=== PATIENT | female | born 1960 | race Caucasian/White ===

== ENCOUNTER 2022-10-24 14:35 | Outpatient (OUT) | payer MEDICARE, SELFPAY ==
--- NOTE | 2022-10-24 16:23 | MISC_ITS ---
PROCEDURE DATE: ??10/24/2022 PROCEDURE:? Trigger point injection right gluteus medius muscle. PREOPERATIVE DIAGNOSIS:? Pain secondary to myofascial spasm, right gluteus medius muscle. POSTOPERATIVE DIAGNOSIS:? Pain secondary to myofascial spasm, right gluteus medius muscle. SOLUTION USED FOR INJECTION:? 2 mL of 2% lidocaine, 2 mL of 0.25% Marcaine, 10 mg of Kenalog, total of 5 mL and 2 mL used for the injection. IMMEDIATE COMPLICATIONS:? None. PROCEDURE:? After informed consent was obtained from the patient, placed in the prone position.? Skin overlying the area was prepped with alcohol.? A 25 gauge 1 ? inch needle was inserted into the substance of the right gluteus medius, approximately 6 cm from midline.? After encountering a positive twitch response, subsequently 2 mL of solution was injection, after test injection.? No indication of intravascular or intraneural needle tip placement or injection.? Patient reports reduction of pain symptoms post procedurally. BAYRON
== END 2022-10-24 14:36 ==
PROVIDERS: PCP Nurse Practitioner Family; Visit Provider Anesthesiology Pain Medicine
DX: M62.838 Other muscle spasm (principal)
CPT/HCPCS: 20552

== ENCOUNTER 2023-02-20 14:37 | Outpatient (OUT) | payer MEDICARE, SELFPAY ==
--- NOTE | 2023-02-20 | CONS_ITS ---
PROCEDURE DATE: ??02/20/2023 PROCEDURE:? Right gluteus medius trigger point injection performed in the office on an outpatient basis. PREOPERATIVE DIAGNOSIS:? Pain secondary to right L5 radiculopathy complicated by myofascial spasm, right gluteus medius muscle. POSTOPERATIVE DIAGNOSIS:? Pain secondary to right L5 radiculopathy complicated by myofascial spasm, right gluteus medius muscle. IMMEDIATE COMPLICATIONS:? None SOLUTION USED FOR INJECTION:? 2 mL of 2% lidocaine, 2 mL of 0.25% Marcaine and 10 mg of Kenalog, total of 5 mL, and 2 mL used for the injection at the site. PROCEDURE:? After informed consent was obtained from the patient, placed in the prone position.? Skin overlying the area was prepped with alcohol.? A 25 gauge, 1 ?? needle inserted into the right gluteus medius muscle.? After encountering < >, there was a positive twitch response, at which point we injected 2 mL of solution.? No indication of intravascular or intraneural needle tip placement or injection.? Patient reports almost 100% reduction in her pain symptoms post procedurally. BAYRON
--- NOTE | 2023-02-20 | CONS_ITS ---
CONSULTATION DATE: ??02/20/2023 TO:? Dr. Rice HISTORY:? Patient presented to the office complaining of 3-710 pain in her right lower back, right buttock area, right lower extremity.? She reports the pain as being sharp in character, with a deep aching component, increased with activities such as standing, walking and performing transitioning maneuvers.? She feels most comfortable in the semi-recumbent position.? Denies any change in bowel and bladder habits or new sensorimotor changes in the lower extremities. EXAM:? Her examination is notable for patient having hypoesthesia along the right L5 dermatome, 3/5 strength of the right extensor hallucis muscle.? Straight leg raise is positive on the right side at 90 degrees with a depressed right Achilles reflex.? She has no clinical signs consistent with myelopathy on today?s visit.? She has severe myofascial spasm of the right gluteus medius muscle. IMPRESSION:? Our impression is patient with chronic pain secondary to right L5 radiculopathy with weakness.? She has undergone physical therapy in the past which, despite this, she had progressive pain and numbness of her right lower extremity.? RECOMMENDATIONS:? I have recommended that she undergo a lumbosacral MRI without contrast.? I have increased the Baclofen 10 mg pills, one pill t.i.d. as tolerated, and to proceed with a trigger point injection of the right gluteus medius muscle on today?s visit.? We have gone over the details of the procedure, as well as discussion of side effects and medication using increasing dose of baclofen.? All her questions were answered.? She agrees to proceed with the outlined plan. Also, of note is that status post her right gluteus medius trigger point injection, she reports having at least an 80% reduction in her pain symptoms.? As part of providing excellent, safe, comprehensive care, the following was completed at our patient's visit: 1. A medication reconciliation and review to ensure accurate knowledge of current/active medications, including asking our patients to inform us about any [id number] medications or herbal remedies/nutritional supplements/alternative remedies. 2. A review to specifically ensure our patients have had annual screening for: elevated body mass index (BMI, see intake chart for exact total), tobacco use, screening for depression, and screening for unhealthy alcohol use.? When screening is concerning, patients are provided with education and the specific recommendation to discuss the concerning health issue and treatment options with their primary care provider. BAYRON
== END 2023-02-20 14:38 | disposition home or self-care (01) ==
PROVIDERS: PCP Family Medicine; Visit Provider Nurse Practitioner
DX: M54.16 Radiculopathy, lumbar region (principal); M62.838 Other muscle spasm; G89.29 Other chronic pain; R53.1 Weakness
CPT/HCPCS: 20552

== ENCOUNTER 2023-02-27 10:46 | Outpatient (RCR) | payer MEDICARE, SELFPAY | END 2023-03-17 15:59 | disposition home or self-care (01) | LOC: PT 10:46 | PROVIDERS: PCP Family Medicine; Visit Provider Anesthesiology Pain Medicine | DX: M54.16 Radiculopathy, lumbar region (principal) | CPT/HCPCS: 97035; 97110; 97140; 97163; G0283 ==

== ENCOUNTER 2023-04-26 12:28 | Outpatient (OUT) | payer MEDICARE, SELFPAY ==
--- NOTE | 2023-04-26 | MR_ITS ---
[address] [address] Patient Name: MARY ESTRADA MRN: [id number] date: 1960 Sex: F Assigned Patient Location: MRI Current Patient Location: MRI Accession/Order Number: [id number] Exam Date: 04/26/2023 12:45 Report Date: 04/26/2023 14:04 At the request of: TATE HAMMER Procedure: MR lumbar spine wo con EXAM: MRI of the lumbar spine without IV gadolinium contrast. REASON FOR EXAM: lumbar neuritis, chronic lumbar pain COMPARISON: CT scan dated 03/23/2021 FINDINGS: No lumbar spine fractures, acute malalignment or acute abnormal marrow signal. No spinal canal mass, hematoma or fluid collection. No substantial posterior disc protrusions. Mild L5-S1 disc space narrowing. No spinal canal stenoses. Mild right L5-S1 neural foraminal stenosis. No other substantial neural foraminal stenoses. Mild right hydroureteronephrosis. Left kidney is not visualized. Partially visualized very large hepatic cyst measuring up to at least 14 cm. Remainder unremarkable. MR/MR lumbar spine wo con IMPRESSION: 1. No acute lumbar spine abnormalities. 2. No moderate or high-grade spinal canal or neural foraminal stenoses. 3. Mild right hydroureteronephrosis. 4. Very large hepatic cyst is partially visualized and measures up to at least 14 cm where visible. Electronically authenticated by: JOSE ALBERTO IVEY Date: 04/26/2023 14:04
== END 2023-04-26 12:29 | disposition home or self-care (01) ==
LOC: MRI 12:28
PROVIDERS: PCP Family Medicine; Visit Provider Anesthesiology Pain Medicine
DX: M54.16 Radiculopathy, lumbar region (principal)
CPT/HCPCS: 72148

== ENCOUNTER 2025-03-31 18:13 | Emergency (ER) | payer MEDICARE, SELFPAY ==
--- OUTSIDE RECORDS SUMMARY | 2018-08-05 06:37 | XMS_ITS | Continuity of Care Document ---
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 [address], [place], [id number], [place]. tel:[phone] Family History Family Member Type Diagnosis Age At Onset No Information Payers Payer name Insurance type Covered constitution party ID Authoriza tion(s) No Information Social History Type Description Quantity Date Captured Comments Sex Female Smoking Status No Information Sexual Orientation Don't Know Gender Identity Female Chief Complaint And Reason For Visit No Information Reason For Referral Reason For Referral No Information History Of Present Illness Encounter Date Complaint History Of Prese nt Illness No Information Functional Status Date Functional Assessmen t No Information Instructions Date Instruction Additional Infor mation No Information Assessments Type Assessment Date No Information Patient Care Teams Name Effective Dates (start - stop) Status Members No Information
[2025-03-31] VITALS (42 sets, daily range): BP systolic 111–166; BP diastolic 63–100; PULSE 65–121; TEMP 36.6; O2SAT 88–97; BMI 30.3
--- NOTE | 2025-03-31 18:29 | CT_ITS ---
The [address] [address] Patient Name: MARY ESTRADA MRN: [id number] date: 1960 Sex: F Assigned Patient Location: ER Current Patient Location: ED.MAIN Accession/Order Number: [id number] Exam Date: 03/31/2025 19:15 Report Date: 03/31/2025 19:52 At the request of: TINY HOUSER DO Procedure: CT abdomen pelvis wo con CT ABDOMEN AND PELVIS WITHOUT INTRAVENOUS CONTRAST: CLINICAL HISTORY: vomiting, generalized abdominal pain, h/o SBO COMPARISON: 03/23/2021 TECHNIQUE: Spiral images were obtained through the abdomen and pelvis without intravenous contrast. This CT exam was performed using one or more following dose reduction techniques: Automated exposure control, adjustment of the mA and/or kV according to patient size, or use of iterative reconstruction technique. FINDINGS: Lung Bases: [No focal opacity] Organs:Right hepatic cyst. Fatty liver.[Cholecystectomy. Spleen, adrenals, kidneys pancreas unchanged. Right kidney pelvis and ureteral thickening noted likely chronic finding. GI: Dilated fluid-filled loops of bowel with congested mesentery suggestive of small bowel obstruction. Transition point is not identified. Distal colonic diverticulosis noted.[ Pelvis:[Bladder unremarkable. Uterus grossly unremarkable.] Peritoneum/Retroperitoneum:Mild to moderate plaque involving the nonaneurysmal aorta. No free air or fluid.[ Abd wall/Bones:Degenerative changes. No suspicious osseous lesion.[ CT/CT abdomen pelvis wo con IMPRESSION: Dilated fluid-filled loops of small bowel suggestive of small bowel obstruction. Transition point not identified. Urothelial thickening right renal pelvis and ureter noted similar prior examination. This could be infectious inflammatory or related to chronic scarring. Impression dictated by: Peter Harris M.D. 03/31/2025 7:52 PM Dictation Location: [place] [address] Electronically authenticated by: [id number] Y Date: 03/31/2025 19:52
--- NOTE | 2025-03-31 18:29 | ECG_ITS ---
The 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 Measurements Intervals [place] Rate: 109 P: 20 TN: 130 QRS: 36 QRSD: 78 T: 200 QT: 308 QTc: 372 Interpretive Statements 1120 Sinus tachycardia 4564 Twave abnormality, possible lateral ischemia 4664 Twave abnormality, possible inferior ischemia 9150 abnormal ECG Compared to ECG 07/18/2020 19:32:24 Possible ischemia now present Sinus rhythm no longer present Electronically Signed On 03-31-2025 19:37:40 EST by MARTITA ROSS M.D.
--- NOTE | 2025-03-31 18:34 | ED.GENADUL1 ---
HPI HPI - General Adult General Chief complaint: Abdominal Pain Stated complaint: VOMITING FOR 3 DAYS/ READY TO PASS OUT Time Seen by Provider: 03/31/25 18:20 Source: patient Mode of arrival: walk-in Limitations: no limitations History of Present Illness HPI narrative: Patient is a 64-year-old female presenting to the emergency department for evaluation of vomiting. Patient states that over the last 3 days she has been having persistent vomiting and generalized abdominal pain. She cannot hold down any foods or liquids. She cannot take her medications because she has been vomiting so much. She states her last bowel movement was 3 days ago. She has not having any bowel movements today or passing any gas. She states she has a history of bowel obstruction 8 years ago. She also states she has 1 kidney, left with a history of CKD. She also has history of Parkinson disease and diabetes. She denies any chest pain or shortness of breath. Related Data Home Medications ?Medication ?Instructions ?Recorded ?Confirmed atorvastatin 40 mg tablet 40 mg PO DAILY 02/21/23 02/21/23 baclofen 10 mg tablet 10 mg PO TID 02/21/23 02/21/23 gabapentin 100 mg capsule 100 mg PO BID 02/21/23 02/21/23 lisinopril 20 mg tablet 25 mg PO DAILY 02/21/23 02/21/23 metformin 1,000 mg tablet 1,000 mg PO BID 02/21/23 02/21/23 ondansetron 4 mg disintegrating 4 mg PO Q6H 02/21/23 02/21/23 tablet prazosin 2 mg capsule 2 mg PO QPM 02/21/23 02/21/23 ropinirole 0.5 mg tablet 0.75 mg PO DAILY 02/21/23 02/21/23 Allergies Allergy/AdvReac Type Severity Reaction Status Date / Time Penicillins Allergy Unknown Verified 02/21/23 07:56 Opioid HPI Opioid Management Most Recent Opioid Data: Last Pain Scale 8 Today, 18:36 Last MAR Pain Assessment Today, 18:36 Review of Systems ROS Status of ROS 10 or more systems reviewed and unremarkable except as noted in history and below PFSH PFSH Social History Little interest or pleasure in doing things: not at all Feeling down, depressed, or hopeless: not at all Exam Narrative Exam Narrative: CONSTITUTIONAL: Patient appears in acute distress, nauseous and holding an emesis basin, answering questions and follow commands appropriately SKIN: Was warm and mildly diaphoretic. EYES: No scleral icterus. EARS, NOSE, THROAT: Dry mucous membranes. RESPIRATORY: Clear to auscultation bilaterally, no wheezes, crackles, or stridor, no use of accessory muscles CARDIOVASCULAR: Tachycardic rate and regular rhythm. There is no S3, S4, murmur, rub. GASTROINTESTINAL: Abdomen is generally tender to palpation throughout. She is distended. No rebound tenderness or guarding. MUSCULOSKELETAL: No peripheral edema. Pill-rolling tremor. NEUROLOGIC: Patient is awake and alert. Facies were symmetrical. Constitutional Vital Signs, click to edit/add: Last Vital Signs Temp 97.8 F 03/31/25 18:17 Pulse 121 H 03/31/25 18:17 Resp 18 03/31/25 18:17 BP 160/100 H 03/31/25 18:17 Pulse Ox 88 L 03/31/25 18:50 O2 Del Method Room Air 03/31/25 18:50 O2 Flow Rate 2 03/31/25 18:50 Course Vital Signs Vital signs: Vital Signs Temperature 97.8 F 03/31/25 18:17 Pulse Rate 121 H 03/31/25 18:17 Respiratory Rate 18 03/31/25 18:17 Blood Pressure 160/100 H 03/31/25 18:17 Pulse Oximetry 94 L 03/31/25 18:17 Oxygen Delivery Method Room Air 03/31/25 18:17 Temperature 97.8 F 03/31/25 18:17 Pulse Rate 121 H 03/31/25 18:17 Respiratory Rate 18 03/31/25 18:17 Blood Pressure 160/100 H 03/31/25 18:17 Pulse Oximetry 88 L 03/31/25 18:50 Oxygen Delivery Method Room Air 03/31/25 18:50 Oxygen Delivery Flow Rate 2 03/31/25 18:50 Medical Decision Making MDM Narrative Medical decision making narrative: Patient is a 64-year-old female presenting to the emergency department with 3-day history of vomiting and generalized abdominal pain. Her vital signs on arrival were significant for hypertension and tachycardia, otherwise within normal limits. She is afebrile and hemodynamically stable. Differential diagnose includes SBO, diverticulitis, perforated viscus, ACS, appendicitis, or other acute intra-abdominal pathologies. IV was established and laboratory studies were obtained. CT abdomen/pelvis with IV contrast was ordered. She was given 1 L bolus normal saline, IV Zofran, and IV Dilaudid for symptomatic treatment. 12 Lead EKG: Sinus tachycardia at a rate of 109. Normal axis. No ST segment elevations. There are T wave inversions and ST segment depressions throughout the inferiolateral leads QRS, AR, and QTc interval within normal limits. No prior EKG for comparison. Final impression: Sinus tachycardia with ST segment depressions, concerning for ischemia. No evidence of STEMI. Patient will be signed out to Dr. Corley pending laboratory studies and CT abdomen/pelvis. FINAL IMPRESSION: #Acute abdominal pain, rule out small bowel obstruction DISPOSITION: Signed out to oncoming ED physician CONDITION: Fair Lab Data Labs: Lab Results 03/31/25 Range/Units 18:25 WBC 11.7 H (4.0-11.0) 10^3/uL RBC 5.18 (4.20-5.40) 10^6/uL Hgb 15.9 (12.0-16.0) g/dL Hct 48.2 H (36.0-48.0) % MCV 93.1 (81.0-99.0) fL MCH 30.7 (26.7-34.0) pg MCHC 33.0 (29.9-35.2) g/dL RDW 14.1 (11.0-15.0) % Plt Count 375 (150-450) 10^3/uL MPV 10.3 (9.5-13.5) fL Neut % (Auto) 62.0 (43.0-75.0) % Lymph % (Auto) 27.9 (20.5-60.0) % Todd % (Auto) 9.1 (1.7-12.0) % Eos % (Auto) 0.4 L (0.9-7.0) % Baso % (Auto) 0.3 (0.2-2.0) % Neut # (Auto) 7.3 H (1.4-6.5) 10^3/uL Lymph # (Auto) 3.3 (1.2-3.8) 10^3/uL Todd # (Auto) 1.1 H (0.3-0.8) 10^3/uL Eos # (Auto) 0.1 (0.0-0.7) 10^3/uL Baso # (Auto) 0.0 (0.0-0.1) 10^3/uL Abs Immat Gran (auto) 0.03 (0.00-0.03) 10^3/uL Imm/Tot Granulo (auto) 0.3 (0.0-0.5) % Sodium 140 (136-145) mmol/L Potassium 4.3 (3.5-5.1) mmol/L Chloride 98 (98-107) mmol/L Carbon Dioxide 25.0 (21.0-32.0) mmol/L Anion Gap 21.3 BUN 26.0 H (7.0-18.0) mg/dL Creatinine 1.64 H (0.55-1.02) mg/dL Est GFR ( Amer) 38 L (>=60 mL/min/1.73m^2) Est GFR (Non-Af Amer) 32 L (>=60 mL/min/1.73m^2) BUN/Creatinine Ratio 15.9 Glucose 221 H (74-106) mg/dL Calcium 10.4 H (8.5-10.1) mg/dL Total Bilirubin 0.7 (0.2-1.0) mg/dL AST 24 (15-37) U/L ALT 17 (14-59) U/L Alkaline Phosphatase 71 (46-116) U/L Troponin I High Sens 6.6 (4.0-51.3) pg/mL Total Protein 9.2 H (6.4-8.2) g/dL Albumin 4.2 (3.4-5.0) g/dL Globulin 5.0 g/dL Albumin/Globulin Ratio 0.8 Discharge Plan Discharge Patient Disposition: Still a Patient
[2025-03-31 18:36] LABS: Hematocrit 48.2 % (36.0-48.0); Hemoglobin 15.9 g/dL (12.0-16.0); Immature Granulocytes Abs Auto 0.03 10^3/uL (0.00-0.03); Immature Granulocytes Pct Auto 0.3 % (0.0-0.5); Lymphocytes Absolute Auto 3.3 10^3/uL (1.2-3.8); Mean Corpuscular HGB Conc 33.0 g/dL (29.9-35.2); Mean Corpuscular Hemoglobin 30.7 pg (26.7-34.0); Mean Corpuscular Volume 93.1 fL (81.0-99.0); Platelet Count 375 10^3/uL (150-450); Red Blood Count 5.18 10^6/uL (4.20-5.40); White Blood Count 11.7 10^3/uL (4.0-11.0)
[2025-03-31] MEDS: HYDROMORPHONE HCL 1 MG/ML CARTRIDGE IV ×2 (18:36→23:55)
[2025-03-31] MEDS: 0.9 % SODIUM CHLORIDE 1,000 ML 1000 ML IV (18:36)
[2025-03-31 18:51] LABS: Alanine Aminotransferase 17 U/L (14-59); Albumin Globulin Ratio 0.8; Albumin Level 4.2 g/dL (3.4-5.0); Alkaline Phosphatase 71 U/L (46-116); Anion Gap 21.3; Aspartate Amino Transferase 24 U/L (15-37); Blood Urea Nitrogen 26.0 mg/dL (7.0-18.0); Calcium 10.4 mg/dL (8.5-10.1); Carbon Dioxide 25.0 mmol/L (21.0-32.0); Chloride 98 mmol/L (98-107); Estimated GFR (African America 38 (>=60 mL/min/1.73m^2); Estimated GFR (Non-African Ame 32 (>=60 mL/min/1.73m^2); Globulin 5.0 g/dL; Glucose 221 mg/dL (74-106); Potassium 4.3 mmol/L (3.5-5.1); Sodium 140 mmol/L (136-145); Total Protein 9.2 g/dL (6.4-8.2)
--- OUTSIDE RECORDS SUMMARY | 2025-03-31 19:32 | XMS_ITS | CCD ---
Author Organization [facility] Care Team Providers Care Development Writer Name Role Phone PERALTA ., DR JANEY Tolliver Admitting Unavailable PERALTA ., DR JANEY Tolliver Attending Unavailable [facility] Primary [facility] Unavailable BERMUDEZ .INEZ Consulting Unavailable PERALTA ., DR JANEY Tolliver Admitting Unavailable PERALTA ., DR JANEY Tolliver Attending Unavailable [facility]available PERALTA ., DR JANEY Tolliver Consulting Unavailable HOLA ROBLES Consulting Unavailable LAKSHMIPATHY ., NARENDJOELLE Consulting Wilda vailable PERALTA ., DR JANEY Tolliver Admitting Unavailable PERALTA ., DR JANEY Tolliver Attending Unavailable LAKSHMIPATHY ., NARENDJOELLE Consulting Wilda vailable [facility] Primary Care Unavailable HALKER .MAY Consulting Unavailable NICHOLAS, LIZZIE Admitting Unavailable NICHOLAS, LIZZIE Attending Unavailable NICHOLAS, LIZZIE Primary Care Unavailable NICHOLAS, LIZZIE Admitting Unavailable NICHOLAS, LIZZIE Attending Unavailable NICHOLAS, [facility] Primary Care Unavailable LIZZIE PETERSON Consulting Unavailable NICHOLAS, LIZZIE Primary Care Unavailable PAY ., DR MATUTE Admitting Unavailable PAY ., DR MATUTE Attending Unavailable SARAH, DR SHELLEY Sr Consulting Unavailable PAY ., DR MATUTE Consulting Unavailable OSBALDOCHNY .JAIME Consulting Unavailabl e PERALTA ., DR JANEY Tolliver Admitting Unavailable PERALTA ., DR JANEY Tolliver Attending Unavailable BERMUDEZ .INEZ Consulting Unavailable [facility] Primary Care Unavailable [facility] Care Unavailable PERALTA ., DR JANEY Tolliver Consulting Unavailable LAKSHMIPATHY ., NARENDJANETATH Admitting Wilda vailable LAKSHMIPATHY ., NARDARIUSATH Attending Wilda vailable [facility] Consulting Unavailable LAKSHMIPATHY ., NARENDRANATH Consulting Wilda vailable MANDONA, PADMA Consulting Unavailable Sanchez Rice Primary Care Physician [phone] MD Sanchez Rice Referring Unavailable MD Sanchez Rice Attending Unavailable MD Sanchez Rice Admitting Unavailable MD Sanchez Rice Attending Unavailable MD Sanchez Rice Attending Unavailable MD Sanchez Rice Attending Unavailable MD Sanchez Rice Attending Unavailable MD Sanchez Rice Attending Unavailable MD Sanchez Rice Attending Unavailable MD Sanchez Rice Attending Unavailable MD Sanchez Rice Attending Unavailable MD Sanchez Rice Attending Unavailable MD Sanchez Rice Attending Unavailable MD Sanchez Rice Admitting Unavailable MD Sanchez Rice Attending Unavailable MD Sanchez Rice Admitting Unavailable MD Sanchez Rice Attending Unavailable MD Sanchez Rice Attending Unavailable REGULO ROSA Attending Unavailable REGULO ROSA Attending Unavailable NORA SOLOMON Attending Unavailable Sanchez Rice MD Primary Care Provider Sanchez Rice MD Primary Care Provider Abram, STORE PRODUCT DEMONSTRATOR Julianna L Attending Unavailable Abram, STORE PRODUCT DEMONSTRATOR Julianna L Admitting Unavailable Abram, STORE PRODUCT DEMONSTRATOR Julianna L Attending Unavailable Abram, STORE PRODUCT DEMONSTRATOR Julianna L Attending Unavailable Sanchez Rice Attending Unavailable Abram, Julianna L Attending Unavailable Abram, Julianna L Admitting Unavailable Allergies Allergy ClassificationReported Allergen(s)Allergy TypeDate of OnsetReaction(s) Facility (2 sources)PenicillinsDrug allergy (disorder)44-46-8763[facility] (8 sources)Penicillin; Translations: [penicillin]Drug AllergyAnaphylaxis (disorder), Urticaria (disorder)[facility] ([facility] sources)PenicillinsDrug Xxkqcyhytqe04-92-4876JinakLCUI [facility] Medications Current Medications MedicationDrug Class(es)DatesSig (Normalized)Sig (Original)0.25 MG, 0.5 MG Dose 3 ML semaglutide 0.68 MG/ML Pen Injector [Ozempic] (1 source)Start: 21-98-1819jtruwr 0.5 mg by subcutaneous injection every week Ozempic 2 mg/3 mL (0.25 mg or 0.5 mg dose) subcutaneous solution 0.5 mg, SubCutaneous, qWeek, # 3 EA, Refills(s) 1, Pharmacy: [id number], 164, cm, 10/04/22 16:25:00 EDT, Height/Length Dosing, 99.8, kg, 10/04/22 16:25:00 EDT, Weight Dosing Start Date: 10/24/22 Status: Orderedcarbidopa 25 mg / levodopa 100 mg oral tablet (8 sources)Aromatic Amino Acid Decarboxylation Inhibitor, Aromatic Amino Acid Start: 28-67-4895selahwjgx-levodopa (Sinemet) 25-100 MG tablet Indications: Parkinson's disease without dyskinesia or fluctuating manifestations (CMS/HCC) TAKE 1 AND 1/2 TABLETS BY MOUTH FOUR TIMES A DAY (8AM, NOON, 4PM, 8PM) 540 tablet 1 12/31/2023 ActiveStart: 24-94-6206lsidvlcij-levodopa 25 mg-100 mg Tab See Instructions, 1.5 tabs every 4 hours Start Date: 10/02/23 Status: Ordered Start: 91-40-5654tcal 1 tablet by mouth four times dailycarbidopa-levodopa 25 mg-100 mg ER Tab 1 tab(s), Oral, QID, Refill(s) 0, 8am, noon and 4pm, 8pm Start Date: 02/28/23 Status: Ordered0.5 ml dulaglutide 1.5 mg/ml auto-injector (7 sources)GLP-1 Receptor AgonistStart: 05-31-2023 End: 30-90-3710caenta 0.75 mg by subcutaneous injection every weekTrulicity Pen 0.75 mg/0.5 mL subcutaneous solution 0.75 mg, SubCutaneous, qWeek, # 12 EA, Refills(s) 1, Pharmacy: [facility]/pharmacy #[id number], 161.2, cm, 05/31/23 13:03:00 EST, Height/Length Dosing, 91.7, kg,05/31/23 13:03:00 EST, Weight Dosing Start Date: 05/31/23 Status: Orderedgabapentin 300 mg oral capsule (11 sources)Anti-epileptic AgentStart: 79-38-2492lbql 1 capsule by mouth twice dailygabapentin 300 mg Cap 300 mg = 1 cap(s), Oral, BID, # 60 cap(s), Refills(s) 2, Pharmacy: [facility]/pharmacy #[id number], 161, cm, 10/02/23 13:48:00 EDT, Height/Length Dosing, 92.9, kg, 10/02/23 13:48:00 EDT, Weight Dosing Start Date: 10/02/23 Status: OrderedStart: 72-50-1159bvwk 1 capsule by mouth twice dailygabapentin 100 mg Cap See Instructions, TAKE 1 CAPSULE BY MOUTH TWICE A DAY, # 60 cap(s), Refills(s) 1, Pharmacy: [id number], 161.2, cm, 02/28/23 13:02:00 EDT, Height/Length Dosing, 94.7, kg, 02/28/23 13:02:00 EDT, Weight Dosing Start Date: 05/22/23 Status: OrderedStart: 53-83-2167zcju 1 capsule by mouth twice daily gabapentin 100 mg Cap 100 mg = 1 cap(s), BID, TAKE 1 CAPSULE BY MOUTH TWICE A DAY, # 180 cap(s) Start Date: 10/04/22 Status: Orderedketoconazole 20 mg/ml topical cream (3 sources)Azole AntifungalStart: 81-24-1386hrkjs 60 g topically twice daily ketoconazole Top 2% Crm See Instructions, 60 gm, Refill(s) 0, APPLY TO AFFECTED AREA TWICE A DAY, [id number], 161.2, cm, 05/31/23 13:03:00 EST, Height/Length Dosing, 91.7, kg, 05/31/23 13:03:00 EST, Weight Dosing Start Date: 09/11/23 Status: OrderedStart: 31-83-8923umntt 60 g topically twice daily ketoconazole Top 2% Crm See Instructions, 60 gm, Refill(s) 0, APPLY TO AFFECTED AREA TWICE A DAY, [id number], 161.2, cm, 02/28/23 13:02:00 EDT, Height/Length Dosing, 94.7, kg, 02/28/23 13:02:00 EDT, Weight Dosing Start Date: 05/22/23 Status: OrderedStart: 37-08-8803kgwzcpldydru Top 2% Crm See Instructions, Refill(s) 0, apply to affected area twice a day Start Date: 01/04/23 Status: Orderedlisinopril 2.5 mg oral tablet (10 sources)Angiotensin Converting Enzyme InhibitorStart: 82-09-0178beha 1 tablet by mouth once dailylisinopril 2.5 mg Tab 2.5 mg = 1 tab(s), Oral, Daily, # 90 tab(s), Refills(s) 0 Start Date: 10/04/22Status: OrderedmetFORMIN hydrochloride 1000 mg oral tablet (11 sources)BiguanideStart: 49-32-3445cmqv 1 tablet by mouth twice daily metformin 1000 mg Tab 1,000 mg = 1 tab(s), Oral, BID, # 180 tab(s), Refills(s) 0 Start Date: 10/04/22 Status: OrderedmetFORMIN (Glucophage) 1000 MG tablet every 12 (twelve) hours Snurtr84 hr nicotine 0.583 mg/hr transdermal system (1 source)Cholinergic Nicotinic AgonistStart: 48-57-7158gipbtlpx 14 mg/24 hr Transderm ER Film 1 patch(es), Topical, Daily, 30 EA, Refill(s) 0, apply to ski n. No smoking while on the patch., [facility]/pharmacy #[id number], 161, cm, 10/02/23 13:48:00 EDT, Height/Length Dosing, 92.9, kg, 10/02/23 13:48:00 EDT, Weight Dosing Start Date: 10/02/23 Status: OrderedOzempic 2 mg/3 mL (0.25 mg or 0.5 mg dose) subcutaneous solution (1 source)Start: 58-12-9688dhpena 0.5 mg by subcutaneous injection every week Ozempic 2 mg/3 mL (0.25 mg or 0.5 mg dose) subcutaneous solution 0.5 mg, SubCutaneous, qWeek, # 3 EA, Refills(s) 1, Pharmacy: [id number], 164, cm, 10/04/22 16:25:00 EDT, Height/Length Dosing, 99.8, kg, 10/04/22 16:25:00 EDT, Weight Dosing Start Date: 10/24/22 Status: Orderedprazosin 2 mg oral capsule (11 sources)alpha-Adrenergic BlockerStart: 51-57-5995orhe 1 capsule by mouth once daily at bedtimeprazosin 2 mg oral capsule See Instructions, TAKE 1 CAPSULE BY MOUTH EVERYDAY AT BEDTIME, # 90 cap(s), Refills(s) 1, Pharmacy: [id number], 161.2, cm, 05/31/23 13:03:00 EST, Height/Length Dosing,91.7, kg, 05/31/23 13:03:00 EST, Weight Dosing Start Date: 09/11/23 Status: OrderedrOPINIRole 1 mg oral tablet (19 sources)Nonergot Dopamine AgonistStart: 32-75-3434gJMYGVBtcm (Requip) 1 MG tablet Indications: RLS (restless legs syndrome) Take 1 1/2 -2 one to three hours before bedtime 60 tablet 5 02/20/2024 ActiveStart: 31-31-1053nJCULPXpik (Requip) 1 MG tablet Indications: RLS (restless legs syndrome) Take 1 1/2 -2 one to three hours before bedtime 60 tablet 5 02/20/2024 ActiveStart: 10-04-2022 End: 91-35-2449meoe 1 tablet by mouth at bedtimeropinirole 1 mg Tab 1 mg = 1 tab(s), Bedtime, TAKE 1 TABLET BY MOUTH AT BEDTIME Start Date: 10/04/22Status: OrderedStart: 34-38-1613gsnk 3 tablets by mouth at bedtimeropinirole 0.25 mg Tab 0.75 mg = 3 tab(s), Oral, Bedtime, Refills(s) 0 Start Date: 09/14/20 Status: O rdered End: 89-73-1931semr 1 tablet by mouth at bedtimerOPINIRole (Requip) 0.25 MG tablet Take 0.25 mg by mouth at bedtime 02/20/2024 Discontinued Completed/Discontinued Medications MedicationDrug Class(es)DatesSig (Normalized)Sig (Original)atorvastatin 40 mg oral tablet (11 sources)HMG-CoA Reductase InhibitorStart: 15-67-0857dtmg 1 tablet by mouth once dailyatorvastatin 40 mg Tab 40 mg = 1 tab(s), Daily, TAKE 1 TABLET BY MOUTH EVERY DAY, # 90 tab(s) StartDate: 10/04/22 Status: Orderedbaclofen 10 mg oral tablet (3 sources)gamma-Aminobutyric Acid-ergic AgonistStart: 58-34-7684xtla 1 tablet by mouth three times daily at bedtimebaclofen 10 mg Tab 10 mg = 1 tab(s), TID, TAKE 1 TABLET BY MOUTH AT BEDTIME Start Date: 10/04/22 Status: OrderedStart: 59-31-1730cuxk 1 tablet by mouth once daily at bedtimebaclofen 10 mg Tab 10 mg = 1 tab(s), Daily, TAKE 1 TABLET BY MOUTH AT BEDTIME Start Date: 10/04/22 Status: Orderedmirtazapine 30 mg oral tablet (11 sources)Start: 22-82-2057bpwg 1 tablet by mouth once daily at bedtime mirtazapine 30 mg Tab 30 mg = 1 tab(s), Oral, Bedtime, TAKE 1 TABLET BY MOUTH EVERY DAY AT BEDTIME,# 30 tab(s), Refills(s) 1, Pharmacy: [facility]/pharmacy #[id number], 161.2, cm, 02/28/23 13:02:00 EDT, Height/Length Dosing, 94.7, kg, 02/28/23 13:02:00 EDT, Weight Dosing Start Date: 03/15/23 Status: OrderedStart: 00-51-7961orvr 1 tablet by mouth once daily at bedtimemirtazapine 30 mg Tab 30 mg = 1 tab(s), Bedtime, TAKE 1 TABLET BY MOUTH EVERY DAY AT BEDTIME, # 90 tab(s) Start Date: 10/04/22 Status: OrderedStart: 85-40-8013fkhb 1 tablet by mouth once dailymirtazapine 7.5 mg oral tablet 7.5 mg = 1 tab(s), Oral, Daily, Refills(s) 0 Start Date: 09/14/20 Status: Ordered Problems Active Problems Problem ClassificationProblemDateDocumented DateEpisodic/ChronicAnal and rectal conditions (3 sources)Perirectal -34-9003XdgtgngrJvvkupv disorders (10 sources)Generalized anxiety disorder; Translations: [Anxiety]Onset: 358219-31-1912XngpkmpBcfptwk kidney disease (4 sources)Chronic kidney disease, unspecified; Translations: [Chronic kidney disease]Onset: 917323-90-8104DgkovmoIqhyclz on above:Noted in 10/05/2022 [facility] page 7 and 10/04/2022 office note, added per outpatient CDI policy.Deficiency and other anemia (1 source)Anemia, unspecified; Translations: [ANEMIA UNSPECIFIED]Onset: 23-42-5256WgvzwavyZemdlpea mellitus with complications (5 sources)Type 2 diabetes mellitus with hyperglycemia; Translations: [Type 2 diabetes mellitus with diabetic chronic kidney disease]Onset: 01-73-0134Hhoxtpa Diabetes mellitus without complication (10 sources)Type 2 diabetes mellitus without complications; Translations: [Type 2 diabetes mellitus]Onset: 817097-64-2749FtrsnvwLumzzga on above:linked per outpatient CDI policy.Disorders of lipid metabolism (8 sources)Hyperlipidemia, unspecified; Translations: [Hyperlipidemia]Onset: 108484-00-8891TxqlwrqFfsdjasuk hypertension (4 sources)Essential -98-2162XclwwvaIdsjpjh and fatigue (6 sources)Fatigue; Translations: [Chronic fatigue, unspecified]Onset: 832400-28-5939UfkglcpEsflclm and fatigue (4 sources)Other fatigue; Translations: [OTHER FATIGUE]Onset: 36-22-0715Servqism Mood disorders (9 sources)Chronic depression; Translations: [Depressive disorder]Onset: 966297-70-2599YerauzvZbpz disorders (1 source)Mood disorders; Translations: [DEPRESSION UNSPECIFIED]Onset: 44-02-4963Evstb aftercare (1 source)Other residential (current) drug therapy; Translations: [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]Onset: 93-93-2672RigndupmYyahd connective tissue disease (3 sources)Muscle mpgifwnh69-34-1970HfgzqwsxSjeus hereditary and degenerative nervous system conditions (1 source)Restless legs syndrome; Translations: [RESTLESS LEGS SYNDROME]Onset: 49-14-4147RcoqyynEmjbw hereditary and degenerative nervous system conditions (11 sources)Restless legs; Translations: [Restless legs syndrome]Onset: 032443-32-4967YycghufJqvdi liver diseases (4 sources)Liver cyst; Translations: [Other specified diseases of liver] 96-87-4362OsqxjrvQblet lower respiratory disease (2 sources)Misja95-40-2937BozzwlkeEnzxh nervous system disorders (1 source)Zxktafirwg26-83-1855RayzyetNdtek nervous system disorders (6 sources)Chronic pain; Translations: [Other chronic pain]Onset: 11-02-2023 93-68-8843SpzijhuGpslw nervous system disorders (4 sources)Vbnnwy75-03-5160LetfitcwHlccr nutritional; endocrine; and metabolic disorders (1 source)Obesity, unspecified; Translations: [OBESITY UNSPECIFIED]Onset: 61-52-5625ZojxsnzXxctv nutritional; endocrine; and metabolic disorders (1 source)Morbid (severe) obesity due to excess calories; Translations: [MORBID SEVERE OBES D/T EXCESS RISA]Onset: 17-91-1200RcajjqqVnata nutritional; endocrine; and metabolic disorders (1 source)Body mass index (BMI) 35.0-35.9, adult; Translations: [BODY MASS INDEX BMI 35.0-35.9 ADULT]Onset: 44-53-2128GimzqxtGnsjm nutritional; endocrine; and metabolic disorders (6 sources)Body mass index 30+ - obesity; Translations: [Obesity, unspecified] 87-36-7210KhewhiyLjfyv nutritional; endocrine; and metabolic disorders (3 sources)Morbid lgigdcd58-74-1541TqrzwehNpmmz nutritional; endocrine; and metabolic disorders (6 sources)Obesity; Translations: [Obesity, unspecified]Onset: 11-02-2023 35-30-1062MmbfslnBqetn screening for suspected conditions (not mental disorders or infectious disease) (1 source)Encounter for screening for malignant neoplasm of rectum; Translations: [ENC SCREEN MALIG NEOPLASM RECTUM]Onset: 61-58-1240FuoqszoiAzjls skin disorders (3 sources)Lircpyat65-91-1316JemfiwyjElwfwmoj codes; unclassified (1 source)Sleep apnea, unspecified; Translations: [SLEEP APNEA UNSPECIFIED] Onset: 21-34-0675ThtvrbzTwfcbhzr codes; unclassified (11 sources)Obstructive sleep apnea syndrome; Translations: [Obstructive sleep apnea (adult) (pediatric)]Onset: 221412-01-6307PosogeaIlpmfrns codes; unclassified (6 sources)Daytime somnolence; Translations: [Other hypersomnia]Onset: 30-82-619395566010-70-9567CjpscdjVgkxggiv codes; unclassified (4 sources)Xckammpp34-30-3108JhyegwviZpxmlftcy and history of mental health and substance abuse codes (3 sources)Tobacco use and exposure - bjtnkuz54-96-6014DfgxpniHrjbwxboucq; intervertebral disc disorders; other back problems (14 sources)Spondylosis without myelopathy or radiculopathy, lumbar region; Translations: [Other intervertebraldisc degeneration, lumbar region]Onset: 61-24-3073IiywdxfYkkfsblcr-related disorders (4 sources)Nicotine dependence, cigarettes, uncomplicated; Translations: [Smoker]Onset: 499273-54-6138GxefamvFnuqnpc on above:Added secondary to documentation in Social History.Unclassified (8 sources)Parkinson's disease; Translations: [Parkinson's disease without dyskinesia or fluctuating manifestations]Onset: hronic Unclassified (1 source)LOW BACK PAIN, UNSPECIFIED; Translations: [LOW BACK PAIN, UNSPECIFIED] Onset: 08-18-2022 Past or Other Problems Problem ClassificationProblemDateDocumented DateEpisodic/ChronicFluid and electrolyte disorders (1 source)Dehydration; Translations: [DEHYDRATION]Onset: 54-63-7740Asuyamls Genitourinary symptoms and ill-defined conditions (1 source)Personal history of urinary (tract) infections; Translations: [PERS HX URINARY TRACT INFECTIONS]Onset: 31-29-4993QraqxnzbQblmjehgkajpt and screening for infectious disease (3 sources)Infectious disease carrierOnset: 252846-39-1113DxawxlwvAayzfhc on above:ESBL E coli in urine 12/31, 01/03/19Other aftercare (1 source)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; Translations: [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 GO ROUND OPERATOR USE ORAL HYPOGLYCEMIC DX]Onset: 76-32-9674YzyctnvgGadsi connective tissue disease (4 sources)Other muscle spasm; Translations: [OTHER MUSCLE SPASM]Onset: 67-66-3973YmuhjhxbGahma connective tissue disease (8 sources)Other symptoms and signs involving the musculoskeletal system; Translations: [Other musculoskeletalsymptoms referable to limbs]Onset: 859787-11-4876NqrvtlucTweai nervous system disorders (6 sources)Paresthesia; Translations: [Paresthesia of skin]Onset: 11-02-2023 56-26-5785PrnrgdgcGpnjtbl tract infections (1 source)Urinary tract infection, site not specified; Translations: [UTI SITE NOT SPECIFIED]Onset: 80-16-3047Neyjeiqn Results Test NameValueInterpretationReference RangeFacilityReminderson 01-27-2025 RemindersReminders From: Julianna Morrissey To: [facility] - Clinical; Sent: 01/26/2025 08:15:51 EDT Show up: 01/26/2025 08:15:00 EDT Subject: Ambulatory Reminder Due Date/Time: 01/27/2025 08:14:00 EDT HGBA1C is 8.1. I am going to send in another diabetes medication she will need to start taking. shewill need to schedule a follow up in 3 months for a repeat HGAB1C to make sure it is coming down with the new med Results: Date Result Name Ind Value Ref Range 01/23/2025 10:29 WBC 10.6 E9/L (4.0 - 11.0) 01/23/2025 10:29 RBC 4.6 E12/L (4.3 - 5.9) 01/23/2025 10:29 HGB 13.9 gm/dL (12.0 - 16.0) 01/23/2025 10:29 Hct 41.9 % (34.0 - 46.0) 01/23/2025 10:29 MCV 90.7 fL (80.0 - 100.0) 01/23/2025 10:29 MCH 30.0 pg (27.0 - 34.0) 01/23/2025 10:29 MCHC 33.0 gm/dL (31.4 - 36.0) 01/23/2025 10:29 RDW (H) 15.8 % (10.9 - 14.2) 01/23/2025 10:29 Platelet 284.0 E9/L (150.0 - 500.0) 01/23/2025 10:29 MPV 8.6 fL (6.4 - 10.8) 01/23/2025 10:29 Neutro Auto 62.7 % (36.0 - 75.0) 01/23/2025 10:29 Lymph Auto 30.6 % (14.0 - 50.0) 01/23/2025 10:29 Carter Auto 5.0 % (4.0 - 14.0) 01/23/2025 10:29 Eos Auto 1.5 % (0.0 - 8.0) 01/23/2025 10:29 Basophil Auto 0.2 % (0.0 - 2.0) 01/23/2025 10:29 Neutro Absolute 6.6 E9/L (2.0 - 7.5) 01/23/2025 10:29 Lymph Absolute 3.2 E9/L (1.0 - 4.0) 01/23/2025 10:29 Carter Absolute 0.5 E9/L (0.2 - 1.0) 01/23/2025 10:29 Eos Absolute 0.2 E9/L (0.0 - 0.5) 01/23/2025 10:29 Basophil Absolute 0.0 E9/L (0.0 - 0.2) 01/23/2025 10:29 Glucose Lvl 191 mg/dL (55 - 199) 01/23/2025 10:29 BUN 10 mg/dL (5 - 21) 01/23/2025 10:29 Creatinine 1.0 mg/dL (0.5 - 1.3) 01/23/2025 10:29 eGFR 63 mL/min/1.73 m2 (>=59 - ) 01/23/2025 10:29 BUN/Creat Ratio 10 (10 - 20) 01/23/2025 10:29 Sodium Lvl 136 mmol/L (135 - 145) 01/23/2025 10:29 Potassium Lvl 4.3 mmol/L (3.5 - 5.3) 01/23/2025 10:29 Chloride 103 mmol/L (101 - 111) 01/23/2025 10:29 CO2 21 mmol/L (21 - 31) 01/23/2025 10:29 AGAP 16 mEq/L (6 - 16) 01/23/2025 10:29 Calcium Lvl 9.9 mg/dL (8.9 - 11.1) 01/23/2025 10:29 Alk Phos 73 Int._Unit/L (21 - 98) 01/23/2025 10:29 ALT 8 Int._Unit/L (6 - 46) 01/23/2025 10:29 AST 26 Int._Unit/L (5 - 43) 01/23/2025 10:29 Total Protein (H) 7.9 gm/dL (6.0 - 7.8) 01/23/2025 10:29 Albumin Lvl 4.3 gm/dL (3.3 - 5.0) 01/23/2025 10:29 Globulin 3.6 gm/dL (1.4 - 4.0) 01/23/2025 10:29 A/G Ratio 1.2 (1.1 - 2.2) 01/23/2025 10:29 Bili Total 0.4 mg/dL (0.0 - 1.1) 01/23/2025 10:29 Hgb A1C % (H) 8.1 % ( - <=5.9) 01/23/2025 10:29 Chol 134 mg/dL (120 - 200) 01/23/2025 10:29 Trig (H) 222 mg/dL ( - <=149) 01/23/2025 10:29 HDL 34 mg/dL 01/23/2025 10:29 LDL Direct 73 mg/dL ( - <=129) 01/23/2025 10:29 VLDL (H) 44 mg/dL (7 - 40) 01/23/2025 10:29 TSH 2.79 mcIU/mL (0.34 - 5.60) left message to return our call, please relay below message Patient return call and information given and verbally understood.NormalNationwide [facility] w/ Auto Diffon 86-13-7154Ihefagyh Absolute0.0 E9/LNormal 0.0-0.2[facility] HospitalComment on above:Performed By: #### [id number] #### [facility] [address] [place] [place], [place] [address]Jcpjxgclc/100 WBC (Bld)0.2 %Normal0.0-2.0[facility] HospitalComment on above:Performed By: #### [id number] #### [facility] [address] [place] [place], [place] [address]Dsw Absolute0.2 E9/LNormal0.0-0.5[facility] Comment on above:Performed By: #### [id number] #### [facility] [address] [place] [place], [place] [address]Foxpzbyynkc/100 WBC (Bld)1.5 %Normal0.0-8.0[facility] HospitalComment on above:Performed By: #### [id number] #### [facility] [address] [place] [place], [place] [address]Jpkwyahtkns distribution width (RBC) [Ratio]15.8 %High10.9-14.2 [facility] HospitalComment on above:Performed By: #### [id number] #### [facility] [address] [place] [address]Vfgaxemait (Bld) [Volume fraction]41.9 %Edvctv89.0-46.0[facility] HospitalComment on above:Performed By: #### [id number] #### [facility] [address] [place] [address]Bjzwhveimj (Bld) [Mass/Vol]13.9 g/cEPcaddy28.0-16.0[facility] HospitalComment on above:Performed By: #### [id number] #### [facility] [address] [place] [address]Vmuuq Absolute3.2 E9/LNormal1.0-4.0[facility] Comment on above:Performed By: #### [id number] #### [facility] [address] [place] [place], [place] [address]Ovnnabiursx/100 WBC (Bld)30.6 %Ddjwkj86.0-50.0[facility] HospitalComment on above:Performed By: #### [id number] #### [facility] [address] [place] [place], [place] [address]FPT (RBC) [Entitic mass]30.0 dvHxvjtv49.0-34.0[facility] HospitalComment on above:Performed By: #### [id number] #### [facility] [address] [place] [address]TCTR (RBC) [Mass/Vol]33.0 g/uMBfywxl59.4-36.0[facility] HospitalComment on above:Performed By: #### [id number] #### [facility] [address] [place] [address]COP (RBC) [Entitic vol]90.7 pXOtlova31.0-100.0[facility] HospitalComment on above:Performed By: #### [id number] #### [facility] [address] [place] [address]Qbbu Absolute0.5 E9/LNormal0.2-1.0[facility] Comment on above:Performed By: #### [id number] #### [facility] [address] [place] [address]Norogpmid/100 WBC (Bld)5.0 %Normal4.0-14.0[facility] HospitalComment on above:Performed By: #### [id number] #### [facility] [address] [place] [address]Zrhvya Absolute6.6 E9/LNormal2.0-7.5[facility] Comment on above:Performed By: #### [id number] #### [facility] [address] [place] [address]Bhpqlh Auto62.7 %Eltwnx68.0-75.0[facility] Comment on above:Performed By: #### [id number] #### [facility] [address] [place] [address]Jywnxdos551.0 E9/ZYcgwin470.0-500.0[facility] Comment on above:Performed By: #### [id number] #### [facility] [address] [place] [address] 28011Btoifugr mean volume (Bld) [Entitic vol]8.6 fLNormal6.4-10.8 [facility] HospitalComment on above:Performed By: #### [id number] #### [facility] [address] [place] [place], [place] [address]DJM9.6 E12/LNormal4.3-5.9[facility] HospitalComment on above:Performed By: #### [id number] #### [facility] [address] [place] [address] 19831HAA05.6 E9/LNormal4.0-11.0[facility] HospitalComment on above:Performed By: #### [id number] #### [facility] [address] [place] [address] 44551PSRtf 78-19-5689Ruanhtp [Mass/Vol]4.3 g/dLNormal3.3-5.0[facility] HospitalComment on above:Performed By: #### [id number] #### [facility] [address] [place] [address] 800[address]Etpcfrk/Globulin [Mass ratio]1.2 {ratio}Normal1.1-2.2FUC HealthComment on above:Performed By: #### [id number] #### [facility] [address] [place] [address] 37190Byi Phos73 Int._Unit/DWekzdr52-30MkgfftMercer County Community Hospital Comment on above:Performed By: #### [id number] #### [facility] [address] [place] [place], [place] [address]MXE7 Int._Unit/LNormal6-46[facility] HospitalComment on above:Performed By: #### [id number] #### [facility] [address] [place] [address] 55836Xziwh gap [Moles/Vol]16 mmol/LNormal6-16[facility] HospitalComment on above:Performed By: #### [id number] #### [facility] [address] [place] [address] 97944RBQ05 Int._Unit/LNormal5-43[facility] HospitalComment on above:Performed By: #### [id number] #### [facility] [address] [place] [place], [place] [address]Uawm Total0.4 mg/dLNormal0.0-1.1[facility] Comment on above:Performed By: #### [id number] #### [facility] [address] [place] [place], [place] [address]ONV/Creat Ratio10 No TdsukJlhzwc08-95EgmamnMercer County Community HospitalComment on above:Performed By: #### [id number] #### [facility] [address] [place], [place] [address]Kkwogba [Mass/Vol]9.9 mg/dLNormal8.9-11.1FUC HealthComment on above:Performed By: #### [id number] #### [facility] [address] [place] [place], [place] [address]Tcuotiqk [Moles/Vol]103 mmol/GDcnnqk709-916GugqmwMercer County Community HospitalComment on above:Performed By: #### [id number] #### [facility] [address] [place], [place] [address]GI2 [Moles/Vol]21 mmol/ORvrwki12-60BppxbfMercer County Community Hospital Comment on above:Performed By: #### [id number] #### [facility] [address] [place] [place], [place] [address]Upbrvuoqvc [Mass/Vol]1.0 mg/dLNormal0.5-1.3FUC HealthComment on above:Performed By: #### [id number] #### [facility] [address] [place] [place], [place] [address]Eclrijqg (S) [Mass/Vol]3.6 g/dLNormal1.4-4.0[facility] HospitalComment on above:Performed By: #### [id number] #### [facility] [address] [place] [place], [place] [address]Pjtjetm [Mass/Vol]191 mg/nXNmaugk56-632KykcjrMercer County Community HospitalComment on above:Performed By: #### [id number] #### [facility] [address] [place], [place] [address]Vduzjvmdv [Moles/Vol]4.3 mmol/LNormal3.5-5.3FUC HealthComment on above:Performed By: #### [id number] #### [facility] [address] [place] [place], [place] [address]Qocikcg [Mass/Vol]7.9 g/dLHigh6.0-7.8[facility] HospitalComment on above:Performed By: #### [id number] #### [facility] [address] [place] [place], [place] [address]Sbtfgo [Moles/Vol]136 mmol/DNrnnqv715-016KvkezdMercer County Community HospitalComment on above:Performed By: #### [id number] #### [facility] [address] [place], [place] [address]Twpj nitrogen [Mass/Vol]10 mg/dLNormal5-21[facility] HospitalComment on above:Performed By: #### [id number] #### [facility] [address] [place] [place], [place] [address]Rygnhc Medicine Office/Clinic Noteon [id number] Medicine Office/Clinic NoteFawilliams hospital Medicine Office/Clinic Note HPI Staff Edie is a 64 year old female presenting with *Former [facility] patient* Do you have any of the following symptoms? Foot Exam: due Eye Exam: due Hgb A1C %: 6.8 % High (10/04/23 13:28:00) Hgb A1c POC: 7.4 % (04/10/24 10:37:00) Patient is here for follow up on hypertension. How often are you checking your blood pressure? she just got a machine, she doesn't know how to work this yet What are your average readings? _ Yearly BMP: _ requesting refill on everything History of Present Illness pt presents today for diabetes follow up Review of Systems PHQ Score Initial Depression Screen Score: 0 SCORE Physical Exam Vitals & Measurements T: 36.4 ???C(Temporal Artery) HR: 108(Peripheral) RR: 18 BP: 142/90 SpO2: 98% HT: 63 in HT: 161.0 cm WT: 93.7 kg WT: 206.573 lb BMI: 36.15 General: alert, no acute distress ENMT: oral mucosa moist, no pharyngeal erythema or exudate Cardiovascular: regular rate and rhythm, normal peripheral perfusion Respiratory: Lungs CTA, respirations non labored Extremities: no deformity, no trauma Neurological: oriented x 4, LOC appropriate for age, CN II-XII intact, motor strength equal & normal bilaterally, speech normal Assessment/Plan 1. Type 2 diabetes mellitus with stage 3 chronic kidney disease (E11.22: Type 2 diabetes mellitus with diabetic chronic kidney disease) last HGBA1C was 6.8. pt is doing well. needs refills. will check labs today. pt needs all meds refilled. all questions answered. RTC 6 months Ordered: CBC w/ Auto Diff Comprehensive Metabolic Panel HgbA1c Lab Specimen Collect 44279 Lipid Panel Thyroid Stimulating Hormone 2. Hyperlipemia (E78.5: Hyperlipidemia, unspecified) will check lipids today Ordered: CBC w/ Auto Diff Comprehensive Metabolic Panel HgbA1c Lab Specimen Collect 18751 Lipid Panel Thyroid Stimulating Hormone 3. BMI 36.0-36.9,adult (Z68.36: Body mass index [BMI] 36.0-36.9, adult) BMI education Chronic kidney disease, stage 3 unspecified (N18.30: Chronic kidney disease, stage 3 unspecified) will check kidney function today. Orders: atorvastatin, 40 mg = 1 tab(s), Oral, Daily, TAKE 1 TABLET BY MOUTH EVERY DAY, # 90 tab(s), Refills(s) 4, Pharmacy: [facility]/pharmacy #[id number], 161, cm, 04/10/24 10:05:00 EST, Height/Length Dosing, 94.1, kg,04/10/24 10:05:00 EST, Weight Dosing atorvastatin, 40 mg = 1 tab(s), Oral, Daily, TAKE 1 TABLET BY MOUTH EVERY DAY, # 90 tab(s), Refills(s) 4, Pharmacy: [facility]/pharmacy #[id number], 161, cm, 01/23/25 10:05:00 EDT, Height/Length Dosing, 93.7, kg,01/23/25 10:05:00 EDT, Weight Dosing gabapentin, See Instructions, TAKE 1 CAPSULE BY MOUTH TWICE A DAY, # 60 cap(s), Refills(s) 0, Pharmacy: [facility] [id number], 161, cm, 01/23/25 10:05:00 EDT, Height/Length Dosing, 93.7, kg, 01/23/25 10:05:00 EDT, Weight Dosing lisinopril, 2.5 mg = 1 tab(s), Oral, Daily, # 90 tab(s), Refills(s) 4, Pharmacy: [facility] #[id number], 161, cm, 01/23/25 10:05:00 EDT, Height/Length Dosing, 93.7, kg, 01/23/25 10:05:00 EDT, Weight Dosing lisinopril, 2.5 mg = 1 tab(s), Oral, Daily, # 90 tab(s), Refills(s) 4, Pharmacy: [facility] #[id number], 161, cm, 01/10/24 10:57:00 EDT, Height/Length Dosing, 94.6, kg, 01/10/24 10:57:00 EDT, Weight Dosing metformin, See Instructions, TAKE 1 TABLET BY MOUTH TWICE A DAY, # 180 tab(s), Refills(s) 4, Pharmacy: [facility] #[id number], 161, cm, 01/23/25 10:05:00 EDT, Height/Length Dosing, 93.7, kg, 01/23/25 10:05:00 EDT, Weight Dosing metformin, See Instructions, TAKE 1 TABLET BY MOUTH TWICE A DAY, # 180 tab(s), Refills(s) 4, Pharmacy: [facility] #[id number], 161, cm, 01/10/24 10:57:00 EDT, Height/Length Dosing, 94.6, kg, 01/10/24 10:57:00 EDT, Weight Dosing mirtazapine, See Instructions, TAKE 1 TABLET BY MOUTH EVERYDAY AT BEDTIME, # 90 tab(s), Refills(s) 3, Pharmacy: [facility] #[id number], 161, cm, 01/23/25 10:05:00 EDT, Height/Length Dosing, 93.7, kg, 01/23/25 10:05:00 EDT, Weight Dosing mirtazapine, See Instructions, TAKE 1 TABLET BY MOUTH EVERYDAY AT BEDTIME, # 90 tab(s), Refills(s) 3, Pharmacy: [id number], 161, cm, 04/10/24 10:05:00 EST, Height/Length Dosing, 94.1, kg, 04/10/24 10:05:00 EST, Weight Dosing prazosin, See Instructions, TAKE 1 CAPSULE BY MOUTH EVERYDAY AT BEDTIME, # 90 cap(s), Refills(s) 3,Pharmacy: [facility]/pharmacy #[id number], 161, cm, 01/23/25 10:05:00 EDT, Height/Length Dosing, 93.7, kg, 01/23/25 10:05:00 EDT, Weight Dosing Follow-up No qualifying data available Problem List/Past Medical History Ongoing Anxiety Arthritis of spine BMI 36.0-36.9,adult Chronic kidney disease, stage 3 unspecified Cigarette smoker Degenerative disc disease, cervical Dyslipidemia ESBL 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 Essential hypertension Hyperlipemia Insomnia Liver cyst Major depression in full remission Morbid obesity Muscle weakness Neuropathy MANDO (obstructive sleep apnea) Parkinson's disease without dyskinesia or fluctuating manifestations PTSD (post-traumatic stress disorder) R (more content not included)...NormalMercer County Community HospitalComment on above:Result Comment: Electronically Signed By: Julianna Morrissey\.br\Date and Time Signed: 01/23/25 11:24 DAVLkzV5qeb 80-30-2648BjE0r (Bld) [Mass fraction]8.1 %High<=5.9[facility] HospitalComment on above:Performed By: #### [id number] #### [facility] [address] [place], [place] [address]Lcmbv Panelon 26-99-1858Yaomzqpsetb [Mass/Vol]134 mg/dLNormal 120-200[facility] HospitalComment on above:Performed By: #### [id number] #### [facility] [address] [place], [place] [address]Xcbpxojwxql in HDL [Mass/Vol]34 mg/dLInvalid Interpretation CodeMercer County Community HospitalComment on above:Result Comment: '>= 60 LOW RISK' '<= 40 HIGH RISK'Performed By: #### [id number] #### [facility] [address] [place], [place] [address]Qbzzlvpodrj in LDL [Mass/Vol]73 mg/dLNormal<=129[facility] HospitalComment on above:Performed By: #### [id number] #### [facility] [address] [place], [place] [address]Bantqffszaj in VLDL [Mass/Vol]44 mg/dLHigh7-40[facility] HospitalComment on above:Performed By: #### [id number] #### [facility] [address] [place], [place] [address]Vrsgesvmayju [Mass/Vol]222 mg/dLHigh<=149[facility] HospitalComment on above:Performed By: #### [id number] #### [facility] [address] [place], [place] [address]SXRpc 45-77-7950KOG Qn2.79 m[IU]/LNormal0.34-5.60[facility] HospitalComment on above:Performed By: #### [id number] #### [facility] [address] [place], [place] [address]nUPCgo 15-49-7217kYQV74 mL/min/1.73 p7Qqzlyf>=59[facility] HospitalComment on above:Performed By: #### [id number] #### [facility] [address] [place], [place] [address]Bmrdjc Medicine Office/Clinic Noteon [id number] Medicine Office/Clinic NoteJosiah B. [facility] Medicine Office/Clinic Note HPI Staff Edie is a 63 year old female presenting for 3 month follow up DM, CKD, HTN Do you have any of the following symptoms? Foot Exam: none Eye Exam: due Last A1C: Hgb A1C %: 6.8 % High (10/04/23 13:28:00) Statin: atorvastatin 40mg Patient is here for follow up on hypertension. How often are you checking your blood pressure? Doesnt check BP at home What are your average readings? N/A, Not checking at home Yearly BMP: 10/04/23 questions/concerns: none History of Present Illness Pt here for follow up. No issues at this time. Tremors are worse today, but otherwise under control. Review of Systems PHQ Score Initial Depression Screen Score: 0 SCORE Physical Exam Vitals & Measurements T: 36.8 ???C(Temporal Artery) HR: 100(Peripheral) RR: 16 BP: 152/86 SpO2: 96% HT: 63 in HT: 161 cm WT: 94.1 kg WT: 207.455 lb BMI: 36.3 General: alert, no acute distress ENMT: oral mucosa moist, Cardiovascular: normal peripheral perfusion Respiratory: respirations non labored Extremities: no deformity, no trauma Neurological: oriented x 4, LOC appropriate for age, CN II-XII intact, motor strength equal & normal bilaterally, speech normal, Tremors noted. Assessment/Plan 1. Chronic kidney disease, stage 3 unspecified (N18.30: Chronic kidney disease, stage 3 unspecified) Resolved Ordered: Body Mass Index (BMI) documented 3008F CT Chest, Low Dose Screening Current tobacco smoker 1034F Depression Screening Negative 3352F Most recent diastolic blood pressure 80-89 mm Hg 3079F Most recent systolic blood pressure >= 140 mm Hg 3077F 2. Type 2 diabetes mellitus with stage 3 chronic kidney disease (E11.22: Type 2 diabetes mellitus with diabetic chronic kidney disease) Will check A1c today. Follow up in 6 months Ordered: Body Mass Index (BMI) documented 3008F CT Chest, Low Dose Screening Current tobacco smoker 1034F Depression Screening Negative 3352F Most recent diastolic blood pressure 80-89 mm Hg 3079F Most recent systolic blood pressure >= 140 mm Hg 3077F 3. Essential hypertension (I10: Essential (primary) hypertension) Elevated today Will recheck before she leaves today Ordered: Body Mass Index (BMI) documented 3008F CT Chest, Low Dose Screening Current tobacco smoker 1034F Depression Screening Negative 3352F Most recent diastolic blood pressure 80-89 mm Hg 3079F Most recent systolic blood pressure >= 140 mm Hg 3077F 4. Parkinson's disease without dyskinesia or fluctuating manifestations (G20.A1: Parkinson's disease without dyskinesia, without mention of fluctuations) Bad day with tremor. Otherwise, she is doing well. Neurology seeing her in May. Ordered: Body Mass Index (BMI) documented 3008F CT Chest, Low Dose Screening Current tobacco smoker 1034F Depression Screening Negative 3352F Most recent diastolic blood pressure 80-89 mm Hg 3079F Most recent systolic blood pressure >= 140 mm Hg 3077F 5. BMI 36.0-36.9,adult (Z68.36: Body mass index [BMI] 36.0-36.9, adult) BMI education added Ordered: Body Mass Index (BMI) documented 3008F CT Chest, Low Dose Screening Current tobacco smoker 1034F Depression Screening Negative 3352F Most recent diastolic blood pressure 80-89 mm Hg 3079F Most recent systolic blood pressure >= 140 mm Hg 3077F 6. Exogenous obesity (E66.09: Other obesity due to excess calories) Diet and exercise advised Ordered: Body Mass Index (BMI) documented 3008F CT Chest, Low Dose Screening Current tobacco smoker 1034F Depression Screening Negative 3352F Most recent diastolic blood pressure 80-89 mm Hg 3079F Most recent systolic blood pressure >= 140 mm Hg 3077F 7. Smoker (F17.200: Nicotine dependence, unspecified, uncomplicated) Please stop smoking. Ordered: Body Mass Index (BMI) documented 3008F Current tobacco smoker 1034F Depression Screening Negative 3352F Most recent diastolic blood pressure 80-89 mm Hg 3079F Most recent systolic blood pressure >= 140 mm Hg 3077F 8. Cigarette smoker (F17.210: Nicotine dependence, cigarettes, uncomplicated) LDCT scan ordered 9. Major depression in full remission (F32.5: Major depressive disorder, single episode, in full remission) Doing well on meds. 10. MANDO (obstructive sleep apnea) (G47.33: Obstructive sleep apnea (adult) (pediatric)) Compliant Follow-up No qualifying data available Problem List/Past Medical History Ongoing Anxiety Arthritis of spine BMI 35.0-35.9,adult Chronic kidney disease, stage 3 unspecified Cigarette smoker Degenerative disc disease, cervical Dyslipidemia ESBL 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 Essential hypertension Insomnia Liver cyst Major depression in full remission Morbid obesity Muscle weakness Neuropathy MANDO (obstructive sleep apnea) Parkinson's disease without dyskinesia or fluctuating manifestations PTSD (post-traumatic stress disorder) Restless leg syndrome, familial Smoker (more content not included)...[facility] DaytonComment on above: Result Comment: Electronically Signed By: Adriana CALDERON, Sanchez Urrutiabr\Date and Time Signed: 04/10/24 10:24 ESTPre-Visit Planningon [id number]-Visit PlanningPre- Visit Planning From: Mago Bautista To: Sanchez Rice MD; Sent: 04/09/2024 11:27:22 EST Subject: Pre-Visit Planning Due Date/Time: 04/09/2024 11:27:00 EST Caller Name: EDIE KIM; Caller Number: Taty , Mariam Ut Dr. Rice. During a pre-visit planning chart review, I noted the following documentation in the medical record: Current Problem List: Chronic depression (Depression, unspecified). Current Medication List: mirtazapine. PHQ-9 Score: =1 on 01/10/2024. Based on your medical judgment, can you please clarify which, if any, of the following conditions are present? I can update the Chronic Problem List with your response if you would like. Major Depressive Disorder, Single Episode ??? Major depressive disorder, single episode, mild ??? Major depressive disorder, single episode, moderate ??? Major depressive disorder, single episode, severe without mention of psychotic behavior ??? Major depressive disorder, single episode, in partial remission ??? Major depressive disorder, single episode in full remission Major Depressive Disorder, Recurrent ??? Major depressive disorder, recurrent, mild ??? Major depressive disorder, recurrent, moderate ??? Major depressive disorder, recurrent, severe without mention of psychotic behavior ??? Major depressive disorder, recurrent, in partial remission ??? Major depressive disorder, recurrent, in full remission -Other (Please Specify): In responding to this request, please exercise your independent professional judgement. The fact that a question is asked does not imply that any particular answer is desired or expected. If you have any questions, please feel free to contact me at extension [phone]. Thank you! Mago Bautista LPN Clinical Academic Affairs Assistant [place] [address] Extension: [phone] [email or web address] From: Sanchez Rice MD To: Evelyn Bautistaissa Mariam; Sent: 04/10/2024 10:01:25 EST Subject: RE: Pre-Visit Planning Caller Name: EDIE KIM; Caller Number: Taty , Mariam Major depressive disorder, single episode in full remissionAccess Hospital DaytonProvider Letteron [phone] LetterProvider Letter January 14, [address] [place] [address] : 1960 Dear Edie We have been trying to reach you with no success. It is important that you return our call regarding your ordered test upon receiving this letter. Also, at the time of your call, please provide us with your current information. Thank you for your prompt attention to this matter. Sincerely, [address] [address] MrpqfrNpsytmAccess Hospital DaytonAmbulatory Visit Summaryon [phone] Visit SummaryAmbulatory Visit Summary EDIE KIM :1960 Visit Date:01/10/2024 Ambulatory Visit Instructions Your Diagnosis Chronic kidney disease, stage 3 unspecified DM (diabetes mellitus), type 2 Type 2 diabetes mellitus with stage 3 chronic kidney disease BMI 36.0-36.9,adult Class 1 obesity due to excess calories in adult Smoker Your Care Team Attending Physician - Sanchez Rice MD Primary Care Physician - Sanchez Rice MD This Is Your Medications List Contact prescribing physician if questions or concerns atorvastatin (atorvastatin 40 mg Tab) carbidopa-levodopa (carbidopa-levodopa 25 mg-100 mg Tab) gabapentin (gabapentin 300 mg Cap) ketoconazole topical (ketoconazole Top 2% Crm) lisinopril (lisinopril 2.5 mg Tab) metformin (metformin 1000 mg Tab) mirtazapine (mirtazapine 15 mg Tab) prazosin (prazosin 2 mg oral capsule) ropinirole (ropinirole 1 mg Tab) [Image Removed: STOP]Stop taking these medications nicotine (nicotine 14 mg/24 hr Transderm ER Film) Procedures Performed Incision and drainage of perianal abscess (07/18/2020), Bowel (05/02/2020), Antegrade insertion of ureteric stent (11/20/2017), Cholecystectomy, Cholecystectomy, Hemorrhoidectomy, Ileostomy, Kidney excision, Tonsillectomy. Discharge Vitals Temperature (Temporal Artery) 37.1 ?C Heart Rate (Peripheral) 90 Respiratory Rate 18 Blood Pressure 120/68 Height 161 cm Height 63 in Weight 94.6 kg Weight 208.12 lb BMI 36.5 What to do next Scheduled Follow-Up Appointments 2023 10:00 AM EST With: Adriana CALDERON, Sanchez Hagen Where: [address] [address]- Sunday 1:00 PM EDT With: Where: [address] [address]- Medications What How Much When Instructions Unchanged atorvastatin (atorvastatin 40 mg Tab) 1 Tablets Every day TAKE 1 TABLET BY MOUTH EVERY DAY Contact prescribing physician if questions or concerns Unchanged carbidopa-levodopa (carbidopa-levodopa 25 mg-100 mg Tab) See instructions 1.5 tabs every 4 hours Contact prescribing physician if questions or concerns Unchanged gabapentin (gabapentin 300 mg Cap) 1 Capsules By Mouth 2 times a day Contact prescribing physician if questions or concerns Unchanged ketoconazole topical (ketoconazole Top 2% Crm) See instructions APPLY TO AFFECTED AREA TWICE A DAY Contact prescribing physician if questions or concerns Unchanged lisinopril (lisinopril 2.5 mg Tab) 1 Tablets By Mouth Every day Contact prescribing physician if questions or concerns Unchanged metformin (metformin 1000 mg Tab) See instructions TAKE 1 TABLET BY MOUTH TWICE A DAY Contact prescribing physician if questions or concerns Unchanged mirtazapine (mirtazapine 15 mg Tab) See instructions TAKE 2 TABLET BY MOUTH EVERYDAY AT BEDTIME Contact prescribing physician if questions or concerns Unchanged prazosin (prazosin 2 mg oral capsule) See instructions TAKE 1 CAPSULE BY MOUTH EVERYDAY AT BEDTIME Contact prescribing physician if questions or concerns Unchanged ropinirole (ropinirole 1 mg Tab) 1 Tablets At bedtime TAKE 1 TABLET BY MOUTH AT BEDTIME Contact prescribing physician if questions or concerns What How Much When Why Comments Stop Taking nicotine (nicotine 14 mg/ 24 hr Transderm ER Film) 1 Patches Topical Every day DM (diabetes mellitus), type 2 Chronic kidney disease, stage 3 unspecified Essential hypertension Tobacco use Chronic depression Neuropathy apply to skin. No smoking while on the patch. Allergies penicillin (Anaphylactic reaction, Hives) Problems Ongoing - Any problem that you are currently receiving treatment for. Anxiety Arthritis of spine BMI 35.0-35.9,adult Chronic depression Chronic kidney disease, stage 3 unspecified Cough Degenerative disc disease, cervical DM (diabetes mellitus), type 2 Dyslipidemia ESBL 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 Essential hypertension Hyperlipidemia Insomnia Liver cyst Morbid obesity Muscle weakness Neuropathy MANDO (obstructive sleep apnea) Perirectal abscess PTSD (post-traumatic stress disorder) Restless leg syndrome, familial Smoker Tobacco use Tremor Type 2 diabetes mellitus with hyperlipidemia Type 2 diabetes mellitus with stage 3 chronic kidney disease Historical - Any problem that you are no longer receiving treatment for. BMI 32.0-32.9,adult Rash Patient Survey You may receive a survey via text or e-mail asking about your office visit. Please share your experience with us by completing your survey. We appreciate your feedback and thank you for choosing us for your care. [facility] Medicine Office/Clinic Noteon [phone] Medicine Office/Clinic NoteJosiah B. [facility] Medicine Office/Clinic Note HPI Staff Edie is a 63 year old female presenting for 3 month follow up DM, CKD, HTN Do you have any of the following symptoms? Foot Exam: none Eye Exam: none Last A1C: Hgb A1C %: 6.8 % High (10/04/23 13:28:00) Statin: atorvastatin 40mg Patient is here for follow up on hypertension. How often are you checking your blood pressure? Doesnt check BP at home What are your average readings? N/A, Not checking at home Yearly BMP: 10/04/23 AYESHA: 1 PHQ9: 1 questions/cocerns: needs quinten gabapentin refilled, med consent needs done History of Present Illness - See staff HPI. Review of Systems PHQ Score Initial Depression Screen Score: 0 SCORE Physical Exam Vitals & Measurements T: 37.1 ?C(Temporal Artery) HR: 90(Peripheral) RR: 18 BP: 120/68 SpO2: 97% HT: 63 in HT: 161 cm WT: 94.6 kg WT: 208.12 lb BMI: 36.5 General: alert, no acute distress ENMT: oral mucosa moist, Cardiovascular: regular rate and rhythm, normal peripheral perfusion Respiratory: Lungs CTA, respirations non labored Extremities: no deformity, no trauma Neurological: oriented x 4, LOC appropriate for age, CN II-XII intact, motor strength equal & normal bilaterally, speech normal Abdomen: Soft, Nontender, Non-distended, + BS Assessment/Plan 1. Chronic kidney disease, stage 3 unspecified (N18.30: Chronic kidney disease, stage 3 unspecified) Stable. - Will do labs in 3 months Ordered: Body Mass Index (BMI) documented 3008F Current tobacco smoker 1034F Depression Screening Negative 3352F Influenza immunization administered or previously received 4274F Most recent diastolic blood pressure <80 mm Hg 3078F Systolic BP <130 mm Hg (Most Recent) 3074F 2. DM (diabetes mellitus), type 2 (E11.9: Type 2 diabetes mellitus without complications) - At goal at last visit. - Recheck labs in 3 months. - NO other issues. Ordered: Body Mass Index (BMI) documented 3008F Current tobacco smoker 1034F Depression Screening Negative 3352F Influenza immunization administered or previously received 4274F Most recent diastolic blood pressure <80 mm Hg 3078F Systolic BP <130 mm Hg (Most Recent) 3074F 3. Type 2 diabetes mellitus with stage 3 chronic kidney disease (E11.22: Type 2 diabetes mellitus with diabetic chronic kidney disease) - Diet and exercise advised - Continue to monitor renal function Ordered: Body Mass Index (BMI) documented 3008F Current tobacco smoker 1034F Depression Screening Negative 3352F Influenza immunization administered or previously received 4274F Most recent diastolic blood pressure <80 mm Hg 3078F Systolic BP <130 mm Hg (Most Recent) 3074F 4. Neuropathy (G62.9: Polyneuropathy, unspecified) - Will refill gabapentin 5. Kidney abscess (N15.1: Renal and perinephric abscess) - Monitor renal function 6. BMI 36.0-36.9,adult (Z68.36: Body mass index [BMI] 36.0-36.9, adult) - BMI education added Ordered: Body Mass Index (BMI) documented 3008F Current tobacco smoker 1034F Depression Screening Negative 3352F Influenza immunization administered or previously received 4274F Most recent diastolic blood pressure <80 mm Hg 3078F Systolic BP <130 mm Hg (Most Recent) 3074F 7. Class 1 obesity due to excess calories in adult (E66.09: Other obesity due to excess calories) - Diet and exercise advised Ordered: Body Mass Index (BMI) documented 3008F Current tobacco smoker 1034F Depression Screening Negative 3352F Influenza immunization administered or previously received 4274F Most recent diastolic blood pressure <80 mm Hg 3078F Systolic BP <130 mm Hg (Most Recent) 3074F 8. Smoker (F17.200: Nicotine dependence, unspecified, uncomplicated) - Please stop smoking. Ordered: Body Mass Index (BMI) documented 3008F Current tobacco smoker 1034F Depression Screening Negative 3352F Influenza immunization administered or previously received 4274F Most recent diastolic blood pressure <80 mm Hg 3078F Systolic BP <130 mm Hg (Most Recent) 3074F Orders: gabapentin, 300 mg = 1 cap(s), Oral, BID, # 60 cap(s), Refills(s) 2, Pharmacy: [facility]/pharmacy #[id number], 161, cm, 01/10/24 10:57:00 EDT, Height/Length Dosing, 94.6, kg, 01/10/24 10:57:00 EDT, Weight Dosing mirtazapine, See Instructions, TAKE 2 TABLET BY MOUTH EVERYDAY AT BEDTIME, # 90 tab(s), Refills(s) 3, Pharmacy: [facility] STORE [id number], 161, cm, 10/02/23 13:48:00 EDT, Height/Length Dosing, 92.9, kg, 10/02/23 13:48:00 EDT, Weight Dosing Follow-up No qualifying data available Patient Education BMI for Adults Problem List/Past Medical History Ongoing Anxiety Arthritis of spine BMI 35.0-35.9,adult Chronic depression Chronic kidney disease, stage 3 unspecified Cough Degenerative disc disease, cervical DM (diabetes mellitus), type 2 Dyslipidemia ESBL 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 Essential hypertension Hyperlipidemia Insomnia Kidney abscess Liver cyst Morbid obesity Muscle weakness Neuropathy (more content not included)...[facility] DaytonComment on above: Result Comment: Electronically Signed By: Adriana CALDERON, Sanchez Urrutiabr\Date and Time Signed: 01/10/24 11:25 EDTCBC w/ Auto Diffon [id number]/100 WBC (Bld) 0.3 %Normal0.0-2.0[facility] HospitalComment on above:Performed By: #### [id number] #### [facility] [address] [place] [address] 84162Mwdrkvoxb/Leukocytes Auto (Bld) [Pure # fraction]0.0 E9/LNormal 0.0-0.2FUC HealthComment on above:Performed By: #### [id number] #### [facility] [address] [place] [address] 99629Orknaysrcpz (Bld) [#/Vol]0.2 E9/LNormal0.0-0.5FUC HealthComment on above:Performed By: #### [id number] #### [facility] [address] [place] [address] 44675Venwvokxcaa/100 WBC (Bld)2.0 %Normal0.0-8.0[facility] HospitalComment on above:Performed By: #### [id number] #### [facility] [address] [place] [address] 26935Ibzubdlsdfh distribution width (RBC) [Ratio]15.2 %High10.9-14.2 [facility] HospitalComment on above:Performed By: #### [id number] #### [facility] [address] [place] [address] 40539Utpoxlcxch (Bld) [Volume fraction]41.4 %Qvqdab59.0-46.0[facility] HospitalComment on above:Performed By: #### [id number] #### [facility] [address] [place] [address] 45252Mkeivitkep (Bld) [Mass/Vol]13.7 g/jFKngivc11.0-16.0[facility] HospitalComment on above:Performed By: #### [id number] #### [facility] [address] [place] [address] 45377Gykdpulvycs (Bld) [#/Vol]3.0 E9/LNormal1.0-4.0[facility] HospitalComment on above:Performed By: #### [id number] #### [facility] [address] [place] [address] 26940Jufcwucwabe/100 WBC (Bld)33.3 %Dmocgd21.0-50.0[facility] HospitalComment on above:Performed By: #### [id number] #### [facility] [address] [place] [address] 13741ARX (RBC) [Entitic mass]31.6 zrNzqucj18.0-34.0[facility] HospitalComment on above:Performed By: #### [id number] #### [facility] [address] [place] [address] 13558XIRZ (RBC) [Mass/Vol]33.1 g/nBQixhhb31.4-36.0[facility] HospitalComment on above:Performed By: #### [id number] #### [facility] [address] [place] [address] 40093CLW (RBC) [Entitic vol]95.3 zKOsjiik14.0-100.0[facility] HospitalComment on above:Performed By: #### [id number] #### [facility] [address] [place] [address] 85258Nrqdzbdvv (Bld) [#/Vol]0.5 E9/LNormal0.2-1.0[facility] HospitalComment on above:Performed By: #### [id number] #### [facility] [address] [place] [address] 71707Yrvokkhgass (Bld) [#/Vol]5.2 E9/LNormal2.0-7.5FUC HealthComment on above:Performed By: #### [id number] #### [facility] [address] [place] [address] 63358Tygzmyjxqap/100 WBC (Bld)58.4 %Nxctaj25.0-75.0[facility] HospitalComment on above:Performed By: #### [id number] #### [facility] [address] [place], [place] [address]Berarams354.0 E9/FLkzync634.0-500.0[facility] Comment on above:Performed By: #### [id number] #### [facility] [address] [place], [place] [address]Llryotbf mean volume (Bld) [Entitic vol]8.6 fLNormal6.4-10.8 [facility] HospitalComment on above:Performed By: #### [id number] #### [facility] [address] [place] [address] 53158ZUI (Bld) [#/Vol]4.3 E12/LNormal4.3-5.9[facility] HospitalComment on above:Performed By: #### [id number] #### [facility] [address] [place] [address] 70660SVC corrected for nucl RBC Auto (Bld) [#/Vol]8.9 E9/LNormal 4.0-11.0[facility] HospitalComment on above:Performed By: #### [id number] #### [facility] [address] [place] [address] 02566ERNSSQFLIZukjkxu By: SYSTEM SYSTEM on [id number] [Mass/Vol]4.0 g/dLNormal3.3 - 5.0 gm/dLRemisol ChemAlbumin DL <= 20 mg/L (U) [Mass/Vol]11.7 mg/dLHigh0.0 - 1.9 mg/dLRemisol ChemAlbumin/Globulin [Mass ratio] 1.2 {ratio}Normal1.1 - 2.2Remisol ChemALP [Catalytic activity/Vol]60 [iU]/d Bmbtnq99 - 98 Int._Unit/LRemisol ChemALT No additional P-5'-P [Catalytic activity/Vol]6 [iU]/dNormal6 - 46 Int._Unit/LRemisol ChemAnion gap [Moles/Vol]16 mmol/LNormal6 - 16 mEq/LRemisol ChemAST [Catalytic activity/Vol]18 [iU]/dNormal 5 - 43 Int._Unit/LRemisol ChemBilirubin [Mass/Vol]0.4 mg/dLNormal0.0 - 1.1 mg/dL Remisol ChemCalcium [Mass/Vol]9.4 mg/dLNormal8.9 - 11.1 mg/dLRemisol Chem Chloride [Moles/Vol]107 mmol/HHenvco904 - 111 mmol/LRemisol ChemCholesterol [Mass/Vol]138 mg/eBJxgxhl918 - 200 mg/dLRemisol ChemCholesterol in HDL [Mass/Vol]32 mg/dLInvalid Interpretation CodeRemisol ChemComment on above:Result Comment: '>= 60 LOW RISK' '<= 40 HIGH RISK'Cholesterol in LDL [Mass/Vol]78 mg/dLNormal<=129mg/dLRemisol ChemCholesterol in VLDL [Mass/Vol]57 mg/dLHigh7 - 40 mg/dLRemisol ChemCO2 [Moles/Vol]21 mmol/JCphhtf73 - 31 mmol/LRemisol ChemCreatinine [Mass/Vol]1.0 mg/dLNormal0.5 - 1.3 mg/dLRemisol QeygbWCQ40 mL/min/1.73 h4Xhxuui>=59mL/min/1.73 m0Qskobvc ChemGlobulin (S) [Mass/Vol]3.3 g/dLNormal1.4 - 4.0 gm/dLRemisol Chem Glucose [Mass/Vol]223 mg/hIHauf87 - 199 mg/dLRemisol ChemPotassium [Moles/Vol] 4.7 mmol/LNormal3.5 - 5.3 mmol/LRemisol ChemProtein [Mass/Vol]7.3 g/dLNormal6.0 - 7.8 gm/dLRemisol ChemProtein/Creatinine (U) [Ratio]42.50 mg/gm CrNormal0.00 - 200.00 mg/gm CrRemisol ChemSodium [Moles/Vol]139 mmol/GYqbnch300 - 145 mmol/L Remisol ChemTriglyceride [Mass/Vol]284 mg/dLHigh<=149mg/dLRemisol ChemU Acwntnngfa48.8 mg/dLInvalid Interpretation CodeRemisol ChemUr Total Vhblwmr27.0 mg/dLInvalid Interpretation CodeRemisol ChemUrea nitrogen [Mass/Vol]17 mg/dL Normal5 - 21 mg/dLRemisol ChemUrea nitrogen/Creatinine [Mass ratio]17 mg/mg Gmhoii24 - 20Remisol ChemCHEMISTRYOrdered By: Lily Rivera on 83-01-9716QcX0l (Bld) [Mass fraction]6.8 %High<=5.9%[facility] [place] [facility] ChemAutoSSCMPon [id number] [Mass/Vol]4.0 g/dLNormal3.3-5.0[facility] HospitalComment on above: Performed By: #### [id number] #### [facility] [address] [place] [place], [place] [address]Xazaidx/Globulin (S) [Mass conc ratio]1.7Ptntkp9.1-2.2FUC HealthComment on above:Performed By: #### [id number] #### [facility] [address] [place] [place], [place] [address]GRU [Catalytic activity/Vol]60 Int._Unit/XZylpak69-02PbnvpzMercer County Community HospitalComment on above:Performed By: #### [id number] #### [facility] [address] [place] [place], [place] [address]NMF No additional P-5'-P [Catalytic activity/Vol]6 Int._Unit/L Normal6-46[facility] HospitalComment on above:Performed By: #### [id number] #### [facility] [address] [place] [place], [place] [address]Iqbeh gap [Moles/Vol]16 mmol/LNormal6-16[facility] HospitalComment on above:Performed By: #### [id number] #### [facility] [address] [place] [place], [place] [address]SIO [Catalytic activity/Vol]18 Int._Unit/LNormal5-43[facility] HospitalComment on above:Performed By: #### [id number] #### [facility] [address] [place] [place], [place] [address]Vlyqwfteb [Mass/Vol]0.4 mg/dLNormal0.0-1.1FUC HealthComment on above:Performed By: #### [id number] #### [facility] [address] [place] [place], [place] [address]Ikdpnav [Mass/Vol]9.4 mg/dLNormal8.9-11.1FUC HealthComment on above:Performed By: #### [id number] #### [facility] [address] [place] [place], [place] [address]Amabgvkl [Moles/Vol]107 mmol/GYfxxhi230-946TgyosxMercer County Community HospitalComment on above:Performed By: #### [id number] #### [facility] [address] [place] [place], [place] [address]BG7 [Moles/Vol]21 mmol/WUjwrcp27-92JtyuiuMercer County Community Hospital Comment on above:Performed By: #### [id number] #### [facility] [address] [place] [place], [place] [address]Fvleoirrom [Mass/Vol]1.0 mg/dLNormal0.5-1.3FUC HealthComment on above:Performed By: #### [id number] #### [facility] [address] [place] [place], [place] [address]Cqjfkvpe (S) [Mass/Vol]3.3 g/dLNormal1.4-4.0[facility] HospitalComment on above:Performed By: #### [id number] #### [facility] [address] [place] [place], [place] [address]Cnsqqvy [Mass/Vol]223 mg/bWTbhp11-969KcgrtcMercer County Community HospitalComment on above:Performed By: #### [id number] #### [facility] [address] [place] [place], [place] [address]Yczjbxsuv [Moles/Vol]4.7 mmol/LNormal3.5-5.3FUC HealthComment on above:Performed By: #### [id number] #### [facility] [address] [place] [place], [place] [address]Zynkrue [Mass/Vol]7.3 g/dLNormal6.0-7.8[facility] HospitalComment on above:Performed By: #### [id number] #### [facility] [address] [place] [place], [place] [address]Wjtxwy [Moles/Vol]139 mmol/BJcpbns066-477LzyktxMercer County Community HospitalComment on above:Performed By: #### [id number] #### [facility] [address] [place] [place], [place] [address]Czwb nitrogen [Mass/Vol]17 mg/dLNormal5-21[facility] HospitalComment on above:Performed By: #### [id number] #### [facility] [address] [place] [place], [place] [address]Ernn nitrogen/Creatinine [Mass ratio]17 No ZgofzQyntio06-08 [facility] HospitalComment on above:Performed By: #### [id number] #### [facility] [address] [place] [place], [place] [address]Jkprbe Medicine Office/Clinic Noteon [id number] Medicine Office/Clinic NoteChief Complaint Medicare Wellness Visit History of Present Illness Covid-19, MERS, Ebola Screen *Contact With Person With Highly Contagious Disease Like Ebola/MERS/COVID-19 AND Have One or More of the Symptoms Below : No *Travel to a Country With Wide-Spread Ebola/MERS/COVID-19 in the Past 21 Days AND Have One or More of the Symptoms Below : No Patient Reported Covid-19 Testing : No *Verify Droplet, Contact Precautions for Ebola (Reference for CDC) : N/A *Verify Airborne, Droplet Precautions for MERS/COVID-19 : N/A Sara Chilel LPN - 10/02/2023 12:45 EDT Medicare/Medicaid Summary Systolic Blood Pressure : 148 mmHg (HI) Diastolic Blood Pressure : 88 mmHg Peripheral Pulse Rate : 88 bpm Respiratory Rate : 16 br/min SpO2 : 97 % Numeric Rating Pain Scale : 5 = Moderate pain Primary Pain Location : Back Sara Chilel LPN 10/02/2023 13:20 EDT Chief Complaint : Medicare Wellness Visit Patient Counseled : Nutrition, Physical activity, Elevated BMI Height/Length Measured : 161 cm(Converted to: 5 ft 3 in, 63.39 in) Weight Measured : 92.9 kg(Converted to: 204 lb 13 Ounces, 204.809 lb) Body Mass Index Measured : 35.84 kg/m2 Height in Inches : 63 in Weight in Pounds : 204.38 lb Blood Pressure Location : Right arm Blood Pressure Position : Sitting O2 Sat Resting/Exertion Alpha : Resting Sara Chilel LPN 10/02/2023 12:45 EDT Pain Present : Yes actual or suspected pain Sara Chilel LPN 10/02/2023 13:20 EDT Hearing and Vision Screening FT FT Whisper Test Comments : No deficits noted. Vision Screen Comments : Wears corrective lenses, gets eye exams through [facility] Dr. whitney. States she does not get yearly DM eye exams, encouraged to. Sara Chilel LPN 10/02/2023 12:45 EDT Advance Directive FT Advance Directive : No Patient Wishes to Receive Further Information on Advance Directives : Yes Organ Donation Consent : Yes Sara Chilel LPN 10/02/2023 12:45 EDT Procedures / Surgeries FT - Procedure History (As Of: 10/02/2023 13:48:07 EDT) Procedure Dt/Tm: 07/18/2020 ; Provider: Jd RUSSELL MD; Anesthesia Minutes: 0 ; Procedure Name: Incision and drainage of perianal abscess ; Procedure Minutes: 0 ; Comments: 09/14/2020 11:48 EDT - Dimitri Mcelroy MA [facility] ; Last Reviewed Dt/Tm: 10/02/2023 12:47:45 EDT Anesthesia Minutes: 0 ; Procedure Name: Ileostomy ; Procedure Minutes: 0 ; Comments: 09/14/2020 13:23 EDT - Dimitri Mcelroy MA [facility] ; Last Reviewed Dt/Tm: 10/02/2023 12:47:45 EDT Procedure Dt/Tm: 11/20/2017 ; Anesthesia Minutes: 0 ; Procedure Name: Antegrade insertion of uretericstent ; Procedure Minutes: 0 ; Last Reviewed Dt/Tm: 10/02/2023 12:47:45 EDT Procedure Dt/Tm: 05/02/2020 ; Anesthesia Minutes: 0 ; Procedure Name: Bowel ; Procedure Minutes: 0 ; Comments: 09/14/2020 13:19 EDT - Navi TEIXEIRA Dimitri L Bowel Obstruction ; Last Reviewed Dt/Tm: 10/02/2023 12:47:45 EDT Anesthesia Minutes: 0 ; Procedure Name: Cholecystectomy ; Procedure Minutes: 0 ; Last Reviewed Dt/Tm: 10/02/2023 12:47:45 EDT Anesthesia Minutes: 0 ; Procedure Name: Cholecystectomy ; Procedure Minutes: 0 ; Comments: 10/04/2022 16:40 Julee Garcia ; Last Reviewed Dt/Tm: 10/02/2023 12:47:45 EDT Anesthesia Minutes: 0 ; Procedure Name: Tonsillectomy ; Procedure Minutes: 0 ; Comments: 10/04/2022 16:40 Julee Garcia ; Last Reviewed Dt/Tm: 10/02/2023 12:47:45 EDT Anesthesia Minutes: 0 ; Procedure Name: Kidney excision ; Procedure Minutes: 0 ; Comments: 10/04/2022 16:[address] [facility] ; Last Reviewed Dt/Tm: 10/02/2023 12:47:45EDT Anesthesia Minutes: 0 ; Procedure Name: Hemorrhoidectomy ; Procedure Minutes: 0 ; Comments: 10/04/2022 16:39 DEST Julee Whittington [facility] ; Last Reviewed Dt/Tm: 10/02/2023 12:47:45 EDT Family History Family History (As Of: 10/02/2023 13:48:07 EDT) Mother: Relation: Mother ; Gender: Female ; Nomenclature: Hypothyroidism ; Value: Positive Nomenclature: Drug addiction ; Value: Positive Nomenclature: Vitamin B deficiency ; Value: Positive Aunt: Relation: Aunt ; Nomenclature: Diabetes mellitus type 2 ; Value: Positive Grandparent: Osei Lozoya Full Name: Osei Lozoya ; Relation: Grandparent ; Nomenclature: Diabetes mellitus type 2 ; Value: Positive Father: Relation: Father ; Gender: Male ; Nomenclature: Aneurysm ; Value: Positive Mother: Relation: Mother ; Gender: Female ; Nomenclature: Respiratory failure ; Value: Positive Medicare/Medicaid Social History FT Social History (As Of: 10/02/2023 13:48:07 EDT) Alcohol: Denies Alcohol Use (Last Updated: 10/04/2022 16:22:34 EDT by Julee Singh ) Tobacco: High Risk 10 or more cigarettes (1/2 pack or more)/day in last 30 days Tobacco Use:. Cigarettes, 1 per day. 42 year(s). Total pack years: 42. Started age 20.0 Years. Previous treatment: None. Ready to change: Yes. Household toba (more content not included)...[facility] DaytonComment on above:Result Comment: Electronically Signed By: Sanchez Rice MD\.br\Date and Time Signed: 10/04/23 14:12 EDT\.br\Electronically Co-Signed By: Sara Chilel LPN\.br\Date and Time Co-Signed: 10/02/23 14:35 EDTHEMATOLOGYOrdered By: SYSTEM SYSTEM on 59-89-9884Qhuykkadf/100 WBC (Bld)0.3 %Normal0.0 - 2.0 %Remisol Heme Basophils/Leukocytes Auto (Bld) [Pure # fraction]0.0 E9/LNormal0.0 - 0.2 E9/L Remisol HemeEosinophils (Bld) [#/Vol]0.2 E9/LNormal0.0 - 0.5 E9/LRemisol Heme Eosinophils/100 WBC (Bld)2.0 %Normal0.0 - 8.0 %Remisol HemeErythrocyte distribution width (RBC) [Ratio]15.2 %High10.9 - 14.2 %Remisol HemeHematocrit (Bld) [Volume fraction]41.4 %Wvjkkf68.0 - 46.0 %Remisol HemeHemoglobin (Bld) [Mass/Vol]13.7 g/nAFjtiaw22.0 - 16.0 gm/dLRemisol HemeLymphocytes (Bld) [#/Vol] 3.0 E9/LNormal1.0 - 4.0 E9/LRemisol HemeLymphocytes/100 WBC (Bld)33.3 %Normal 14.0 - 50.0 %Remisol HemeMCH (RBC) [Entitic mass]31.6 xbIivvsl19.0 - 34.0 pg Remisol HemeMCHC (RBC) [Mass/Vol]33.1 g/dNUpwvlx14.4 - 36.0 gm/dLRemisol HemeMCV (RBC) [Entitic vol]95.3 rCNdxgeu30.0 - 100.0 fLRemisol HemeMonocytes (Bld) [#/Vol]0.5 E9/LNormal0.2 - 1.0 E9/LRemisol HemeMonocytes/100 WBC (Bld)6.0 % Normal4.0 - 14.0 %Remisol HemeNeutrophils (Bld) [#/Vol]5.2 E9/LNormal2.0 - 7.5 E9/LRemisol HemeNeutrophils/100 WBC (Bld)58.4 %Srhlvs67.0 - 75.0 %Remisol Heme Njjakyks350.0 E9/YTjijtq393.0 - 500.0 E9/LRemisol HemePlatelet mean volume (Bld) [Entitic vol]8.6 fLNormal6.4 - 10.8 fLRemisol HemeRBC (Bld) [#/Vol]4.3 E12/L Normal4.3 - 5.9 E12/LRemisol HemeWBC corrected for nucl RBC Auto (Bld) [#/Vol] 8.9 E9/LNormal4.0 - 11.0 E9/LRemisol HemeLipid Panelon 06-40-4861Ugtadcplhyu [Mass/Vol]138 mg/bZRptqlx630-387DdzqikMercer County Community HospitalComment on above: Performed By: #### [id number] #### [facility] [address] [place] [place], [place] [address]Mxfqbthmeyv in HDL [Mass/Vol]32 mg/dLInvalid Interpretation CodeMercer County Community HospitalComment on above:Result Comment: '>= 60 LOW RISK' '<= 40 HIGH RISK'Performed By: #### [id number] #### [facility] [address] [place], [place] [address]Tprhcwdgcpt in LDL [Mass/Vol]78 mg/dLNormal<=129[facility] HospitalComment on above:Performed By: #### [id number] #### [facility] [address] [place], [place] [address]Ectglgseqwb in VLDL [Mass/Vol]57 mg/dLHigh7-40[facility] HospitalComment on above:Performed By: #### [id number] #### [facility] [address] [place], [place] [address]Yabqvokyicsp [Mass/Vol]284 mg/dLHigh<=149[facility] HospitalComment on above:Performed By: #### [id number] #### [facility] [address] [place], [place] [address]Cbpmr Consultation Noteon [id number] Consultation Note Reason for Visit lab work Assessment/Plan Patient presents for lab work and urine collection. 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) Essential hypertension (I10: Essential (primary) hypertension) Morbid obesity (E66.01: Morbid (severe) obesity due to excess calories) Smoker (F17.200: Nicotine dependence, unspecified, uncomplicated) Medications atorvastatin 40 mg Tab, 40 mg= 1 tab(s), Daily carbidopa-levodopa 25 mg-100 mg Tab, See Instructions gabapentin 300 mg Cap, 300 mg= 1 cap(s), Oral, BID, 2 refills ketoconazole Top 2% Crm, See Instructions lisinopril 2.5 mg Tab, 2.5 mg= 1 tab(s), Oral, Daily metformin 1000 mg Tab, 1000 mg= 1 tab(s), Oral, BID mirtazapine 30 mg Tab, 30 mg= 1 tab(s), Oral, Bedtime, 1 refills nicotine 14 mg/24 hr Transderm ER Film, 1 patch(es), Topical, Daily prazosin 2 mg oral capsule, See Instructions ropinirole 1 mg Tab, 1 mg= 1 tab(s), Bedtime Allergies penicillin (Anaphylactic reaction, Hives) Immunizations Vaccine Date Status Comments influenza virus vaccine, inactivated 02/28/2023 Given influenza virus vaccine, inactivated - Not Given Patient Refuses SARS-CoV-2 (COVID-19) mRNA BNT-162b2 vax 10/26/2020 Recorded SARS-CoV-2 (COVID-19) mRNA BNT-162b2 vax 10/26/2020 Recorded SARS-CoV-2 (COVID-19) mRNA BNT-162b2 vax 10/05/2020 Recorded SARS-CoV-2 (COVID-19) mRNA BNT-162b2 vax 10/05/2020 Recorded pneumococcal 23-valent vaccine 04/30/2020 Recorded influenza virus vaccine, inactivated 04/30/2020 Recorded pneumococcal 23-valent vaccine 04/30/2020 Recorded influenza virus vaccine, inactivated 04/30/2020 Recorded influenza virus vaccine, inactivated 03/08/2018 Recorded influenza virus vaccine, inactivated 03/08/2018 RecordedNormalMercer County Community HospitalU Microalbon 40-24-9723Mmevlyz DL <= 20 mg/L (U) [Mass/Vol]11.7 mg/dLHigh0.0-1.9 [facility] HospitalComment on above:Performed By: #### [id number] #### [facility] [address] [place], [place] [address]S Protein/Creat Ratioon 08-78-8502Uzizsrt/Creatinine (U) [Ratio]42.50 mg/gm CrNormal.00-200.00[facility] HospitalComment on above:Performed By: #### [id number] #### [facility] [facility] [address], [place] [address]J Kjfmqyrsyn72.8 mg/dLInvalid Interpretation The Christ HospitalComment on above:Performed By: #### [id number] #### [facility] [address] [place], [place] [address]Lp Total Vixrrib71.0 mg/dLInvalid Interpretation [facility] HospitalComment on above:Performed By: #### [id number] #### [facility] [address] [place], [place] [address]xFAWsx [id number] mL/min/1.73 y7Lwqlve>=59Mer[facility] Community HospitalComment on above:Order Comment: Order added by Discern Expert. Performed By: #### [id number] #### [facility] [address] [place] [address]Iadolvt [id number] [id number]#1.00TIFThe Jewish Hospitalcreenson 31-98-1741Lzirshe [id number]#1.00[facility] HospitalAmbulatory Visit Summaryon [id number] Visit Summary EDIE KIM :1960 Visit Date:10/02/2023 Ambulatory Visit Instructions Your Diagnosis Annual visit for general adult medical examination with abnormal findings Chronic kidney disease, stage 3 unspecified DM (diabetes mellitus), type 2 Type 2 diabetes mellitus with hyperlipidemia Type 2 diabetes mellitus with stage 3 chronic kidney disease Morbid obesity Anxiety Chronic depression Essential hypertension Smoker Screening for lung cancer Breast cancer screening by mammogram Colon cancer screening Screening declined by patient Your Care Team Attending Physician - Sanchez Rice MD Primary Care Physician - Sanchez Rice MD This Is Your Medications List atorvastatin (atorvastatin 40 mg Tab) carbidopa-levodopa (carbidopa-levodopa 25 mg-100 mg Tab) gabapentin (gabapentin 300 mg Cap) ketoconazole topical (ketoconazole Top 2% Crm) lisinopril (lisinopril 2.5 mg Tab) metformin (metformin 1000 mg Tab) mirtazapine (mirtazapine 30 mg Tab) nicotine (nicotine 14 mg/24 hr Transderm ER Film) prazosin (prazosin 2 mg oral capsule) ropinirole (ropinirole 1 mg Tab) Procedures Performed Incision and drainage of perianal abscess (07/18/2020), Bowel (05/02/2020), Antegrade insertion of ureteric stent (11/20/2017), Cholecystectomy, Cholecystectomy, Hemorrhoidectomy, Ileostomy, Kidney excision, Tonsillectomy. Discharge Vitals Heart Rate (Peripheral) 88 Respiratory Rate 16 Blood Pressure 148/88 Height 161 cm Height 63 in Weight 92.9 kg Weight 204.38 lb BMI 35.84 What to do next Scheduled Follow-Up Appointments 2023 1:00 PM EDT With: Adriana CALDERON, Sanchez Hagen [facility] Interpretation [address] [place] [address]- \.br\ You Need to Complete the Following\.br\ CBC w/ Auto Diff, Blood, Routine collect, 10/02/23, Order for future visit, Lab Collect, DM (diabetes mellitus), type 2[facility] Office/Clinic Noteon 10-02-2023 [facility] Office/Clinic NoteHPI Staff Edie is a 62 year old female presenting for follow up from AMW exam AYESHA: 6 PHQ9: 2 needs her metformin, gabapentin and prazosin refilled History of Present Illness - Pt here for follow up. - BS have been doing well. - Cannot afford the trulicity. - Gabapentin is no longer helping with the neuropathy. - Needs an A1c today. Physical Exam General: alert, no acute distress ENMT: oral mucosa moist, Cardiovascular: regular rate and rhythm, normal peripheral perfusion Respiratory: Lungs CTA, respirations non labored Extremities: no deformity, no trauma Neurological: oriented x 4, LOC appropriate for age, CN II-XII intact, motor strength equal & normal bilaterally, speech normal Abdomen: Soft, Nontender, Non-distended, + BS Assessment/Plan 1. DM (diabetes mellitus), type 2 (E11.9: Type 2 diabetes mellitus without complications) - Labs ordered - Last A1c was WNL - BS this morning was 120. - OK to stay off Trulicity Ordered: CBC w/ Auto Diff Comprehensive Metabolic Panel HgbA1c Lipid Panel Microalbumin Level Urine U Protein/Creat Ratio 2. Chronic kidney disease, stage 3 unspecified (N18.30: Chronic kidney disease, stage 3 unspecified) - Will recheck labs today. Ordered: CBC w/ Auto Diff Comprehensive Metabolic Panel HgbA1c Lipid Panel Microalbumin Level Urine U Protein/Creat Ratio 3. Essential hypertension (I10: Essential (primary) hypertension) - BPS are WNL Ordered: CBC w/ Auto Diff Comprehensive Metabolic Panel HgbA1c Lipid Panel Microalbumin Level Urine U Protein/Creat Ratio 4. Tobacco use (Z72.0: Tobacco use) - Will try nicotine patches. Ordered: CBC w/ Auto Diff Comprehensive Metabolic Panel HgbA1c Lipid Panel Microalbumin Level Urine U Protein/Creat Ratio 5. Chronic depression (F32.A: Depression, unspecified) - Pt denies at this time. - Does not want to change meds at this time. - Will monitor Ordered: CBC w/ Auto Diff Comprehensive Metabolic Panel HgbA1c Lipid Panel Microalbumin Level Urine U Protein/Creat Ratio 6. Neuropathy (G62.9: Polyneuropathy, unspecified) - Will increase gabapentin Orders: dulaglutide, 0.75 mg, SubCutaneous, qWeek, # 12 EA, Refills(s) 1, [id number] 161.2, cm, 05/31/23 13:03:00 EST, Height/Length Dosing, 91.7, kg, 05/31/23 13:03:00 EST, Weight Dosing gabapentin, 300 mg = 1 cap(s), Oral, BID, # 60 cap(s), Refills(s) 2, Pharmacy: [facility]/pharm[facility] #[id number], 161, cm, 10/02/23 13:48:00 EDT, Height/Length Dosing, 92.9, kg, 10/02/23 13:48:00 EDT, Weight Dosing Cologuard Screening Test CT Chest, Low Dose Screening MA Mamm Screen w/CAD if perf and 3D Alejandro Total time spent preparing for the encounter, evaluating and assessing the patient, documenting thevisit, and ordering appropriate follow-up work was 40 minutes. Follow-up No qualifying data available Problem List/Past Medical History Ongoing Anxiety Arthritis of spine BMI 35.0-35.9,adult Chronic depression Chronic kidney disease, stage 3 unspecified Cough Degenerative disc disease, cervical DM (diabetes mellitus), type 2 Dyslipidemia ESBL 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 Essential hypertension Hyperlipidemia Insomnia Liver cyst Morbid obesity Muscle weakness Neuropathy MANDO (obstructive sleep apnea) Perirectal abscess PTSD (post-traumatic stress disorder) Restless leg syndrome, familial Smoker Tobacco use Tremor Type 2 diabetes mellitus with hyperlipidemia Type 2 diabetes mellitus with stage 3 chronic kidney disease Historical BMI 32.0-32.9,adult Rash Procedure/Surgical History Incision and drainage of perianal abscess (07/18/2020), Bowel (05/02/2020), Antegrade insertion of ureteric stent (11/20/2017), Cholecystectomy, Cholecystectomy, Hemorrhoidectomy, Ileostomy, Kidney excision, Tonsillectomy. Medications atorvastatin 40 mg Tab, 40 mg= 1 tab(s), Daily carbidopa-levodopa 25 mg-100 mg Tab, See Instructions gabapentin 300 mg Cap, 300 mg= 1 cap(s), Oral, BID, 2 refills ketoconazole Top 2% Crm, See Instructions lisinopril 2.5 mg Tab, 2.5 mg= 1 tab(s), Oral, Daily metformin 1000 mg Tab, 1000 mg= 1 tab(s), Oral, BID mirtazapine 30 mg Tab, 30 mg= 1 tab(s), Oral, Bedtime, 1 refills prazosin 2 mg oral capsule, See Instructions ropinirole 1 mg Tab, 1 mg= 1 tab(s), Bedtime Allergies penicillin (Anaphylactic reaction, Hives) Social History Alcohol - Denies Alcohol Use, 10/04/2022 Home/Environment Lives with Alone, ., 10/04/2022 Substance Abuse - Denies Substance Abuse, 10/04/2022 Current, 01/03/2019 Tobacco - High Risk, 10/04/2022 10 or more cigarettes (1/2 pack or more)/day in last 30 days Tobacco Use:. Cigarettes, 1 per day. 42 year(s). Total pack years: 42. Started age 20.0 Years. Previous treatment: None. Ready to change: Yes. Household tobacco concerns: No. Yes, 10/02/2023 Family History Aneurysm: Father. Diabetes mellitus type 2: Aunt and Grandparent. Mark (more content not included)...[facility] DaytonComment on above:Result Comment: Electronically Signed By: Adriana CALDERON, Sanchez Drew.br\Date and Time Signed: 10/02/23 14:24 EDTPatient Educationon [id number] Education Endocrinology Diabetes Mellitus and Foot Care Foot care is an important part of your health, especially when you have diabetes. Diabetes may cause you to have problems because of poor blood flow (circulation) to your feet and legs, which can cause your skin to: ? Become thinner and core drier. ? Break more easily. ? Heal more slowly. ? Peel and crack. You may also have nerve damage (neuropathy) in your legs and feet, causing decreased feeling in them. This means that you may not notice minor injuries to your feet that could lead to more serious problems. Noticing and addressing any potential problems early is the best way to prevent future foot problems. How to care for your feet Foot hygiene ? Wash your feet daily with warm water and mild soap. Do not use hot water. Then, pat your feet andthe areas between your toes until they are completely dry. Do not soak your feet as this can dry your skin. ? Trim your toenails straight across. Do not dig under them or around the cuticle. File the edges of your nails with an emery board or nail file. ? Apply a moisturizing lotion or petroleum jelly to the skin on your feet and to dry, brittle toenails. Use lotion that does not contain alcohol and is unscented. Do not apply lotion between your toes. Shoes and socks ? Wear clean socks or stockings every day. Make sure they are not too tight. Do not wear knee-high stockings since they may decrease blood flow to your legs. ? Wear shoes that fit properly and have enough cushioning. Always look in your shoes before you putthem on to be sure there are no objects inside. ? To break in new shoes, wear them for just a few hours a day. This prevents injuries on your feet. Wounds, scrapes, corns, and calluses ? Check your feet daily for blisters, cuts, bruises, sores, and redness. If you cannot see the bottom of your feet, use a mirror or ask someone for help. ? Do not cut corns or calluses or try to remove them with medicine. ? If you find a minor scrape, cut, or break in the skin on your feet, keep it and the skin around it clean and dry. You may clean these areas with mild soap and water. Do not clean the area with peroxide, alcohol, or iodine. ? If you have a wound, scrape, corn, or callus on your foot, look at it several times a day to makesure it is healing and not infected. Check for: ? Redness, swelling, or pain. ? Fluid or blood. ? Warmth. ? Pus or a bad smell. General tips ? Do not cross your legs. This may decrease blood flow to your feet. ? Do not use heating pads or hot water bottles on your feet. They may burn your skin. If you have lost feeling in your feet or legs, you may not know this is happening until it is too late. ? Protect your feet from hot and cold by wearing shoes, such as at the beach or on hot pavement. ? Schedule a complete foot exam at least once a year (annually) or more often if you have foot problems. Report any cuts, sores, or bruises to your health care provider immediately. Where to find more information ? [place] [employer]: www.diabetes.org ? Association of Diabetes Care & Education Specialists: www.diabeteseducator.org Contact a health care provider if: ? You have a medical condition that increases your risk of infection and you have any cuts, sores, or bruises on your feet. ? You have an injury that is not healing. ? You have redness on your legs or feet. ? You feel burning or tingling in your legs or feet. ? You have pain or cramps in your legs and feet. ? Your legs or feet are numb. ? Your feet always feel cold. ? You have pain around any toenails. Get help right away if: ? You have a wound, scrape, corn, or callus on your foot and: ? You have pain, swelling, or redness that gets worse. ? You have fluid or blood coming from the wound, scrape, corn, or callus. ? Your wound, scrape, corn, or callus feels warm to the touch. ? You have pus or a bad smell coming from the wound, scrape, corn, or callus. ? You have a fever. ? You have a red line going up your leg. Summary ? Check your feet every day for blisters, cuts, bruises, sores, and redness. ? Apply a moisturizing lotion or petroleum jelly to the skin on your feet and to dry, brittle toenails. ? Wear shoes that fit properly and have enough cushioning. ? If you have foot problems, report any cuts, sores, or bruises to your health care provider immediately. ? Schedule a complete foot exam at least once a year (annually) or more often if you have foot problems. This information is not intended to replace advice given to you by your health care provider. Make sure you discuss any questions you have with your health care provider. Document Revised: 11/25/2020 Document Reviewed: 11/25/2020 [employer] Patient Education ? 2022 [employer]. Mental and Behavioral Health Managing Anxiety, Adult After being diagnosed with anxiety, you may be relieve (more content not included)...NormalMercer County Community HospitalConsultation Noteon 08-24-2023 Consultation [id number]#1.00TIFFNormalMercer County Community HospitalU Microalbon [id number] DL <= 20 mg/L (U) [Mass/Vol] 45.3 mg/dLHigh0.0-1.9Mer[facility] Community HospitalComment on above:Result Comment: This result was corrected due to a unit change error. Please see richar for further explanation.Performed By: #### [id number], [id number] ####[facility] [address] [place], [place] [address]Kyuyzsyhze Visit Summaryon [id number] Visit Summary EDIE KIM :1960 Visit Date:05/31/2023 Ambulatory Visit Instructions Your Diagnosis Chronic kidney disease, stage 3 unspecified DM (diabetes mellitus), type 2 Essential hypertension Type 2 diabetes mellitus with hyperlipidemia Type 2 diabetes mellitus with stage 3 chronic kidney disease Morbid obesity BMI 35.0-35.9,adult Smoker Hyperlipidemia, unspecified Your Care Team Attending Physician - Sanchez Rice MD. Primary Care Physician - Sanchez Rice MD This Is Your Medications List dulaglutide (Trulicity Pen 0.75 mg/0.5 mL subcutaneous solution) Contact prescribing physician if questions or concerns atorvastatin (atorvastatin 40 mg Tab) baclofen (baclofen 10 mg Tab) carbidopa-levodopa (carbidopa-levodopa 25 mg-100 mg ER Tab) gabapentin (gabapentin 100 mg Cap) ketoconazole topical (ketoconazole Top 2% Crm) lisinopril (lisinopril 2.5 mg Tab) metformin (metformin 1000 mg Tab) mirtazapine (mirtazapine 30 mg Tab) prazosin (prazosin 2 mg oral capsule) ropinirole (ropinirole 1 mg Tab) [Image Removed: STOP]Stop taking these medications semaglutide (Ozempic 2 mg/3 mL (0.25 mg or 0.5 mg dose) subcutaneous solution) Procedures Performed Incision and drainage of perianal abscess (07/18/2020), Bowel (05/02/2020), Antegrade insertion of ureteric stent (11/20/2017), Cholecystectomy, Cholecystectomy, Hemorrhoidectomy, Ileostomy, Kidney excision, Tonsillectomy. Discharge Vitals Heart Rate (Peripheral) 70 Respiratory Rate 18 Blood Pressure 118/82 Height 161.2 cm Height 63 in Weight 91.7 kg Weight 201.74 lb BMI 35.29 What to do next Scheduled Follow-Up Appointments Sunday 2:00 PM EDT With: Adriana CALDERON, Sanchez Hagen Where: [facility] [address] [address]- \.br\ Medications\.br\ What How Much When Instructions\.br\ New dulaglutide (Trulicity Pen 0.75 mg/ 0.5 mL subcutaneous solution) 0.75 Milligram Subcutaneous Every week Refills: 1 Pickup at [facility]/pharm[facility] #[id number]\.br\ Unchanged atorvastatin (atorvastatin 40 mg Tab) 1 Tablets Every day TAKE 1 TABLET BY MOUTH EVERY DAY Contact prescribing physician if questions or concerns \.br\ Unchanged baclofen (baclofen 10 mg Tab) 1 Tablets 3 times a day TAKE 1 TABLET BY MOUTH AT BEDTIME Contact prescribing physician if questions or concerns \.br\ Unchanged carbidopa-levodopa (carbidopa-levodopa 25 mg-100 mg ER Tab) 1 Tablets By Mouth 4 times a day 8am, noon and 4pm, 8pm Contact prescribing physician if questions or concerns \.br\ Unchanged gabapentin (gabapentin 100 mg Cap) See instructions TAKE 1 CAPSULE BY MOUTH TWICE A DAY Contact prescribing physician if questions or concerns \.br\ Unchanged ketoconazole topical (ketoconazole Top 2% Crm) See instructions APPLY TO AFFECTED AREA TWICE A DAY Contact prescribing physician if questions or concerns \.br\ Unchanged lisinopril (lisinopril 2.5 mg Tab) 1 Tablets By Mouth Every day Contact prescribing physician if questions or concerns \.br\ Unchanged metformin (metformin 1000 mg Tab) 1 Tablets By Mouth 2 times a day Contact prescribing physician if questions or concerns \.br\ Unchanged mirtazapine (mirtazapine 30 mg Tab) 1 Tablets By Mouth At bedtime TAKE 1 TABLET BY MOUTH EVERY DAY AT BEDTIMEContact prescribing physician if questions or concerns \.br\ Unchanged prazosin (prazosin 2 mg oralcapsule) 1 Capsules By Mouth At bedtime Contact prescribing physician if questions or concerns \.br\ Unchanged ropinirole (ropinirole 1 mg Tab) 1 Tablets At bedtime TAKE 1 TABLET BY MOUTH AT BEDTIME Contact prescribing physician if questions or concerns \.br\ Pharmacy Information\.br\ [id number]: [address], [place] [id number] [phone]\.br\ \.br\ What How Much When Comments\.br\ Stop Taking semaglutide (Ozempic 2 mg/ 3 mL (0.25 mg or 0.5 mg dose) subcutaneous solution) See instructions INJECT 0.5 MG SUBCUTANEOUSLY ONE TIME PER WEEK \.br\ Allergies\.br\ penicillin (Anaphylactic reaction, Hives)\.br\ Problems\.br\ Ongoing - Any problem that you are currently receiving treatment for.\.br\ Anxiety\.br\ Arthritis of spine\.br\ BMI 32.0-32.9,adult\.br\ Chronic depression\.br\ Chronic kidney disease, stage 3 unspecified\.br\ Cough\.br\ Degenerative disc disease, cervical\.br\ DM (diabetes mellitus), type 2\.br\ Dyslipidemia\.br\ ESBL 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\.br\ Essential hypertension\.br\ Hyperlipidemia\.br\ Insomnia\.br\ Liver cyst\.br\ Morbid obesity\.br\ Muscle weakness\.br\ MANDO (obstructive sleep apnea)\.br\ Perirectal abscess\.br\ PTSD (post-traumatic stress disorder)\.br\ Restless leg syndrome, familial\.br\ Smoker\.br\ Tobacco use\.br\ Tremor\.br\ Type 2 diabetes mellitus with hyperlipidemia\.br\ Type 2 diabetes mellitus with stage 3 chronic kidney disease\.br\ Historical - Any problem that you are no longer receiving treatment for.\.br\ Rash\.br\ Patient Survey\.br\ You may receive a survey via text or e-mail asking about your office visit. Please share your experience with us by completing your survey. We appreciate your feedback and thank you for choosing us for your care.\.br\ Education Materials\.br\ BMI for Adults\.br\ What is BMI?\.br\ Body mass index (BMI) is a number that is calculated from a person's weight and height. BMI can help estimate how much of a person's weight is composed of fat. BMI does not measure body fat directly. Rather, it is an alternative to procedures that directly measure body fat, which can be difficult and expensive.\.br\ BMI can help identify people who may be at higher risk for certain medical problems.\.br\ What are BMI measurements used for?\.br\ BMI is used as a screening tool to identify possible weight problems. It helps determine whether a person is obese, overweight, a healthy weight, or underweight.\.br\ BMI is useful for:\.br\ ? \.br\ Identifying a weight problem that may be related to a medical condition or may increase the risk for medical problems.\.br\ ? \.br\ Promoting changes, such as changes in diet and exercise, to help reach a healthy weight. BMI screening can be repeated to see if these changes are working.\.br\ How is BMI calculated?\.br\ BMI involves measuring your weight in relation to your height. Both height and weight are measured, and the BMI is calculated from those numbers. This can be done either in [place] or metric measurements. Note that charts and online BMI calculators are available to help you find your BMI quickly and easily without having to do these calculations yourself.\.br\ To calculate your BMI in [place] measurements:\.br\ \.br\ 1. \.br\ Measure your weight in pounds (lb).\.br\ 2. \.br\ Multiply the number of pounds by 703.\.br\ ? \.br\ For example, for a person who weighs 180 lb, multiply that number by 703, which equ als 126,540.\.br\ 3. \.br\ Measure your height in inches. Then multiply that number by itself to get a measurement called inches squared. \.br\ ? \.br\ For example, for a person who is 70 inches tall, the inches squared measurement is 70 inches x 70 inches, which equals 4,900 inches squared.\.br\ 4. \.br\ Divide the total from step 2 (number of lb x 703) by the total from step 3 (inches squared): 126,540 ? 4,900 = 25.8. This is your BMI.\.br\ To calculate your BMI in metric measurements:\.br\ 1. \.br\ Measure your weight in kilograms (kg).\.br\ 2. \.br\ Measure your height in meters (m). Then multiply that number by itself to get a measurement called meters squared. \.br\ ? \.br\ For sachina deoe, for a person who is 1.75 m tall, the meters squared measurement is 1.75 m x 1.75 m, which is equal to 3.1 meters squared.\.br\ 3. \.br\ Divide the number of kilograms (your weight) by the meters squared number. In this example: 70 ? 3.1 = 22.6. This is your BMI.\.br\ What do the results mean?\.br\ BMI charts are used to identify whether you are underweight, normal weight, overweight, or obese. The following guidelines will be used:\.br\ ? \.br\ Underweight: BMI less than 18.5.\.br\ ? \.br\ Normal weight: BMI between 18.5 and 24.9.\.br\ ? \.br\ Overweight: BMI between 25 and 29.9.\.br\? \.br\ Obese: BMI of 30 or above.\.br\ Keep these notes in mind:\.br\ ? \.br\ Weight includes bothfat and muscle, so someone with a muscular build, such as an athlete, may have a BMI that is higherthan 24.9. In cases like these, BMI is not an accurate measure of body fat.\.br\ ? \.br\ To determine if excess body fat is the cause of a BMI of 25 or higher, further assessments may need to be doneby a health care provider.\.br\ ? \.br\ BMI is usually interpreted in the same way for men and women.\.br\ Where to find more information\.br\ For more information about BMI, including tools to quickly calculate your BMI, go to these websites:\.br\ ? \.br\ Centers for Disease Control and Prevention: www.cdc.gov\.br\ ? \.br\ [place] [employer]: www.heart.org\.br\ ? \.br\ National Heart, Lung, and Blood [place]: www.nhlbi.nih.gov\.br\ Summary\.br\ ? \.br\ Body mass index (BMI) is a number that is calculated from a person's weight and height.\.br\ ? \.br\ BMI may help estimate how muchof a person's weight is composed of fat. BMI can help identify those who may be at higher risk for cerFisher Medstar Harbor HospitalCHEMISTRYOrdered By: Lily Rivera on [id number] (Bld) [Mass fraction]5.7 %Normal<=5.9%[facility] [place] ChemAutoSSCHEMISTRYOrdered By: SYSTEM SYSTEM on 05-31-2023U Ivpqlcaffw212.9 mg/dLInvalid Interpretation CodeRemisol ChemU Lvxoqkux44.3 microgram/mLHigh0.0 - 19.0 mcg/mLRemisol ChemU Prot/Creat Ratio 67.30 mg/gm CrNormal0.00 - 200.00 mg/gm CrRemisol ChemUr Total Ojxvqte85.1 mg/dL Invalid Interpretation CodeRemisol ChemFamily Medicine Office/Clinic Noteon [id number] Medicine Office/Clinic NoteHPI Staff Edie is a 62 year old female presenting for 3 month follow up Do you have any of the following symptoms? Foot Exam: Eye Exam: Last A1C: Hgb A1C %: 6.1 % High (01/04/23 15:35:00) Statin: atorvastatin 40mg Patient is here for follow up on hypertension. How often are you checking your blood pressure? no What are your average readings? _ Yearly BMP: _ flu: UTD Checking blood sugars once daily until machine broke a week ago needs new one sent in. Daily blood sugars 110-130 History of Present Illness The patient presents for evaluation of multiple medical concerns. Her shaking is doing a lot better. She broke her meter and could not get the Ozempic because it is too expensive. Review of Systems PHQ Score Initial Depression Screen Score: 0 SCORE Physical Exam Vitals & Measurements HR: 70(Peripheral) RR: 18 BP: 118/82 SpO2: 96% HT: 63 in HT: 161.2 cm WT: 91.7 kg WT: 201.74 lb BMI: 35.29 General: alert, no acute distress ENMT: oral mucosa moist, Cardiovascular: regular rate and rhythm, normal peripheral perfusion Respiratory: Lungs CTA, respirations non labored Extremities: no deformity, no trauma Neurological: oriented x 4, LOC appropriate for age, CN II-XII intact, motor strength equal & normal bilaterally, speech normal, No tremors noted today Abdomen: Soft, Nontender, Non-distended, + BS Assessment/Plan 1. Chronic kidney disease, stage 3 unspecified (N18.30: Chronic kidney disease, stage 3 unspecified) - Will check in 6 months. - Urine today Ordered: HgbA1c Microalbumin Level Urine U Protein/Creat Ratio 2. DM (diabetes mellitus), type 2 (E11.9: Type 2 diabetes mellitus without complications) - Will try trulicity - Will send in new meter Ordered: HgbA1c Microalbumin Level Urine U Protein/Creat Ratio 3. Essential hypertension (I10: Essential (primary) hypertension) - At goal - Continue as before Ordered: HgbA1c Microalbumin Level Urine U Protein/Creat Ratio 4. Type 2 diabetes mellitus with hyperlipidemia (E11.69: Type 2 diabetes mellitus with other specified complication) - As per number 2. Ordered: HgbA1c Microalbumin Level Urine U Protein/Creat Ratio 5. Type 2 diabetes mellitus with stage 3 chronic kidney disease (E11.22: Type 2 diabetes mellitus with diabetic chronic kidney disease) - As per number 2 Ordered: HgbA1c Microalbumin Level Urine U Protein/Creat Ratio 6. Morbid obesity (E66.01: Morbid (severe) obesity due to excess calories) - Diet and exercise advised Ordered: HgbA1c Microalbumin Level Urine U Protein/Creat Ratio 7. BMI 35.0-35.9,adult (Z68.35: Body mass index [BMI] 35.0-35.9, adult) - BMI education given Ordered: HgbA1c Microalbumin Level Urine U Protein/Creat Ratio 8. Smoker (F17.200: Nicotine dependence, unspecified, uncomplicated) - Please stop smoking. Ordered: HgbA1c Microalbumin Level Urine U Protein/Creat Ratio Hyperlipidemia, unspecified (E78.5: Hyperlipidemia, unspecified) Orders: dulaglutide, 0.75 mg, SubCutaneous, qWeek, # 12 EA, Refills(s) 1, Pharmacy: [facility]/pharmacy #[id number], 161.2, cm, 05/31/23 13:03:00 EST, Height/Length Dosing, 91.7, kg, 05/31/23 13:03:00 EST, Weight Dosing Follow-up No qualifying data available Patient Education BMI for Adults Problem List/Past Medical History Ongoing Anxiety Arthritis of spine BMI 32.0-32.9,adult Chronic depression Chronic kidney disease, stage 3 unspecified Cough Degenerative disc disease, cervical DM (diabetes mellitus), type 2 Dyslipidemia ESBL 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 Essential hypertension Hyperlipidemia Insomnia Liver cyst Morbid obesity Muscle weakness MANDO (obstructive sleep apnea) Perirectal abscess PTSD (post-traumatic stress disorder) Restless leg syndrome, familial Smoker Tobacco use Tremor Type 2 diabetes mellitus with hyperlipidemia Type 2 diabetes mellitus with stage 3 chronic kidney disease Historical Rash Procedure/Surgical History Incision and drainage of perianal abscess (07/18/2020), Bowel (05/02/2020), Antegrade insertion of ureteric stent (11/20/2017), Cholecystectomy, Cholecystectomy, Hemorrhoidectomy, Ileostomy, Kidney excision, Tonsillectomy. Medications atorvastatin 40 mg Tab, 40 mg= 1 tab(s), Daily baclofen 10 mg Tab, 10 mg= 1 tab(s), TID carbidopa-levodopa 25 mg-100 mg ER Tab, 1 tab(s), Oral, QID gabapentin 100 mg Cap, See Instructions ketoconazole Top 2% Crm, See Instructions lisinopril 2.5 mg Tab, 2.5 mg= 1 tab(s), Oral, Daily metformin 1000 mg Tab, 1000 mg= 1 tab(s), Oral, BID mirtazapine 30 mg Tab, 30 mg= 1 tab(s), Oral, Bedtime, 1 refills prazosin 2 mg oral capsule, 2 mg= 1 cap(s), Oral, Bedtime, 1 refills ropinirole 1 mg Tab, 1 mg= 1 tab(s), Bedtime Trulicity Pen 0.75 mg/0.5 mL subcutaneous solution, 0.75 mg, SubCutaneous, qWeek, 1 refills Allergies penicillin (Anaphylactic reaction, Hives) Social History Alcohol - Denies Alcohol (more content not included)...NormalMercer County Community HospitalComment on above:Result Comment: Electronically Signed By: Adriana CALDERON, Sanchez Drew.br\Date and Time Signed: 05/31/23 13:17 [id number] 05-31-2023 HbA1c (Bld) [Mass fraction]5.7 %Normal<=5.9Mer[facility] County Community HospitalComment on above:Performed By: #### [id number] ####[facility] [address] [place], [place] [address]Mtupztu Educationon [phone] Education Nutrition BMI for Adults What is BMI? Body mass index (BMI) is a number that is calculated from a person's weight and height. BMI can help estimate how much of a person's weight is composed of fat. BMI does not measure body fat directly.Rather, it is an alternative to procedures that directly measure body fat, which can be difficult and expensive. BMI can help identify people who may be at higher risk for certain medical problems. What are BMI measurements used for? BMI is used as a screening tool to identify possible weight problems. It helps determine whether a person is obese, overweight, a healthy weight, or underweight. BMI is useful for: ? Identifying a weight problem that may be related to a medical condition or may increase the risk for medical problems. ? Promoting changes, such as changes in diet and exercise, to help reach a healthy weight. BMI screening can be repeated to see if these changes are working. How is BMI calculated? BMI involves measuring your weight in relation to your height. Both height and weight are measured,and the BMI is calculated from those numbers. This can be done either in [place] or metric measurements. Note that charts and online BMI calculators are available to help you find your BMI quickly and easily without having to do these calculations yourself. To calculate your BMI in [place] measurements: 1. Measure your weight in pounds (lb). 2. Multiply the number of pounds by 703. ? For example, for a person who weighs 180 lb, multiply that number by 703, which equals 126,540. 3. Measure your height in inches. Then multiply that number by itself to get a measurement called inches squared. ? For example, for a person who is 70 inches tall, the inches squared measurement is 70 inches x 70 inches, which equals 4,900 inches squared. 4. Divide the total from step 2 (number of lb x 703) by the total from step 3 (inches squared): 126,540 ? 4,900 = 25.8. This is your BMI. To calculate your BMI in metric measurements: 1. Measure your weight in kilograms (kg). 2. Measure your height in meters (m). Then multiply that number by itself to get a measurement called meters squared. ? For example, for a person who is 1.75 m tall, the meters squared measurement is 1.75 m x 1.75 m, which is equal to 3.1 meters squared. 3. Divide the number of kilograms (your weight) by the meters squared number. In this example: 70 ?3.1 = 22.6. This is your BMI. What do the results mean? BMI charts are used to identify whether you are underweight, normal weight, overweight, or obese. The following guidelines will be used: ? Underweight: BMI less than 18.5. ? Normal weight: BMI between 18.5 and 24.9. ? Overweight: BMI between 25 and 29.9. ? Obese: BMI of 30 or above. Keep these notes in mind: ? Weight includes both fat and muscle, so someone with a muscular build, such as an athlete, may have a BMI that is higher than 24.9. In cases like these, BMI is not an accurate measure of body fat. ? To determine if excess body fat is the cause of a BMI of 25 or higher, further assessments may need to be done by a health care provider. ? BMI is usually interpreted in the same way for men and women. Where to find more information For more information about BMI, including tools to quickly calculate your BMI, go to these websites: ? Centers for Disease Control and Prevention: www.cdc.gov ? [place] [employer]: www.heart.org ? National Heart, Lung, and Blood [place]: www.nhlbi.nih.gov Summary ? Body mass index (BMI) is a number that is calculated from a person's weight and height. ? BMI may help estimate how much of a person's weight is composed of fat. BMI can help identify those who may be at higher risk for certain medical problems. ? BMI can be measured using [place] measurements or metric measurements. ? BMI charts are used to identify whether you are underweight, normal weight, overweight, or obese. This information is not intended to replace advice given to you by your health care provider. Make sure you discuss any questions you have with your health care provider. Document Revised: 01/28/2020 Document Reviewed: 12/05/2019 [employer] Patient Education ? 2022 [employer].[facility] U Protein/Creat Ratioon 05-31-2023U Lllbdhzuju765.9 mg/dLInvalid Interpretation [facility] HospitalComment on above:Performed By: #### [id number], [id number] ####[facility] [address] [place], [place] [address]C Prot/Creat Ratio67.30 mg/gm CrNormal.00-200.00[facility] Comment on above:Performed By: #### [id number], [id number] ####[facility] [address] [place], [place] [address]Sa Total Csrdwhb88.1 mg/dLInvalid Interpretation [facility] HospitalComment on above: Performed By: #### [id number], [id number] ####[facility] [address] [place], [place] [address]Bzxmnydxqqkb Noteon 05-28-2023 Consultation [id number]#1.00TIFKettering Health Greene MemorialRAD - MRI Reporton [id number] - MRI Report [id number]#1.00TIFKettering Health Greene MemorialRAD - MRI Reporton [id number] - MRI Report [id number]#1.00[facility] HospitalRAD - MRI Reporton [id number] - MRI Report [id number]#1.00[facility]'s HospitalAmbulatory Visit Summaryon [id number] Visit Summary EDIE KIM :1960 Visit Date:03/14/2023 Ambulatory Visit Instructions Your Care Team Attending Physician - Sanchez Rice MD Primary Care Physician - Sanchez Rice MD This Is Your Medications List atorvastatin (atorvastatin 40 mg Tab) baclofen (baclofen 10 mg Tab) carbidopa-levodopa (carbidopa-levodopa 25 mg-100 mg ER Tab) ketoconazole topical (ketoconazole Top 2% Crm) lisinopril (lisinopril 2.5 mg Tab) metformin (metformin 1000 mg Tab) mirtazapine (mirtazapine 7.5 mg oral tablet) prazosin (prazosin 2 mg oral capsule) ropinirole (ropinirole 1 mg Tab) semaglutide (Ozempic 2 mg/3 mL (0.25 mg or 0.5 mg dose) subcutaneous solution) [Image Removed: STOP]Stop taking these medications gabapentin (gabapentin 100 mg Cap) Procedures Performed Incision and drainage of perianal abscess (07/18/2020), Bowel (05/02/2020), Antegrade insertion of ureteric stent (11/20/2017), Cholecystectomy, Cholecystectomy, Hemorrhoidectomy, Ileostomy, Kidney excision, Tonsillectomy. Discharge Vitals Blood Pressure 132/86 What to do next Scheduled Follow-Up Appointments 2023 1:00 PM EST With: Sanchez Rice MD Where: [facility] Ambulatory Visit Summary EDIE KIM Andrei :1960 Visit Date:03/14/2023 Ambulatory Visit Instructions Your Care Team Attending Physician - Sanchez Rice MD Primary Care Physician - Sanchez Rice MD This Is Your Medications List atorvastatin (atorvastatin 40 mg Tab) baclofen (baclofen 10 mg Tab) carbidopa-levodopa (carbidopa-levodopa 25 mg-100 mg ER Tab) gabapentin (gabapentin 100 mg Cap) ketoconazole topical (ketoconazole Top 2% Crm) lisinopril (lisinopril 2.5 mg Tab) metformin (metformin 1000 mg Tab) mirtazapine (mirtazapine 30 mg Tab) mirtazapine (mirtazapine 7.5 mg oral tablet) prazosin (prazosin 2 mg oral capsule) ropinirole (ropinirole 1 mg Tab) semaglutide (Ozempic 2 mg/3 mL (0.25 mg or 0.5 mg dose) subcutaneous solution) Procedures Performed Incision and drainage of perianal abscess (07/18/2020), Bowel (05/02/2020), Antegrade insertion of ureteric stent (11/20/2017), Cholecystectomy, Cholecystectomy, Hemorrhoidectomy, Ileostomy, Kidney excision, Tonsillectomy. What to do next Scheduled Follow-Up Appointments 2023 1:00 PM EST With: Adriana CALDERON, Sanchez Hagen Where: [facility] Nurse Consultation Noteon [id number] Consultation NoteReason for Visit Here for BP check no issues or symptoms BP today 132/86 Medications atorvastatin 40 mg Tab, 40 mg= 1 tab(s), Daily baclofen 10 mg Tab, 10 mg= 1 tab(s), TID carbidopa-levodopa 25 mg-100 mg ER Tab, 1 tab(s), Oral, TID gabapentin 100 mg Cap, 100 mg= 1 cap(s), BID ketoconazole Top 2% Crm, See Instructions lisinopril 2.5 mg Tab, 2.5 mg= 1 tab(s), Oral, Daily metformin 1000 mg Tab, 1000 mg= 1 tab(s), Oral, BID mirtazapine 30 mg Tab, 30 mg= 1 tab(s), Bedtime mirtazapine 7.5 mg oral tablet, 7.5 mg= 1 tab(s), Oral, Daily Ozempic 2 mg/3 mL (0.25 mg or 0.5 mg dose) subcutaneous solution, See Instructions prazosin 2 mg oral capsule, 2 mg= 1 cap(s), Bedtime ropinirole 1 mg Tab, 1 mg= 1 tab(s), Bedtime Allergies penicillin (Anaphylactic reaction, Hives) Immunizations Vaccine Date Status Comments influenza virus vaccine, inactivated 02/28/2023 Given influenza virus vaccine, inactivated - Not Given Patient Refuses SARS-CoV-2 (COVID-19) mRNA BNT-162b2 vax 10/26/2020 Recorded SARS-CoV-2 (COVID-19) mRNA BNT-162b2 vax 10/26/2020 Recorded SARS-CoV-2 (COVID-19) mRNA BNT-162b2 vax 10/05/2020 Recorded SARS-CoV-2 (COVID-19) mRNA BNT-162b2 vax 10/05/2020 Recorded pneumococcal 23-valent vaccine 04/30/2020 Recorded influenza virus vaccine, inactivated 04/30/2020 Recorded pneumococcal 23-valent vaccine 04/30/2020 Recorded influenza virus vaccine, inactivated 04/30/2020 Recorded influenza virus vaccine, inactivated 03/08/2018 Recorded influenza virus vaccine, inactivated 03/08/2018 [facility]ed[facility] Consultation Noteon [id number] Note [id number]#1.00TIFKettering Health Greene MemorialEMG Electromyographyon [id number] Electromyography [id number]#1.00TIFKettering Health Greene MemorialConsultation Noteon [id number] Note [id number]#1.00TIFKettering Health Greene MemorialConsent for Flu Vaccineon [id number] for Flu Vaccine [id number]#1.00TIFKettering Health Greene MemorialFawilliams hospital Medicine Office/Clinic Noteon [id number] Medicine Office/Clinic NoteHPI Staff Edie is a 62 year old female presenting for 2 month follow up DM Do you have any of the following symptoms? Foot Exam: has had needles stuck in to be sure she feels them Eye Exam: due will do soon Last A1C: Hgb A1C %: 6.1 % High (01/04/23 15:35:00) Statin: atorvastatin 40mg flu: given today New med carbidopa-levidopa added by Dr Palmer History of Present Illness Here for follow up. Pt was recently diagnosed with Parkinson's. Pt started on meds. Still has not seen much change. Pt is feeling well and happy she knows what is going on. DM is well controlled. Review of Systems PHQ Score Initial Depression Screen Score: 0 Physical Exam Vitals & Measurements T: 36.8 ?C(Oral) HR: 100(Peripheral) RR: 16 BP: 142/84 SpO2: 97% HT: 63 in HT: 161.2 cm WT: 94.7 kg WT: 208.34 lb BMI: 36.44 General: alert, no acute distress ENMT: oral mucosa moist, Cardiovascular: regular rate and rhythm, normal peripheral perfusion Respiratory: Lungs CTA, respirations non labored Extremities: no deformity, no trauma, Resting Tremor noted on the L hand Neurological: oriented x 4, LOC appropriate for age, CN II-XII intact, motor strength equal & normal bilaterally, speech normal Abdomen: Soft, Nontender, Non-distended, + BS Assessment/Plan 1. Parkinson's disease with dyskinesia and fluctuating manifestations (G20.B2: Parkinson's disease with dyskinesia, with fluctuations) - Seeing JAVAN - Started on new meds - Will monitor 2. DM (diabetes mellitus), type 2 (E11.9: Type 2 diabetes mellitus without complications) - At goal. - No issues Ordered: influenza virus vaccine, inactivated, 0.5 mL, Injection, IntraMuscular, Once, Stop date 02/28/23 14:00:00 EDT, Routine, Start date 02/28/23 14:00:00 EDT Body Mass Index (BMI) documented 3008F Current tobacco smoker 1034F Depression Screening Negative 3352F Influenza immunization administered or previously received 4274F Most recent diastolic blood pressure 80-89 mm Hg 3079F Most recent systolic blood pressure >= 140 mm Hg 3077F 3. Type 2 diabetes mellitus with hyperlipidemia (E11.69: Type 2 diabetes mellitus with other specified complication) - Continue on meds as before Ordered: influenza virus vaccine, inactivated, 0.5 mL, Injection, IntraMuscular, Once, Stop date 02/28/23 14:00:00 EDT, Routine, Start date 02/28/23 14:00:00 EDT Body Mass Index (BMI) documented 3008F Current tobacco smoker 1034F Depression Screening Negative 3352F Influenza immunization administered or previously received 4274F Most recent diastolic blood pressure 80-89 mm Hg 3079F Most recent systolic blood pressure >= 140 mm Hg 3077F 4. Type 2 diabetes mellitus with stage 3 chronic kidney disease (E11.22: Type 2 diabetes mellitus with diabetic chronic kidney disease) - Stable. Ordered: influenza virus vaccine, inactivated, 0.5 mL, Injection, IntraMuscular, Once, Stop date 02/28/23 14:00:00 EDT, Routine, Start date 02/28/23 14:00:00 EDT Body Mass Index (BMI) documented 3008F Current tobacco smoker 1034F Depression Screening Negative 3352F Influenza immunization administered or previously received 4274F Most recent diastolic blood pressure 80-89 mm Hg 3079F Most recent systolic blood pressure >= 140 mm Hg 3077F 5. BMI 36.0-36.9,adult (Z68.36: Body mass index [BMI] 36.0-36.9, adult) - BMI education given Ordered: influenza virus vaccine, inactivated, 0.5 mL, Injection, IntraMuscular, Once, Stop date 02/28/23 14:00:00 EDT, Routine, Start date 02/28/23 14:00:00 EDT Body Mass Index (BMI) documented 3008F Current tobacco smoker 1034F Depression Screening Negative 3352F Influenza immunization administered or previously received 4274F Most recent diastolic blood pressure 80-89 mm Hg 3079F Most recent systolic blood pressure >= 140 mm Hg 3077F 6. Class 1 obesity due to excess calories in adult (E66.09: Other obesity due to excess calories) - Diet and exercise advised Ordered: influenza virus vaccine, inactivated, 0.5 mL, Injection, IntraMuscular, Once, Stop date 02/28/23 14:00:00 EDT, Routine, Start date 02/28/23 14:00:00 EDT Body Mass Index (BMI) documented 3008F Current tobacco smoker 1034F Depression Screening Negative 3352F Influenza immunization administered or previously received 4274F Most recent diastolic blood pressure 80-89 mm Hg 3079F Most recent systolic blood pressure >= 140 mm Hg 3077F 7. Smoker (F17.200: Nicotine dependence, unspecified, uncomplicated) - Please stop smoking Ordered: Body Mass Index (BMI) documented 3008F Current tobacco smoker 1034F Depression Screening Negative 3352F Influenza immunization administered or previously received 4274F Most recent diastolic blood pressure 80-89 mm Hg 3079F Most recent systolic blood pressure >= 140 mm Hg 3077F 8. Chronic kidney disease, stage 3 unspecified (N18.30: Chronic kidney disease, stage 3 unspecified) - Stable 9. Encounter for immunization (Z23: Encounter for immuniza (more content not included)...[facility]Comment on above:Result Comment: Electronically Signed By: Adriana CALDERON, Sanchez Hagen\.br\Date and Time Signed: 02/28/23 13:39 EDTPre-Visit Planningon [id number]-Visit Planning From: Augustine AGUILAR, Krystin To: Sanchez Rice MD; Sent: 02/27/2023 12:31:51 EDT Subject: Pre-Visit Planning Due Date/Time: 02/27/2023 12:31:00 EDT Caller Name: EDIE KIM; Caller Number: H , Hi Dr. Rice, *Based on your response below, can you please update the chronic problem list and address during this visit if appropriate?* During a pre-visit planning chart review, I noted the following documentation in the medical record: Current medications: Mirtazapine Problem list: Chronic depresssion 10/05/2022 [facility] page 7 depression and CKD3 Based on your medical judgment, can you please further specify the depression listed on the problemlist? ? Major Depressive Disorder, Recurrent ? Major depressive disorder, recurrent, mild ? Major depressive disorder, recurrent, moderate ? Major depressive disorder, recurrent, in partial remission ? Major depressive disorder, recurrent, in full remission ? Other (Please Specify): I can update the problem list with your specified response if you would like. In responding to this request, please exercise your independent professional judgement. The fact that a question is asked does not imply that any particular answer is desired or expected. If you have any questions, please feel free to contact me at extension [phone]. Thank you! rKystin Bradshaw, GUEVARAN, RN, CCM, CCDS, CCDS-OInvalid Interpretation [id number] [facility] Medicine Office/Clinic Noteon [id number] Medicine Office/Clinic NoteHPI Staff Patient presents for 2 weeks follow up diabetes Do you have any of the following symptoms? Foot Exam: none Eye Exam: none Last A1C: Hgb A1C %: 6.1 % High (01/04/23 15:35:00) Statin: atorvastatin 40mg questions/concerns: none History of Present Illness - Here for follow up - Doing better. - Never saw Neurology. - BS are controlled. Review of Systems PHQ Score Initial Depression Screen Score: 0 Physical Exam Vitals & Measurements T: 37.3 ?C(Oral) HR: 100(Peripheral) RR: 24 BP: 124/82 SpO2: 99% HT: 63 in HT: 161.2 cm WT: 95.5 kg WT: 210.1 lb BMI: 36.75 General: alert, no acute distress ENMT: oral mucosa moist, Cardiovascular: regular rate and rhythm, normal peripheral perfusion Respiratory: Lungs CTA, respirations non labored, Very diminished Extremities: no deformity, no trauma Neurological: oriented x 4, LOC appropriate for age, CN II-XII intact, motor strength equal & normal bilaterally, speech normal Abdomen: Soft, Nontender, Non-distended, + BS Assessment/Plan 1. DM (diabetes mellitus), type 2 (E11.9: Type 2 diabetes mellitus without complications) At goal today. - Will continue as before Ordered: Body Mass Index (BMI) documented 3008F Current tobacco smoker 1034F Depression Screening Negative 3352F [facility] [place] [facility] External Ambulatory Referral Most recent diastolic blood pressure 80-89 mm Hg 3079F Systolic BP <130 mm Hg (Most Recent) 3074F 2. Tremor (R25.1: Tremor, unspecified) - Pt states she has not been called by Neuro - Tremors are barely noticeable today. - Will refer again Ordered: [facility] [place] External Ambulatory Referral 3. Smoker (F17.200: Nicotine dependence, unspecified, uncomplicated) - Please stop smoking Ordered: Body Mass Index (BMI) documented 3008F Current tobacco smoker 1034F Depression Screening Negative 3352F [facility] [place] External Ambulatory Referral Most recent diastolic blood pressure 80-89 mm Hg 3079F Systolic BP <130 mm Hg (Most Recent) 3074F 4. Class 1 obesity due to excess calories in adult (E66.09: Other obesity due to excess calories) - BMI education give Ordered: Body Mass Index (BMI) documented 3008F Current tobacco smoker 1034F Depression Screening Negative 3352F [facility] [place] External Ambulatory Referral Most recent diastolic blood pressure 80-89 mm Hg 3079F Systolic BP <130 mm Hg (Most Recent) 3074F 5. BMI 34.0-34.9,adult (Z68.34: Body mass index [BMI] 34.0-34.9, adult) - As above. Ordered: Body Mass Index (BMI) documented 3008F Current tobacco smoker 1034F Depression Screening Negative 3352F [facility] [place] External Ambulatory Referral Most recent diastolic blood pressure 80-89 mm Hg 3079F Systolic BP <130 mm Hg (Most Recent) 3074F 6. Cough (R05.9: Cough, unspecified) - Will do a Zpack Orders: semaglutide, 0.5 mg, SubCutaneous, qWeek, # 3 EA, Refills(s) 1, Pharmacy: [id number], 164, cm,10/04/22 16:25:00 EDT, Height/Length Dosing, 99.8, kg, 10/04/22 16:25:00 EDT, Weight Dosing Follow-up No qualifying data available Problem List/Past Medical History Ongoing Anxiety Arthritis of spine BMI 32.0-32.9,adult Chronic depression Chronic kidney disease (CKD) Cough Degenerative disc disease, cervical DM (diabetes mellitus), type 2 Dyslipidemia ESBL 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 Essential hypertension AYESHA (generalized anxiety disorder) Hyperlipidemia Insomnia Morbid obesity Muscle weakness Non-insulin dependent type 2 diabetes mellitus MANDO (obstructive sleep apnea) Perirectal abscess PTSD (post-traumatic stress disorder) Restless leg syndrome, familial Smoker Tobacco use Tremor Historical Rash Procedure/Surgical History Incision and drainage of perianal abscess (07/18/2020), Bowel (05/02/2020), Antegrade insertion of ureteric stent (11/20/2017), Cholecystectomy, Cholecystectomy, Hemorrhoidectomy, Ileostomy, Kidney excision, Tonsillectomy. Medications atorvastatin 40 mg Tab, 40 mg= 1 tab(s), Oral, Daily atorvastatin 40 mg Tab, 40 mg= 1 tab(s), Daily baclofen 10 mg Tab, 10 mg= 1 tab(s), Daily gabapentin 100 mg Cap, 100 mg= 1 cap(s), Oral, BID gabapentin 100 mg Cap, 100 mg= 1 cap(s), BID ketoconazole Top 2% Crm, See Instructions lisinopril 2.5 mg Tab, 2.5 mg= 1 tab(s), Oral, Daily metformin 1000 mg Tab, 1000 mg= 1 tab(s), Oral, BID mirtazapine 30 mg Tab, 30 mg= 1 tab(s), Bedtime mirtazapine 7.5 mg oral tablet, 7.5 mg= 1 tab(s), Oral, Daily prazosin 2 mg oral capsule, 2 mg= 1 cap(s), Oral, Bedtime prazosin 2 mg oral capsule, 2 mg= 1 cap(s), Bedtime ropinirole 0.25 mg Tab, 0.75 mg= 3 tab(s), Oral, Bedtime ropinirole 1 mg Tab, 1 mg= 1 tab(s), Bedtime Allergies penicillin (Anaphylactic reaction, Hives) Social History Alcohol - Denies Alcohol Use, 10/04/2022 Current, 01/03/2019 Home/Environment Lives with Alone, ., 10/04/2022 Substance Abuse - Denies Substance Abuse, 10/04/2022 Current, 01/03/2019 Tobacco - High Risk, 10/04/2022 10 or more cigarettes (1/2 (more content not included)...[facility] DaytonComment on above:Result Comment: Electronically Signed By: Adriana CALDERON, Sanchez Drew.br\Date and Time Signed: 01/18/23 15:51 EDTPhysician Referralon 82-37-9531Hkmbiuhwk [id number]#1.00CD:127 [facility] DaytonCHEMISTRYOrdered By: SYSTEM SYSTEM on 68-85-9777Kwvtwgu [Mass/Vol]4.1 g/dLNormal3.3 - 5.0 gm/dLFTMC Remisol Albumin/Globulin [Mass ratio]1.0 {ratio}Low1.1 - 2.2[facility] RemisolALP [Catalytic activity/Vol]46 [iU]/hDhxczm91 - 98 Int._Unit/LFTMC RemisolALT No additional P-5'-P [Catalytic activity/Vol]8 [iU]/dNormal6 - 46 Int._Unit/LFTMC RemisolAnion gap [Moles/Vol]15 mmol/LNormal6 - 16 mEq/LFTMC RemisolAST [Catalytic activity/Vol]24 [iU]/dNormal5 - 43 Int._Unit/LFTMC RemisolBilirubin [Mass/Vol] 0.5 mg/dLNormal0.0 - 1.1 mg/dLFT RemisolCalcium [Mass/Vol]9.8 mg/dLNormal8.9 - 11.1 mg/dLFT RemisolChloride [Moles/Vol]108 mmol/UIztvmq068 - 111 mmol/LFTMC RemisolCholesterol [Mass/Vol]133 mg/dMRlppsv107 - 200 mg/dLFT Remisol Cholesterol in HDL [Mass/Vol]33 mg/dLInvalid Interpretation CodeFT Remisol Cholesterol in LDL [Mass/Vol]70 mg/dLNormal<=129mg/dLFT RemisolCholesterol in VLDL [Mass/Vol]40 mg/dLNormal7 - 40 mg/dLFT RemisolCO2 [Moles/Vol]21 mmol/L Tzsgpd86 - 31 mmol/LFTMC RemisolCreatinine [Mass/Vol]1.2 mg/dLNormal0.5 - 1.3 mg/dLFTMC RemisolGFR/1.73 sq M.predicted among non-blacks MDRD (S/P/Bld) [Vol rate/Area]51 mL/min/1.73 m2Low>=59mL/min/1.73 m2FT Chem SGlobulin (S) [Mass/Vol]3.9 g/dLNormal1.4 - 4.0 gm/dLFT RemisolGlucose [Mass/Vol]143 mg/dL Uhsuib16 - 199 mg/dLFT RemisolPotassium [Moles/Vol]4.2 mmol/LNormal3.5 - 5.3 mmol/LFTMC RemisolProtein [Mass/Vol]8.0 g/dLHigh6.0 - 7.8 gm/dLFTMC Remisol Sodium [Moles/Vol]140 mmol/ZXtwexm944 - 145 mmol/LFTMC RemisolTriglyceride [Mass/Vol]202 mg/dLHigh<=149mg/dLFTMC RemisolTSH Qn2.54 m[IU]/LNormal0.34 - 5.60 mcIU/mLFTMC RemisolUrea nitrogen [Mass/Vol]19 mg/dLNormal5 - 21 mg/dLFTMC RemisolUrea nitrogen/Creatinine [Mass ratio]16 mg/mbQkppfr80 - 20[facility] Remisol HEMATOLOGYOrdered By: SYSTEM SYSTEM on 74-48-7755Jqldkbgno/100 WBC (Bld)0.4 % Normal0.0 - 2.0 %[facility] HemeAutoSSBasophils/Leukocytes Auto (Bld) [Pure # fraction]0.0 E9/LNormal0.0 - 0.2 E9/LFTMC HemeAutoSSEosinophils/100 WBC (Bld)2.4 %Normal0.0 - 8.0 %[facility] HemeAutoSSEosinophils/Leukocytes Auto (Bld) [Pure # fraction]0.2 E9/LNormal0.0 - 0.5 E9/LFTMC HemeAutoSSLymphocytes/100 WBC (Bld) 33.3 %Dwzqyr88.0 - 50.0 %[facility] HemeAutoSSLymphocytes/Leukocytes Auto (Bld) [Pure # fraction]3.3 E9/LNormal1.0 - 4.0 E9/LFTMC HemeAutoSSMonocytes/100 WBC (Bld)5.9 %Normal4.0 - 14.0 %[facility] HemeAutoSSMonocytes/Leukocytes Auto (Bld) [Pure # fraction]0.6 E9/LNormal0.2 - 1.0 E9/LFTMC HemeAutoSSNeutrophils/100 WBC (Bld) 58.0 %Ibezvb37.0 - 75.0 %[facility] HemeAutoSSNeutrophils/Leukocytes Auto (Bld) [Pure # fraction]5.7 E9/LNormal2.0 - 7.5 E9/LFTMC HemeAutoSSHEMATOLOGYOrdered By: Deana Hedrick on 34-84-6725Kghtwjgsetm distribution width (RBC) [Ratio]15.5 % High10.9 - 14.2 %[facility] HemeAutoSSHematocrit (Bld) [Volume fraction]43.5 %Normal 34.0 - 46.0 %[facility] HemeAutoSSHemoglobin (Bld) [Mass/Vol]14.4 g/rEYrjknz46.0 - 16.0 gm/dLFT HemeAutoSSMCH (RBC) [Entitic mass]30.9 vcJpkxyd06.0 - 34.0 pgFTMC HemeAutoSSMCHC (RBC) [Mass/Vol]33.0 g/vPIoabew80.4 - 36.0 gm/dLFT HemeAutoSS MCV (RBC) [Entitic vol]93.6 nIYqnqry73.0 - 100.0 fLFT HemeAutoSSPlatelet mean volume (Bld) [Entitic vol]8.4 fLNormal6.4 - 10.8 fLLAKESIDE [facility] [place] HemeAutoSSPlatelets (Bld) [#/Vol]322.0 E9/PCslfcf424.0 - 500.0 E9/[facility] HemeAutoSSRBC (Bld) [#/Vol] 4.6 E12/LNormal4.3 - 5.9 E12/[facility] HemeAutoSSWBC corrected for nucl RBC Auto (Bld) [#/Vol]9.8 E9/LNormal4.0 - 11.0 E9/[facility] HemeAutoSSEMG Electromyographyon 50-34-4760FTT [id number]#1.00CD:127 [facility] DaytonConsent for Treatmenton 51-07-8063Tubjifl for [id number]#1.00CD:127[facility] Hospital DaytonEMG Electromyographyon 67-43-7771MAR ElectromyographyEMG of MOON completed and report is in the chart. [id number]#1.00CD:127[facility] Office/Clinic Noteon 20-64-9796Ehrxgr Medicine Office/Clinic NoteHPI Staff Edie is a 61 year old female who presents to establish care. Establish Care: History: DM2, renal disease, insomnia, anxiety, arthritis of t-spine and LS, PTSD Last provider: Dr Rice at [place] Any recent labs: last month at [facility] Health Maintenance UTD: Colonoscopy: never Mammogram: 6 years ago Pelvic/Pap: N/A, pt went through menopause covid: UTD Acute: Current issues/complaints: She has c/o of shaking in her upper body. Pt has severe arthritis in her back and see's the Pain Clinic at [facility] as well as the Sleep Clinic for sleep apnea. She tests her glucose levels daily. AYESHA 7 score - 15 History of Present Illness Edie Kim is a 61-year-old female who presents today for a follow-up evaluation of diabetes. She is experiencing tremors in her bilateral arms that is gradually worsening. She does not experience this tremor at rest. She reports that her diabetes is doing well. She recently restarted Ozempic 0.25 mg 2 weeks ago. She states that she can not afford the Ozempic due to the cost. She reports that her UTIs have been bad and she has not been informing anyone when she has them. She states that she has been dealing with them herself. She does not follow-up with a urologist anymore. Review of Systems PHQ Score Initial Depression Screen Score: 0 Physical Exam Vitals & Measurements HR: 92(Peripheral) BP: 128/86 SpO2: 94% HT: 65 in HT: 164 cm WT: 99.8 kg WT: 219.56 lb BMI: 37.11 General: alert, no acute distress Cardiovascular: regular rate and rhythm, normal peripheral perfusion Respiratory: Lungs CTA, respirations non labored Extremities: no deformity, no trauma Neurological: oriented x 4, LOC appropriate for age, CN II-XII intact, motor strength equal & normal bilaterally, speech normal. Tremor noted with any active movement of bilateral arms. Assessment/Plan 1. Insomnia (G47.00: Insomnia, unspecified) Patient is doing well. Patient is taking prazosin and mirtazapine to help with this. No other issues. 2. Anxiety (F41.9: Anxiety disorder, unspecified) Patient's AYESHA is elevated at this time. There is a concern that this is not well controlled. We will recheck the patient in 3 months to make sure the patient has improvement moving forward. 3. 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 We will request labs that were recently done last month and we will review them. We will increase the patient's Ozempic to 0.5 mg as she has recently restarted on this because of cost. 4. PTSD (post-traumatic stress disorder) (F43.10: Post-traumatic stress disorder, unspecified) Patient is on prazosin to help with this. Patient is doing well at this time. 5. Tremor (R25.1: Tremor, unspecified) We will do EMG and then we will treat as needed. 6. Arthritis of spine (M47.819: Spondylosis without myelopathy or radiculopathy, site unspecified) Patient sees pain management. 7. BMI 37.0-37.9, adult (Z68.37: Body mass index [BMI] 37.0-37.9, adult) BMI education given. Chronic kidney disease, stage 3 unspecified (N18.30: Chronic kidney disease, stage 3 unspecified) ATTESTATION: Documentation services were performed after patient or guardian consented to allow Randall Beckett Mandie to record this visit. COLLIN business specialist and provider reviewed before signing. COLLIN: Phuc Holland Follow-up No qualifying data available Problem List/Past Medical History Ongoing Anxiety Arthritis of spine DM (diabetes mellitus), type 2 Essential hypertension Hyperlipidemia Insomnia PTSD (post-traumatic stress disorder) Tremor Historical No qualifying data Procedure/Surgical History Cholecystectomy, Hemorrhoidectomy, Kidney excision, Tonsillectomy. Medications atorvastatin 40 mg Tab, 40 mg= 1 tab(s), Daily baclofen 10 mg Tab, 10 mg= 1 tab(s), Daily gabapentin 100 mg Cap, 100 mg= 1 cap(s), BID lisinopril 2.5 mg Tab, 2.5 mg= 1 tab(s), Oral, Daily metformin 1000 mg Tab, 1000 mg= 1 tab(s), Oral, BID mirtazapine 30 mg Tab, 30 mg= 1 tab(s), Bedtime Ozempic 2 mg/3 mL (0.25 mg or 0.5 mg dose) subcutaneous solution, 0.5 mg, SubCutaneous, qWeek prazosin 2 mg oral capsule, 2 mg= 1 cap(s), Bedtime ropinirole 1 mg Tab, 1 mg= 1 tab(s), Bedtime Allergies penicillin (Anaphylactic reaction) Social History Alcohol - Denies Alcohol Use, 10/04/2022 Home/Environment Lives with Alone, ., 10/04/2022 Substance Abuse - Denies Substance Abuse, 10/04/2022 Tobacco - High Risk, 10/04/2022 10 or more cigarettes (1/2 pack or more)/day in last 30 days Tobacco Use:. Never Smokeless Tobacco Use:. Cigarettes, Started age 20.0 Years. Yes, 10/04/2022 Family History Diabetes mellitus type 2: Aunt and Grandparent. Drug addiction: Mother. Hypothyroidism: Mother. Vitamin B deficiency: Mother. Immunizations Vaccine Date Status Comments influenza virus vaccine, in (more content not included)...[facility] DaytonComment on above:Result Comment: Electronically Signed By: Sanchez Rice MD\.br\Date and Time Signed: 10/05/22 12:48 EDT\.br\Electronically Co-Signed By: Phuc Holland\.br\Date and Time Co-Signed: 10/04/22 18:07 EDT Formson [id number]#1.00CD:127NoSt[facility] HospitalLab Reportson 36-11-1340Ryz Reports [id number]#1.00CD:[address] [place], [place] [address]Transfer Inon 57-74-2108Hywpvzkp In [id number]#1.00CD:[address] [place], [place] [address]Ambulatory Visit Summaryon 40-72-6182Ibycteztrr Visit Summary EDIE KIM :1960 Visit Date:10/04/2022 Ambulatory Visit Instructions Your Diagnosis Insomnia Anxiety DM type 2 causing CKD stage 3 PTSD (post-traumatic stress disorder) Tremor Arthritis of spine BMI 37.0-37.9, adult Chronic kidney disease, stage 3 unspecified Your Care Team Attending Physician - Sanchez Rice MD Primary Care Physician - Sanchez Rice MD This Is Your Medications List semaglutide (Ozempic 2 mg/3 mL (0.25 mg or 0.5 mg dose) subcutaneous solution) Contact prescribing physician if questions or concerns atorvastatin (atorvastatin 40 mg Tab) baclofen (baclofen 10 mg Tab) gabapentin (gabapentin 100 mg Cap) lisinopril (lisinopril 2.5 mg Tab) metformin (metformin 1000 mg Tab) mirtazapine (mirtazapine 30 mg Tab) prazosin (prazosin 2 mg oral capsule) ropinirole (ropinirole 1 mg Tab) Procedures Performed Cholecystectomy, Hemorrhoidectomy, Kidney excision, Tonsillectomy. Discharge Vitals Heart Rate (Peripheral) 92 Blood Pressure 128/86 Height 164 cm Height 65 in Weight 99.8 kg Weight 219.56 lb BMI 37.11 Medications What How Much When Instructions Changed semaglutide (Ozempic 2 mg/ 3 mL (0.25 mg or 0.5 mg dose) subcutaneous solution) 0.5 Milligram Subcutaneous Every week Pickup at [facility]/pharmacy #[id number] Unchanged atorvastatin (atorvastatin 40 mg Tab) 1 Tablets Every day TAKE 1 TABLET BY MOUTH EVERY DAY Contact prescribing physician if questions or concerns Unchanged baclofen (baclofen 10 mg Tab) 1 Tablets Every day TAKE 1 TABLET BY MOUTH AT BEDTIME Contact prescribing physician if questions or concerns Unchanged gabapentin (gabapentin 100 mg Cap) 1 Capsules 2 times a day TAKE 1 CAPSULE BY MOUTH TWICEA DAY Contact prescribing physician if questions or concerns Unchanged lisinopril (lisinopril 2.5 mg Tab) 1 Tablets By Mouth Every day Contact prescribing physician if questions or concerns Unchanged metformin (metformin 1000 mg Tab) 1 Tablets By Mouth 2 times a day Contact prescribing physician if questions or concerns Unchanged mirtazapine (mirtazapine 30 mg Tab) 1 Tablets At bedtime TAKE 1 TABLET BY MOUTH EVERY DAYAT BEDTIME Contact prescribing physician if questions or concerns Unchanged prazosin (prazosin 2 mg oral capsule) 1 Capsules At bedtime Contact prescribing physicianif questions or concerns Unchanged ropinirole (ropinirole 1 mg Tab) 1 Tablets At bedtime TAKE 1 TABLET BY MOUTH AT BEDTIME Contact prescribing physician if questions or concerns Pharmacy Information [facility]/pharmacy #[id number]: [address], [place] [phone] Medications and Immunizations Administered Not Given influenza virus vaccine, inactivated, Patient Refuses Allergies penicillin (Anaphylactic reaction) Problems Ongoing - Any problem that you are currently receiving treatment for. Anxiety Arthritis of spine DM (diabetes mellitus), type 2 Essential hypertension Hyperlipidemia Insomnia PTSD (post-traumatic stress disorder) Tremor [facility] DaytonAmbulatory Visit Summary EDIE KIM :1960 Visit Date:10/04/2022 Ambulatory Visit Instructions Your Diagnosis Insomnia Anxiety DM type 2 causing CKD stage 3 PTSD (post-traumatic stress disorder) Tremor Arthritis of spine BMI 37.0-37.9, adult Chronic kidney disease, stage 3 unspecified Your Care Team Attending Physician - Sanchez Rice MD Primary Care Physician - Sanchez Rice MD This Is Your Medications List semaglutide (Ozempic 2 mg/3 mL (0.25 mg or 0.5 mg dose) subcutaneous solution) Contact prescribing physician if questions or concerns atorvastatin (atorvastatin 40 mg Tab) baclofen (baclofen 10 mg Tab) gabapentin (gabapentin 100 mg Cap) lisinopril (lisinopril 2.5 mg Tab) metformin (metformin 1000 mg Tab) mirtazapine (mirtazapine 30 mg Tab) prazosin (prazosin 2 mg oral capsule) ropinirole (ropinirole 1 mg Tab) Procedures Performed Cholecystectomy, Hemorrhoidectomy, Kidney excision, Tonsillectomy. Discharge Vitals Heart Rate (Peripheral) 92 Blood Pressure 128/86 Height 164 cm Height 65 in Weight 99.8 kg Weight 219.56 lb BMI 37.11 Medications What How Much When Instructions Changed semaglutide (Ozempic 2 mg/ 3 mL (0.25 mg or 0.5 mg dose) subcutaneous solution) 0.5 Milligram Subcutaneous Every week Pickup at [facility]/pharmacy #[id number] Unchanged atorvastatin (atorvastatin 40 mg Tab) 1 Tablets Every day TAKE 1 TABLET BY MOUTH EVERY DAY Contact prescribing physician if questions or concerns Unchanged baclofen (baclofen 10 mg Tab) 1 Tablets Every day TAKE 1 TABLET BY MOUTH AT BEDTIME Contact prescribing physician if questions or concerns Unchanged gabapentin (gabapentin 100 mg Cap) 1 Capsules 2 times a day TAKE 1 CAPSULE BY MOUTH TWICEA DAY Contact prescribing physician if questions or concerns Unchanged lisinopril (lisinopril 2.5 mg Tab) 1 Tablets By Mouth Every day Contact prescribing physician if questions or concerns Unchanged metformin (metformin 1000 mg Tab) 1 Tablets By Mouth 2 times a day Contact prescribing physician if questions or concerns Unchanged mirtazapine (mirtazapine 30 mg Tab) 1 Tablets At bedtime TAKE 1 TABLET BY MOUTH EVERY DAYAT BEDTIME Contact prescribing physician if questions or concerns Unchanged prazosin (prazosin 2 mg oral capsule) 1 Capsules At bedtime Contact prescribing physicianif questions or concerns Unchanged ropinirole (ropinirole 1 mg Tab) 1 Tablets At bedtime TAKE 1 TABLET BY MOUTH AT BEDTIME Contact prescribing physician if questions or concerns Pharmacy Information [facility]/pharmacy #[id number]: [address], [place] [phone] Medications and Immunizations Administered Not Given influenza virus vaccine, inactivated, Patient Refuses Allergies penicillin (Anaphylactic reaction) Problems Ongoing - Any problem that you are currently receiving treatment for. Anxiety Arthritis of spine DM (diabetes mellitus), type 2 Essential hypertension Hyperlipidemia Insomnia PTSD (post-traumatic stress disorder) Tremor [facility] DaytonINSULINon 99-20-6850Obkxuue88.5 uIU/mLNormal2.6-24.9The [facility] HospitalComment on above:Performed By: #### INSULIN #### [facility] [address] [address] [address] Aram Anderson AUTO DIFFon 76-38-0456ECTL #0.1 103/ulNormal0.0-0.1The [facility]rick HospitalComment on above:Performed By: #### CBC #### [facility] [address] [address] [address] Aram Bowlesphils/100 WBC (Bld)0.6 %Normal0.2-2.0[facility] Comment on above:Performed By: #### CBC #### [facility] [address] [address] [address] Aram Hinton #0.2 103/ulNormal0.0-0.7The [facility]rick HospitalComment on above: Performed By: #### CBC #### [facility] [address] [place] [address] Dr. Aram Garciaosinophils/100 WBC (Bld)2.5 %Normal0.9-7.0[facility] Comment on above:Performed By: #### CBC #### [facility] [address] [place] [address] Dr. Aram Garciarythrocyte distribution width (RBC) [Ratio]13.8 %Enqhiz24.0-15.0 The [facility]itrick HospitalComment on above:Performed By: #### CBC #### [facility] [address] [place] [address] Dr. Aram LaraHematocrit (Bld) [Volume fraction]43.2 %Vjqcdt21.0-48.0The [facility] HospitalComment on above:Performed By: #### CBC #### [facility] [address] [place] [address] Dr. Aram LaraHemoglobin (Bld) [Mass/Vol]13.6 g/dCWprtfh94.0-16.0The [facility] HospitalComment on above:Performed By: #### CBC #### [facility] [address] [place] [address] Dr. Aram Medina #0.04 10e3/ulCritically high0.00-0.03[facility] Comment on above:Performed By: #### CBC #### [facility] [address] [place] [address] Dr. Aram Medina %0.5 %Normal0.0-0.5The [facility]it[facility] HospitalComment on above: Performed By: #### CBC #### [facility] [address] [place] [address] Dr. Aram Matos #3.3 103/ulNormal1.2-3.8The [facility] HospitalComment on above:Performed By: #### CBC #### [facility] [address] [place] [address] Dr. Yilan ChangLymphocytes/100 WBC (Bld)38.2 %Udbvpc38.5-60.0The [facility]rick HospitalComment on above:Performed By: #### CBC #### [facility] [address] [place] [address] Dr. Aram Chirinos DIFF REQNONormalThe Mckitrick HospitalComment on above: Performed By: #### CBC #### [facility] [address] [place] [address] Dr. Aram Yepez (RBC) [Entitic mass]31.1 rdKaqsgp21.7-34.0The [facility] HospitalComment on above:Performed By: #### CBC #### [facility] [address] [place] [address] Dr. Aram Yepez (RBC) [Mass/Vol]31.5 g/jYHtclqo08.9-35.2The [facility] HospitalComment on above:Performed By: #### CBC #### [facility] [address] [place] [address] Dr. Aram Yepez (RBC) [Entitic vol]98.9 jQApqflg22.0-99.0The [facility] HospitalComment on above:Performed By: #### CBC #### [facility] [address] [place] [address] Dr. Aram Harris #0.5 103/ulNormal0.3-0.8The [facility] HospitalComment on above:Performed By: #### CBC #### [facility] [address] [place] [address] Dr. Aram Albertsocytes/100 WBC (Bld)5.5 %Normal1.7-12.0[facility] Comment on above:Performed By: #### CBC #### [facility] [address] [place] [address] Dr. Aram Huertas #4.5 103/ulNormal1.4-6.5The [facility] HospitalComment on above:Performed By: #### CBC #### [facility] [address] [place] [address] Dr. Yilan ChangNeutrophils/100 WBC (Bld)52.7 %Dgeaby83.0-75.0The [facility]it[facility] HospitalComment on above:Performed By: #### CBC #### [facility] [address] [place] [address] Dr. Aram Pantojalet mean volume (Bld) [Entitic vol]9.5 fLNormal9.5-13.5The [facility]itrick HospitalComment on above:Performed By: #### CBC #### [facility] [address] [place] [address] Dr. Aram DaileyT271 103/rcHsptcm800-647Ltl [facility] HospitalComment on above: Performed By: #### CBC #### [facility] [address] [place] [address] Dr. Aram LaraRBC4.37 106/ulNormal4.20-5.40The [facility]itrick HospitalComment on above:Performed By: #### CBC #### [facility] [address] [place] [address] Dr. Aram LaraWBC8.5 103/ulNormal4.0-11.0The [facility]it[facility] HospitalComment on above: Performed By: #### CBC #### [facility] [address] [place] [address] Dr. Aram Acevedo THYROXINE INDEX T7on 96-12-5200VBM2.40Wlofzx3.30-4.50The [facility]rick HospitalComment on above:Performed By: #### LACT #### [facility] [address] [place] [address] Dr. Aram LaraT3U33.0 %Lpgflh00.0-39.0The [facility] HospitalComment on above: Performed By: #### LACT #### [facility] [address] [place] [address] Dr. Aarm LaraT4 [Mass/Vol]7.90 ug/dLNormal4.80-13.90[facility] Comment on above:Performed By: #### LACT #### [facility] [address] [place] [address] Dr. Aram HitchcockCOHEMOGLOBIN A1Con 43-46-0942TTL RECOMMENDATIONSEE BELOWNoonslow memorial hospital The Mckitrick HospitalComment on above:Result Comment: ADA RECOMMENDED LIMIT 4.0 - 6.0 ADA THERAPEUTIC TARGET < 7.0 ACTION SUGGESTED > 7.0Performed By: #### LACT #### [facility] [address] [address] [address] Aram LaraGlucose [Mass/Vol]143 mg/dLNoMorrow County HospitalComment on above:Performed By: #### LACT #### [facility] [address] [place] [address] Dr. Aram LaraHbA1c (Bld) [Mass fraction]6.6 %Critically high4.5-6.2The [facility]it[facility] HospitalComment on above:Performed By: #### LACT #### [facility] [address] [place] [address] Dr. Aram Dueñas 75-38-6416Tdpd [Mass/Vol]67.0 ug/cESylmaw08.0-170.0[facility], BeachwoodComment on above:Performed By: #### LACT #### [facility] [address] [place] [address] Dr. Aram LaraLIPID PROFILEon 01-07-6606ILYP-HDL RATIO NORMSEE [facility] OhioComment on above:Result Comment: 3.3 - 4.4 LOW RISK 4.4 - 7.1 AVERAGE RISK 7.1 - 11.0 MODERATE RISK >11.0 HIGH RISKPerformed By: #### PHVEN #### [facility] [address] [place] [address] Dr. Aram LaraCholesterol [Mass/Vol]129 mg/dLNormal<=200[facility] Comment on above:Performed By: #### PHVEN #### [facility] [address] [place] [address] Dr. Aram LaraCholesterol in HDL [Mass/Vol]48 mg/pTBceclu84-34Hhf [facility] HospitalComment on above:Performed By: #### PHVEN #### [facility] [address] [address] [address] Aram Villarrealesterol in LDL [Mass/Vol]57.0 mg/dLNoMorrow County HospitalComment on above:Performed By: #### PHVEN #### [facility] [address] [place] [address] Dr. Aram Belle.total/Cholesterol in HDL [Mass ratio]2.7 {ratio} NormalThe Mckitrick HospitalComment on above:Performed By: #### PHVEN #### [facility] [address] [place] [address] Dr. Aram Harvey NORMAL> or = 60 mg/dl - LOW CARDIOVASCULAR RISK <40 mg/dl - HIGH CARDIOVASCULAR RISKKettering Health HamiltonComment on above:Performed By: #### PHVEN #### [facility] [address] [place] [address] Dr. Aram Galindo CALC NORMALSEE BELOWKettering Health HamiltonComment on above:Result Comment: <100 mg/dl OPTIMAL 100 - 129 mg/dl NEAR OR ABOVE OPTIMAL 130 - 159 mg/dl BORDERLINE HIGH 160 - 189 mg/dl HIGH >190 mg/dl VERY HIGH Performed By: #### PHVEN #### [facility] [address] [place] [address] Dr. Aram LaraTriglyceride [Mass/Vol]120 mg/dLNormal<=150The [facility] Comment on above:Performed By: #### PHVEN #### [facility] [address] [place] [address] Dr. Aram CanasLDL CALC24.0 mg/dLNoMorrow County HospitalComment on above: Performed By: #### PHVEN #### [facility] [address] [place] [address] Dr. Aram Riley 14(COMP METB)on 17-89-5496Gwqhqou [Mass/Vol]3.4 g/dLNormal 3.4-5.0The [facility]rick HospitalComment on above:Performed By: #### PHVEN #### [facility] [address] [place] [address] Dr. Aram LaraAlbumin/Globulin [Mass ratio]0.8 {ratio}NormalSelect Medical [facility] Clinic Rehabilitation Hospital, BeachwoodComment on above:Performed By: #### PHVEN #### [facility] [address] [place] [address] Dr. Aram WalkerP [Catalytic activity/Vol]60 U/QUndwzs86-794Efr [facility] HospitalComment on above:Performed By: #### PHVEN #### [facility] [address] [place] [address] Dr. Aram WalkerT [Catalytic activity/Vol]16 U/ECocqbi61-63Ogo [facility] HospitalComment on above:Performed By: #### PHVEN #### [facility] [address] [place] [address] Dr. Aram Hernandezon gap [Moles/Vol]15.9 mmol/LNormalThe [facility] Comment on above:Performed By: #### PHVEN #### [facility] [address] [place] [address] Dr. Aram LaraAST [Catalytic activity/Vol]10 U/LCritically mxq08-57Xzs [facility] HospitalComment on above:Performed By: #### PHVEN #### [facility] [address] [place] [address] Dr. Aram LaraBilirubin [Mass/Vol]0.3 mg/dLNormal0.2-1.0The [facility] Comment on above:Performed By: #### PHVEN #### [facility] [address] [place] [address] Dr. Aram LaraCalcium [Mass/Vol]9.3 mg/dLNormal8.5-10.1The [facility] Comment on above:Performed By: #### PHVEN #### [facility] [address] [place] [address] Dr. Aram LaraChloride [Moles/Vol]104 mmol/CXnmwqm97-912Spj [facility] Comment on above:Performed By: #### PHVEN #### [facility] [address] [place] [address] Dr. Aram LaraCO2 [Moles/Vol]26.3 mmol/ULejrgr78.0-32.0The [facility] Comment on above:Performed By: #### PHVEN #### [facility] [address] [place] [address] Dr. Aram LaraCreatinine [Mass/Vol]1.04 mg/dLCritically high0.55-1.02[facility], BeachwoodComment on above:Performed By: #### PHVEN #### [facility] [address] [place] [address] Dr. Aram GarciaGFR-AF SWEDISH>60Normal>=60The [facility] HospitalComment on above:Performed By: #### PHVEN #### [facility] [address] [place] [address] Dr. Aram GarciaGFR-NON AF HGZFGIRR29 mL/min/1.94t6Itgokixkqd low>=60The [facility] HospitalComment on above:Performed By: #### PHVEN #### [facility] [address] [place] [address] Dr. Aram LaraGlobulin (S) [Mass/Vol]4.5 g/dLNormalThe [facility] HospitalComment on above:Performed By: #### PHVEN #### [facility] [address] [place] [address] Dr. Aram LaraGlucose [Mass/Vol]125 mg/dLCritically bkys14-933Dtd [facility] HospitalComment on above:Performed By: #### PHVEN #### [facility] [address] [place] [address] Dr. Aram LaraPotassium [Moles/Vol]4.2 mmol/LNormal3.5-5.1The [facility] Comment on above:Performed By: #### PHVEN #### [facility] [address] [place] [address] Dr. Aram LaraProtein [Mass/Vol]7.9 g/dLNormal6.4-8.2The [facility] Comment on above:Performed By: #### PHVEN #### [facility] [address] [place] [address] Dr. Aram Woodum [Moles/Vol]142 mmol/GRtmoen012-152Iyp [facility] Comment on above:Performed By: #### PHVEN #### [facility] [address] [place] [address] Dr. Aram Jacobsen nitrogen [Mass/Vol]12.0 mg/dLNormal7.0-18.0[facility], BeachwoodComment on above:Performed By: #### PHVEN #### [facility] [address] [place] [address] Dr. Aram Jacobsen nitrogen/Creatinine [Mass ratio]11.5 mg/mgNormalThe [facility] HospitalComment on above:Performed By: #### PHVEN #### [facility] [address] [place] [address] Dr. Aram Quinteros 48-25-6874ISU9.866 uIU/mLNormal0.358-3.740The [facility] HospitalComment on above:Performed By: #### PHVEN #### [facility] [address] [place] [address] Dr. Aram Mcguire OF CARE GLUCOSEon 37-77-7824Mfererv [Mass/Vol]149 mg/dL Critically zblk20-487DzzSelect Medical [facility] Clinic Rehabilitation Hospital, BeachwoodComment on above:Performed By: #### POCGLUC #### [facility] [address] [place] [address] Dr. Aram LaraCARY OF CARE GLUCOSEon 59-01-8513Ehznnka [Mass/Vol]161 mg/dL Critically fmwe70-788XaqSelect Medical [facility] Clinic Rehabilitation Hospital, BeachwoodComment on above:Performed By: #### POCGLUC #### [facility] [address] [place] [address] Dr. Aram Correa URINEon 51-97-4548QTOILHZ URINEIsolate 1 Klebsiella pneumoniae >100,000 cfu/mL of ORGANISM 1 Klebsiella pneumoniae ANTIBIOTIC M.I.C RX STATUS Ampicillin 16 R F Ampicillin/Sulbactam 4 S F Piperacillin/Tazobactam <=4 S F Cefazolin <=4 S F Ceftazidime <=1 S F Ceftriaxone <=1 S F Ertapenem <=0.5 S F Imipenem <=0.25 S F Amikacin <=2 S F Gentamicin <=1 S F Tobramycin <=1 S F Ciprofloxacin <=0.25 S F Levofloxacin 0.25 S F Nitrofurantoin 64 I F Trimethoprim/Sulfamethoxazole <=20 S FNormalThe [facility]rick HospitalComment on above:Performed By: #### PHVEN #### [facility] [address] [place] [address] Dr. Aram LaraACETONE SERUMon 06-41-6396UISSXKAVcrokwhbEckzdvHASEEROLHay [facility] HospitalComment on above:Performed By: #### ACETON #### [facility] [address] [place] [address] Dr. Aram Anderson AUTO DIFFon 50-85-0454LXWM #0.1 103/ulNormal0.0-0.1The [facility] HospitalComment on above:Performed By: #### LACT #### [facility] [address] [place] [address] Dr. Aram LaraBasophils/100 WBC (Bld)0.6 %Normal0.2-2.0[facility] [place] Comment on above:Performed By: #### LACT #### [facility] [address] [place] [address] Dr. Aram Hinton #0.1 103/ulNormal0.0-0.7The [facility] HospitalComment on above: Performed By: #### LACT #### [facility] [address] [place] [address] Dr. Aram Garciaosinophils/100 WBC (Bld)0.7 %Critically low0.9-7.0The [facility] HospitalComment on above:Performed By: #### LACT #### [facility] [address] [place] [address] Dr. Aram Garciarythrocyte distribution width (RBC) [Ratio]13.8 %Jjjuxa31.0-15.0 The [facility] HospitalComment on above:Performed By: #### LACT #### [facility] [address] [place] [address] Dr. Aram LaraHematocrit (Bld) [Volume fraction]43.7 %Mivbun41.0-48.0The [facility] HospitalComment on above:Performed By: #### LACT #### [facility] [address] [place] [address] Dr. Aram LaraHemoglobin (Bld) [Mass/Vol]14.4 g/tJMidnxf83.0-16.0The [facility] HospitalComment on above:Performed By: #### LACT #### [facility] [address] [place] [address] Dr. Aram Medina #0.07 10e3/ulCritically high0.00-0.03The [facility] Comment on above:Performed By: #### LACT #### [facility] [address] [place] [address] Dr. Aram Medina %0.5 %Normal0.0-0.5The [facility] HospitalComment on above: Performed By: #### LACT #### [facility] [address] [place] [address] Dr. Aram Matos #4.9 103/ulCritically high1.2-3.8The [facility] Comment on above:Performed By: #### LACT #### [facility] [address] [place] [address] Dr. Aram Keysmphocytes/100 WBC (Bld)32.1 %Mtnnxw38.5-60.0The [facility] HospitalComment on above:Performed By: #### LACT #### [facility] [address] [place] [address] Dr. Aram RodriguezUAL DIFF REQNONormalThe [facility] HospitalComment on above: Performed By: #### LACT #### [facility] [address] [place] [address] Dr. Aram Hernandez (RBC) [Entitic mass]29.7 qjEtubzj45.7-34.0The [facility] HospitalComment on above:Performed By: #### LACT #### [facility] [address] [place] [address] Dr. Aram Yepez (RBC) [Mass/Vol]33.0 g/mUPycuxa08.9-35.2The [facility] HospitalComment on above:Performed By: #### LACT #### [facility] [address] [place] [address] Dr. Aram YepezV (RBC) [Entitic vol]90.1 vDCzmntz64.0-99.0The [facility] HospitalComment on above:Performed By: #### LACT #### [facility] [address] [place] [address] Dr. Aram Harris #1.1 103/ulCritically high0.3-0.8The [facility] Comment on above:Performed By: #### LACT #### [facility] [address] [place] [address] Dr. Aram Albertsocytes/100 WBC (Bld)7.0 %Normal1.7-12.0[facility] [place] Comment on above:Performed By: #### LACT #### [facility] [address] [place] [address] Dr. Aram Huertas #9.0 103/ulCritically high1.4-6.5The [facility] Comment on above:Performed By: #### LACT #### [facility] [address] [place] [address] Dr. Aram Lundbergutrophils/100 WBC (Bld)59.1 %Dtuixj09.0-75.0The [facility] HospitalComment on above:Performed By: #### LACT #### [facility] [address] [place] [address] Dr. Aram Pantojalet mean volume (Bld) [Entitic vol]10.1 fLNormal9.5-13.5The [facility] HospitalComment on above:Performed By: #### LACT #### [facility] [address] [place] [address] Dr. Aram DaileyT360 103/zyHzdelf911-230Fdg [facility] HospitalComment on above: Performed By: #### LACT #### [facility] [address] [place], [place] [address] Dr. Aram LaraRBC4.85 106/ulNormal4.20-5.40[facility], BeachwoodComment on above:Performed By: #### LACT #### [facility] [address] [place] [address] Dr. Aram LaraWBC15.2 103/ulCritically high4.0-11.0[facility], BeachwoodComment on above:Performed By: #### LACT #### [facility] [address] [place] [address] Dr. Aram Osman URINE PROFILEon 75-96-5811Galicvygj Ql (U)NegativeNormal NEGATIVESelect Medical [facility] Hospital, BeachwoodComment on above:Performed By: #### LACT #### [facility] [address] [place] [address] Dr. Aram LaraClarity (U)CLEARNormalCLEARSelect Medical [facility] Hospital, BeachwoodComment on above: Performed By: #### LACT #### [facility] [address] [place] [address] Dr. Aram Sharpelor (U)LT. YELLOWNormalYELLOWSelect Medical [facility] Hospital, BeachwoodComment on above:Performed By: #### LACT #### [facility] [address] [place] [address] Dr. Aram Valadez micrscopic examination will be performed if indicated. NormalThe [facility] HospitalComchelsea hospital on above:Performed By: #### LACT #### [facility] [address] [place] [address] Dr. Aram LaraGlucose Ql (U)>1000AbnormalNEGATIVESelect Medical [facility], BeachwoodComment on above:Performed By: #### LACT #### [facility] [address] [place] [address] Dr. Aram LaraHemoglobin Ql (U)TRACE-INTACTAbnormalNEGATIVESelect Medical [facility], BeachwoodComchelsea hospital on above:Performed By: #### LACT #### [facility] [address] [place] [address] Dr. Aram LaraKetones Ql (U)NegativeNormalNEGATIVESelect Medical [facility], BeachwoodComment on above:Performed By: #### LACT #### [facility] [address] [place] [address] Dr. Aram ThomasOCYTESSMALLAbnormalNEGATIVEThe [facility] HospitalComment on above:Performed By: #### LACT #### [facility] [address] [place] [address] Dr. Aram Zendejastrite Ql (U)NegativeNormalNEGATIVEThe [facility] HospitalComment on above:Performed By: #### LACT #### [facility] [address] [place] [address] Dr. Aram LarapH (U)5.5 [pH]Normal5-9The [facility] HospitalComment on above: Performed By: #### LACT #### [facility] [address] [place] [address] Dr. Aram LaraSPEC GRAVITY1.521Mrutcy3.005-<=1.025The [facility] HospitalComment on above:Performed By: #### LACT #### [facility] [address] [place] [address] Dr. Aram Harvey PROTEINTRACENormalNEGATIVE/ TRACEThe [facility] HospitalComment on above:Performed By: #### LACT #### [facility] [address] [place] [address] Dr. Aram Moralez MICRO INDINDICATEDNormalThe [facility]rick HospitalComment on above: Performed By: #### LACT #### [facility] [address] [place] [address] Dr. Aram LaraUrobilinogen Qn (U)0.2 {Adrian'U}/dLNormal0.2 - 1.0The [facility] HospitalComment on above:Performed By: #### LACT #### [facility] [address] [place] [address] Dr. Aram LaraLACTATE/LACTIC ACIDon 60-37-5211Blfksaf [Moles/Vol]4.5 mmol/L Critically high0.4-1.9The [facility] HospitalComment on above:Performed By: #### LACT #### [facility] [address] [place] [address] Dr. Aram LaraLIPASEon 87-99-8826Zdahfw [Catalytic activity/Vol]132.0 U/LNormal 73.0-393.0[facility] on above:Performed By: #### LIPA #### [facility] [address] [place] [address] Dr. Aram An VENOUS BLOODon 46-25-7956LIX7 LVQAXP04.1 mmHgCritically low 40.0-52.0The [facility] HospitalComchelsea hospital on above:Performed By: #### PHVEN #### [facility] [address] [place] [address] Dr. Aram An VENOUS7.108Ihqsiw6.330-7.430The [facility] HospitalComchelsea hospital on above:Performed By: #### PHVEN #### [facility] [address] [place] [address] Dr. Aram LaraPOINT OF CARE GLUCOSEon 06-73-1283Uxzwuky [Mass/Vol]490 mg/dL Critically canp35-559FqoSelect Medical [facility] Clinic Rehabilitation Hospital, BeachwoodComchelsea hospital on above:Performed By: #### PHVEN #### [facility] [address] [place] [address] Dr. Aram LaraGlucose [Mass/Vol]545 mg/dLCritically teyg29-761PfkOhio State Harding Hospital on above:Result Comment: Lab Draw OrderedPerformed By: #### POCGLUC #### [facility] [address] [place] [address] Dr. Aram LaraGlucose [Mass/Vol]551 mg/dLCritically hwza39-117BtfOhio State Harding Hospital on above:Result Comment: Result Not ConfirmedPerformed By: #### POCGLUC #### [facility] [address] [place] [address] Dr. Aram LaraPROF 14(COMP METB)on 51-19-7625Txvxpyb [Mass/Vol]3.8 g/dLNormal 3.4-5.0The [facility] HospitalComchelsea hospital on above:Performed By: #### PHVEN #### [facility] [address] [place] [address] Dr. Aram LaraAlbumin/Globulin [Mass ratio]0.8 {ratio}NormalSelect Medical [facility] Clinic Rehabilitation Hospital, BeachwoodComment on above:Performed By: #### PHVEN #### [facility] [address] [address] [address] Aram WalkerP [Catalytic activity/Vol]81 U/HOozfeb74-759Pnu [facility] HospitalComment on above:Performed By: #### PHVEN #### [facility] [address] [address] [address] Aram WalkerT [Catalytic activity/Vol]9 U/LCritically boh00-06Wvt [facility] HospitalComment on above:Performed By: #### PHVEN #### [facility] [address] [place] [address] Dr. Aram Hernandezon gap [Moles/Vol]17.0 mmol/LNormalThe [facility] Comment on above:Performed By: #### PHVEN #### [facility] [address] [place] [address] Dr. Aram LaraAST [Catalytic activity/Vol]6 U/LCritically htt40-93Uuq [facility] on above:Performed By: #### PHVEN #### [facility] [address] [place] [address] Dr. Aram LaraBilirubin [Mass/Vol]0.4 mg/dLNormal0.2-1.0[facility] [place] Comment on above:Performed By: #### PHVEN #### [facility] [address] [place] [address] Dr. Aram LaraCalcium [Mass/Vol]9.8 mg/dLNormal8.5-10.1[facility] [place] Comment on above:Performed By: #### PHVEN #### [facility] [address] [place] [address] Dr. Aram LaraChloride [Moles/Vol]93 mmol/LCritically zqa31-171Zll [facility] HospitalComment on above:Performed By: #### PHVEN #### [facility] [address] [place] [address] Dr. Yilan ChangCO2 [Moles/Vol]22.1 mmol/EZaeuxc61.0-32.0[facility] Comment on above:Performed By: #### PHVEN #### [facility] [address] [address] [address] Aram LaraCreatinine [Mass/Vol]1.64 mg/dLCritically high0.55-1.02The [facility] HospitalComment on above:Performed By: #### PHVEN #### [facility] [address] [place] [address] Dr. Chiu ChangEGFR-AF JCDIJHCA96 mL/min/1.85f0Pquivddgpo low>=60The [facility] HospitalComment on above:Performed By: #### PHVEN #### [facility] [address] [place] [address] Dr. Chiu ChangEGFR-NON AF UDSOQCFB52 mL/min/1.30b6Tazhxzkulx low>=60The [facility] HospitalComment on above:Performed By: #### PHVEN #### [facility] [address] [place] [address] Dr. Aram LaraGlobulin (S) [Mass/Vol]4.7 g/dLNormalThe [facility] HospitalComment on above:Performed By: #### PHVEN #### [facility] [address] [place] [address] Dr. Aram LaraGlucose [Mass/Vol]545 mg/dLCritically dnve95-516Ofx [facility] HospitalComment on above:Performed By: #### PHVEN #### [facility] [address] [place] [address] Dr. Aram LaraPotassium [Moles/Vol]4.1 mmol/LNormal3.5-5.1The [facility] Comment on above:Performed By: #### PHVEN #### [facility] [address] [place] [address] Dr. Aram LaraProtein [Mass/Vol]8.5 g/dLCritically high6.4-8.2The [facility] HospitalComment on above:Performed By: #### PHVEN #### [facility] [address] [address] [address] Aram Woodum [Moles/Vol]128 mmol/LCritically wxg187-475Knt [facility] HospitalComment on above:Performed By: #### PHVEN #### [facility] [address] [address] [address] Aram Jacobsen nitrogen [Mass/Vol]28.0 mg/dLCritically high7.0-18.0The [facility] HospitalComment on above:Performed By: #### PHVEN #### [facility] [address] [address] [address] Aram Jacobsen nitrogen/Creatinine [Mass ratio]17.1 mg/mgNoMorrow County HospitalComment on above:Performed By: #### PHVEN #### [facility] [address] [place] [address] Dr. Arma Abad MICROSCOPIC ONLYon 10-76-7476BUPYVXUIXWPYVNVFLndriqakIUYU SEENThe [facility] HospitalComment on above:Performed By: #### LACT #### [facility] [address] [place] [address] Dr. Aram Lee identified Cx Nom (U)INDICATEDNoMorrow County HospitalComment on above:Performed By: #### LACT #### [facility] [address] [place] [address] Dr. Aram Owen SEENNormalNONE SEENSelect Medical [facility], BeachwoodComchelsea hospital on above:Performed By: #### LACT #### [facility] [address] [place] [address] Dr. Aram Etienne LM Nom (Urine sed)NONE SEENNormalNONE SEENSelect Medical [facility], BeachwoodComchelsea hospital on above:Performed By: #### LACT #### [facility] [address] [place] [address] Dr. Chiu ChangEpithelial cells LM Ql (Urine sed)FEWAbnormalNONE SEEN /RAREThe [facility] HospitalComment on above:Performed By: #### LACT #### [facility] [address] [place] [address] Dr. Aram LaraMUCOUSTRACEAbnormalNONE SEENSelect Medical [facility], BeachwoodComment on above:Performed By: #### LACT #### [facility] [address] [address] [address] Aram LaraXgityDKM6-1Ujxvzhld4-1Jgu [facility] HospitalComment on above:Performed By: #### LACT #### [facility] [address] [address] [address] Aram LaraMomnuELT38-70YftxrccgPAWM SEENThe [facility] HospitalComment on above: Performed By: #### LACT #### [facility] [address] [address] [address] Aram LaraXR CHEST 1 Von 37-75-9633RY CHEST 1 VEXAMINATION: XR CHEST 1 V HISTORY: COUGH COMPARISON: XR chest 07/10/2020, 07/15/2016 FINDINGS: LUNGS: No acute infiltrates. Chronic granuloma projecting over left lung base. VASCULATURE: No increased pulmonary vasculature. PLEURA: No pneumothorax, effusion, or pleural thickening. CARDIAC: No cardiomegaly or cardiac silhouette abnormality. MEDIASTINUM: No visible mass or adenopathy. BONES: No fracture or visible bone lesion. OTHER: Negative. IMPRESSION: 1. No acute cardiopulmonary process. Electronically authenticated by: SHELLEY SMITH Date: 2022-04-24 12:55[facility] Vital Signs Date TimeVital SignValuePerforming MfoiriudlGbjjgtwr18-48-2178 10:57-0400Body xudvaf307 cmAngmichael Solomon [employer] Work Phone: [facility] HospitalKhumykqtrm35-37-0197 10:57-0400Body mass index (BMI) [Ratio]36.49 kg/x9GvyvfjNora Solomon [employer]ER Work Phone: [facility] HospitalRlhmuwiwgo65-15-3311 10:57-0400Body qkamnc03.44 kgNora Solomon [employer] HULLER Work Phone: noRanken [facility] Specialty HospitalHupqmogbej03-89-8720 10:57-0400Diastolic blood fmpyiikc68 mm[Hg]Nora Solomon [employer] Work Phone: [facility] HospitalLffgqnentv56-20-1125 10:57-0400Heart rate94 /min Nora Quinterosil [employer] Work Phone: [facility] HospitalUfgakhfhad76-10-6123 10:57-5619IbN8% (BldA) [Mass fraction]96 %Nora Solomon [employer] Work Phone: [facility] HospitalVltngvipvx67-05-0995 10:57-0400Systolic blood yklsgqai695 mm[Hg]Nora Quinterosil [employer]ER Work Phone: [facility] HospitalHrhsrnqttr39-11-8584 10:45-0400Body mass index (BMI) [Ratio]36.31 kg/d8EifqucRegulo Rosa [employer] Work Phone: [facility] HospitalQpvsgtlauj31-09-4676 10:45-0400Body nrgzfe20.99 kgRegulo Rosa [employer]ULLER Work Phone: [facility] HospitalYnvzizishi02-03-8291 10:45-0400Diastolic blood objvyupj69 mm[Hg]Regulo Rosa [employer] Work Phone: [facility] HospitalYfnyfotelp58-44-1469 10:45-0400Heart rate76 /min Regulo Rosa [employer] Work Phone: [facility] HospitalXvsbluqavp25-23-7781 10:45-0400Systolic blood orxvkmhr067 mm[Hg]Regulo Rosa [employer] Work Phone: [facility] Encounters Encounter DateEncounter TypeCare ProviderFacilityStart: 91-54-1521dgwvpbrfixBEV Jodi L SchwabFacility:[facility] [place]vueStart: 01-23-2025 End: 62-92-5006gvlfpvvytsFBF Jodi L SchwabFacility:[facility] [place]vueStart: 12-99-1978wpcewcswprLV Samuel E. RossFacility:[facility] [place]vueStart: 04-10-2024 End: 39-68-7854roauepujrlBgcnvf E. RossFacility:FT [place]vueStart: 02-20-2024 End: 80-02-5367Deinfe flowsheetNora Solomon [employer] HULLER Work Phone: [facility]TEStart: 02-20-2024 End: 91-56-2436Ktymjw flowsErinn Quinterosil P[employer] HULLER Work Phone: noMS [facility]TEStart: 02-20-2024 End: 28-92-0555Cgedhg outpatient visit 25 minutesNora Solomon PECAN HULLER Work Phone: noms [place] STATE ROUTEComment on above:RLS (restless legs syndrome) (Primary Dx); MANDO (obstructive sleep apnea); Obesity (BMI 30-39.9)Start: 02-20-2024 End: 32-75-6893jrddlpaxzeDUITCF GILLGUSTABONot AvailableStart: 02-06-2024 End: 13-16-5460Mwinxt Michael Rosa PECAN HULLER Work Phone: NOMS [place] [facility] R[address]TEStart: 02-06-2024 End: 21-12-8417Qxmetv cheriMasharashawn Rosa PECAN HULLER Work Phone: noMS [place] R[address]TEStart: 02-06-2024 End: 71-67-2294Qrebsv outpatient visit 15 minutesRegulo Rosa PECAN HULLER Work Phone: noMS [place] ROUTEComment on above:Parkinson's disease without dyskinesia or fluctuating manifestations (CMS/HCC) (Primary Dx); Right leg weakness; Hepatic cystStart: 02-06-2024 End: 00-96-8651vaqshbdennTPFKJJ MORRISNot AvailableStart: 01-10-2024 End: 91-72-2727wkzabntaojIN Samuel E. RossFacility:FT FM BellevueStart: 11-05-2023 End: 33-34-2036mgilkacpenLPSISY MORRISNot AvailableStart: 10-04-2023 End: 14-47-3339Psb Drop Audra Rice [facility] Start: 10-04-2023 End: 15-32-4970rfkiubsrkvIT Samuel E. RossFacility:[facility] BellevueStart: 10-02-2023 End: 88-55-1308kppmxkeuikUG Sanchez E. RossFacility:FT FM BellevueStart: 43-37-3333pstaiyymfpBY Sanchezjessie iRceFacility:FT FM BellevueStart: 05-31-2023 End: 15-88-0922Aeq Drop offSshyam Rice [facility] Start: 05-31-2023 End: 98-46-7172rlmongswuiQR Sanchezjessie RiceFacility:FTMCStart: 03-14-2023 End: 81-02-2667ypdlgueazvFG Sanchezjessie RiceFacility:FT FM BellevueStart: 02-28-2023 End: 40-38-0430ycjiaxgyvxXI Sanchezjessie RiceFacility:FT FM BellevueStart: 01-18-2023 End: 17-50-5032jnxdzpbpfiLF Sanchezjessie RiceFacility:FT FM BellevueStart: 01-04-2023 End: 03-40-5235Tzm Drop offStiffaniejessie Rice [facility] Start: 11-09-2022 End: 15-07-7466ollzhzolgyQC Sanchez Xiao RiceFacility:FTMCStart: 11-09-2022 End: 47-74-4230Tgucfgq encounter procedureSshyam Rice [facility] Start: 10-04-2022 End: 30-17-5338kmuhkitzpcCW Sanchezjessie RiceFacility:FT FM BellevueStart: 09-29-2022 End: 78-92-1886klrgkecmbdUZ JANEY S PERALTA .Facility:J7Qqynd: 09-08-2022 ambulatory Sanchezjessie RiceFacility:FT FM BellevueStart: 09-06-2022 End: 17-92-4029zlbzjkscplHLSGZH HEATHERMERFacility:Q0Zqdow: 08-29-2022 End: 08-57-7206kffpfjxdrfYB JANEY S PERALTA .Facility:I5Bkkoo: 08-15-2022 End: 84-54-8139pulwhppokuBBYKOG ELI ROSSFacility:J1Youuo: 07-20-2022 End: 66-00-4721ffmxypufgpCU JANEY PERALTA .Facility:U9Ugjpv: 05-31-2022 ambulatoryPAMELA CRAMERFacility:U0Wjzmt: 04-24-2022 End: 74-43-8452wlgbrsfsflWRGMOZ CRAMERFacility:I0Rtaoo: 04-19-2022 End: 79-96-1648ewacnxgljhUE JANEY PERALTA .Facility: Procedures DateProcedureProcedure DetailPerforming ClinicianStart: 46-50-4763Ohimrqzj and drainage of perianal abscessSaabielel Adriana Comment on above:[facility]Start[facility] 05-[facility]-2020 Intestinal structure (body structure)Sanchezjessie Rice Comment on above:Bowel ObstructionStart: 11-20-2017 Percutaneous insertion of ureteric stentStiffaniejessie Rice Cholecystectomygerard Rice Comment on above:[place]oledoCholecystectomygerard Rice Hemorrhoidectomygerard Rice Comment on above:[facility] HospitalIleostomy operation Sanchez Adriana Comment on above:1970sKidney excisiongerard Rice Comment on above:Dr. Haq [facility] TonsillectomySagerard Rice Comment on above:[place] Plan of Treatment DateCare ActivityDetailAuthorStart: 06-02-2024 End: 54-35-3856Xjyizxu encounter glnsasisc64/13/2025 11:20 AM EST Office Visit [facility] [address] [place] [phone] Regulo Rosa, SHINE [address] [place] [address] NOMSharee NE NEUROStart: 02-20-2024 End: 23-51-0441Iobwibp encounter rflugdrhj03/02/2024 11:00 AM EDT Office Visit N[facility] [address] [place] [address] Nora Solomon NP [address] [place], [place] [facility] ROUTEComment on above: ArrivedStart: 02-06-2024 End: 86-00-0525Alfapit encounter uakosecwx13/18/2024 10:40 AM EDT Office Visit [facility] [place] [address] [place] [address] Regulo Rosa NP [address] [place] [address] [facility] ROUTEComment on above:ArrivedStart: 00-87-2149Liycgxulo vaccinationInfluenza Vaccine (#1)[facility] HealthcareStart: 03-57-8784Sztzxacrl for malignant neoplasm of breastMammogram [facility] HealthcareStart: 45-50-9039Dxvcnfzxj for malignant neoplasm of cervixNOMS HealthcareStart: 18-17-6221Ewmdhmxul for malignant neoplasm of cervixPap Smear [facility] HealthcareStart: 24-06-1136Wohawiqbu for malignant neoplasm of colonNOMS Healthcare Immunizations Immunization DateImmunizationNotesCare FawleaexWasvyahr44-15-0327riasrnqsz, injectable, quadrivalent, preservative freeSanchez Rice [phone]-WetbcAshtabula County Medical Center 15-93-4165nrvmnufxr virus vaccine, unspecified formulationRegulo Rosa NP Work Phone: [facility] JosephRacdjcovrg33-82-1880YNJG-QpV-3 (COVID-19) mRNA BNT-162b2 Arnel Rice [phone]-XjdxfSelect [facility], Inc05-18-2021 SARS-CoV-2 (COVID-19) mRNA BNT-162b2 vaxSshyam Rice [phone]-RvkhrSelect Medical [facility], Inc12-11-2020 influenza virus vaccine, unspecified formulationSshyam Rice [phone]-RuysiSelect [facility], Inc12-11-2020 pneumococcal polysaccharide vaccine, 23 valentSshyam Rice [phone]-FifioAccess Hospital Daytonue10-19-2018 influenza virus vaccine, unspecified formulationSshyam Rice [phone]-IdmgjSelect [facility], IncNEGATED: Highlighted row has not occurred!34-56-9836tqnbqrabm virus vaccine, unspecified formulationSshyam Rice [phone]-FnyvoSelect Medical Specialty [facility], [facility] Payers DatePayer CategoryPayerPolicy [id number] MEDICARE ADVANTAGE HUMANA MEDICARE [id number] 2023-Present [address] [address] [place] [address] [id number] 2..1.790769.3.57[id number] 2.0.1.049001.3.57[id number] 2.0.1.967475.3.57[id number] 2.0.1.969337.3.57[id number] 2.0.1.749824.3.57[id number] 2.840.1.018614.3.57[id number] 2.840.1.753148.3.57[id number] 2.16.840.1.111386.3.57[id number] 2.16.840.1.992377.3.57[id number] 2.16840.1.048533.3.57[id number] 2.16840.1.901550.3.57[id number] 2.16840.1.766278.3.57[id number] 2.840.1.141167.3.57[id number] 2.16840.1.924412.3.57[id number] 2.16840.1.543116.3.57[id number] 2.840.1.989505.3.57[id number] 2.16840.1.345136.3.57[id number] 2.16840.1.463923.3.57[id number] 2.16840.1.744089.3.57[id number] 2.16.840.1.578756.3.57[id number] 2.16840.1.443207.3.57[id number] 2.16.840.1.861796.3.57[id number] 2.16.840.1.124975.3.57[id number] 2.16.840.1.935210.3.57[id number] 2.16.840.1.770576.3.57[id number] 2.16.840.1.299453.3.57[id number] 2.16.840.1.739072.3.57[id number] 2.16.840.1.487185.3.57[id number] 2.16.840.1.462883.3.57[id number] 2.16.840.1.672326.3.579.2.727 [id number] 1960Self-pay [id number] Social History DateTypeDetailFacilityStart: 10-04-2022 End: 10-09-9469Bohrkqm smoking statusHeavy tobacco smoker (finding)[facility] DaytonueTobacco smoking statusNeverAshtabula [facility] BellevueStart: 11-05-2023 End: 11-49-4233Erz Assigned At BirthFemalKettering Health CenterStart: 28-69-0878Eufneay smoking status NHISOccasional tobacco smokerNOMS Healthcare History of tobacco useCigarette SmokerNOGA HealthcareStart: 11-02-2023 End: 05-41-8040Zrllaka use and exposureUser of smokeless tobaccoMosaic Life Care at St. Joseph Start: 11-05-2023 End: 61-85-1308Kjdfome of Social functionMOUNTAINSTAR HEALTH[facility]ARE HealthcareStart: 07-64-8973Her assigned at birthNot on fileMOUNTAINSTAR HEALTHCARE HealthcareStart: 31-69-8313Ajmjzjd smoking status NHISSmokes tobacco dailyMosaic Life Care at St. JosephStart: 65-63-8375Yishavurk beverage intakeLifetime non-drinker (finding)[facility] Clinical Notes 04-19-2022 to 01-10-2024 Note Date & SfkzIvbvMzmqsush86-26-2834 NotePatient Education Nutrition BMI for Adults What is BMI? Body mass index (BMI) is a number that is calculated from a person's weight and height. BMI can help estimate how much of a person's weight is composed of fat. BMI does not measure body fat directly.Rather, it is an alternative to procedures that directly measure body fat, which can be difficult and expensive. BMI can help identify people who may be at higher risk for certain medical problems. What are BMI measurements used for? BMI is used as a screening tool to identify possible weight problems. It helps determine whether a person is obese, overweight, a healthy weight, or underweight. BMI is useful for: ? Identifying a weight problem that may be related to a medical condition or may increase the risk for medical problems. ? Promoting changes, such as changes in diet and exercise, to help reach a healthy weight. BMI screening can be repeated to see if these changes are working. How is BMI calculated? BMI involves measuring your weight in relation to your height. Both height and weight are measured,and the BMI is calculated from those numbers. This can be done either in [place] ([place] or metric measurements. Note that charts and online BMI calculators are available to help you find your BMI quickly and easily without having to do these calculations yourself. To calculate your BMI in [place] measurements: 1. Measure your weight in pounds (lb). 2. Multiply the number of pounds by 703. ? For example, for a person who weighs 180 lb, multiply that number by 703, which equals 126,540. 3. Measure your height in inches. Then multiply that number by itself to get a measurement called inches squared. ? For example, for a person who is 70 inches tall, the inches squared measurement is 70 inches x 70 inches, which equals 4,900 inches squared. 4. Divide the total from step 2 (number of lb x 703) by the total from step 3 (inches squared): 126,540 ? 4,900 = 25.8. This is your BMI. To calculate your BMI in metric measurements: 1. Measure your weight in kilograms (kg). 2. Measure your height in meters (m). Then multiply that number by itself to get a measurement called meters squared. ? For example, for a person who is 1.75 m tall, the meters squared measurement is 1.75 m x 1.75 m, which is equal to 3.1 meters squared. 3. Divide the number of kilograms (your weight) by the meters squared number. In this example: 70 ?3.1 = 22.6. This is your BMI. What do the results mean? BMI charts are used to identify whether you are underweight, normal weight, overweight, or obese. The following guidelines will be used: ? Underweight: BMI less than 18.5. ? Normal weight: BMI between 18.5 and 24.9. ? Overweight: BMI between 25 and 29.9. ? Obese: BMI of 30 or above. Keep these notes in mind: ? Weight includes both fat and muscle, so someone with a muscular build, such as an athlete, may have a BMI that is higher than 24.9. In cases like these, BMI is not an accurate measure of body fat. ? To determine if excess body fat is the cause of a BMI of 25 or higher, further assessments may need to be done by a health care provider. ? BMI is usually interpreted in the same way for men and women. Where to find more information For more information about BMI, including tools to quickly calculate your BMI, go to these websites: ? Centers for Disease Control and Prevention: www.cdc.gov ? [place] Heart Association: www.heart.org ? National Heart, Lung, and Blood [place]: www.nhlbi.nih.gov Summary ? Body mass index (BMI) is a number that is calculated from a person's weight and height. ? BMI may help estimate how much of a person's weight is composed of fat. BMI can help identify those who may be at higher risk for certain medical problems. ? BMI can be measured using Kos[place] measurements or metric measurements. ? BMI charts are used to identify whether you are underweight, normal weight, overweight, or obese. This information is not intended to replace advice given to you by your health care provider. Make sure you discuss any questions you have with your health care provider. Document Revised: 01/28/2020 Document Reviewed: 12/05/2019 [employer] Patient Education ? 2022 [employer].[facility] 07-20-2022 NoteCONSULTATION CONSULTATION DATE: 07/20/2022 HISTORY: This is a 61-year-old female who returns to the clinic for a three month follow up for chronic lower back pain. She was last seen on 04/19/2022 and, at that time, she received a right gluteal trigger point injection that afforded her 70% relief for two months. The patient is a diabetic and, unfortunately, five days after the trigger point injection, she was seen in the emergency department and was found to have her blood sugars over 600. She stayed in the hospital for a short time. Today, at rest, her pain is 2/10, but with increased activity it is 6/10. Pain is diffusely across her lower back and into her right butt cheek. Pain is non-radicular. It is aggravated by standing, walking, lifting and changes in the weather. Current medications include baclofen 10 mg q.h.s., gabapentin 100 mg t.i.d. and ropinirole q.h.s. Patient's REVIEW OF SYSTEMS / PAST MEDICAL HISTORY / ALLERGIES and IMAGES have been reviewed and noted on the chart. PHYSICAL EXAM: VITAL SIGNS: Blood pressure is 121/83. Heart rate is 87. Temperature is 97.5. She is 5'5 and weighs 96 kg. GENERAL IMPRESSION: Pleasant, appropriate, in no acute distress. FOCUSED EXAM - BACK: Range of motion is guarded in lateral rotation and flexion/extension. Reproduction of spinal axial pain upon deep compression along the lower lumbar facets of L2, L3 and L4, L5. Fullness is palpated along the facets, indicative of facet arthropathy, lumbar spondylosis. Dyllan's point is non-tender bilaterally, with negative FABERs and compression test. MUSCULOSKELETAL: Motor is 5/5 bilaterally. No muscle weakness noted. Patient walks unassisted with a stable gait. NEUROLOGICAL: Radicular sensory is intact. Negative polyneuropathy. Intact patellar and Achilles reflexes. DIAGNOSIS: Lumbar spondylosis, spinal axial lower back pain and lumbar degenerative disc disease. PLAN: Patient had radiofrequency ablation in July of 2021; therefore, we will repeat at the one year emilia radiofrequency ablation, right side, subsequently move to the left of L2, L3 and L4, L5. Patient will receive Harrison 5/325 to be taken b.i.d. for three days post RFA. Patient agrees with this plan and will be followed up in the clinic thereafter.[facility] [id number] Note CONSULTATION PROCEDURE DATE: 04/19/2022 PREOPERATIVE DIAGNOSIS: Right gluteal spasm. POSTOPERATIVE DIAGNOSIS: Right gluteal spasm. PROCEDURE: Right gluteal trigger point injection. Subsequent to obtaining informed consent, the patient was placed in the upright standing forward flexion position. A 25 gauge needle with 0.125% Marcaine and 40 mg of Kenalog was placed to rest inside the trigger zone. Negative heme. Medication was injected in a slow fan-like pattern, and patient tolerated procedure well. She will be followed up in the clinic in three months.[facility] [id number] NoteCONSULTATION CONSULTATION DATE: 04/19/2022 HISTORY OF PRESENT ILLNESS: This is a pleasant, 61-year-old female returning to the clinic for a six month follow up for right buttock and thigh pain. The patient did have rhizotomy series to her lower lumbar area in August of 2021. She is still getting significant relief from that. She describes her pain as being a 2/10 and achy at rest, and will increase to 7/10 as the day goes on. She does use topical heat cream to her right buttock, which gives her a little bit of relief. Activities such as prolonged standing, walking, housework and bending aggravate the pain. Current medications include baclofen 10 mg q.h.s., gabapentin 100 mg t.i.d. and Requip 0.75 at bedtime. Patient's REVIEW OF SYSTEMS / PAST MEDICAL HISTORY / ALLERGIES and IMAGES have been reviewed and they are noted on the chart. PHYSICAL EXAM: VITAL SIGNS: Blood pressure 127/75, heart rate is 99. She is 5'5, weighs 76 kg. GENERAL IMPRESSION: Pleasant, appropriate, no acute distress. FOCUSED EXAM - BACK: Range of motion is functional in lateral rotation and flexion/extension. Paravertebral muscles are non-spasmodic. Right gluteal muscle with a very obvious muscle spasm and trigger point identified, just lateral to her sacrum. Compression of this produces a jump response and reproduces the patient's pain symptomatology. Dyllan's point is non-tender. Negative FABERs and compression tests. MUSCULOSKELETAL: Motor is intact, 5/5 bilaterally. Patient walks with a stable gait. Does not use an assistive device. Muscle tone is good. NEUROLOGICAL: Patient is cognitively intact. Negative polyneuropathy bilateral lower extremities. Reflexes are +1 bilaterally. DIAGNOSIS: Right gluteal spasm, lumbar spondylosis, lumbar degenerative disc disease. PLAN: The patient will receive right gluteal trigger point injection in the office, which she does agree to today. She is to continue with her stretches and heat as discussed. There will be no changes in her medications today. Patient will be followed up in the clinic in three months' time unless otherwise indicated.[facility] HospitalEvaluation + Plan note No data available for this section [facility] + Plan note Future Appointments Appointment Date:01/18/2023 03:20:00 PM Scheduled Provider:Sanchez Rice MD [facility] Future Appointments Appointment Date:10/01/2023 01:00:00 PM Scheduled Provider: Location:[facility] Appointment Type:FM Medicare Wellness Subsequent Appointment Date:10/01/2023 02:00:00 PM Scheduled Provider:Sanchez Rice MD Location:[facility] Plan note Future Appointments Appointment Date:01/03/2024 01:00:00 PM Scheduled Provider:Sanchez Rice MD Location:[facility] Appointment Type: Open Appointment Date:09/30/2024 01:00:00 PM Scheduled Provider: Location:[facility] Appointment Type:FM Medicare Wellness Subsequent Future Scheduled Tests Radiology* CT Chest, Low Dose Screening 10/02/23 * MA Mamm Screen w/CAD if perf and 3D Alejandro 10/02/23 [facility] note* Diagnosis RLS (restless legs syndrome)- Primary Restless legs syndrome (RLS) MANDO (obstructive sleep apnea) Obstructive sleep apnea (adult) (pediatric) Obesity (BMI 30-39.9) documented in this encounter [facility] HealthcareEvaluation note* Diagnosis Parkinson's disease without dyskinesia or fluctuating manifestations (CMS/HCC)- Primary Right leg weakness Muscle weakness (generalized) Hepatic cyst Other specified disorders of liver documented in this encounter [facility] Discharge instructions No data available for this section [facility] No data available for this section [facility] Summary Purpose Family History No Family History Records FoundNo Family History Records Found No data available for this section No data available for this section No Family History Records FoundNo Family History Records FoundNo Family History Records FoundNo Family History Records FoundNo Family History Records FoundNo Family History Records FoundNo Family History Records FoundNo Family History Records FoundNo Family History Records FoundNo Family History Records FoundNo Family History Records FoundNo Family History Records FoundNo Family History Records FoundNo Family History Records FoundNo Family History Records Found Advance Directives No Advanced Directives Records FoundNo Advanced Directives Records FoundNo Advanced Directives Records FoundNo Advanced Directives Records FoundNo Advanced Directives Records FoundNo Advanced Directives Records FoundNo Advanced Directives Records FoundNo Advanced Directives Records FoundNo Advanced Directives Records FoundNo Advanced Directives Records FoundNo Advanced Directives Records FoundNo Advanced Directives Records FoundNo Advanced Directives Records FoundNo Advanced Directives Records FoundNo Advanced Directives Records FoundNo Advanced Directives Records FoundNo Advanced Directives Records Found Additional Source Comments INFORMATION SOURCE (unrecogn ized section and content) DATE CREATED AUTHOR 09/30/2022 [facility] DATE CREATED AUTHOR AUTHOR'S ORGANIZ ATION 11/11/2022 [facility] DATE CREATED AUTHOR AUTHOR'S ORGANIZ ATION 10/07/2023 [facility] DATE CREATED AUTHOR AUTHOR'S ORGANIZ ATION 01/15/2024 [facility] DATE CREATED AUTHOR AUTHOR'S ORGANIZ ATION 02/22/2024 [facility] DATE CREATED AUTHOR AUTHOR'S ORGANIZ ATION 01/24/2025 [facility] DATE CREATED AUTHOR AUTHOR'S ORGANIZ ATION 01/26/2025 [facility] DATE CREATED AUTHOR AUTHOR'S ORGANIZ ATION 02/02/2025 [facility] Patient Care team informatio n (unrecognized section and content) Team MemberRelationshipSpecialtyStart DateEnd Date Sanchez Rice MD [address] [place] [address] PCP - [facility]02/20/24Team MemberRelationshipSpecialtyStart DateEnd Date Sanchez Rice MD [address] [place] [address] PCP - [facility]02/20/24Team MemberRelationshipSpecialtyStart DateEnd Date Sanchez Rice MD PCP - [facility]08/21/23Team MemberRelationshipSpecialtyStart DateEnd Date Sanchez Rice MD PCP - [facility]08/21/23 Reason for Visit (unrecogniz ed section and content) ReasonCommentsSleep ApneaReasonCommentsParkinson's DiseaseWeakness, GenRLE FOR RECORDS PERTAINING TO PATIENTS WHO ARE OR HAVE BEEN ENROLLED IN A CHEMICAL DEPENDENCY/SUBSTANCEABUSE PROGRAM, SOME INFORMATION MAY BE OMITTED. This clinical summary was aggregated from multiple sources. Caution should be exercised in using it in the provision of clinical care. This summary normalizes information from multiple sources, and as a consequence, information in this document may materially change the coding, format and clinical context of patient data. In addition, data may be omitted in some cases. CLINICAL DECISIONS SHOULD BE BASED ON THE PRIMARY CLINICAL RECORDS. [facility]. provides no warranty or guarantee of the accuracy or completeness of information in this document.
--- OUTSIDE RECORDS SUMMARY | 2025-03-31 19:34 | XMS_ITS | Clinical Summary ---
Author Organization [facility] Address [address] [place] [address] Care Team Providers Care Engineer Station Mainline Name Role Phone Tom Paez DO Primary Care Provider [phone] Allergies Active AllergyReactionsCriticalityNoted DateCommentsPenicillinOther: See TbxnfnyqUckz22/09/2018 Childhood reaction- HIVES, in hospital for 1 week Medications MedicationSigDispense QuantityRefillsLast FilledStart DateEnd DateStatus FLUoxetine (PROZAC) 20 mg capsule Indications:Screening for genitourinary conditionTake 20 mg by mouth once daily. Active LORazepam (ATIVAN) 0.5 mg tab Indications:Screening for genitourinary conditionTake 0.5 mg by mouth three times daily as needed.Active docusate sodium (COLACE) 100 mg capsule Take 1 capsule by mouth twice daily. 60 capsule 11/20/2017Active oxybutynin (DITROPAN) 5 mg tablet oxybutinine 5 mg PRN x 10 days 10 tablet 11/20/2017Active Additional Information Patient not taking.Reason: Course of Therapy Completed, Reported on 12/28/2017 pregabalin (LYRICA) 75 mg capsule Indications:Postoperative painTake 1 capsule by mouth twice daily for 8 doses. 8 capsule 11/23/2017Active gabapentin (NEURONTIN) 100 mg capsule take 1 pill at night for 3 days and then 1 pill every twelve hours for 3 days and then one pill every 8 hours. 50 capsule Active acetaminophen-codeine (TYLENOL-COD #3) 300-30 mg per tablet Take 1 tablet by mouth three times daily.Active ciprofloxacin HCl (CIPRO) 500 mg tablet Take 500 mg by mouth twice daily.12/22/2017Active escitalopram oxalate (LEXAPRO) 10 mg tablet Take 10 mg by mouth once daily.12/24/2017Active prazosin (MINIPRESS) 2 mg cap Take 2 mg by mouth once daily.12/24/2017Active sulfamethoxazole-trimethoprim (BACTRIM DS) 800-160 mg per tablet Take 1 tablet by mouth once daily. 30 tablet Active estradiol (ESTRACE) 0.01 % (0.1 mg/gram) vaginal cream Use 1 g vaginally every other day. 1 Tube Active Active Problems ProblemNoted DateDiagnosed DateNicotine use disorder, F17.Ureteral stricture, right11/20/2017Ureteral jwtgmreuu22/17/2018 Overview (09/04/2017): Added automatically from request for surgery [id number] Hydronephrosis with ureteral stricture, not elsewhere dxeomgmseu62/03/2018 Mmlfojctphttjn87/26/2018 Overview (06/15/2017): Added automatically from request for surgery [id number] Social History Tobacco UseTypesPacks/DayYears UsedDateSmoking Tobacco: Every DayCigarettes Smokeless Tobacco: Never Tobacco Cessation:Ready to Q uit: No PHQ-2AnswerDate RecordedRetired 06/19/2019 PHQ Wvvvv969Area Deprivation IndexAnswerDate RecordedNational Score (1-100), lower number is lower riskNot on file04/27/2020State Score (1-10), lower number is lower riskNot on file 04/27/2020Data from: https://www.neighborhoodatlas.medicine.[facility].edu/. Last address used for calculationNot on file04/27/2020CommentsNoSex and Gender InformationValueDate RecordedSex Assigned at BirthNot on fileLegal Sex Fgxaac5304/23/2017 4:27 PM ESTGender IdentityNot on fileSexual OrientationNot on file Last Filed Vital Signs Vital SignReadingTime TakenCommentsBlood Svxeujse027/6607 2:46 PM EDT Ovwkk2463 2:46 PM KBWQdcrsqsbrce15.4 ??C (97.5 ??F)11/23/2017 7:18 AM EDTRespiratory Vwbm508511/23/2017 7:18 AM EDTOxygen Fomcmbauzs11%11/23/2017 7:18 AM EDTInhaled Oxygen Concentration--Eycfht194.2 kg (223 lb)11/30/2017 2:46 PM TNIXutwbv516.1 cm (5' 5 )11/30/2017 2:46 PM EDTBody Mass Index37.11011/30/2017 2:46 PM EDT Plan of Treatment Health MaintenanceDue DateLast DoneCommentsAnxiety Skmnqqemn73/28/1979Depression Bsjzoarll56/28/1979HIV Execmibui71/28/1979Hepatitis C Nuzntykyx35/28/1979 DTaP,Tdap,Td Vaccine (1 - Tdap)12/16/1979Cervical Cancer Amjusjbsc05/28/1982 Mammogram Meujicvss31/28/2001CT Tipmvbltmlro16/28/2006Cologuard (FIT-DNA) 12/15/20059047Szgqcdueyke83/28/2006Colorectal Cancer Uvqlpszdr60/28/2006Fecal Occult Blood2005Lipid Noabrwmfp14/28/1369Lqxdafgudxqlu57/28/2006Pneumococcal Vaccine: 50+ (1 of 1 - PCV)2010Shingrix Vaccine (1 of 2)2010Diabetes Atwxxjmjk92, 11/23/2017, 11/22/2017, Additional history exists Covid-19 Vaccine (1 - 2024- season)2025Influenza Vaccine (#1)2025 RSV Vaccine (1 - 1-dose 75+ series)12/16/2035 Medical Devices ImplantedTypeAreaManufacturerDevice IdentifierShelf Expiration DateModel / Serial / LotStent Inlay Marsing 7fr Taper [employer] Green Polymer Phreecoat 26cm Ureteral - [id number] Implanted:Qty: 1 [facility] 11[facility]19/[facility] MEDICAL [id number] / / [id number] Procedures Procedure NamePriorityDate/TimeAssociated DiagnosisCommentsBASIC METABOLIC PANEL Fysfytp7701/24/2019 5:02 PM EDT Obstruction of right ureter from Last 3 Months or Most Recently Relevant to Health Maintenance Results * (ABNORMAL) BASIC METABOLIC PNL (01/24/2019 5:02 PM EDT)ComponentValueRef Range Test MethodAnalysis TimePerformed AtPathologist OoknpmmsrPordisw3152 - 99 mg/dL01/24/2019 7:33 PM [facility] LaboratoriesComment: The [place] Diabetes Association (ADA) provides guidance for cutoff values for fasting glucose and random glucose. The ADA defines fasting as no caloric intake for at least 8 hours. Fasting plasma glucose results between 100 to 125 mg/dL indicate increased risk for diabetes (prediabetes). Fasting plasma glucose results greater than or equal to 126 mg/dL meet the criteria for diagnosis of diabetes. In the absence of unequivocal hyperglycemia, results should be confirmed by repeat testing. In a patient with classic symptoms of hyperglycemia or hyperglycemic crisis, random plasma glucose results greater than or equal to 200 mg/dL meet the criteria for diagnosis of diabetes. Reference: Standards of Medical Care in Diabetes 2016, [place] Diabetes Association. Diabetes Care. 2016.39(Suppl 1). ANH509 - 21 mg/dL01/24/2019 7:33 PM [facility] LaboratoriesCreatinine 1.15(H)0.58 - 0.96 mg/dL01/24/2019 7:33 PM [facility] Zmrofi369133 - 144 mmol/L01/24/2019 7:33 PM [facility] Potassium4.03.7 - 5.1 mmol/L01/24/2019 7:33 PM [facility] Cgdprnro95626 - 105 mmol/L01/24/2019 7:33 PM [facility] LaboratoriesCO2 2322 - 30 mmol/L01/24/2019 7:33 PM [facility] LaboratoriesAnion Oya292 - 18 mmol/L01/24/2019 7:33 PM [facility] LaboratoriesCalcium9.38.5 - 10.2 mg/dL01/24/2019 7:33 PM [facility] LaboratorieseGFR- Cnwywkfx2788/06/2019 7:33 PM [facility] LaboratorieseGFR-All Other Races48.01/24/2019 7:33 PM [facility] LaboratoriesComment: eGFR (Estimated GFR) Units of measure: mL/min/1.73 meters squared eGFR is derived from the reexpressed MDRD Study equation using the following parameters: serum creatinine, age, gender and race. The creatinine assay has been calibrated to be traceable to IDMS. An eGFR <60 mL/min/1.73m2 for >3 months is consistent with chronic kidney disease. Refer to KDOQI guidelines for clinical interpretation. In patients with unstable renal function, e.g. those with acute kidney injury, the eGFR may not accurately reflect actual GFR. Specimen (Source)Anatomical Location / LateralityCollection Method / Volume Collection TimeReceived TimeBlood specimen (specimen)BLOOD SPECIMEN / Unknown 01/24/2019 5:02 PM EDT01/24/2019 5:04 PM EDT Narrative Authorizing ProviderResult TypeResult StatusRobert Andrei Haq MDLABORATORYFinal ResultPerforming OrganizationAddressCity/State/ZIP CodePhone Number [facility] [address] [place] [address] [facility] [address] [place] [address] from Last 3 Months or Most Recently Relevant to Health Maintenance Insurance Care Teams Team MemberRelationshipSpecialtyStart DateEnd Date Tom Paez DO PCP - GeneralFamily Medicine05/29/17
--- OUTSIDE RECORDS SUMMARY | 2025-03-31 19:34 | XMS_ITS | Clinical Summary ---
Author Organization [facility] Address [address] [place] [address] Care Team Providers Care Wellness Program Coordinator Name Role Phone Sanchez Rice MD Primary Care Provider [phone] Allergies Active AllergyReactionsCriticalityNoted DateCommentsPenicillinsHivesHigh 07/29/2015 Other Reaction(s): critical, Other: See Comments Childhood reaction- HIVES, in hospital for 1 week Medications MedicationSigDispense QuantityRefillsLast FilledStart DateEnd DateStatus gabapentin (Neurontin) 300 MG capsule Take 300 mg by mouth in the morning and 300 mg in the evening.Active metFORMIN (Glucophage) 1000 MG tablet every 12 (twelve) hoursActive mirtazapine (Remeron) 7.5 MG tablet Take 7.5 mg by mouth at bedtimeActive prazosin (Minipress) 2 MG capsule 1 (one) time each day at the same timeActive lisinopril 2.5 MG tablet Take 2.5 mg by mouth DailyActive atorvastatin (Lipitor) 40 MG tablet Take 40 mg by mouth in the morning.Active carbidopa-levodopa (Sinemet) 25-100 MG tablet Indications:Parkinson's disease without dyskinesia or fluctuating manifestations (HCC)TAKE 1 AND 1/2 TABLETS BY MOUTH FOUR TIMES A DAY (8AM, NOON, 4PM, 8PM) 540 tablet 5Active rOPINIRole (Requip) 1 MG tablet Indications:RLS (restless legs syndrome)TAKE 1 1/2 TO 2 TABLETS ONE TO THREE HOURS BEFORE BEDTIME 180 tablet 5Active Active Problems ProblemNoted DateDiagnosed DateChronic pain11/02/20231860Lcvqvrq47/14/2024aytime xpxqgkgdbcmhnew40/14/6938Seqlyulzvx20/14/2024Right leg /14/2024 Overview (11/02/2023): The patient reports subjective right lower extremity (RLE) weakness with unknown date of onset. Shehas reflex changes in the RLE though no focal weakness on examination. RLE EMG on 03/08/23 was normal and unremarkable for cause. MRI of the lumbar spine (ordered by pain management) from 04/26/23 revealed mild right L5-S1 neural foraminal stenosis with no other substantial spinal canal or neuroforaminal stenosis. I would not expect mild MRI findings to explain the patient's weakness. The patient feels physical therapy did not provide benefit for her strength. PLAN: - I strongly recommend MRI of the brain to assess for an intracranial lesion including stroke whichcould explain the patient's symptoms. The patient politely declined imaging at this time. She understands that I cannot rule out underlying intracranial pathology without imaging which could be debilitating if not identified and treated. She accepts this risk - Monitor clinically Parkinson's disease without dyskinesia or fluctuating tpcicrtlwkzhhg40/14/2024 Overview (11/02/2023): It is my impression that the patient has signs and symptoms consistent with idiopathic Parkinson's disease. I do not believe any of her current medications would be contributory to a drug-induced Parkinsonism. The patient does appear to be on a low-dose of ropinirole (for RLS), though this did not provide significant benefit for her Parkinson's symptoms. She has had a beneficial response to dopaminergic therapy with Sinemet and believes she could benefit from a dose increase for improved control of motor symptoms. PLAN: - Increase Sinemet 25-100 mg - Take 1.5 (one and a half) tablet by mouth four times a day (at 8 am, 12 pm, 4 pm, and 8 pm) - I recommended regular physicalactivity - I recommended referral to speech therapy. Patient declined Chronic duqyrgp0011/02/2023 Overview (11/02/2023): At a prior appointment, the patient mentioned feeling generally slower moving and slightly weak. I question if this was related to bradykinesia. Symptoms have significantly improved with Sinemet, andthe patient denies any recent generalized weakness. She does mention chronic fatigue. The patient sleeps well at night (approximately 8 hours) and feels well rested upon waking. However, she reports feeling tired in the afternoon. She denies depression as a potential cause. She has a history of OSAand utilizes a CPAP nightly. I question if polypharmacy is contributing to the patient's fatigue. PLAN: - I encouraged CPAP compliance - I recommended lab evaluation to assess for potential underlying causes of the patient's fatigue. Patient declined Dwkxirfkied83/14/2024OSA (obstructive sleep apnea)10/29/2023LS (restless legs syndrome)10/29/2023 Family History Medical HistoryRelationNameCommentsMental illnessMotherObesityMotherRelationName StatusCommentsMotherDeceasedSiblingAlive Social History Tobacco UseTypesPacks/DayYears UsedDateSmoking Tobacco: Every GgsYsokqdyboc756 Smokeless Tobacco: CurrentAlcohol UseStandard Drinks/WeekCommentsNever0 (1 standard drink = 0.6 oz pure alcohol)CommentsUnknownSex and Gender InformationValueDate RecordedSex Assigned at BirthNot on fileLegal SexFemale 08/02/2022 10:14 PM EDTGender IdentityNot on fileSexual OrientationNot on file Last Filed Vital Signs Vital SignReadingTime TakenCommentsBlood Criguujw041/7410 10:57 AM EDT Ztvwm053002/20/2024 10:57 AM EDTTemperature--Respiratory Rate--Oxygen Saturation 96%02/20/2024 10:57 AM EDTInhaled Oxygen Concentration--Rwohcg89.4 kg (206 lb) 02/20/2024 10:57 AM LTZTqbvza138 cm (5' 3 )02/20/2024 10:57 AM EDTBody Mass Index36.4902/20/2024 10:57 AM EDT Plan of Treatment Not on file Insurance Care Teams Team MemberRelationshipSpecialtyStart DateEnd Date Sanchez Rice MD [address] [place] [address] PCP - GeneralFamily Jobqrynw28/2/24
--- OUTSIDE RECORDS SUMMARY | 2025-03-31 19:34 | XMS_ITS | Patient Health Record ---
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 Name Role Phone Soledad Walton Primary Care Provider Reason For Referral No Information Medications Medication SIG (Take, Route, Frequency, Duration) Notes Start Date End Date Status Atorvastatin Calcium 40 MG TAKE 1 TABLET BY MOUT H EVERY DAY; Duration: 90 days ActiveKetoconazole 2 %1 application Externally Once a day; Duration: 14 day(s) ActivemedroxyPROGESTERone Nmfxaco9705/21/1899Not-VnpbrgAyalaii62/01/1900Not-Taking Baclofen 10 MG1 tablet as needed Orally Twice a dayActiveBactrim DS 800-160 MG1 tablet Orally Twice a day; Duration: 10 day(s)Not-TakingmetFORMIN HCl 1000 MG TAKE 1 TABLET BY MOUTH TWICE A DAY; Duration: 90ActivePrazosin HCl 2 MG1 capsule at bedtime Orally Once a day; Duration: 30 day(s)ActiveOzempic (0.25 or 0.5 MG/DOSE) 2 MG/1.5MLas directed Subcutaneous 0.5 mg SQ once a week; Duration: 28 dayscall for next dosingActiveWellbutrin XL Not-TakingPotassium Chloride 20 MEQ1 packet with food Orally Once a day; Duration: 30 day(s) Lgj-RqpbesxmeGJXXPU-Kqnospxqxrbta 5-325 MG1 tablet as needed Orally every 6 hrs Not-TakingAzithromycin 250 MGas directed OrallyNot-TakingrOPINIRole HCl 0.25 MG1 tablet 1 to 3 hours before bedtime Orally Once a day; Duration: 30 day(s)Active predniSONE 20 MG1 tablet Orally Once a day; Duration: 30 day(s)ActiveGabapentin 100 MGTAKE 1 CAPSULE BY MOUTH TWICE A DAY FOR 30 DAYS; Duration: 30Active Mirtazapine 30 MG1 tablet at bedtime Orally Once a day; Duration: 30 daysActive Lisinopril 2.5 MG1 tablet Orally Once a day- NEEDS APPOINTMENT; Duration: 30 daysActive Social History Tobacco Use: Social History Observation Description Date Details (start date - stop date) Current Smoker 10/20/1979 - NA Tobacco Use/Smoking Question Answer Notes Patient is a current smoker When did you start smoking?10/20/1979How often do you smoke cigarettes?every day How many cigarettes a day do you smoke?11-20How soon after you wake up do you smoke your first cigarette?6-30 minutesAre you interested in quitting?Ready to quitAlcohol Screen (Audit-C) Question Answer Notes Did you have a drink containing alcohol in the p ast year? No Lnmrsh7JqtuhzubiysdtvSeelxzlj Problems Problem Type SNOMED Code ICD Code Onset Dates Problem Status W/U Status Risk Notes Problem Diabetic renal disease (75648194 3) Type 2 diabetes mellitus with diabetic chronic kidney disease (E11.22) ActiveconfirmedProblemObstructive sleep apnea (80846947)Obstructive sleep apnea (G47.33)ActiveconfirmedProblemCurrent smoker (70765072)Current smoker (F17.200) ActiveconfirmedProblemInsomnia (575565909)Insomnia, unspecified type (G47.00) ActiveconfirmedProblemDiabetes mellitus type 2 (53838784)Diabetes mellitus, type 2 (E11.9)ActiveconfirmedProblemAnxiety depression (008090996)Anxiety with depression (F41.8)ActiveconfirmedProblemAbsent kidney (169815828)H/O left nephrectomy (Z90.5)ActiveconfirmedProblemChronic kidney disease stage 3 (disorder) (767979203)Chronic kidney disease, stage 3 unspecified (N18.30)Active confirmed Plan Of Treatment Pending Test Test Name Order Date CMP (COMPLETE METABOLIC PANEL) HEMOGLOBIN A1C (GLYCO) 12/12/2023 INSULIN, TOTAL 12/12/2023 LIPID PANEL (CHOL/TRIG/HDL/LDL) 12/12/19 CBC WITH DIFF 12/12/2023 STOOL OCCULT BLOOD 12/12/2023 THYROID PANEL (T4/TSH/FREE T3) 4 Insurance Providers Payer Name Payer Address Payer Phone Subscriber Number Group Number Insured Name Patient Relationship to Insured Coverage Start Date Coverage End Date [employer] MEDICARE ADV PLAN [address] [address] [place] [id number] Lakhwinder Kim - patient is the insured Medical (General) History Surgical History Surgery Date(Month/Year) removal uter 11/2017 bowel surgery 11/2018
--- OUTSIDE RECORDS SUMMARY | 2025-03-31 19:34 | XMS_ITS | Clinical Summary ---
Author Organization [facility] Address [id number] [address] 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 Active rOPINIRole (REQUIP) 0.25 mg tablet Take 0.75 mg by mouth nightly. Active metFORMIN (GLUCOPHAGE) 1000 mg tablet Take 1,000 mg by mouth 2 (two) times a day with meals.Active atorvastatin (LIPITOR) 40 mg tablet Take 40 mg by mouth daily.Active mirtazapine (REMERON) 7.5 mg tablet Take 7.5 mg by mouth nightly.Active UNABLE TO FIND Take 1 capsule by mouth 2 (two) times a day. Med Name: BerberineActive prazosin (MINIPRESS) 2 mg capsule 2 mg once daily at bedtime.05/20/2020Active Active Problems ProblemNoted DateDiagnosed DateSBO (small bowel obstruction)05/04/2020Cervical ndsdvhsafya92/11/2016Mixed anxiety depressive tfxkyvpw25/11/2016Diabetes knebndqy00/11/5697Enizixiqpruj36/11/4163Iawjfptwmtrowp20/11/2016Severe obesity (BMI 35.0-39.9) with wqwepnvhpzr43/11/0623Vghbncwsb95/11/2016Tinea pedis 07/30/2015Dietary counseling and /11/2016Back pain07/30/2015 Immunizations ImmunizationAdministration DatesNext DueInfluenza, Injectable, Mdck, Preservative Free, Quad03/08/2018 Family History Medical HistoryRelationNameCommentsAneurysmFatherRelationNameStatusComments FatherDeceasedMotherDeceasedSonAlive Social History Tobacco UseTypesPacks/DayYears UsedDateSmoking Tobacco: Every DayCigarettes Smokeless Tobacco: NeverAlcohol UseStandard Drinks/WeekCommentsNo0 (1 standard drink = 0.6 oz pure alcohol)ChildcareAnswerDate RecordedChildcareUnknown 10/30/2018EmploymentAnswerDate NqzyipvdDrrwzlynebOkimrtx83/12/2019Purpose - Life AnswerDate RecordedPurpose and direction in piukPrgmcnj34/20/2021 CommentsNoSex and Gender InformationValueDate RecordedSex Assigned at BirthNot on fileLegal FlcDznkmd80/04/2015 10:20 PM EDTGender IdentityNot on fileSexual OrientationNot on file Last Filed Vital Signs Vital SignReadingTime TakenCommentsBlood Fhtzhzio274/70006/16/2020 1:38 PM EST Wapua676305/08/2020 3:58 PM QBSByqqmecaxzs55.2 ??C (97.1 ??F)06/16/2020 1:38 PM ESTRespiratory Feoj1792 3:58 PM ESTOxygen Lqaydyvqgc32%05/08/2020 3:58 PM ESTInhaled Oxygen Concentration--Tqcqmu69.5 kg (215 lb)06/16/2020 1:38 PM EST Ezdnec735.1 cm (5' 5 )06/16/2020 1:38 PM ESTBody Mass Index35.78006/16/2020 1:38 PM EST Plan of Treatment Health MaintenanceDue DateLast DoneCommentsDepression Auloeqjym75/28/1973Tobacco Kbuhagnut14/28/1973Adult BMI Dmnuzrwqj09/28/1979DTaP,Tdap and Td Vaccines (1 - Tdap)12/16/1979Pap Smear1981Zoster (Shingles) Vaccine (1 of 2)2010 Influenza Rwqqntx09RSV ( or age 60+ yrs) (1 - 1-dose 75+ series)12/16/2035 Goals GoalPatient Goal TypeAssociated ProblemsRecent ProgressPatient-Stated?Author discharge home Julee Epperson RN Note: Evaluation of progress towards goal: Patient plans to return home with family support Medical Devices Not on file Insurance Advance Directives * Full Code (Latest Code Status on File) Date ActivatedDate XsnglegfxtfTjjgqukd65/15/2020 9:07 PM05/08/2020 8:06 PM Care Teams Team MemberRelationshipSpecialtyStart DateEnd Date Sanchez Rice MD [address] [facility] [place] [address] PCP - GeneralFamily Medicine01/17/19
[2025-03-31] MEDS: HYDROMORPHONE HCL 1 MG/ML CARTRIDGE IVP ×2 (20:57→22:58)
[2025-03-31] MEDS: 0.9 % SODIUM CHLORIDE 1,000 ML 100 ML IV (20:57)
[2025-03-31] MEDS: PROMETHAZINE HCL 12.5 MG in 0.9 % SODIUM CHLORIDE 50 ML 202 MG IV (22:57)
[2025-04-01 00:07] VITALS: BP 132/78; PULSE 80; O2SAT 95
== END 2025-04-01 00:13 | disposition short-term general hospital (02) ==
PROVIDERS: Student in an Organized Health Care Education/Training Program; Emergency Provider Internal Medicine; PCP Nurse Practitioner
DX: K56.609 Unspecified intestinal obstruction, unspecified as to partial versus complete obstruction (principal); Z90.5 Acquired absence of kidney; G20.A1 Parkinson's disease without dyskinesia, without mention of fluctuations; E11.9 Type 2 diabetes mellitus without complications; Z79.84 Long term (current) use of oral hypoglycemic drugs
CPT/HCPCS: 36415; 74176; 80053; 81001; 84484; 85025; 93005; 96361; 96374; 96375; 96376; 99285; J1171; J2405; J2550

== ENCOUNTER 2025-05-06 17:54 | Inpatient (IN) | payer MEDICARE, SELFPAY ==
[2025-05-06] VITALS (37 sets, daily range): BP systolic 102–128; BP diastolic 61–69; PULSE 52–93; TEMP 36.6–37.5; O2SAT 85–99; BMI 33.3; BMI 32.2
--- NOTE | 2025-05-06 18:07 | PC.NURSE ---
pt reports using a walker for ambulation at home
--- NOTE | 2025-05-06 18:08 | XR_ITS ---
[address] [address] Patient Name: MARY ESTRADA MRN: [id number] date: 1960 Sex: F Assigned Patient Location: ED.MAIN Current Patient Location: ED.MAIN Accession/Order Number: [id number] Exam Date: 05/06/2025 18:38 Report Date: 05/06/2025 18:49 At the request of: LATONIA GAMBLE DO Procedure: XR chest 1V XR chest 1V 05/06/2025 6:41 PM SIGNS AND SYMPTOMS: Shortness breath, cough PROTOCOL: Frontal radiograph of the chest COMPARISON: 04/24/2022 FINDINGS: The trachea is midline. The heart and mediastinal structures are within normal limits. The lung parenchyma is clear. The bony thorax is intact. XR/XR chest 1V IMPRESSION: No acute cardiopulmonary pathology. Impression dictated by: Santana Hoyos M.D. 05/06/2025 6:49 PM Dictation Location: [place] [address] Electronically authenticated by: [id number] Y Date: 05/06/2025 18:49
--- NOTE | 2025-05-06 18:08 | ECG_ITS ---
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 Measurements Intervals [place] Rate: 88 P: 42 AK: 146 QRS: 17 QRSD: 74 T: 46 QT: 340 QTc: 386 Interpretive Statements 1100 Sinus rhythm 8102 Low QRS voltage in chest leads 9120 atypical ECG Compared to ECG 03/31/2025 18:25:44 Low QRS voltage now present Sinus tachycardia no longer present Possible ischemia no longer present Electronically Signed On 05-06-2025 20:59:20 EST by MARTITA ROSS M.D.
--- NOTE | 2025-05-06 18:13 | ED.GENADUL1 ---
HPI HPI - General Adult General Chief complaint: Weakness Stated complaint: WEAKNESS Time Seen by Provider: 05/06/25 17:57 Source: patient Mode of arrival: Wheelchair History of Present Illness HPI narrative: The patient is a 64-year-old female presenting to the emergency department from home. She has a known past medical history of Parkinson's disease, high blood pressure, high cholesterol, diabetes, neuropathy, and restless legs. The patient is coming in today because of profound weakness. The patient's son called her primary care physician who indicated that the patient had been very weak. The primary care physician urged them to bring her to the emergency department so her ckduguka-sp-cck brought her. The patient has been weak for approximately 7 days. It is progressively getting worse. The patient stated she believed her symptoms started with a cough. Patient states that since then she has had a difficult time catching her breath. She is a smoker but notes that over the last week she has only been able to smoke about 4 cigarettes/day. She has been so tired that she has not even taken her Parkinson's medications. The patient states that she has no appetite. She denies any nausea or vomiting. No diarrhea or constipation. No recent black, bloody, tarry stools. No fever or chills. No sick contacts or recent travel. No dysuria, hematuria, urgency or frequency. The patient states that she has not had any new medication or dosage changes. She does not feel dizzy or lightheaded. She is just exhausted. Related Data Home Medications ?Medication ?Instructions ?Recorded ?Confirmed atorvastatin 40 mg tablet 40 mg PO DAILY 02/21/23 05/06/25 lisinopril 20 mg tablet 25 mg PO DAILY 02/21/23 05/06/25 metformin 1,000 mg tablet 1,000 mg PO BID 02/21/23 05/06/25 prazosin 2 mg capsule 2 mg PO QPM 02/21/23 05/06/25 carbidopa 25 mg-levodopa 100 mg 1 tab PO QID 05/06/25 05/06/25 tablet gabapentin 300 mg capsule 300 mg PO Q12H 05/06/25 05/06/25 glipizide 5 mg tablet 5 mg PO DAILY 05/06/25 05/06/25 ropinirole 1 mg tablet 1 mg PO BEDTIME 12/17/25 12/17/25 Allergies Allergy/AdvReac Type Severity Reaction Status Date / Time Penicillins Allergy Unknown Unknown Verified 05/06/25 18:04 Opioid HPI Opioid Management Most Recent Opioid Data: Last Pain Scale 8 03/31/25, 23:55 Last Pain Assessment Today, 04:00 Last ORT Total Score 2 05/06/25, 23:08 Last ORT Risk Category Low Risk 05/06/25, 23:08 Review of Systems ROS Narrative 10 Systems were reviewed, and unless noted in the HPI, all other systems are reviewed, unremarkable, or noncontributory. PFSH PFSH Medical History Restless leg syndrome ?G25.81 - Restless legs syndrome (ICD-10) Sleep apnea ?G47.30 - Sleep apnea, unspecified (ICD-10) Diabetes mellitus ?E11.9 - Type 2 diabetes mellitus without complications (ICD-10) Hyperlipidemia ?E78.5 - Hyperlipidemia, unspecified (ICD-10) Hypertension ?I10 - Essential (primary) hypertension (ICD-10) Parkinsons disease ?G20.A1 - Parkinson's disease without dyskinesia, without mention of fluctuations (ICD-10) Family History (Updated 05/07/25 @ 00:58 by Carlota Herrera RN) Aunt Family history of diabetes mellitus Grandfather Family history of diabetes mellitus Grandmother Family history of diabetes mellitus Family history of stroke Social History (Updated 05/07/25 @ 00:59 by Carlota Herrera RN) Within the past year, how often did you have a drink containing alcohol: never Within the past year, how often did you have six or more drinks on one occasion: never Score interpretation: A score less than 3 is consistent with normal alcohol consumption. Smoking status: Current every day smoker Non-prescribed substance use: denies use Highest level of school completed/degree received: 10th grade Are you now , , , , never or living with a partner: In a typical week, how many times do you talk on the telephone with family, friends, or neighbors: 3 or more times per week How often do you get together with friends or relatives: twice per week Do you belong to any clubs or organizations such as mandaen groups unions, fraternal or athletic groups, or school groups: no Little interest or pleasure in doing things: several days Feeling down, depressed, or hopeless: not at all Feel stressed/tense/nervous/anxious/difficulty sleeping: not at all Exam Narrative Exam Narrative: Prior to examining the patient, I have washed with hospital approved and provided Antiseptic Hand [employer] Specialist and have also applied gloves.? Prior to touching the patient, I asked for consent to examine the patient.? General: Alert and oriented, well nourished, mild distress. Patient has resting tremor. She is obese. She is coughing. Eye: PERRL, EOMI, normal conjunctiva. No vertical or horizontal nystagmus. HENT: Normocephalic, normal hearing, moist oral mucosa, no scleral icterus, no sinus tenderness. Neck: Supple, non-tender, no carotid bruits, no JVD, no lymphadenopathy. Lungs: Tachypnea, nonlabored respirations, patient has an expiratory wheezing throughout the bilateral lung salgado worse on the right than the left. Heart: Normal rate, regular rhythm, no murmur, gallop or edema. Abdomen: Soft, non-tender, non-distended, normal bowel sounds, no masses. Obese Musculoskeletal: Normal range of motion and strength, no tenderness or swelling. Skin: Skin is warm, dry and pink, no rashes or lesions. Neurologic: Awake, alert, and oriented X3, CN II-XII intact. Psychiatric: Cooperative, appropriate mood and affect.? Following the conclusion of the examination, I have washed my hands thoroughly after removing examination gloves. Constitutional Vital Signs, click to edit/add: Last Vital Signs Temp 98.2 F 05/07/25 04:00 Pulse 62 05/07/25 04:00 Resp 18 05/07/25 04:00 BP 96/62 05/07/25 04:00 Pulse Ox 90 L 05/07/25 04:00 O2 Del Method Home BIPAP / CPAP 05/07/25 04:00 O2 Flow Rate 2 05/06/25 23:08 Course Course Hospital Course: The patient is a madina 64-year-old female presenting to the emergency department for profound weakness. She apparently lives alone but in close proximity to her son and otjtxilw-yq-ndk. The patient has been progressively getting weaker. She has had progression of a cough. She does smoke. No noted fever or chills. When the patient arrives she appears uncomfortable but not toxic or in any acute distress. Were commencing the sepsis protocol given that the patient's pulse is 93, she is tachypneic, and that her O2 sat is low. She is 92% on room air. Therefore the patient is going to get blood cultures and a lactic acid drawn. We are also drawing swabs on this patient as we are seeing an increase in influenza mimicking the same symptoms. Empirically, organ to treat the patient with Rocephin 1 g IV piggyback and azithromycin 500 mg IV piggyback, DuoNeb, and methylprednisolone. Vital Signs Vital signs: Vital Signs Temperature 98.8 F 05/06/25 17:59 Pulse Rate 93 H 05/06/25 17:59 Respiratory Rate 20 05/06/25 17:59 Blood Pressure 128/69 05/06/25 17:59 Pulse Oximetry 92 L 05/06/25 17:59 Oxygen Delivery Method Room Air 05/06/25 17:59 Temperature 98.2 F 05/07/25 04:00 Pulse Rate 62 05/07/25 04:00 Respiratory Rate 18 05/07/25 04:00 Blood Pressure 96/62 05/07/25 04:00 Pulse Oximetry 90 L 05/07/25 04:00 Oxygen Delivery Method Home BIPAP / CPAP 05/07/25 04:00 Oxygen Delivery Flow Rate 2 05/06/25 23:08 Medical Decision Making MDM Narrative Medical decision making narrative: 64-year-old female presenting with weakness. Differential Diagnosis Differential Diagnosis: Sepsis, pneumonia, pleurisy, pleural effusion, COPD exacerbation, deconditi Medical Records Medical records reviewed: Yes I reviewed the patient's medical records Lab Data Lab results reviewed: Yes I reviewed the patient's lab results Labs: Lab Results 05/06/25 05/06/25 Range/Units 18:21 18:25 WBC 6.1 (4.0-11.0) 10^3/uL RBC 4.06 L (4.20-5.40) 10^6/uL Hgb 12.0 (12.0-16.0) g/dL Hct 38.0 (36.0-48.0) % MCV 93.6 (81.0-99.0) fL MCH 29.6 (26.7-34.0) pg MCHC 31.6 (29.9-35.2) g/dL RDW 14.2 (11.0-15.0) % Plt Count 289 (150-450) 10^3/uL MPV 9.9 (9.5-13.5) fL Neut % (Auto) 46.8 (43.0-75.0) % Lymph % (Auto) 40.8 (20.5-60.0) % Harper % (Auto) 10.9 (1.7-12.0) % Eos % (Auto) 0.5 L (0.9-7.0) % Baso % (Auto) 0.7 (0.2-2.0) % Neut # (Auto) 2.9 (1.4-6.5) 10^3/uL Lymph # (Auto) 2.5 (1.2-3.8) 10^3/uL Harper # (Auto) 0.7 (0.3-0.8) 10^3/uL Eos # (Auto) 0.0 (0.0-0.7) 10^3/uL Baso # (Auto) 0.0 (0.0-0.1) 10^3/uL Abs Immat Gran (auto) 0.02 (0.00-0.03) 10^3/uL Imm/Tot Granulo (auto) 0.3 (0.0-0.5) % D-Dimer 1.55 H* (<=0.59) mg/L FEU Sodium 138 (136-145) mmol/L Potassium 3.7 (3.5-5.1) mmol/L Chloride 102 (98-107) mmol/L Carbon Dioxide 28.1 (21.0-32.0) mmol/L Anion Gap 11.6 BUN 18.0 (7.0-18.0) mg/dL Creatinine 1.74 H (0.55-1.02) mg/dL Est GFR ( Amer) 36 L (>=60 mL/min/1.73m^2) Est GFR (Non-Af Amer) 29 L (>=60 mL/min/1.73m^2) BUN/Creatinine Ratio 10.3 Glucose 124 H (74-106) mg/dL Lactate 1.1 (0.4-2.0) mmol/L Calcium 8.6 (8.5-10.1) mg/dL Magnesium 1.9 (1.8-2.4) mg/dL Total Bilirubin 0.7 (0.2-1.0) mg/dL AST 89 H (15-37) U/L ALT 25 (14-59) U/L Alkaline Phosphatase 81 (46-116) U/L Troponin I High Sens 18.9 (4.0-51.3) pg/mL NT-Pro-B Natriuret Pep 304.0 (<=900.0) pg/mL Total Protein 8.6 H (6.4-8.2) g/dL Albumin 3.0 L (3.4-5.0) g/dL Globulin 5.6 g/dL Albumin/Globulin Ratio 0.5 Influenza Type A Ag Negative Influenza Type B Ag Negative SARS-CoV-2 Ag (CV2AG) Negative (NEGATIVE) Imaging Data Chest x-ray: Attestation: I have reviewed the pertinent imaging results. Radiologist's impression: ITS Impressions Chest X-Ray 05/06/25 18:08 IMPRESSION: No acute cardiopulmonary pathology. Impression dictated by: Santana Hoyos M.D. 05/06/2025 6:49 PM Dictation Location: [employer] Electronically authenticated by: [id number] Y Date: 05/06/2025 18:49 Chest CTA 05/06/25 21:10 IMPRESSION: No acute cardiopulmonary pathology. No evidence of pulmonary embolism. There is a 6 mm noncalcified nodule in the left lower lobe. This is unchanged when compared to the previous CT. There is a 1.9 cm hypoattenuating nodule within the right thyroid lobe. There are accompanying peripheral calcifications. Follow-up with nonemergent ultrasound of the thyroid is recommended as malignancy is not excluded. Impression dictated by: Santana Hoyos M.D. 05/06/2025 10:17 PM Dictation Location: [employer] Electronically authenticated by: [id number] Y Date: 05/06/2025 22:17 ECG Data Attestation: I personally reviewed and interpreted this ECG as follows: Interpretation: Twelve-lead EKG reveals a sinus rhythm with a ventricular of 80 bpm. The OK interval and QRS duration are normal. QTc is not prolonged. [place] is normal. Small QRS complex this was may be indicative of pulmonary disease type pattern. Otherwise unremarkable EKG. Summary normal. Smoking Cessation Time spent discussing smoking cessation with patient: 3 to 10 minutes Patient Acknowledges Need for Cessation: Yes Discharge Plan Discharge Chief Complaint: Weakness Clinical Impression: Exertional shortness of breath, Hypoxia, Generalized weakness, Dehydration, mild Patient Disposition: Admitted as Observation Time of Disposition Decision: 22:36 Condition: Good Discharge Date/Time: 05/06/25 22:56
--- OUTSIDE RECORDS SUMMARY | 2025-05-06 18:31 | XMS_ITS | Clinical Summary ---
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 Name Role Phone Tom Paez DO Primary Care Provider [phone] Allergies Active AllergyReactionsCriticalityNoted DateCommentsPenicillinOther: See FonfbjlvSfhx79/09/2018 Childhood reaction- HIVES, in hospital for 1 [...] DateDiagnosed DateNicotine use disorder, F17.Ureteral stricture, right11/20/2017Ureteral chckiupmc37/17/2018 Overview (09/04/2017): Added automatically from request for surgery [id number] Hydronephrosis with ureteral stricture, not elsewhere rbkldfeqny34/03/2018 Ezjppwlbolazsl39/26/2018 Overview (06/15/2017): Added automatically from request for surgery [id number] Social History Tobacco UseTypesPacks/DayYears UsedDateSmoking Tobacco: Every DayCigarettes Smokeless Tobacco: Never Tobacco Cessation:Ready to Q uit: No PHQ-2AnswerDate RecordedRetired 06/19/2019 PHQ Cuakz391Area Deprivation IndexAnswerDate RecordedNational Score (1-100), lower number is lower riskNot on file04/27/2020State Score (1-10), lower number is lower riskNot on file 04/27/2020Data from: https://www.neighborhoodatlas.medicine.[facility].edu/. Last address used for calculationNot on file04/27/2020CommentsNoSex and Gender InformationValueDate RecordedSex Assigned at BirthNot on fileLegal Sex Yvppjw9604/23/2017 4:27 PM ESTGender IdentityNot on fileSexual OrientationNot on file Last Filed Vital Signs Vital SignReadingTime TakenCommentsBlood Porghpze181/6607 2:46 PM EDT Qjqvf2376 2:46 PM HREXmwxagzlbpo70.4 ??C (97.5 ??F)11/23/2017 7:18 AM EDTRespiratory Tlsa866411/23/2017 7:18 AM EDTOxygen Nyrhmidvqn22%11/23/2017 7:18 AM EDTInhaled Oxygen Concentration--Zkyftq264.2 kg (223 lb)11/30/2017 2:46 PM PHMWiudog617.1 cm (5' 5 )11/30/2017 2:46 PM EDTBody Mass Index37.11011/30/2017 2:46 PM EDT Plan of Treatment Health MaintenanceDue DateLast DoneCommentsAnxiety Nzdficgqc10/28/1979Depression Yfiknqrlg65/28/1979HIV Uzyunhtku72/28/1979Hepatitis C Gfgxhplke09/28/1979 DTaP,Tdap,Td Vaccine (1 - Tdap)12/16/1979Cervical Cancer Fgmurxmii88/28/1982 Mammogram Zczfqlopj03/28/2001CT Olumhascifjd43/28/2006Cologuard (FIT-DNA) 12/15/20059030Ltpucdkdeki71/28/2006Colorectal Cancer Mtrszzrlk85/28/2006Fecal Occult Blood2005Lipid Kspglfsms54/28/3306Ldstrwdjpbsgx68/28/2006Shingrix Vaccine (1 of 2)2010Pneumococcal Vaccine: 50+ (2 of 2 - PCV)/03/2020 Diabetes Sjoorpwxk41, 05/07/2020, 05/06/2020, Additional history existsCovid-19 Vaccine (3 - season)/12/2020, 10/05/2020Influenza Vaccine (#1)/03/2023, 04/30/2020, 03/08/2018RSV Vaccine (1 - 1-dose 75+ series)12/16/2035 Medical Devices ImplantedTypeAreaManufacturerDevice IdentifierShelf Expiration DateModel / Serial / LotStent Inlay [address] 7fr Taper [place] Green Polymer Phreecoat 26cm Ureteral - [id number] Implanted:Qty: 1 on 11/19/2017 at [facility] MEDICAL [id number] / / [id number] Procedures Procedure NamePriorityDate/TimeAssociated DiagnosisCommentsCT OUTSIDE CD DICOM VYMLQF5703/31/2025 BASIC METABOLIC LQOYMDfwfhce05/06/2019 5:02 PM EDT Obstruction of right ureter from Last 3 Months or Most Recently Relevant to Health Maintenance Results * CT-CT ABDOMEN PELVIS WO CON IMPORT (03/31/2025)Anatomical RegionLaterality ModalityOtherSpecimen (Source)Anatomical Location / LateralityCollection Method / VolumeCollection TimeReceived Time03/31/2025 Narrative 04/03/2025 9:06 AM EST Images were obtained outside of [facility] Procedure Note Provider, [facility] [place] - 04/03/2025 Images were obtained outside of [facility] Authorizing ProviderResult TypeResult StatusCcf ProviderRADIOLOGYFinal Result * (ABNORMAL) BASIC METABOLIC PNL (01/24/2019 5:02 PM EDT)ComponentValueRef Range Test MethodAnalysis TimePerformed AtPathologist UeounjbkkPtzvdxk5459 - 99 mg/dL01/24/2019 7:33 PM EDTCOhio State Health System LaboratoriesComment: The Canadian Diabetes Association (ADA) provides guidance for cutoff [...] Standards of Medical Care in Diabetes 2016, Canadian Diabetes Association. Diabetes Care. 2016.39(Suppl 1). BVO014 - 21 mg/dL01/24/2019 7:33 PM EDTCashtabula [facility]and [facility] LaboratoriesCreatinine 1.15(H)0.58 - 0.96 mg/dL01/24/2019 7:33 PM [facility]TC[facility] Hqwsas647372 - 144 mmol/L01/24/2019 7:33 PM EDTCleveland [facility] Laboratories Potassium4.03.7 - 5.1 mmol/L01/24/2019 7:33 PM EDTCashtabula [facility] Qkiqtmmy68409 - 105 mmol/L01/24/2019 7:33 PM EDTCleveland Clinic LaboratoriesCO2 2322 - 30 mmol/L01/24/2019 7:33 PM EDTCleveland Clinic LaboratoriesAnion Ivn448 - 18 mmol/L01/24/2019 7:33 PM EDTCleveland Clinic LaboratoriesCalcium9.38.5 - 10.2 mg/dL01/24/2019 7:33 PM EDTCashtabula county [facility] centerand [facility] LaboratorieseGFR- Fiimynbm3055/06/2019 7:33 PM EDTCleveland Clinic LaboratorieseGFR-All Other Races48.01/24/2019 7:33 PM EDTCashtabula county [facility] centerand [facility] LaboratoriesComment: eGFR (Estimated GFR) Units of measure: [...] 5:04 PM EDT Narrative Authorizing ProviderResult TypeResult StatusRobakash Haq MDLABORATORYFinal ResultPerforming OrganizationAddressCity/State/ZIP CodePhone Number [facility] [address] [place] [address] [facility] [address] [place] [address] from Last 3 Months or Most Recently Relevant to Health Maintenance Insurance Care Teams Team MemberRelationshipSpecialtyStart DateEnd Date Tmo Paez DO PCP - GeneralFamily Medicine05/29/17
--- OUTSIDE RECORDS SUMMARY | 2025-05-06 18:31 | XMS_ITS | Clinical Summary ---
Author Organization [facility] Address [address] [place] [address] Care Team Providers Care Animal Hospital Clerk Name Role Phone Unavailable Primary Care Provider Unavailabl e Source Comments The following information is NOT included in Care Everywhere downloads:Psychiatric notes, ECG results, Cardiac Rehab notes, Pulmonary Function notes, data from SmartBeddits (includes but not limited toPregnancy data,audiograms, eye exams, pre-surgical evaluation notes, well-child exam data).[facility] Allergies Active AllergyReactionsCriticalityNoted DateCommentsPenicillinsAnaphylactic Shock04/04/2025 Medications MedicationSigDispense QuantityRefillsLast FilledStart DateEnd DateStatus Semaglutide,0.25 or 0.5MG/DOSE, (OZEMPIC) 2 MG/3ML pen Inject 0.5 mg under the skin once weekly.Active baclofen (LIORESAL) 10 MG tablet Take 10 mg by mouth 3 times daily.Active carbidopa-levodopa (SINEMET) 25-100 MG per tablet Take 1 Tablet by mouth 4 times daily.Active gabapentin (NEURONTIN) 300 MG capsule Take 300 mg by mouth 2 times daily.Active ketoconazole (NIZORAL) 2 % cream Apply 60 g topically 2 times daily. Apply thin layer to affected area.Active lisinopril (ZESTRIL) 2.5 MG tablet Take 2.5 mg by mouth daily.Active metFORMIN (GLUCOPHAGE) 1000 MG tablet Take 1,000 mg by mouth 2 times daily (with meals).Active prazosin (MINIPRESS) 2 MG capsule Take 2 mg by mouth at bedtime.Active rOPINIRole (REQUIP) 0.25 MG tablet Take 0.75 mg by mouth at bedtime.Active Active Problems ProblemNoted DateDiagnosed DateSmall bowel simpuncpjau29/15/2025 Assessment & Plan (04/14/2025 10:21 AM EST): Resolved and stable Encounters DateTypeDepartmentCare LxoxVbdsbvqcekj77/25/2025 10:00 AM ESTTelemedicine [facility] Virtual On Demand Care [address] [place], [place] [id number] Martha Ag MD Small bowel obstruction (HCC) (Primary Dx); Primary parkinsonism (HCC); Primary hypertension; Type 2 diabetes mellitus without complication, without long-term current use of insulin (HCC); Obstructive sleep apnea qfwwwjox53/17/2025 1:23 PM EST - 04/06/2025 11:59 PM EST Hospital Encounter [facility] Radiology [address] [place] [address] Kiki Figueroa MD Discharge Disposition: HOV Owumtcyfu53/15/2025 10:55 AM EST - 04/04/2025 11:59 PM ESTHospital Encounter [facility] Radiology CT [address] [place] [address] Kiki Figueroa MD Discharge Disposition: HOV Upodvirst56/15/2025 4:43 AM EST - 04/04/2025 10:54 AM ESTHospital Encounter [facility] Radiology [address] [place], [place] [id number] Kiki Figueroa MD Discharge Disposition: [facility] Geowcyhdo43/15/2025 4:14 AM EST - 04/07/2025 2:13 PM ESTHospital Encounter [facility] [address] [place] [address] Macie Ladd MD Dvorak, Justin, MD Tichenor, Michael, MD Lasinski, Alaina, MD Small bowel obstruction (HCC) (Primary Dx); Abnormal electrocardiogram (ECG) (EKG); Abnormal electrocardiogram (ECG) (EKG) Discharge Disposition: Discharge to Home04/04/2025Travelfrom Last 3 Months Immunizations ImmunizationAdministration DatesNext DueInfluenza, Injectable, MDCK, Quadrivalent, Preservative Free (GPB=565)03/08/2018Influenza, injectable, quadrivalent, preservative free (KUV=638)02/28/2023,04/30/2020Influenza, injectable, trivalent, preservative free (HNZ=066)04/03/2025Pneumococcal polysaccharide 23 Valent (PPSV23) (CVX=33)04/30/2020 Social History Tobacco UseTypesPacks/DayYears UsedDateSmoking Tobacco: Every DayCigarettes Passive Smoke Exposure: CurrentSmokeless Tobacco: Never Tobacco Cessation:Ready to Q uit: Not Asked; Counseling Given: Not Answered [facility] UtilitiesAnswerDate RecordedIn the past 12 months has the [employer], [employer], or [employer] threatened to shut off services in your home?No04/04/2025 Humiliation, Afraid, Rape, and Kick questionnaireAnswerDate RecordedFear of Current or Ex-PartnerNot on file04/04/2025Within the last year, have you been humiliated or emotionally abused in other ways by your partner or ex-partner?No 04/04/2025Physically AbusedNot on file04/04/2025Sexually AbusedNot on file 04/04/2025Hunger Vital SignAnswerDate RecordedWithin the past 12 months, you worried that your food would run out before you got the money to buymore. Sometimes true04/04/2025Ran Out of Food in the Last YearNot on file04/04/2025 PRAPARE - TransportationAnswerDate RecordedIn the past 12 months, has lack of transportation kept you from medical appointments or from getting medications?No 04/04/2025Lack of Transportation (Non-Medical)Not on file04/04/2025Housing Stability Vital SignAnswerDate RecordedIn the last 12 months, was there a time when you were not able to pay the mortgage or rent on time?No04/04/2025Number of Times Moved in the Last YearNot on file04/04/2025Homeless in the Last YearNot on file04/04/2025Utilities - HistoricalAnswerDate RecordedIn the past 12 months has the [employer], [employer], or [employer] threatened to shut off services in your home?No04/04/2025CommentsUnknownSex and Gender InformationValueDate RecordedSex Assigned at BirthNot on fileLegal WtqYgoanc91/14/2025 8:28 AM EST Gender IdentityNot on fileSexual OrientationNot on file Last Filed Vital Signs Vital SignReadingTime TakenCommentsBlood Lbveufus066/5404/07/2025 6:09 AM EST Feyhl664404/07/2025 6:09 AM KDBGwdbnzdpsnz59.4 ??C (97.5 ??F)04/07/2025 6:09 AM ESTRespiratory Zrig764106/07/2024 6:09 AM ESTOxygen Hdkmworabm61%04/07/2025 6:09 AM ESTInhaled Oxygen Concentration--Nvknib17.6 kg (206 lb 5.6 oz)04/04/2025 4:27 AM SSQOashas407.6 cm (5' 4 )04/04/2025 8:25 AM ESTBody Mass Index35.42106/04/2024 4:27 AM EST Plan of Treatment Health MaintenanceDue DateLast VobsTepnrlwrRzceybmtqic81/28/1961HIV Test 12/16/1975Hepatitis C Otlkhjlb63/28/1979Tdap Kkcmdop5112/15/1978Hepatitis A (HAV) Vaccine (optional start 19+ years)12/16/1979Pap Smear1981Mammography 2000CRC Kgbxzkftv61/28/2006Cologuard (Stool DNA)2005FIT2005 Shingles (RZV) Vaccine (1 of 2)2010Hepatitis B (HBV) Vaccine (optional start 60+ years)1Pneumococcal Vaccine(s) (50+ yrs) (2 of 2 - PCV) /03/2020Annual Wellness Visit (G0438)4COVID-19 Vaccine (3 - 2024- season)/12/2020, 1Basic Metabolic Panel04/07/2026 04/07/2025, 04/06/2025, 04/05/2025, Additional history existsCholesterol /09/2024, 12/13/2015RSV vaccine (adult) (1 - 1-dose 75+ series) 12/16/2035Influenza InjpkjlMzorprlxs46/14/2025, 02/28/2023, 04/30/2020, Additional history exists Procedures Procedure NamePriorityDate/TimeAssociated DiagnosisCommentsCOMPLETE BLOOD COUNT Mitqlsd3304/07/2025 11:19 AM EST GLUCOSE, FINGERSTICK-IN DXOJHPTstzmxo56/18/2025 7:53 AM EST JZFVYQRPQRPqansyc27/18/2025 3:08 AM EST LZDLGIHLVFpgtnyn20/18/2025 3:08 AM EST BASIC METABOLIC PDHVMTkolbeh08/18/2025 3:08 AM EST GLUCOSE, FINGERSTICK-IN LBXODDQxzrckx32/18/2025 2:14 AM EST GLUCOSE, FINGERSTICK-IN WOLMZGUaesmid38/17/2025 8:21 PM EST GLUCOSE, FINGERSTICK-IN XISFUEWwucmfp18/17/2025 2:23 PM EST XR ABDOMEN AP 1 NUEAIgqjwyf53/17/2025 1:51 PM EST GLUCOSE, FINGERSTICK-IN PPKZLWAjarkis87/17/2025 8:28 AM EST GLUCOSE, FINGERSTICK-IN EHUASPYrzbllf00/17/2025 2:47 AM EST LPPBXITERYXpzaukl15/17/2025 1:33 AM EST BOQNUMBSWQvcfbxv94/17/2025 1:33 AM EST COMPLETE BLOOD RGMGHUcviyqg03/17/2025 1:33 AM EST BASIC METABOLIC PFZGDOmalzig43/17/2025 1:33 AM EST GLUCOSE, FINGERSTICK-IN WVFJVNYnyrfjd17/16/2025 8:31 PM EST GLUCOSE, FINGERSTICK-IN QIBNZIAmhvfmx23/16/2025 4:37 PM EST ANTI FXA-LMW DMSFFPLOrovbez65/16/2025 2:00 PM EST GLUCOSE, FINGERSTICK-IN VFUMNUOnzvdfr65/16/2025 11:44 AM EST GLUCOSE, FINGERSTICK-IN QLETWAHahsikr54/16/2025 9:12 AM EST COMPLETE BLOOD BVPPTVnfgvvu79/16/2025 4:20 AM EST BASIC METABOLIC DMKWVLwbbxkw58/16/2025 4:20 AM EST QXSLPKVHEZugvein36/16/2025 4:20 AM EST QFECZCKBMKMfgqamc04/16/2025 4:20 AM EST GLUCOSE, FINGERSTICK-IN JZWWTNXiofrge39/16/2025 4:19 AM EST GLUCOSE, FINGERSTICK-IN YRDDEPWfsvtgn30/15/2025 9:55 PM EST GLUCOSE, FINGERSTICK-IN BHOQOYZdasafj67/15/2025 4:32 PM EST GLUCOSE, FINGERSTICK-IN ZXGXJHCprbaiy46/15/2025 12:[address] ABDOMEN/PELVIS W/ XNSYTAKWZDBI15/15/2025 11:28 AM EST EKG 12 LEAD - DGILLDWDrkjouo60/15/2025 9:28 AM EST Abnormal electrocardiogram (ECG) (EKG) CONFIRMATION ABO/KCFzopswh04/ 8:22 AM EST XR ABDOMEN AP 1 VTQYVYQE65/15/2025 6:20 AM EST GLUCOSE, FINGERSTICK-IN XSZSIDCjlqtjk87/15/2025 5:16 AM EST DIRECT ANTIGLOBULIN CWRIMbajrij10/15/2025 5:13 AM EST ANTIBODY ID - LAB USE OFMIObfwceu05/15/2025 5:13 AM EST PROTHROMBIN TIME AND WPPDvifgtv80/15/2025 5:13 AM EST TYPE AND BNFPYOFdlvfzb15/15/2025 5:13 AM EST WBUULHCNGSIzeppsr45/15/2025 5:13 AM EST JRBLFSZTKSwtderi51/15/2025 5:13 AM EST COMPLETE BLOOD JPOUZSteaiez79/15/2025 5:13 AM EST BASIC METABOLIC PQNHUZvgcubc45/15/2025 5:13 AM EST XRAY ABDOMEN IMAGE ECDOEKTyipony56/15/2025 4:48 AM ESTXRAY ABDOMEN IMAGE IMPORT Ojbhovn9704/04/2025 4:47 AM ESTXRAY ABDOMEN IMAGE IDAVSEVuliunn40/15/2025 4:46 AM ESTfrom Last 3 Months Results * (ABNORMAL) COMPLETE BLOOD COUNT (04/07/2025 11:19 AM EST)ComponentValueRef RangeTest MethodAnalysis TimePerformed AtPathologist GbjxfkevsCCN81.0(H)4.5 - 11.5 K/uL04/07/2025 11:37 AM [facility] [place] LABORATORYRBC4.164.00 - 5.20 M/uL04/07/2025 11:37 AM [facility] LWFFITGIJPMznosiwoil78.912.0 - 15.0 g/dL04/07/2025 11:37 AM [facility] EBFPEUYUCRSjmuaebmfq69.336.0 - 46.0 % 04/07/2025 11:37 AM [facility] DXUCPTDFSZQLR8522 - 100 fL04/07/2025 11:37 AM [facility] BSTYWWHAZQVKP52.126.0 - 34.0 pg04/07/2025 11:37 AM [facility] RRBNNUDTBJPSKI62.832.0 - 35.9 g/dL04/07/2025 11:37 AM [facility] UFIYZSNOUPYaiitsox040593 - 400 K/uL04/07/2025 11:37 AM [facility] LABORATORYRDW-CV14.8(H)11.5 - 14.5 %04/07/2025 11:37 AM [facility] [place] LABORATORYMPV8.37.5 - 11.2 fL04/07/2025 11:37 AM [facility] LABORATORYSpecimen (Source)Anatomical Location / LateralityCollection Method / VolumeCollection TimeReceived TimeBloodBLOOD SPECIMEN / UnknownVenipuncture / Jjegdrj9604/07/2025 11:19 AM EST04/07/2025 11:26 AM EST Narrative Authorizing ProviderResult TypeResult StatusJimmy Shah MD98 GENERAL LABFinal ResultPerforming OrganizationAddressCity/State/ZIP CodePhone Number [facility] [address] [place] [address] * (ABNORMAL) GLUCOSE, FINGERSTICK-IN OFFICE (04/07/2025 7:53 AM EST)Component ValueRef RangeTest MethodAnalysis TimePerformed AtPathologist Signature Glucose, OFP797(H)74 - 109 mg/dL04/07/2025 7:59 AM ESTNURSING GLUCOSE PROGRAM Specimen (Source)Anatomical Location / LateralityCollection Method / Volume Collection TimeReceived TimeBloodBLOOD SPECIMEN / Immjzmb6704/07/2025 7:53 AM EST04/07/2025 7:59 AM EST Narrative Authorizing ProviderResult TypeResult StatusTo Be AssignedEC BACK OFFICE LABS Final ResultPerforming OrganizationAddressCity/State/ZIP CodePhone Number NURSING GLUCOSE PROGRAM [address] [place] [address] * (ABNORMAL) BASIC METABOLIC PANEL (04/07/2025 3:08 AM EST)ComponentValueRef RangeTest MethodAnalysis TimePerformed AtPathologist HkbclpmgeGydbcyt8650 - 109 mg/dL04/07/2025 4:15 AM [facility] ZHTKJPILFJNseqsy877337 - 145 mmol/L106/07/2024 4:15 AM [facility] [place] LABORATORYPotassium3.63.5 - 5.0 mmol/L106/07/2024 4:15 AM [facility] [place] LABORATORYCarbon Qgntnha1231 - 31 mmol/L106/07/2024 4:15 AM [facility] NDXDOSZGBCLgcekqev42311 - 107 mmol/L 04/07/2025 4:15 AM [facility] [place] LABORATORYBlood Urea Vyoqphcd907 - 25 mg/dL04/07/2025 4:15 AM [facility] LABORATORYCreatinine1.040.60 - 1.20 mg/dL04/07/2025 4:15 AM [facility] [place] LABORATORYCalcium7.9(L)8.6 - 10.3 mg/dL04/07/2025 4:15 AM [facility] [place] LABORATORYAnion Qpy9456 - 20 04/07/2025 4:15 AM [facility] [place] LABORATORYEstimated GFR (CKD-EPI)60>=60 mL/min/1.36kqi6106/07/2024 4:15 AM [facility] [place] LABORATORYComment: 2020 CKD EPI Equation using Creatinine without Race Comment: ??Estimated glomerular filtration rate (eGFR) is calculated without a race coefficient. Values should be interpreted in the context of the patient's full clinical presentation. Reference: 1. Nils C, Tk M, Jose DC, et al.. A Unifying Approach for GFR Estimation: Recommendations of the NKF-ASN Task Force on Reassessing the Inclusion of Race in Diagnosing Kidney Disease. AmericanJournal of Kidney Diseases 202;79(2):268-88.e1. 2. N Engl J Med 2021 Vol. 385 Issue 19 Pages 2141-7890 Specimen (Source)Anatomical Location / LateralityCollection Method / Volume Collection TimeReceived TimeBloodBLOOD SPECIMEN / UnknownVenipuncture / Unknown 04/07/2025 3:08 AM EST04/07/2025 3:40 AM EST Narrative Authorizing ProviderResult TypeResult StatusJimmy Shah MD98 GENERAL LABFinal ResultPerforming OrganizationAddressCity/State/ZIP CodePhone Number [facility] [address] [place], [place] [phone] * PHOSPHORUS (04/07/2025 3:08 AM EST)ComponentValueRef RangeTest MethodAnalysis TimePerformed AtPathologist SignaturePhosphorus, Serum3.02.5 - 5.0 mg/dL 04/07/2025 4:15 AM ESTCROWNPOINT [facility] PATHOLOGY LABORATORYSpecimen (Source)Anatomical Location / LateralityCollection Method / VolumeCollection TimeReceived Time BloodBLOOD SPECIMEN / UnknownVenipuncture / Tykdavy1904/07/2025 3:08 AM EST 04/07/2025 3:40 AM EST Narrative Authorizing ProviderResult TypeResult StatusJimmy JOHANSEN GENERAL LABFinal ResultPerforming OrganizationAddressCity/State/ZIP CodePhone Number [facility] [address] [place] [address] * MAGNESIUM (04/07/2025 3:08 AM EST)ComponentValueRef RangeTest MethodAnalysis TimePerformed AtPathologist SignatureMagnesium2.01.9 - 2.7 mg/dL04/07/2025 4:17 AM ESTCROWNPOINT [facility] PATHOLOGY LABORATORYSpecimen (Source)Anatomical Location / LateralityCollection Method / VolumeCollection TimeReceived TimeBloodBLOOD SPECIMEN / UnknownVenipuncture / Kiwclve4904/07/2025 3:08 AM EST04/07/2025 3:40 AM EST Narrative Authorizing ProviderResult TypeResult Juliette JOHANSEN GENERAL LABFinal ResultPerforming OrganizationAddressCity/State/ZIP CodePhone Number [facility] [address] [place] [address] * GLUCOSE, FINGERSTICK-IN OFFICE (04/07/2025 2:14 AM EST)ComponentValueRef Range Test MethodAnalysis TimePerformed AtPathologist SignatureGlucose, EUS7757 - 109 mg/dL04/07/2025 2:20 AM ESTNURSING GLUCOSE PROGRAMSpecimen (Source) Anatomical Location / LateralityCollection Method / VolumeCollection Time Received TimeBloodBLOOD SPECIMEN / Gxtovhw9804/07/2025 2:14 AM EST04/07/2025 2:20 AM EST Narrative Authorizing ProviderResult TypeResult StatusJucarmen REYES BACK OFFICE LABS Final ResultPerforming OrganizationAddressCity/State/ZIP CodePhone Number NURSING GLUCOSE PROGRAM [address] [place] [address] * (ABNORMAL) GLUCOSE, FINGERSTICK-IN OFFICE (04/06/2025 8:21 PM EST)Component ValueRef RangeTest MethodAnalysis TimePerformed AtPathologist Signature Glucose, ZAM587(H)74 - 109 mg/dL04/06/2025 8:38 PM ESTNURSING GLUCOSE PROGRAM Specimen (Source)Anatomical Location / LateralityCollection Method / Volume Collection TimeReceived TimeBloodBLOOD SPECIMEN / Sjsrfay5404/06/2025 8:21 PM EST04/06/2025 8:38 PM EST Narrative Authorizing ProviderResult TypeResult StatusJustin Georges MDEC BACK OFFICE LABS Final ResultPerforming OrganizationAddressCity/State/ZIP CodePhone Number NURSING GLUCOSE PROGRAM [address] [place] [phone] * GLUCOSE, FINGERSTICK-IN OFFICE (04/06/2025 2:23 PM EST)ComponentValueRef Range Test MethodAnalysis TimePerformed AtPathologist SignatureGlucose, WDI0997 - 109 mg/dL04/06/2025 2:30 PM ESTNURSING GLUCOSE PROGRAMSpecimen (Source) Anatomical Location / LateralityCollection Method / VolumeCollection Time Received TimeBloodBLOOD SPECIMEN / Jdlgjih8304/06/2025 2:23 PM EST04/06/2025 2:30 PM EST Narrative Authorizing ProviderResult TypeResult StatusJustin Georges MDEC BACK OFFICE LABS Final ResultPerforming OrganizationAddressty/State/ZIP CodePhone Number NURSING GLUCOSE PROGRAM [address] [place] [phone] * XR ABDOMEN AP 1 VIEW (04/06/2025 1:51 PM EST)Anatomical RegionLaterality ModalityXR AbdomenN/AComputed RadiographySpecimen (Source)Anatomical Location / LateralityCollection Method / VolumeCollection TimeReceived Time04/06/2025 2:08 PM EST Narrative 04/06/2025 2:15 PM EST EXAMINATION: XR ABDOMEN AP 1 VIEWPRO 04/06/2025 01:51 PM CLINICAL HISTORY: eval for ileus vs obstruction ASSOCIATED DIAGNOSIS: ORDERING PROVIDER: MELISSA BLACKMAN TECHNOLOGISTS NOTE: COMPARISON: XR ABDOMEN AP 1 VIEW 04/04/2025 6:[address] ABDOMEN/PELVIS W/ CONTRAST 04/04/2025 11:29 AM FINDINGS: Intestinal gas pattern: Gas distended loops of small bowel in the mid right abdomen measuring up to4.3 cm in transverse diameter. No definite pneumatosis intestinalis/coli. Liver and spleen: No hepatosplenomegaly, pneumobilia or portal gas. Peritoneum: No pneumoperitoneum. Calcifications: No pathologic intra-abdominal calcification. Pelvic phleboliths. Miscellaneous: Multiple right abdominal and hemipelvic surgical clips. Osseous structures: Mild osteophytic endplate spurring of multiple thoracic vertebra. Abdominal wall: Unremarkable. Included lower chest: Mid to lower right pulmonary bandlike subsegmental atelectasis. IMPRESSION: 1. ??Gas distended loops of small bowel in the mid right abdomen measuring up to 4.3 cm in transverse diameter. Differential considerations would include a reactive ileus versus partial small bowel obstruction. The overall gas pattern is improved since the 04/04/2025 study. 2. ??Postsurgical changes of the abdomen. 3. ??Bandlike subsegmental atelectasis in the mid to lower right right lung. MACRO: None Procedure Note Jimmy Feldman, DO - 04/06/2025 EXAMINATION: XR ABDOMEN AP 1 VIEWPRO 04/06/2025 01:51 PM CLINICAL HISTORY: eval for ileus vs obstruction ASSOCIATED DIAGNOSIS: ORDERING PROVIDER: MELISSA BLACKMAN TECHNOLOGISTS NOTE: COMPARISON: XR ABDOMEN AP 1 VIEW 04/04/2025 6:[address] ABDOMEN/PELVIS W/CONTRAST 04/04/2025 11:29 AM FINDINGS: Intestinal gas pattern: Gas distended loops of small bowel in the midright abdomen measuring up to 4.3 cm in transverse diameter. No definitepneumatosis intestinalis/coli. Liver and spleen: No hepatosplenomegaly, pneumobilia or portal gas. Peritoneum: No pneumoperitoneum. Calcifications: No pathologic intra-abdominal calcification. Pelvicphleboliths. Miscellaneous: Multiple right abdominal and hemipelvic surgical clips. Osseous structures: Mild osteophytic endplate spurring of multiplethoracic vertebra. Abdominal wall: Unremarkable. Included lower chest: Mid to lower right pulmonary bandlike subsegmental atelectasis. IMPRESSION: 1. Gas distended loops of small bowel in the mid right abdomen measuringup to 4.3 cm in transverse diameter. Differential considerations wouldinclude a reactive ileus versus partial small bowel obstruction. Theoverall gas pattern is improved since the 04/04/2025 study. 2. Postsurgical changes of the abdomen. 3. Bandlike subsegmental atelectasis in the mid to lower right rightlung. MACRO: None Authorizing ProviderResult TypeResult JordySeneca Hospitalsabrina Blackman PA-CEC DIAGNOSTIC X-RAYFinal Result * GLUCOSE, FINGERSTICK-IN OFFICE (04/06/2025 8:28 AM EST)ComponentValueRef Range Test MethodAnalysis TimePerformed AtPathologist SignatureGlucose, RIJ7531 - 109 mg/dL04/06/2025 8:34 AM ESTNURSING GLUCOSE PROGRAMSpecimen (Source) Anatomical Location / LateralityCollection Method / VolumeCollection Time Received TimeBloodBLOOD SPECIMEN / Vylpetj1404/06/2025 8:28 AM EST04/06/2025 8:34 AM EST Narrative Authorizing ProviderResult TypeResult Hilton REYES BACK OFFICE LABSFinal ResultPerforming OrganizationAddressCity/State/ZIP CodePhone Number NURSING GLUCOSE PROGRAM [address] [place] [address] * GLUCOSE, FINGERSTICK-IN OFFICE (04/06/2025 2:47 AM EST)ComponentValueRef Range Test MethodAnalysis TimePerformed AtPathologist SignatureGlucose, YRI6683 - 109 mg/dL04/06/2025 2:53 AM ESTNURSING GLUCOSE PROGRAMSpecimen (Source) Anatomical Location / LateralityCollection Method / VolumeCollection Time Received TimeBloodBLOOD SPECIMEN / Exjvvqg8604/06/2025 2:47 AM EST04/06/2025 2:53 AM EST Narrative Authorizing ProviderResult TypeResult Hilton Ladd MD BACK OFFICE LABSFinal ResultPerforming OrganizationAddressCity/State/ZIP CodePhone Number NURSING GLUCOSE PROGRAM [address] [place] [address] * (ABNORMAL) BASIC METABOLIC PANEL (04/06/2025 1:33 AM EST)ComponentValueRef RangeTest MethodAnalysis TimePerformed AtPathologist BijnvmzneMacltnm8255 - 109 mg/dL04/06/2025 2:17 AM [facility] MLEHUWJKIMXzmnkr862090 - 145 mmol/L106/06/2024 2:17 AM [facility] [place] LABORATORYPotassium3.93.5 - 5.0 mmol/L106/06/2024 2:17 AM [facility] [place] LABORATORYCarbon Iwieofh8993 - 31 mmol/L106/06/2024 2:17 AM [facility] PJGZVXSXBMIiteuiqm991(H)98 - 107 mmol/L106/06/2024 2:17 AM [facility] [place] LABORATORYBlood Urea Nqcgjonm967 - 25 mg/dL04/06/2025 2:17 AM [facility] LABORATORYCreatinine1.090.60 - 1.20 mg/dL04/06/2025 2:17 AM [facility] [place] LABORATORYCalcium7.7(L)8.6 - 10.3 mg/dL04/06/2025 2:17 AM [facility] [place] LABORATORYAnion Bnc8551 - 20 04/06/2025 2:17 AM [facility] [place] LABORATORYEstimated GFR (CKD-EPI)57(L)>=60 mL/min/1.53ydv8806/06/2024 2:17 AM [facility] [place] LABORATORYComment: 2020 CKD EPI Equation using Creatinine without Race Comment: ??Estimated glomerular filtration rate (eGFR) is calculated without a race coefficient. Values should be interpreted in the context of the patient's full clinical presentation. Reference: 1. Nils C, Tk M, Jose DC, et al.. A Unifying Approach for GFR Estimation: Recommendations of the NKF-ASN Task Force on Reassessing the Inclusion of Race in Diagnosing Kidney Disease. AmericanJournal of Kidney Diseases 202;79(2):268-88.e1. 2. N Engl J Med 2021 Vol. 385 Issue 19 Pages 6923-6989 Specimen (Source)Anatomical Location / LateralityCollection Method / Volume Collection TimeReceived TimeBloodBLOOD SPECIMEN / UnknownVenipuncture / Unknown 04/06/2025 1:33 AM EST04/06/2025 1:55 AM EST Narrative Authorizing ProviderResult TypeResult StatusJimmy Shah MD98 GENERAL LABFinal ResultPerforming OrganizationAddressCity/State/ZIP CodePhone Number [facility] [address] [place] [address] * (ABNORMAL) COMPLETE BLOOD COUNT (04/06/2025 1:33 AM EST)ComponentValueRef RangeTest MethodAnalysis TimePerformed AtPathologist SignatureWBC6.94.5 - 11.5 K/uL04/06/2025 2:09 AM [facility] [place] LABORATORYRBC3.88(L)4.00 - 5.20 M/uL 04/06/2025 2:09 AM [facility] [place] [facility] MVKUPEKDXGUogqdmmcfi61.012.0 - 15.0 g/dL 04/06/2025 2:09 AM [facility] [place] [facility] SDDFSTKPAUIszghuzwtu91.236.0 - 46.0 % 04/06/2025 2:09 AM [facility] [place] [facility] VRNHOCLRKIPIH9002 - 100 fL04/06/2025 2:09 AM [facility] [facility] KGHLMCPHSKBCG53.926.0 - 34.0 pg04/06/2025 2:09 AM [facility] MRKKGBBINAEKXH88.232.0 - 35.9 g/dL04/06/2025 2:09 AM [facility] RGLQSEQTQOHdtihwnj404054 - 400 K/uL04/06/2025 2:09 AM [facility] LABORATORYRDW-CV15.4(H)11.5 - 14.5 %04/06/2025 2:09 AM [facility] [place] LABORATORYMPV8.97.5 - 11.2 fL04/06/2025 2:09 AM [facility] LABORATORYSpecimen (Source)Anatomical Location / LateralityCollection Method / VolumeCollection TimeReceived TimeBloodBLOOD SPECIMEN / UnknownVenipuncture / Idjnvvd9204/06/2025 1:33 AM EST04/06/2025 1:54 AM EST Narrative Authorizing ProviderResult TypeResult StatusJimmy Shah MD98 GENERAL LABFinal ResultPerforming OrganizationAddressCity/State/ZIP CodePhone Number [facility] [address] [place] [phone] * PHOSPHORUS (04/06/2025 1:33 AM EST)ComponentValueRef RangeTest MethodAnalysis TimePerformed AtPathologist SignaturePhosphorus, Serum3.42.5 - 5.0 mg/dL 04/06/2025 2:17 AM [facility] [place] LABORATORYSpecimen (Source)Anatomical Location / LateralityCollection Method / VolumeCollection TimeReceived Time BloodBLOOD SPECIMEN / UnknownVenipuncture / Ymakwfi5304/06/2025 1:33 AM EST 04/06/2025 1:55 AM EST Narrative Authorizing ProviderResult TypeResult Juliette Shah MD98 GENERAL LABFinal ResultPerforming OrganizationAddressCity/State/ZIP CodePhone Number [facility] [address] [place] [phone] * (ABNORMAL) MAGNESIUM (04/06/2025 1:33 AM EST)ComponentValueRef RangeTest MethodAnalysis TimePerformed AtPathologist SignatureMagnesium3.0(H)1.9 - 2.7 mg/dL04/06/2025 2:19 AM [facility] LABORATORYSpecimen (Source)Anatomical Location / LateralityCollection Method / VolumeCollection TimeReceived Time BloodBLOOD SPECIMEN / UnknownVenipuncture / Ifawchb2104/06/2025 1:33 AM EST 04/06/2025 1:55 AM EST Narrative Authorizing ProviderResult TypeResult Juliette JOHANSEN GENERAL LABFinal ResultPerforming OrganizationAddressCity/State/ZIP CodePhone Number [facility] [address] [place] [address] * GLUCOSE, FINGERSTICK-IN OFFICE (04/05/2025 8:31 PM EST)ComponentValueRef Range Test MethodAnalysis TimePerformed AtPathologist SignatureGlucose, DZC6967 - 109 mg/dL04/05/2025 8:37 PM ESTNURSING GLUCOSE PROGRAMSpecimen (Source) Anatomical Location / LateralityCollection Method / VolumeCollection Time Received TimeBloodBLOOD SPECIMEN / Xixemvr0204/05/2025 8:31 PM EST04/05/2025 8:37 PM EST Narrative Authorizing ProviderResult TypeResult [place] REYES BACK OFFICE LABSFinal ResultPerforming OrganizationAddressCity/State/ZIP CodePhone Number NURSING GLUCOSE PROGRAM [address] [place] [address] * GLUCOSE, FINGERSTICK-IN OFFICE (04/05/2025 4:37 PM EST)ComponentValueRef Range Test MethodAnalysis TimePerformed AtPathologist SignatureGlucose, ZFE2337 - 109 mg/dL04/05/2025 4:44 PM ESTNURSING GLUCOSE PROGRAMSpecimen (Source) Anatomical Location / LateralityCollection Method / VolumeCollection Time Received TimeBloodBLOOD SPECIMEN / Ylilmlf7304/05/2025 4:37 PM EST04/05/2025 4:44 PM EST Narrative Authorizing ProviderResult TypeResult [place] REYES BACK OFFICE LABSFinal ResultPerforming OrganizationAddressCity/State/ZIP CodePhone Number NURSING GLUCOSE PROGRAM [address] [place] [address] * ANTI FXA-LMW HEPARIN (04/05/2025 2:00 PM EST)ComponentValueRef RangeTest MethodAnalysis TimePerformed AtPathologist SignatureAnti FXA-LMW Heparin Assay 0.14IU/mL04/05/2025 3:05 PM ESTCR[facility] LABORATORYSpecimen (Source) Anatomical Location / LateralityCollection Method / VolumeCollection Time Received TimeBloodBLOOD SPECIMEN / UnknownVenipuncture / Xpdwvby9604/05/2025 2:00 PM EST04/05/2025 2:33 PM EST Narrative [facility] - 04/05/2025 3:05 PM EST The recommended therapeutic range for treatment of thrombosis with Low Molecular Weight Heparin is 0.5 - 1.0 IU/mL The recommended range for VTE prophylaxis with Low Molecular Weight Heparin is 0.2 - 0.4 IU/mL. Authorizing ProviderResult TypeResult Rafiq SANDOVAL-C98 GENERAL LABFinal ResultPerforming OrganizationAddressCity/State/ZIP CodePhone Number [facility] [address] [place] [phone] * GLUCOSE, FINGERSTICK-IN OFFICE (04/05/2025 11:44 AM EST)ComponentValueRef RangeTest MethodAnalysis TimePerformed AtPathologist SignatureGlucose, ZMB9607 - 109 mg/dL04/05/2025 11:50 AM ESTNURSING GLUCOSE PROGRAMSpecimen (Source) Anatomical Location / LateralityCollection Method / VolumeCollection Time Received TimeBloodBLOOD SPECIMEN / Pnbwnqi2804/05/2025 11:44 AM EST04/05/2025 11:50 AM EST Narrative Authorizing ProviderResult TypeResult [place] REYES BACK OFFICE LABSFinal ResultPerforming OrganizationAddressCity/State/ZIP CodePhone Number NURSING GLUCOSE PROGRAM [address] [place] [address] * GLUCOSE, FINGERSTICK-IN OFFICE (04/05/2025 9:12 AM EST)ComponentValueRef Range Test MethodAnalysis TimePerformed AtPathologist SignatureGlucose, UIA2032 - 109 mg/dL04/05/2025 9:18 AM ESTNURSING GLUCOSE PROGRAMSpecimen (Source) Anatomical Location / LateralityCollection Method / VolumeCollection Time Received TimeBloodBLOOD SPECIMEN / Njszdrg7904/05/2025 9:12 AM EST04/05/2025 9:18 AM EST Narrative Authorizing ProviderResult TypeResult [place] REYES BACK OFFICE LABSFinal ResultPerforming OrganizationAddressCity/State/ZIP CodePhone Number NURSING GLUCOSE PROGRAM [address] [place] [address] * (ABNORMAL) BASIC METABOLIC PANEL (04/05/2025 4:20 AM EST)ComponentValueRef RangeTest MethodAnalysis TimePerformed AtPathologist IibsuiuiaCndcegn434(H)74 - 109 mg/dL04/05/2025 4:58 AM [facility] PATHOLOGY LJSSQKPOBUQzurto489(H)136 - 145 mmol/L106/05/2024 4:58 AM [facility]Y LABORATORYPotassium3.93.5 - 5.0 mmol/L106/05/2024 4:58 AM [facility] PATH[facility]Y LABORATORYCarbon Hribjah3136 - 31 mmol/L106/05/2024 4:58 AM [facility] PATHOLOGY TFILCFAWUNXanczuwt619(H)98 - 107 mmol/L106/05/2024 4:58 AM [facility] PATHOLOGY LABORATORYBlood Urea Zbhmyyzq33(H)7 - 25 mg/dL04/05/2025 4:58 AM [facility] PATHOLOGY LABORATORYCreatinine1.170.60 - 1.20 mg/dL04/05/2025 4:58 AM [facility] PATHOLOGY LABORATORYCalcium7.7(L)8.6 - 10.3 mg/dL04/05/2025 4:58 AM [facility] PATHOLOGY LABORATORYAnion Mbp9861 - 20 04/05/2025 4:58 AM ESTCR[facility] LABORATORYEstimated GFR (CKD-EPI)52(L)>=60 mL/min/1.43ycl2906/05/2024 4:58 AM [facility] [place] [facility] LABORATORYComment: 2020 CKD EPI Equation using Creatinine without Race Comment: ??Estimated glomerular filtration rate (eGFR) is calculated without a race coefficient. Values should be interpreted in the context of the patient's full clinical presentation. Reference: 1. Nils C, Tk M, Jose DC, et al.. A Unifying Approach for GFR Estimation: Recommendations of the NKF-ASN Task Force on Reassessing the Inclusion of Race in Diagnosing Kidney Disease. AmericanJournal of Kidney Diseases 202;79(2):268-88.e1. 2. N Engl J Med 2021 Vol. 385 Issue 19 Pages 9876-9083 Specimen (Source)Anatomical Location / LateralityCollection Method / Volume Collection TimeReceived TimeBloodBLOOD SPECIMEN / UnknownVenipuncture / Unknown 04/05/2025 4:20 AM EST04/05/2025 4:33 AM EST Narrative Authorizing ProviderResult TypeResult StatusJimmy Shah MD98 GENERAL LABFinal ResultPerforming OrganizationAddressCity/State/ZIP CodePhone Number [facility] [address] [place] [phone] * (ABNORMAL) COMPLETE BLOOD COUNT (04/05/2025 4:20 AM EST)ComponentValueRef RangeTest MethodAnalysis TimePerformed AtPathologist SignatureWBC6.04.5 - 11.5 K/uL04/05/2025 4:38 AM [facility] [place] [facility] LABORATORYRBC4.164.00 - 5.20 M/uL 04/05/2025 4:38 AM [facility] OLYCOYPKUMPejwikzznc14.612.0 - 15.0 g/dL 04/05/2025 4:38 AM [facility] TBGIOCFSZXJcyfffpzai36.436.0 - 46.0 % 04/05/2025 4:38 AM [facility] FKXOQUGOROWKS6881 - 100 fL04/05/2025 4:38 AM [facility] BVEITXQXTCKNT07.326.0 - 34.0 pg04/05/2025 4:38 AM [facility] OJUPUDBVKNUTJH48.832.0 - 35.9 g/dL04/05/2025 4:38 AM [facility] SVGRTAHAQCNugrkifl774257 - 400 K/uL04/05/2025 4:38 AM [facility] LABORATORYRDW-CV15.0(H)11.5 - 14.5 %04/05/2025 4:38 AM [facility] [place] [facility] LABORATORYMPV9.07.5 - 11.2 fL04/05/2025 4:38 AM [facility] LABORATORYSpecimen (Source)Anatomical Location / LateralityCollection Method / VolumeCollection TimeReceived TimeBloodBLOOD SPECIMEN / UnknownVenipuncture / Czbsnsg7704/05/2025 4:20 AM EST04/05/2025 4:33 AM EST Narrative Authorizing ProviderResult TypeResult Juliette JOHANSEN GENERAL LABFinal ResultPerforming OrganizationAddressCity/State/ZIP CodePhone Number [facility] [address] [place] [phone] * PHOSPHORUS (04/05/2025 4:20 AM EST)ComponentValueRef RangeTest MethodAnalysis TimePerformed AtPathologist SignaturePhosphorus, Serum3.72.5 - 5.0 mg/dL 04/05/2025 4:58 AM [facility] [place] LABORATORYSpecimen (Source)Anatomical Location / LateralityCollection Method / VolumeCollection TimeReceived Time BloodBLOOD SPECIMEN / UnknownVenipuncture / Crmwajb5004/05/2025 4:20 AM EST 04/05/2025 4:33 AM EST Narrative Authorizing ProviderResult TypeResult Juliette JOHANSEN GENERAL LABFinal ResultPerforming OrganizationAddressCity/State/ZIP CodePhone Number [facility] [address] [place] [phone] * (ABNORMAL) MAGNESIUM (04/05/2025 4:20 AM EST)ComponentValueRef RangeTest MethodAnalysis TimePerformed AtPathologist SignatureMagnesium1.7(L)1.9 - 2.7 mg/dL04/05/2025 4:58 AM [facility] LABORATORYSpecimen (Source)Anatomical Location / LateralityCollection Method / VolumeCollection TimeReceived Time BloodBLOOD SPECIMEN / UnknownVenipuncture / Vqduqon5804/05/2025 4:20 AM EST 04/05/2025 4:33 AM EST Narrative Authorizing ProviderResult TypeResult StatusJimmy JOHANSEN GENERAL LABFinal ResultPerforming OrganizationAddressty/State/ZIP CodePhone Number [facility] [address] [place] [phone] * (ABNORMAL) GLUCOSE, FINGERSTICK-IN OFFICE (04/05/2025 4:19 AM EST)Component ValueRef RangeTest MethodAnalysis TimePerformed AtPathologist Signature Glucose, SJO760(H)74 - 109 mg/dL04/05/2025 4:25 AM ESTNURSING GLUCOSE PROGRAM Specimen (Source)Anatomical Location / LateralityCollection Method / Volume Collection TimeReceived TimeBloodBLOOD SPECIMEN / Cljhhhb6804/05/2025 4:19 AM EST04/05/2025 4:25 AM EST Narrative Authorizing ProviderResult TypeResult [place] REYES BACK OFFICE LABSFinal ResultPerforming OrganizationAddressty/State/ZIP CodePhone Number NURSING GLUCOSE PROGRAM [address] [place] [phone] * (ABNORMAL) GLUCOSE, FINGERSTICK-IN OFFICE (04/04/2025 9:55 PM EST)Component ValueRef RangeTest MethodAnalysis TimePerformed AtPathologist Signature Glucose, OSE640(H)74 - 109 mg/dL04/04/2025 10:01 PM ESTNURSING GLUCOSE PROGRAM Comment:Notified JEFF MONTALVO MD
Specimen (Source)Anatomical Location / LateralityCollection Method / VolumeCollection TimeReceived TimeBloodBLOOD SPECIMEN / Hbdzeda5404/04/2025 9:55 PM EST04/04/2025 10:01 PM EST Narrative Authorizing ProviderResult TypeResult Hilton REYES BACK OFFICE LABSFinal ResultPerforming OrganizationAddHaven Behavioral Healthcarety/State/ZIP CodePhone Number NURSING GLUCOSE PROGRAM [address] [place] [phone] * (ABNORMAL) GLUCOSE, FINGERSTICK-IN OFFICE (04/04/2025 4:32 PM EST)Component ValueRef RangeTest MethodAnalysis TimePerformed AtPathologist Signature Glucose, TRG289(H)74 - 109 mg/dL04/04/2025 4:38 PM ESTNURSING GLUCOSE PROGRAM Comment:Notified JEFF MONTALVO MD
Specimen (Source)Anatomical Location / LateralityCollection Method / VolumeCollection TimeReceived TimeBloodBLOOD SPECIMEN / Ncjwxtg1004/04/2025 4:32 PM EST04/04/2025 4:38 PM EST Narrative Authorizing ProviderResult TypeResult Hilton REYES BACK OFFICE LABSFinal ResultPerforming OrganizationAddressCity/State/ZIP CodePhone Number NURSING GLUCOSE PROGRAM [address] [place], [place] [phone] * (ABNORMAL) GLUCOSE, FINGERSTICK-IN OFFICE (04/04/2025 12:10 PM EST)Component ValueRef RangeTest MethodAnalysis TimePerformed AtPathologist Signature Glucose, UTH139(H)74 - 109 mg/dL04/04/2025 12:18 PM ESTNURSING GLUCOSE PROGRAM Specimen (Source)Anatomical Location / LateralityCollection Method / Volume Collection TimeReceived TimeBloodBLOOD SPECIMEN / Mayabxo3804/04/2025 12:10 PM EST04/04/2025 12:18 PM EST Narrative Authorizing ProviderResult TypeResult Hilton REYES BACK OFFICE LABSFinal ResultPerforming OrganizationAddressCity/State/ZIP CodePhone Number NURSING GLUCOSE PROGRAM [address] [place], [place] [phone] * CT ABDOMEN/PELVIS W/ CONTRAST (04/04/2025 11:28 AM EST)ComponentValueRef Range Test MethodAnalysis TimePerformed AtPathologist SignatureCTDI VOL15.8 (mGy),20.8 (mGy)RADIOLOGYPHANTOM TYPEIE Body Dosimetry Phantom,IEC Body Dosimetry PhantomRADIOLOGYCT ADJ4242.1 (mGy.cm)RADIOLOGYCT Series Abdomen,AbdomenRADIOLOGYAnatomical RegionLateralityModalityCT Abdomen, Pelvis and lower extremitiesN/AComputed TomographySpecimen (Source)Anatomical Location / LateralityCollection Method / VolumeCollection TimeReceived Time 04/04/2025 11:38 AM EST Narrative 04/04/2025 12:36 PM EST EXAMINATION: CT ABDOMEN/PELVIS W/ CONTRASTPRO 04/04/2025 11:28 AM CLINICAL HISTORY: Small bowel obstruction ASSOCIATED DIAGNOSIS: Small bowel obstruction ORDERING PROVIDER: MELISSA BLACKMAN COMPARISON: None. CORRELATION: XR ABDOMEN AP 1 VIEW 04/04/2025 6:21 AM TECHNIQUE: Contiguous axial images were obtained through the abdomen and pelvis from the level of the diaphragmatic domes through the pubic symphysis following bolus administration of intravenous contrast. MPR sagittal and coronal reconstructions were obtained from the axial data. Before infusion of intravenous contrast, radiology personnel investigated the possibility of an allergic history and of any history of reaction to iodinated contrast material. Contrast Protocol: Omnipaque 350 [>or =100lb] 100 ml [<100 lb] 1 ml per 1 lb. INTRA-PROCEDURE MEDS: iohexol (OMNIPAQUE) 300 MG/ML injection 50 mL Route: Oral iohexol (OMNIPAQUE) 350 MG/ML injection 100 mL Route: Intravenous FINDINGS: Included images of the lower thorax: Bandlike atelectasis in the lingula. Linear consolidative opacity in the right lower lobe favoring scarring. No focal lung consolidation or pleural effusion. Hepatobiliary: Large cyst in the right hepatic lobe measuring 16 x 12 cm (series 3, image 41). Gallbladder is surgically absent. There is a hypoattenuating area near the gallbladder fossa most likelyfocal steatosis. No intrahepatic or extrahepatic biliary dilatation is present. Pancreas: Unremarkable Spleen: Unremarkable Adrenal Glands: Unremarkable Kidneys, ureters, and bladder: Moderate hydroureteronephrosis of the right kidney with nonspecific perinephric stranding. Right ureteral wall shows diffuse circumferential thickening, which can be seen in reactive changes. Ureterovesical junction is at the anterolateral bladder wall, which may be po stsurgical versus congenital. Left kidney is surgically absent. Bladder is mildly distended. Abdominal and pelvic vasculature: Atherosclerotic wall calcifications are present without abdominalaortic aneurysm. GI tract: NG/OG tube is present with the distal tip and sideholes within the gastric lumen near thepyloric antrum. Oral contrast opacifies the stomach and proximal small bowel. Small bowel obstruction with suspected transition point identified at series 3, image 112 near the postsurgical suture atthe right upper abdomen. No portal gas or pneumatosis intestinalis. The appendix is not identified.Colonic diverticulosis is present without evidence for diverticulitis. Intramural fat in the left hemicolon (series 1001, image 48) (Series 1002, Image 74) measuring 3.3 x 2.3 x 7.0 cm likely representing a colonic lipoma. Recommend follow-up colonoscopy after resolution of the acute process. Peritoneum and retroperitoneum: No free fluid or free air. No significant mesenteric edema is present. Lymph Nodes: No abdominal or pelvic lymphadenopathy. Uterus and adnexa: Not well evaluated by CT. 1.2 x 1.4 cm well-circumscribed mass within the anterior superior uterine fundus demonstrating internal fat density suggestive of a lipoleiomyoma. Recommend nonemergent pelvic ultrasound follow-up. Visualized musculoskeletal structures: No acute fracture or destructive osseous lesion is identified. There are degenerative changes of both hip joints. Soft tissue edema in the abdominal wall, most pronounced in right lower abdomen. IMPRESSION: 1. ??Small bowel obstruction with suspected transition point identified series 3, image 112 favoring postsurgical adhesion in etiology given the adjacent suture. No evidence of pneumatosis intestinalis or periportal gas. 2. ??Moderate hydroureteronephrosis of the right kidney with diffuse ureteral wall thickening; thisis of uncertain chronicity and comparison with prior imaging can be helpful. Ureterovesical junction is located in the anterolateral bladder. Left kidney is surgically absent. Please correlate with urinalysis. 3. ??Fat density intramural mass within the left hemicolon measuring 3.3 x 2.3 x 7.0 cm likely representing a colonic lipoma. Recommend follow-up colonoscopy after resolution of #1. 4. ??Well-circumscribed anterior superior uterine fundus mass with internal fat density measuring 1.2 x 1.4 cm suggestive of a lipoleiomyoma. Recommend nonemergent pelvic ultrasound follow-up. 5. ??Additional ancillary findings as above. MACRO: (-I1-) I have personally reviewed the images and agree with the resident's interpretation. Procedure Note Dalton Saha MD - 04/04/2025 EXAMINATION: CT ABDOMEN/PELVIS W/ CONTRASTPRO 04/04/2025 11:28 AM CLINICAL HISTORY: Small bowel obstruction ASSOCIATED DIAGNOSIS: Small bowel obstruction ORDERING PROVIDER: MELISSA BLACKMAN COMPARISON: None. CORRELATION: XR ABDOMEN AP 1 VIEW 04/04/2025 6:21 AM TECHNIQUE: Contiguous axial images were obtained through the abdomen andpelvis from the level of the diaphragmatic domes through the pubicsymphysis following bolus administration of intravenous contrast. MPRsagittal and coronal reconstructions were obtained from the axial data.Before infusion of intravenous contrast, radiology personnel investigatedthe possibility of an allergic history and of any history of reaction toiodinated contrast material. Contrast Protocol: Omnipaque 350 [>or =100lb]100 ml [<100 lb] 1 ml per 1 lb. INTRA-PROCEDURE MEDS: iohexol (OMNIPAQUE) 300 MG/ML injection 50 mL Route: Oral iohexol (OMNIPAQUE) 350 MG/ML injection 100 mL Route: Intravenous FINDINGS: Included images of the lower thorax: Bandlike atelectasis in the lingula.Linear consolidative opacity in the right lower lobe favoring scarring. Nofocal lung consolidation or pleural effusion. Hepatobiliary: Large cyst in the right hepatic lobe measuring 16 x 12 cm(series 3, image 41). Gallbladder is surgically absent. There is ahypoattenuating area near the gallbladder fossa most likely focalsteatosis. No intrahepatic or extrahepatic biliary dilatation ispresent. Pancreas: Unremarkable Spleen: Unremarkable Adrenal Glands: Unremarkable Kidneys, ureters, and bladder: Moderate hydroureteronephrosis of the rightkidney with nonspecific perinephric stranding. Right ureteral wall showsdiffuse circumferential thickening, which can be seen in reactive changes.Ureterovesical junction is at the anterolateral bladder wall, which may bepostsurgical versus congenital. Left kidney is surgically absent. Bladderis mildly distended. Abdominal and pelvic vasculature: Atherosclerotic wall calcifications arepresent without abdominal aortic aneurysm. GI tract: NG/OG tube is present with the distal tip and sideholes withinthe gastric lumen near the pyloric antrum. Oral contrast opacifies thestomach and proximal small bowel. Small bowel obstruction with suspectedtransition point identified at series 3, image 112 near the postsurgicalsuture at the right upper abdomen. No portal gas or pneumatosisintestinalis. The appendix is not identified. Colonic diverticulosis ispresent without evidence for diverticulitis. Intramural fat in the lefthemicolon (series 1001, image 48) (Series 1002, Image 74) measuring 3.3 x2.3 x 7.0 cm likely representing a colonic lipoma. Recommend follow-upcolonoscopy after resolution of the acute process. Peritoneum and retroperitoneum: No free fluid or free air. No significant mesenteric edema is present. Lymph Nodes: No abdominal or pelvic lymphadenopathy. Uterus and adnexa: Not well evaluated by CT. 1.2 x 1.4 cmwell-circumscribed mass within the anterior superior uterine fundusdemonstrating internal fat density suggestive of a lipoleiomyoma.Recommend nonemergent pelvic ultrasound follow-up. Visualized musculoskeletal structures: No acute fracture or destructiveosseous lesion is identified. There are degenerative changes of both hipjoints. Soft tissue edema in the abdominal wall, most pronounced in rightlower abdomen. IMPRESSION: 1. Small bowel obstruction with suspected transition point identifiedseries 3, image 112 favoring postsurgical adhesion in etiology given theadjacent suture. No evidence of pneumatosis intestinalis or periportalgas. 2. Moderate hydroureteronephrosis of the right kidney with diffuseureteral wall thickening; this is of uncertain chronicity and comparisonwith prior imaging can be helpful. Ureterovesical junction is located inthe anterolateral bladder. Left kidney is surgically absent. Pleasecorrelate with urinalysis. 3. Fat density intramural mass within the left hemicolon measuring 3.3 x2.3 x 7.0 cm likely representing a colonic lipoma. Recommend follow-upcolonoscopy after resolution of #1. 4. Well-circumscribed anterior superior uterine fundus mass with internalfat density measuring 1.2 x 1.4 cm suggestive of a lipoleiomyoma.Recommend nonemergent pelvic ultrasound follow-up. 5. Additional ancillary findings as above. MACRO: (-I1-) I have personally reviewed the images and agree with the resident's interpretation. Authorizing ProviderResult TypeResult StatusAllychi [facility]. [facility] Juan SANDOVAL-CEC CT SCAN Final Result * EKG 12 LEAD - PERFORM (04/04/2025 9:28 AM EST)ComponentValueRef RangeTest MethodAnalysis TimePerformed AtPathologist SignatureVentricular doip89NEDXBFH Atrial Zlol85HYFKPSCG-O Syqsvnid919maUNDYAKK eercfbuj56nfQSYOJ-E kxrbujtq646ij MUSEQTC CALCULATION(BEZET)497msMUSEP yjio49sueuxnyFUIBD rqrk5ioiryaxXTVGS axis -19degreesMUSEDiagnosisNormal sinus rhythm Low voltage QRS, consider pulmonary disease, pericardial effusion, or normal variant Nonspecific T wave abnormality Abnormal ECG No previous ECGs available Confirmed by ADELINE MITCHELL ([id number]) on 04/06/2025 12:20:57 PM MUSESpecimen (Source)Anatomical Location / LateralityCollection Method / Volume Collection TimeReceived Time04/04/2025 9:28 AM EST04/06/2025 12:20 PM EST Narrative Authorizing ProviderResult TypeResult StatusTo Be AssignedIP VITAL SIGN ORDERS Edited Result - FinalPerforming OrganizationAddressCity/State/ZIP CodePhone Number [place] [address] [facility] [place] [address] * CONFIRMATION ABO/RH (04/04/2025 8:22 AM EST)ComponentValueRef RangeTest Method Analysis TimePerformed AtPathologist SignatureABO Rh TypeA Hbahgrhr73/15/2025 9:48 AM [facility] [place] [facility] LABORATORYSpecimen Expiration [id number] 04/04/2025 9:48 AM [facility] [place] [facility]ORYABO Rh/Di/TXRX HistoryA Zisqdmlm82/15/2025 9:48 AM [facility] [place] [facility]ORATORYSpecimen (Source) Anatomical Location / LateralityCollection Method / VolumeCollection Time Received TimeBloodBLOOD SPECIMEN / UnknownVenipuncture / Ncigkde3904/04/2025 8:22 AM EST04/04/2025 9:02 AM EST Narrative Authorizing ProviderResult TypeResult StatusJimmy Shah MD BLOOD BANKFinal ResultPerforming OrganizationAddressCity/State/ZIP CodePhone Number [facility] [address] [place] [address] * XR ABDOMEN AP 1 VIEW (04/04/2025 6:20 AM EST)Anatomical RegionLaterality ModalityXR AbdomenN/AComputed RadiographySpecimen (Source)Anatomical Location / LateralityCollection Method / VolumeCollection TimeReceived Time04/04/2025 6:43 AM EST Narrative 04/04/2025 6:45 AM EST EXAMINATION: XR ABDOMEN AP 1 VIEWPRO 04/04/2025 06:20 AM CLINICAL HISTORY: NG placment ASSOCIATED DIAGNOSIS: ORDERING PROVIDER: JIMMY SHAH TECHNOLOGISTS NOTE: COMPARISON: XRAY ABDOMEN IMAGE IMPORT(NERIS) 04/03/2025 7:18 AM FINDINGS: The enteric tube tip terminates over the gastric cardia with sidehole projecting over the distal esophagus, unchanged. Multiple dilated loops of small bowel within the lower abdomen measuring up to 5.6 cm, concerning for small bowel obstruction. No pneumatosis or pneumoperitoneum. IMPRESSION: The enteric tube terminates over the gastric cardia with sidehole over the distal esophagus. 7-8 cmadvancement is recommended. Multiple dilated loops of small bowel suggestive of small bowel obstruction. MACRO: None Procedure Note Angel Quarles MD - 04/04/2025 EXAMINATION: XR ABDOMEN AP 1 VIEWPRO 04/04/2025 06:20 AM CLINICAL HISTORY: NG placment ASSOCIATED DIAGNOSIS: ORDERING PROVIDER: JIMMY SHAH TECHNOLOGISTS NOTE: COMPARISON: XRAY ABDOMEN IMAGE IMPORT(NERIS) 04/03/2025 7:18 AM FINDINGS: The enteric tube tip terminates over the gastric cardia with sideholeprojecting over the distal esophagus, unchanged. Multiple dilated loops of small bowel within the lower abdomen measuringup to 5.6 cm, concerning for small bowel obstruction. No pneumatosis or pneumoperitoneum. IMPRESSION: The enteric tube terminates over the gastric cardia with sidehole over thedistal esophagus. 7-8 cm advancement is recommended. Multiple dilated loops of small bowel suggestive of small bowelobstruction. MACRO: None Authorizing ProviderResult TypeResult Juliette REYES DIAGNOSTIC X-RAY Final Result * (ABNORMAL) GLUCOSE, FINGERSTICK-IN OFFICE (04/04/2025 5:16 AM EST)Component ValueRef RangeTest MethodAnalysis TimePerformed AtPathologist Signature Glucose, VII767(H)74 - 109 mg/dL04/04/2025 5:23 AM ESTNURSING GLUCOSE PROGRAM Specimen (Source)Anatomical Location / LateralityCollection Method / Volume Collection TimeReceived TimeBloodBLOOD SPECIMEN / Sgpfnok2104/04/2025 5:16 AM EST04/04/2025 5:23 AM EST Narrative Authorizing ProviderResult TypeResult Hilton REYES BACK OFFICE LABSFinal ResultPerforming OrganizationAddressCity/State/ZIP CodePhone Number NURSING GLUCOSE PROGRAM [address] [place] [phone] * (ABNORMAL) BASIC METABOLIC PANEL (04/04/2025 5:13 AM EST)ComponentValueRef RangeTest MethodAnalysis TimePerformed AtPathologist YvuqptceiNukuxup777(H)74 - 109 mg/dL04/04/2025 6:15 AM ESTS PATHOLOGY FTZXZSDGAWNavxro807345 - 145 mmol/L106/04/2024 6:15 AM ESTS PATHOLOGY LABORATORYPotassium4.03.5 - 5.0 mmol/L106/04/2024 6:15 AM [facility] [place] [facility]ORATORYCarbon Ekgydzr1193 - 31 mmol/L106/04/2024 6:15 AM [facility] [place] [facility] JUKQCLRQTUOkhtvddz937(H)98 - 107 mmol/L106/04/2024 6:15 AM [facility] [place] [facility] LABORATORYBlood Urea Emmvodpg331 - 25 mg/dL04/04/2025 6:15 AM [facility] [place] [facility] LABORATORYCreatinine0.930.60 - 1.20 mg/dL04/04/2025 6:15 AM [facility] [place] [facility] LABORATORYCalcium8.3(L)8.6 - 10.3 mg/dL04/04/2025 6:15 AM [facility] [place] [facility] LABORATORYAnion Lia7033 - 20 04/04/2025 6:15 AM [facility] [place] [facility] LABORATORYEstimated GFR (CKD-EPI)69>=60 mL/min/1.32tkz2106/04/2024 6:15 AM [facility] [place] [facility] LABORATORYComment: 2020 CKD EPI Equation using Creatinine without Race Comment: ??Estimated glomerular filtration rate (eGFR) is calculated without a race coefficient. Values should be interpreted in the context of the patient's full clinical presentation. Reference: 1. Nils C, Tk M, Jose CHIN, et al.. A Unifying Approach for GFR Estimation: Recommendations of the NKF-ASN Task Force on Reassessing the Inclusion of Race in Diagnosing Kidney Disease. AmericanJournal of Kidney Diseases 2021;79(2):268-88.e1. 2. N Engl J Med 2021 Vol. 385 Issue 19 Pages 6584-0952 Specimen (Source)Anatomical Location / LateralityCollection Method / Volume Collection TimeReceived TimeBloodBLOOD SPECIMEN / UnknownVenipuncture / Unknown 04/04/2025 5:13 AM EST04/04/2025 5:38 AM EST Narrative Authorizing ProviderResult TypeResult StatusJimmy Shah MD98 GENERAL LABFinal ResultPerforming OrganizationAddressCity/State/ZIP CodePhone Number [facility] [address] [place] [phone] * ANTIBODY ID - LAB USE ONLY (04/04/2025 5:13 AM EST)ComponentValueRef RangeTest MethodAnalysis TimePerformed AtPathologist SignatureAntibody IdentificationSee Ytxmjcvw35/15/2025 1:05 PM [facility] [place] [facility] LABORATORYComment: Anti-D demonstrating in PEG Panaglutinin in GEL, Anti-D in PEG Specimen Expiration [id number]/15/2025 1:05 PM [facility] [place] [facility] LABORATORYSpecimen (Source)Anatomical Location / LateralityCollection Method / VolumeCollection TimeReceived TimeBloodBLOOD SPECIMEN / UnknownVenipuncture / Dmiidpf1304/04/2025 5:13 AM EST04/04/2025 5:42 AM EST Narrative Authorizing ProviderResult TypeResult Juliette REYES LAB ORDER ONLY Final ResultPerforming OrganizationAddressCity/State/ZIP CodePhone Number [facility] [address] [place] [phone] * DIRECT ANTIGLOBULIN TEST (04/04/2025 5:13 AM EST)ComponentValueRef RangeTest MethodAnalysis TimePerformed AtPathologist SignatureDAT PolyspecificPositive 04/04/2025 9:54 AM [facility] [place] [facility] LABORATORYDAT UnvlgvqarbLrcjwgei47/15/2025 9:54 AM [facility] [place] [facility] LABORATORYDAT VjETmmmuyyh39/15/2025 9:54 AM [facility] [place] [facility] LABORATORYSpecimen Expiration Pjfh0872419111926092/15/2025 9:54 AM [facility] [place] [facility] LABORATORYNegative TsvjbvmYabipyzg92/15/2025 9:54 AM [facility] [place] [facility] LABORATORYSpecimen (Source)Anatomical Location / Laterality Collection Method / VolumeCollection TimeReceived TimeBloodBLOOD SPECIMEN / UnknownVenipuncture / Tvywqik9504/04/2025 5:13 AM EST04/04/2025 5:42 AM EST Narrative Authorizing ProviderResult TypeResult Juliette REYES BLOOD BANKFinal ResultPerforming OrganizationAddressCity/State/ZIP CodePhone Number [facility] [address] [place] [address] * TYPE AND SCREEN (04/04/2025 5:13 AM EST)ComponentValueRef RangeTest Method Analysis TimePerformed AtPathologist SignatureABO Rh TypeA Dozltwcr73/15/2025 9:49 AM [facility]Y LABORATORYAb Screen IpjfvmCqlrkzvs59/15/2025 9:49 AM [facility] [place] [facility]OR[facility]YSpecimen Expiration [id number]/15/2025 9:49 AM [facility] [place] [facility]ORATORYABO Rh/Di/TXRX HistoryNo Previous Results 04/04/2025 9:49 AM [facility] [place] [facility] LABORATORYSpecimen (Source)Anatomical Location / LateralityCollection Method / VolumeCollection TimeReceived Time BloodBLOOD SPECIMEN / UnknownVenipuncture / Esogjwn0704/04/2025 5:13 AM EST 04/04/2025 5:42 AM EST Narrative Authorizing ProviderResult TypeResult Juliette Shah MDEC BLOOD BANKFinal ResultPerforming OrganizationAddressCity/State/ZIP CodePhone Number [facility] [address] [place] [phone] * (ABNORMAL) PROTHROMBIN TIME AND INR (04/04/2025 5:13 AM EST)ComponentValueRef RangeTest MethodAnalysis TimePerformed AtPathologist BbeimmetvFekrxhc32.3(H) 9.7 - 12.9 sec04/04/2025 6:14 AM [facility] [place] [facility] LABORATORYINR1.19(H)0.90 - 1.10106/04/2024 6:14 AM [facility] [place] [facility] LABORATORYSpecimen (Source)Anatomical Location / LateralityCollection Method / VolumeCollection TimeReceived Time BloodBLOOD SPECIMEN / UnknownVenipuncture / Bjhxwma9604/04/2025 5:13 AM EST 04/04/2025 5:41 AM EST Narrative Authorizing ProviderResult TypeResult Juliette Shah MD98 GENERAL LABFinal ResultPerforming OrganizationAddressCity/State/ZIP CodePhone Number [facility] [address] [place] [address] * (ABNORMAL) COMPLETE BLOOD COUNT (04/04/2025 5:13 AM EST)ComponentValueRef RangeTest MethodAnalysis TimePerformed AtPathologist SignatureWBC4.4(L)4.5 - 11.5 K/uL04/04/2025 5:47 AM [facility] [place] [facility] LABORATORYRBC4.064.00 - 5.20 M/uL 04/04/2025 5:47 AM [facility] BJYZXWJNVFZhnjgbmdgt66.812.0 - 15.0 g/dL 04/04/2025 5:47 AM [facility] [place] [facility] MZXALBDFKZVtzwwujbyf73.836.0 - 46.0 % 04/04/2025 5:47 AM [facility] GZJPAMSSWMJFT8825 - 100 fL04/04/2025 5:47 AM [facility] SUFZDRWQWMTNX65.626.0 - 34.0 pg04/04/2025 5:47 AM [facility] [place] [facility] YYIGJHSCZGJFHE15.032.0 - 35.9 g/dL04/04/2025 5:47 AM [facility] [place] MERZMMLQKMFunrggfx774370 - 400 K/uL04/04/2025 5:47 AM [facility] [place] [facility] LABORATORYRDW-CV14.9(H)11.5 - 14.5 %04/04/2025 5:47 AM [facility] [place] [facility] LABORATORYMPV9.07.5 - 11.2 fL04/04/2025 5:47 AM [facility] [place] [facility] LABORATORYSpecimen (Source)Anatomical Location / LateralityCollection Method / VolumeCollection TimeReceived TimeBloodBLOOD SPECIMEN / UnknownVenipuncture / Khtoxmv1104/04/2025 5:13 AM EST04/04/2025 5:41 AM EST Narrative Authorizing ProviderResult TypeResult StatusJimmy JOHANSEN GENERAL LABFinal ResultPerforming OrganizationAddressCity/State/ZIP CodePhone Number [facility] [address] [place] [address] * PHOSPHORUS (04/04/2025 5:13 AM EST)ComponentValueRef RangeTest MethodAnalysis TimePerformed AtPathologist SignaturePhosphorus, Serum3.02.5 - 5.0 mg/dL 04/04/2025 6:15 AM [facility] [place] [facility]ORATORYSpecimen (Source)Anatomical Location / LateralityCollection Method / VolumeCollection TimeReceived Time BloodBLOOD SPECIMEN / UnknownVenipuncture / Jiujtmy0704/04/2025 5:13 AM EST 04/04/2025 5:38 AM EST Narrative Authorizing ProviderResult TypeResult StatusJimmy JOHANSEN GENERAL LABFinal ResultPerforming OrganizationAddressCity/State/ZIP CodePhone Number [facility] [address] [place] [address] * MAGNESIUM (04/04/2025 5:13 AM EST)ComponentValueRef RangeTest MethodAnalysis TimePerformed AtPathologist SignatureMagnesium1.91.9 - 2.7 mg/dL04/04/2025 6:15 AM ESTCROWNPOINT [facility]ILITY PATHOLOGY LABORATORYSpecimen (Source)Anatomical Location / LateralityCollection Method / VolumeCollection TimeReceived TimeBloodBLOOD SPECIMEN / UnknownVenipuncture / Fpsztnw8804/04/2025 5:13 AM EST04/04/2025 5:38 AM EST Narrative Authorizing ProviderResult TypeResult Juliette JOHANSEN GENERAL LABFinal ResultPerforming OrganizationAddressCity/State/ZIP CodePhone Number [facility] [address] [place] [address] * XRAY ABDOMEN IMAGE IMPORT(NERIS) (04/04/2025 4:48 AM EST)Specimen (Source) Anatomical Location / LateralityCollection Method / VolumeCollection Time Received Time Narrative Authorizing ProviderResult TypeResult Juliette REYES DIAGNOSTIC X-RAY Final Result * XRAY ABDOMEN IMAGE IMPORT(NERIS) (04/04/2025 4:47 AM EST)Specimen (Source) Anatomical Location / LateralityCollection Method / VolumeCollection Time Received Time Narrative Authorizing ProviderResult TypeResult Juliette REYES DIAGNOSTIC X-RAY Final Result * XRAY ABDOMEN IMAGE IMPORT(NERIS) (04/04/2025 4:46 AM EST)Specimen (Source) Anatomical Location / LateralityCollection Method / VolumeCollection Time Received Time Narrative Authorizing ProviderResult TypeResult Juliette REYES DIAGNOSTIC X-RAY Final Result from Last 3 [place] [address] Advance Directives * Full Code (Latest Code Status on File) Date ActivatedDate JneumenjnunEbmpgfid76/15/2025 4:31 AM04/07/2025 4:15 PM QuestionAnswerCommentsDocumentation of decision process for this code status:* Discussed with patient or surrogate.?? This is the code status chosen by the patient/surrogate.
--- OUTSIDE RECORDS SUMMARY | 2025-05-06 18:31 | XMS_ITS | Patient Health Record ---
Author Organization [facility] in [place] Address [address] [place] [address] Care Team Providers Care Miner Helper Name Role Phone Soledad Walton Primary Care Provider [phone] Reason For Referral No Information Medications Medication SIG (Take, Route, Frequency, Duration) Notes Start Date End Date Status Atorvastatin Calcium 40 MG TAKE 1 TABLET BY MOUT H EVERY DAY; Duration: 90 days ActiveKetoconazole 2 %1 application Externally Once a day; Duration: 14 day(s) ActivemedroxyPROGESTERone Rpodtcj5905/21/1899Not-LqwqacMthvoqk75/01/1900Not-Taking Baclofen 10 MG1 tablet as needed Orally [...] Orally Once a day; Duration: 30 day(s) Xrc-ZesvevfmnSCUDHE-Uurynemkgiztd 5-325 MG1 tablet as needed Orally every [...] alcohol in the p ast year? No Dmclok3DuhmmfhyqjvfzeKqzbzvml Problems Problem Type SNOMED Code ICD Code Onset Dates Problem Status W/U Status Risk Notes Problem Diabetic renal disease (58548822 3) Type 2 diabetes mellitus with diabetic chronic kidney disease (E11.22) ActiveconfirmedProblemObstructive sleep apnea (15733535)Obstructive sleep apnea (G47.33)ActiveconfirmedProblemCurrent smoker (90373611)Current smoker (F17.200) ActiveconfirmedProblemInsomnia (602206076)Insomnia, unspecified type (G47.00) ActiveconfirmedProblemDiabetes mellitus type 2 (29376130)Diabetes mellitus, type 2 (E11.9)ActiveconfirmedProblemAnxiety depression (567354905)Anxiety with depression (F41.8)ActiveconfirmedProblemAbsent kidney (287372262)H/O left nephrectomy (Z90.5)ActiveconfirmedProblemChronic kidney disease stage 3 (disorder) (491276360)Chronic kidney disease, stage 3 unspecified (N18.30)Active confirmed Plan Of Treatment Pending Test Test Name Order Date CMP (COMPLETE METABOLIC PANEL) HEMOGLOBIN A1C (GLYCO) 12/12/2023 INSULIN, TOTAL 12/12/2023 LIPID PANEL (CHOL/TRIG/HDL/LDL) 12/12/19 CBC WITH DIFF (EXP 03/2025) 12/12/2023 STOOL OCCULT BLOOD 12/12/2023 THYROID PANEL (T4/TSH/FREE T3) 4 Insurance Providers Payer Name Payer Address Payer Phone Subscriber Number Group Number Insured Name Patient Relationship to Insured Coverage Start Date Coverage End Date [employer] MEDICARE ADV PLAN [address] [address] [place] [phone] [id number] Lakhwinder Kim - patient is the insured Medical (General) History Surgical History Surgery Date(Month/Year) bowel surgery 11/2018 removal uter 11/2017
--- OUTSIDE RECORDS SUMMARY | 2025-05-06 18:31 | XMS_ITS | Clinical Summary ---
Author Organization [facility] Address [address] [place] [address] Care Team Providers Care Labor Conciliator Name Role Phone Sanchez Rice MD Primary Care Provider [phone] Allergies Active AllergyReactionsCriticalityNoted DateCommentsPenicillinsHivesHigh 07/29/2015 Other Reaction(s): [...] tablet 5Active Active Problems ProblemNoted DateDiagnosed DateChronic pain11/02/20230857Eihepol21/14/2024aytime lwbpwqqkisjwxmf88/14/0803Cdshnoahsn17/14/2024Right leg /14/2024 Overview (11/02/2023): The patient reports [...] clinically Parkinson's disease without dyskinesia or fluctuating levmcfgsvxskpy22/14/2024 Overview (11/02/2023): It is my impression that [...] referral to speech therapy. Patient declined Chronic xeqzreq8411/02/2023 Overview (11/02/2023): At a prior appointment, the [...] causes of the patient's fatigue. Patient declined Dnhcogotsuo54/14/2024OSA (obstructive sleep apnea)10/29/2023LS (restless legs syndrome)10/29/2023 Encounters DateTypeDepartmentCare UtqwFovmekthddp45/14/2025External Result Encounter [facility] Unsolicited Michael Coleman, DO 04/03/2025External Result Encounter [facility] Unsolicited Michael Coleman, DO 04/03/2025External Result Encounter [facility] Unsolicited Michael Coleman, DO 04/02/2025External Result Encounter [facility] Unsolicited Michael Coleman, DO 04/02/2025External Result Encounter [facility] Unsolicited Michael Coleman, DO 04/02/2025External Result Encounter [facility] Unsolicited Michael Coleman, DO from Last 3 Months Family History Medical HistoryRelationNameCommentsMental illnessMotherObesityMotherRelationName StatusCommentsMotherDeceasedSiblingAlive Social History Tobacco UseTypesPacks/DayYears UsedDateSmoking Tobacco: Every LkoBvvnnkobqe664 Smokeless Tobacco: CurrentAlcohol UseStandard Drinks/WeekCommentsNever0 (1 standard drink = 0.6 oz pure alcohol)CommentsUnknownSex and Gender InformationValueDate RecordedSex Assigned at BirthNot on fileLegal SexFemale 08/02/2022 10:14 PM EDTGender IdentityNot on fileSexual OrientationNot on file Last Filed Vital Signs Vital SignReadingTime TakenCommentsBlood Ngnseeeo588/7410 10:57 AM EDT Yemsu319702/20/2024 10:57 AM EDTTemperature--Respiratory Rate--Oxygen Saturation 96%02/20/2024 10:57 AM EDTInhaled Oxygen Concentration--Hurbuy66.4 kg (206 lb) 02/20/2024 10:57 AM IAAPdmttm362 cm (5' 3 )02/20/2024 10:57 AM EDTBody Mass Index36.4902/20/2024 10:57 AM EDT Plan of Treatment Not on file Procedures Procedure NamePriorityDate/TimeAssociated DiagnosisCommentsXR ABDOMEN 2 VIEW 04/03/2025 9:40 AM EST BASIC METABOLIC XVOCKMnelbat19/14/2025 5:18 AM EST CBC WITH AUTO GOGXJULFWXZPZwozpaq59/14/2025 5:18 AM EST XR ABDOMEN 2 VIEW04/02/2025 9:45 AM EST BASIC METABOLIC DCAXPXhlggpr75/13/2025 9:32 AM EST HEMOGRAM [place] [place]Xwmedyh9604/02/2025 9:32 AM EST from Last 3 Months Results * XR ABDOMEN 2 VIEW (04/03/2025 9:40 AM EST) Only the most recent of2 resultswithin the time period is included. Anatomical RegionLateralityModalityAbdomenRadiographic ImagingSpecimen (Source) Anatomical Location / LateralityCollection Method / VolumeCollection Time Received Time04/03/2025 9:40 AM EST Impressions 04/03/2025 9:44 AM EST Reassessment of small bowel obstruction. ?? NG tube remains in place. ??Surgical clips of the abdomen. ??Continued gaseous intestinal distention. No free air. ? IMPRESSION: Similar gaseous intestinal distention. ??NG tube unchanged. ? Impression dictated by: Shaun Medina M.D. ??04/03/2025 9:42 AM ? Dictation Location: RADIO-PC-16 ? Transcribed By: ? PWS ?04/03/25 0942 ? Dictated By: ?Shaun Medina DO ?04/03/25 0940 ? Signed By: <Electronically signed by Shaun Medina, DO in OV> ? 04/03/25 0942 Narrative 04/03/2025 9:44 AM [facility] ?[facility] [place] ?[address] ? [place] [address] ?XRay Report ? Signed ? Patient: Edie Kim ?MR#: [id number] ?? [id number] ? : 1960 ?Acct:[id number] ? Age/Sex: 64 / F ?ADM Date: 04/01/25 ? Loc: 4N ?Room: ??8K5120-6 ?Type: ADM IN ?? Attending Dr: Reynaldo Royal DO ?? Copies to: Michael Coleman, DO ?? Reynaldo Royal DO ? Ordering Provider: Michael Coleman DO ?? Date of Service: 04/03/25 ?? XR/XR abdomen min 2V: SBO ? 2 views abdomen compared to prior examination 04/02/2025 ? XR/XR abdomen min 2V ?? Procedure Note Radiology, Radiologist, - 04/03/2025 [facility] [place] [address] [place] [id number] XRay Report Signed Patient: Edie Kim JMR#: [id number] : 1Acct:[id number] Age/Sex: 64 / FADM Date: 04/01/25 Loc: Room: 7D8971-6Brhm: ADM IN Attending Dr: Reynaldo Royal DO Copies to: DO Reynaldo Pollack DO Ordering Provider: Michael Coleman DO Date of Service: 04/03/25 XR/XR abdomen min 2V: SBO 2 views abdomen compared to prior examination 04/02/2025 XR/XR abdomen min 2V IMPRESSION: Reassessment of small bowel obstruction. NG tube remains in place. Surgical clips of the abdomen. Continuedgaseous intestinal distention. No free air. IMPRESSION: Similar gaseous intestinal distention. NG tube unchanged. Impression dictated by: Shaun Medina M.D. 04/03/2025 9:42 AM Dictation Location: [place] [address] Transcribed By: [facility] 04/03/25 0942 Dictated By: Shaun Medina DO 04/03/25 0940 Signed By: <Electronically signed by Shaun Medina DO in OV> 04/03/25 0942 Authorizing ProviderResult TypeResult StatusFredric Taty Coleman DOIMG XR PROCEDURESFinal Result * CBC auto differential (04/03/2025 5:18 AM EST)ComponentValueRef RangeTest MethodAnalysis TimePerformed AtPathologist SignatureWBC4.23.8 - 11.6 [CFU]/mL 04/03/2025 5:49 AM [facility] CtrUNCORRECTED WHITE BLOOD COUNT4.23.8 - 11.6 10*3/uL04/03/2025 5:49 AM [facility] RBC3.983.60 - 5.00 10*6/uL04/03/2025 5:49 AM [facility] RXDBOWSQXM97.311.8 - 15.4 g/dL04/03/2025 5:49 AM [facility] VzxHTNOEXSPBZ99.234.0 - 46.4 %04/03/2025 5:49 AM [facility] RaiWHT96.680 - 100 fL04/03/2025 5:49 AM [facility] OseBKP09.024.7 - 34.3 pg04/03/2025 5:49 AM [facility] MCHC33.132.0 - 35.0 g/dL04/03/2025 5:49 AM [facility] RED CELL DISTRIBUTION WIDTH, RDW14.911.9 - 15.3 %04/03/2025 5:[address] [facility] CtrPLATELET ZQYJN629315 - 450 10*3/uL04/03/2025 5:49 AM [facility] CtrMEAN PLATELET VOLUME, MPV8.66.3 - 10.7 fL04/03/2025 5:49 AM [facility] CtrNEUTROPHILS, %51.0. %04/03/2025 5:49 AM [facility] CtrLYMPHOCYTES, %33.0. % 04/03/2025 5:49 AM [facility] CtrMONOCYTE/MACROPHAGE, %12.0 . %04/03/2025 5:49 AM [facility] CtrEOSINOPHILS, %3.8. % 04/03/2025 5:49 AM [facility] CtrBASOPHILS, %0.2. % 04/03/2025 5:49 AM [facility] CtrNRBC0.10 - 0.5 /100{WBC} 04/03/2025 5:49 AM [facility] CtrNEUTROPHILS2.11.8 - 7.7 10*3/uL04/03/2025 5:49 AM [facility] CtrLYMPHOCYTES1.41.00 - 4.8 10*3/uL04/03/2025 5:49 AM [facility] CtrMONOCYTES0.5 0.0 - 0.8 10*3/uL04/03/2025 5:49 AM [facility] EOSINOPHILS0.20.0 - 0.45 10*3/uL04/03/2025 5:49 AM [facility] CtrBASOPHILS0.00.0 - 0.2 10*3/uL04/03/2025 5:49 AM [facility] CtrSpecimen (Source)Anatomical Location / Laterality Collection Method / VolumeCollection TimeReceived TimeBlood (Blood)04/03/2025 5:18 AM EST04/03/2025 5:39 AM EST Narrative Authorizing ProviderResult TypeResult StatusFredric H Lyriczquin [facility] BLOOD ORDERABLESFinal ResultPerforming OrganizationAddressCity/State/ZIP CodePhone Number [facility] [address] [place] [address], [facility] [address] [place] [address] * (ABNORMAL) Basic metabolic panel (04/03/2025 5:18 AM EST) Only the most recent of2 resultswithin the time period is included. ComponentValueRef RangeTest MethodAnalysis TimePerformed AtPathologist Signature Vksmbeh433(H)70 - 100 mg/dL04/03/2025 6:10 AM [facility] Comment: Random Glucose Reference Range is dependent on time and content of last meal. Glucose of more than 200 mg/dL in a nonstressed, ambulatory subject supports the diagnosis of Diabetes Mellitus. ADA recommended reference range TPG032 - 25 mg/dL04/03/2025 6:10 AM [facility] CtrCREATININE 0.920.60 - 1.20 mg/dL04/03/2025 6:10 AM [facility] ESTIMATED GFR>60. 6:10 AM [facility] DflMwgzuw170 136 - 145 mmol/L106/03/2024 6:10 AM [facility] CtrPotassium, Bld3.93.5 - 5.1 mmol/L106/03/2024 6:10 AM [facility] Wpipqcin37938 - 107 mmol/L106/03/2024 6:10 AM [facility] Carbon Iukqikj57.321.0 - 31.0 mmol/L106/03/2024 6:10 AM [facility] CtrAnion Gap10.66.0 - 15.011 6:10 AM [facility] CtrCalcium8.0(L)8.6 - 10.3 mg/dL04/03/2025 6:10 AM [facility] CtrCREATININE CLR CALC PYHHQYMO10.8804/03/2025 6:10 AM [facility] CtrSpecimen (Source)Anatomical Location / LateralityCollection Method / VolumeCollection TimeReceived TimeOtherTopography unknown / Unknown 04/03/2025 5:18 AM EST04/03/2025 5:39 AM EST Narrative Authorizing ProviderResult TypeResult StatusFredric H [facility] DOLAB BLOOD ORDERABLESFinal ResultPerforming OrganizationAddressCity/State/[facility] CodePhone Number [facility] [address] [place] [address], [facility] [address] [place] [address] * (ABNORMAL) HEMOGRAM [place] DIFF [place] [place] (04/02/2025 9:32 AM EST)Component ValueRef RangeTest MethodAnalysis TimePerformed AtPathologist SignatureWBC3.7 (L)3.8 - 11.6 [CFU]/mL04/02/2025 10:00 AM [facility] CtrRBC 4.363.60 - 5.00 10*6/uL04/02/2025 10:00 AM [facility] CVVCMLAVGI30.411.8 - 15.4 g/dL04/02/2025 10:00 AM [facility] YdtPWBRHERTBK05.634.0 - 46.4 %04/02/2025 10:00 AM [facility] UygQWV92.280 - 100 fL04/02/2025 10:00 AM [facility] StrUNF21.824.7 - 34.3 pg04/02/2025 10:00 AM [facility] WcrETKB08.032.0 - 35.0 g/dL04/02/2025 10:00 AM [facility] CtrRED CELL DISTRIBUTION WIDTH, RDW15.111.9 - 15.3 % 04/02/2025 10:00 AM [facility] CtrPLATELET VCUSN996054 - 450 10*3/uL04/02/2025 10:00 AM [facility] CtrMEAN PLATELET VOLUME, MPV9.16.3 - 10.7 fL04/02/2025 10:00 AM [facility] CtrSpecimen (Source)Anatomical Location / LateralityCollection Method / Volume Collection TimeReceived TimeBlood (Blood)04/02/2025 9:32 AM EST04/02/2025 9:51 AM EST Narrative Authorizing ProviderResult TypeResult StatusFredric H Jared DOLAB BLOOD ORDERABLESFinal ResultPerforming OrganizationAddressCity/State/ZIP CodePhone Number [facility] [address] [place] [address], [facility] [address] [place] [address] from Last 3 Months Insurance Care Teams Team MemberRelationshipSpecialtyStart DateEnd Sanchez Rice MD [address] [place] [address] PCP - GeneralFamily Zijiuvim24/2/24
--- OUTSIDE RECORDS SUMMARY | 2025-05-06 18:31 | XMS_ITS | Clinical Summary ---
Author Organization [facility] s tem Address [id number] [address] [place] [address] Care Team Providers Care Senior Mobile Application Developer Name Role Phone Sanchez Rice MD Primary Care Provider [phone] Allergies Active AllergyReactionsCriticalityNoted EeqxFfotujxmNkkoasbakqpAyflq04/10/2016 Medications MedicationSigDispense QuantityRefillsLast FilledStart DateEnd DateStatus gabapentin [...] Problems ProblemNoted DateDiagnosed DateSBO (small bowel obstruction)05/04/2020Cervical /11/2016Mixed anxiety depressive kwfjjsoc66/11/2016Diabetes zwmmsvbu62/11/1097Hpucuelbamvw93/11/8746Ciaaiehcipeoqi92/11/2016Severe obesity (BMI 35.0-39.9) with igislvwmgkj36/11/8131Dmcmcowzj30/11/2016Tinea pedis 07/30/2015Dietary counseling and ehtqqqpotljs02/11/2016Back pain07/30/2015 Immunizations ImmunizationAdministration DatesNext DueInfluenza, Injectable, Mdck, Preservative Free, Quad03/08/2018 Family History Medical HistoryRelationNameCommentsAneurysmFatherRelationNameStatusComments FatherDeceasedMotherDeceasedSonAlive Social History Tobacco UseTypesPacks/DayYears UsedDateSmoking Tobacco: Every DayCigarettes Smokeless Tobacco: NeverAlcohol UseStandard Drinks/WeekCommentsNo0 (1 standard drink = 0.6 oz pure alcohol)ChildcareAnswerDate RecordedChildcareUnknown 10/30/2018EmploymentAnswerDate KusfcudbTnbkkrrxjbYbiglln21/12/2019Purpose - Life AnswerDate RecordedPurpose and direction in ffknEmgsxhz04/20/2021 CommentsNoSex and Gender InformationValueDate RecordedSex Assigned at BirthNot on fileLegal DvhSdrwro48/04/2015 10:20 PM EDTGender IdentityNot on fileSexual OrientationNot on file Last Filed Vital Signs Vital SignReadingTime TakenCommentsBlood Huzhmuyi802/70006/16/2020 1:38 PM EST Dgfyx843105/08/2020 3:58 PM TCKQcqxcxfyxej17.2 ??C (97.1 ??F)06/16/2020 1:38 PM ESTRespiratory Sdsm4461 3:58 PM ESTOxygen Stdqukjlhn23%05/08/2020 3:58 PM ESTInhaled Oxygen Concentration--Nzkvtf80.5 kg (215 lb)06/16/2020 1:38 PM EST Ikpuuu440.1 cm (5' 5 )06/16/2020 1:38 PM ESTBody Mass Index35.78006/16/2020 1:38 PM EST Plan of Treatment Health MaintenanceDue DateLast DoneCommentsDepression Lxpwhcppb27/28/1973Tobacco Nuhvfdlsw05/28/1973Adult BMI Eentzapmu68/28/1979DTaP,Tdap and Td Vaccines (1 - Tdap)12/16/1979Pap Smear1981Zoster (Shingles) Vaccine (1 of 2)2010 COVID-19 Vaccine (3 season)506/12/2020, 10/05/2020Influenza Udxqjqj54/03/2023, 04/30/2020, 03/08/2018RSV ( or age 60+ yrs) (1 - 1-dose 75+ series)12/16/2035 Goals GoalPatient Goal TypeAssociated ProblemsRecent ProgressPatient-Stated?Author discharge home Julee Epperson RN Note: Evaluation of progress towards goal: Patient plans to return home with family support Medical Devices Not on file Insurance MemberSubscriberPlan / Payer (Effective 2020-Present)Name:Edie Kim Relation to Subscriber:SelfName:Edie Kim Payer ID:[id number] (NAIC) Type:Not on file Address: [place] [phone] Advance Directives * Full Code (Latest Code Status on File) Date ActivatedDate TknojdowvcoNecfiqxt61/15/2020 9:07 PM05/08/2020 8:06 PM Care Teams Team MemberRelationshipSpecialtyStart DateEnd Date Sanchez Rice MD [address] [facility] [place] [address] PCP - GeneralFamily Medicine01/17/19
[2025-05-06] MEDS: METHYLPREDNISOLONE SOD SUCC PF 125 MG/2 ML VIAL IVP (18:41)
[2025-05-06 18:44] LABS: Hematocrit 38.0 % (36.0-48.0); Hemoglobin 12.0 g/dL (12.0-16.0); Immature Granulocytes Abs Auto 0.02 10^3/uL (0.00-0.03); Immature Granulocytes Pct Auto 0.3 % (0.0-0.5); Lymphocytes Absolute Auto 2.5 10^3/uL (1.2-3.8); Mean Corpuscular HGB Conc 31.6 g/dL (29.9-35.2); Mean Corpuscular Hemoglobin 29.6 pg (26.7-34.0); Mean Corpuscular Volume 93.6 fL (81.0-99.0); Platelet Count 289 10^3/uL (150-450); Red Blood Count 4.06 10^6/uL (4.20-5.40); White Blood Count 6.1 10^3/uL (4.0-11.0)
[2025-05-06 18:55] LABS: SARS-CoV-2 Ag NEGATIVE (NEGATIVE)
[2025-05-06 18:59] LABS: Alanine Aminotransferase 25 U/L (14-59); Albumin Globulin Ratio 0.5; Albumin Level 3.0 g/dL (3.4-5.0); Alkaline Phosphatase 81 U/L (46-116); Anion Gap 11.6; Aspartate Amino Transferase 89 U/L (15-37); Blood Urea Nitrogen 18.0 mg/dL (7.0-18.0); Calcium 8.6 mg/dL (8.5-10.1); Carbon Dioxide 28.1 mmol/L (21.0-32.0); Chloride 102 mmol/L (98-107); Estimated GFR (African America 36 (>=60 mL/min/1.73m^2); Estimated GFR (Non-African Ame 29 (>=60 mL/min/1.73m^2); Globulin 5.6 g/dL; Glucose 124 mg/dL (74-106); Potassium 3.7 mmol/L (3.5-5.1); Sodium 138 mmol/L (136-145); Total Protein 8.6 g/dL (6.4-8.2)
[2025-05-06 19:01] LABS: Lactate/Lactic Acid 1.1 mmol/L (0.4-2.0)
[2025-05-06 19:05] LABS: Magnesium 1.9 mg/dL (1.8-2.4); NT Pro B Type Natriuretic Pept 304.0 pg/mL (<=900.0)
[2025-05-06] MEDS: IPRATROPIUM/ALBUTEROL SULFATE 3 ML AMPUL.NEB IH (19:05)
[2025-05-06] MEDS: AZITHROMYCIN 500 MG in 0.9 % SODIUM CHLORIDE 250 ML 250 MG IV (19:38)
--- NOTE | 2025-05-06 20:53 | ED_ITS ---
HPI HPI - General Adult General Chief complaint: Weakness Stated complaint: WEAKNESS Time Seen by Provider: 05/06/25 17:57 Source: patient Mode of arrival: Wheelchair History of Present Illness HPI narrative: This 64-year-old female with a history of Parkinson disease was signed out to me at shift change. She is brought to the emergency department by her daughter for evaluation of generalized weakness and exertional dyspnea. The patient states she has had a cough with chest congestion for the past week. She has had some chills. She denies any chest pain or abdominal pain. I reviewed her vital signs. She had a low-grade temperature upon arrival at 99.5 and was not hypoxic. During my exam her pulse ox dropped into the low 90s but with coughing and positioning improved to the upper 90s. She received IV fluids, Rocephin and Zithromax. She also received a breathing treatment and Solu-Medrol. She does not have a history of COPD. Routine labs are reviewed. She has normal white count and stable hemoglobin. Electrolytes are normal with a mild elevation in her creatinine compared to her baseline at 1.74. Lactic acid, troponin and BNP are normal. Urine is still pending. Chest x-ray was read by radiology and does not show any acute findings. Due to her immobility and hypoxia I added on a D-dimer. D-dimer was elevated at 1.55. She consented to a CT scan. CT angio does not show any acute pulmonary embolism but does show some pulmonary nodules and a thyroid nodule. She was placed on supplemental oxygen as she did desat down into the mid 90s. On supplemental oxygen her oxygen has improved to the mid to upper 90s. The case was discussed with the hospitalist and she is accepted for admission to [facility]. Related Data Home Medications ?Medication ?Instructions ?Recorded ?Confirmed atorvastatin 40 mg tablet 40 mg PO DAILY 02/21/2304/20 lisinopril 20 mg tablet 25 mg PO DAILY 02/21/2304/20 metformin 1,000 mg tablet 1,000 mg PO BID 02/21/23 prazosin 2 mg capsule 2 mg PO QPM 02/21/23 5 carbidopa 25 mg-levodopa 100 mg 1 tab PO QID 05/06/25 05/06/25 tablet gabapentin 300 mg capsule 300 mg PO Q12H 05/06/2504/20 glipizide 5 mg tablet 5 mg PO DAILY 05/06/2505/06 ropinirole 1 mg tablet 1 mg PO BEDTIME 05/06/25 Allergies Allergy/AdvReac Type Severity Reaction Status Date / Time Penicillins Allergy Unknown Unknown Verified 05/06/25 18:04 Opioid HPI Opioid Management Most Recent Opioid Data: Last Pain Scale 8 03/31/25, 23:55 PFSH PFSH Medical History (Updated 05/06/25 @ 22:36 by Mago Leon MD) Restless leg syndrome ?G25.81 - Restless legs syndrome (ICD-10) Sleep apnea ?G47.30 - Sleep apnea, unspecified (ICD-10) Diabetes mellitus ?E11.9 - Type 2 diabetes mellitus without complications (ICD-10) Hyperlipidemia ?E78.5 - Hyperlipidemia, unspecified (ICD-10) Hypertension ?I10 - Essential (primary) hypertension (ICD-10) Parkinsons disease ?G20.A1 - Parkinson's disease without dyskinesia, without mention of fluctuations (ICD-10) Social History Little interest or pleasure in doing things: not at all Feeling down, depressed, or hopeless: not at all Exam Constitutional Vital Signs, click to edit/add: Last Vital Signs Temp 99.5 F 05/06/25 19:23 Pulse 90 05/06/25 20:20 Resp 23 H 05/06/25 20:20 BP 128/69 05/06/25 18:03 Pulse Ox 95 05/06/25 20:38 O2 Del Method Nasal Cannula 05/06/25 20:38 O2 Flow Rate 2 05/06/25 20:38 Course Course Hospital Course: The patient is a madina 64-year-old female presenting to the emergency department for profound weakness. She apparently lives alone but in close proximity to her son and gpvhzgsp-gi-ope. The patient has been progressively getting weaker. She has had progression of a cough. She does smoke. No noted fever or chills. When the patient arrives she appears uncomfortable but not toxic or in any acute distress. Were commencing the sepsis protocol given that the patient's pulse is 93, she is tachypneic, and that her O2 sat is low. She is 92% on room air. Therefore the patient is going to get blood cultures and a lactic acid drawn. We are also drawing swabs on this patient as we are seeing an increase in influenza mimicking the same symptoms. Empirically, organ to treat the patient with Rocephin 1 g IV piggyback and azithromycin 500 mg IV piggyback, DuoNeb, and methylprednisolone. Vital Signs Vital signs: Vital Signs Temperature 98.8 F 05/06/25 17:59 Pulse Rate 93 H 05/06/25 17:59 Respiratory Rate 20 05/06/25 17:59 Blood Pressure 128/69 05/06/25 17:59 Pulse Oximetry 92 L 05/06/25 17:59 Oxygen Delivery Method Room Air 05/06/25 17:59 Temperature 99.5 F 05/06/25 19:23 Pulse Rate 90 05/06/25 20:20 Respiratory Rate 23 H 05/06/25 20:20 Blood Pressure 128/69 05/06/25 18:03 Pulse Oximetry 95 05/06/25 20:38 Oxygen Delivery Method Nasal Cannula 05/06/25 20:38 Oxygen Delivery Flow Rate 2 05/06/25 20:38 Medical Decision Making Lab Data Lab results reviewed: Yes I reviewed the patient's lab results Labs: Lab Results 05/06/25 05/06/25 Range/Units 18:21 18:25 WBC 6.1 (4.0-11.0) 10^3/uL RBC 4.06 L (4.20-5.40) 10^6/uL Hgb 12.0 (12.0-16.0) g/dL Hct 38.0 (36.0-48.0) % MCV 93.6 (81.0-99.0) fL MCH 29.6 (26.7-34.0) pg MCHC 31.6 (29.9-35.2) g/dL RDW 14.2 (11.0-15.0) % Plt Count 289 (150-450) 10^3/uL MPV 9.9 (9.5-13.5) fL Neut % (Auto) 46.8 (43.0-75.0) % Lymph % (Auto) 40.8 (20.5-60.0) % [place] % (Auto) 10.9 (1.7-12.0) % Eos % (Auto) 0.5 L (0.9-7.0) % Baso % (Auto) 0.7 (0.2-2.0) % Neut # (Auto) 2.9 (1.4-6.5) 10^3/uL Lymph # (Auto) 2.5 (1.2-3.8) 10^3/uL [place] # (Auto) 0.7 (0.3-0.8) 10^3/uL Eos # (Auto) 0.0 (0.0-0.7) 10^3/uL Baso # (Auto) 0.0 (0.0-0.1) 10^3/uL Abs Immat Gran (auto) 0.02 (0.00-0.03) 10^3/uL Imm/Tot Granulo (auto) 0.3 (0.0-0.5) % D-Dimer 1.55 H* (<=0.59) mg/L FEU Sodium 138 (136-145) mmol/L Potassium 3.7 (3.5-5.1) mmol/L Chloride 102 (98-107) mmol/L Carbon Dioxide 28.1 (21.0-32.0) mmol/L Anion Gap 11.6 BUN 18.0 (7.0-18.0) mg/dL Creatinine 1.74 H (0.55-1.02) mg/dL Est GFR ( Amer) 36 L (>=60 mL/min/1.73m^2) Est GFR (Non-Af Amer) 29 L (>=60 mL/min/1.73m^2) BUN/Creatinine Ratio 10.3 Glucose 124 H (74-106) mg/dL Lactate 1.1 (0.4-2.0) mmol/L Calcium 8.6 (8.5-10.1) mg/dL Magnesium 1.9 (1.8-2.4) mg/dL Total Bilirubin 0.7 (0.2-1.0) mg/dL AST 89 H (15-37) U/L ALT 25 (14-59) U/L Alkaline Phosphatase 81 (46-116) U/L Troponin I High Sens 18.9 (4.0-51.3) pg/mL NT-Pro-B Natriuret Pep 304.0 (<=900.0) pg/mL Total Protein 8.6 H (6.4-8.2) g/dL Albumin 3.0 L (3.4-5.0) g/dL Globulin 5.6 g/dL Albumin/Globulin Ratio 0.5 Influenza Type A Ag Negative Influenza Type B Ag Negative SARS-CoV-2 Ag (CV2AG) Negative (NEGATIVE) Imaging Data Chest x-ray: Radiologist's impression: ITS Impressions Chest X-Ray 05/06/25 18:08 IMPRESSION: No acute cardiopulmonary pathology. Impression dictated by: Santana Hoyos M.D. 05/06/2025 6:49 PM Dictation Location: [facility] Electronically authenticated by: [id number] Y Date: 05/06/2025 18:49 Chest CTA 05/06/25 21:10 IMPRESSION: No acute cardiopulmonary pathology. No evidence of pulmonary embolism. There is a 6 mm noncalcified nodule in the left lower lobe. This is unchanged when compared to the previous CT. There is a 1.9 cm hypoattenuating nodule within the right thyroid lobe. There are accompanying peripheral calcifications. Follow-up with nonemergent ultrasound of the thyroid is recommended as malignancy is not excluded. Impression dictated by: Santana Hoyos M.D. 05/06/2025 10:17 PM Dictation Location: [facility] Electronically authenticated by: [id number] Y Date: 05/06/2025 22:17 Discharge Plan Discharge Chief Complaint: Weakness Clinical Impression: Exertional shortness of breath, Hypoxia, Generalized weakness, Dehydration, mild Patient Disposition: Admitted as Observation Time of Disposition Decision: 22:36 Condition: Good
[2025-05-06] MEDS: ACETAMINOPHEN 325 MG TABLET 650 MG PO (21:09)
--- NOTE | 2025-05-06 21:10 | CT_ITS ---
[address] [address] Patient Name: MARY ESTRADA MRN: [id number] date: 1960 Sex: F Assigned Patient Location: ER Current Patient Location: Accession/Order Number: [id number] Exam Date: 05/06/2025 21:34 Report Date: 05/06/2025 22:17 At the request of: FELICIA FRANCIS MD Procedure: CT angio chest CT angio chest 05/06/2025 9:46 PM SIGN AND SYMPTOMS: ^SOB, elevated d dimer CONTRAST: 100 mL of intravenous Omnipaque 350 TECHNIQUE: Multidetector CT axial slices of the chest were obtained with IV contrast. Multiplanar and 3-D reformats were performed and viewed on a separate workstation and reviewed to further define anatomy and possible pathology. CT was performed with one or more of the following dose reduction techniques: Automated exposure control, adjustment of the mA and/or kV according to patient size, or use of iterative reconstruction technique. COMPARISON: 03/31/2025. FINDINGS: Lower neck: There is a 1.9 cm hypoattenuating nodule within the right thyroid lobe. There are accompanying peripheral calcifications. Follow-up with nonemergent ultrasound of the thyroid is recommended as malignancy is not excluded. Vessels: Within normal limits. There is mild prominence of the ascending thoracic aorta measuring up to 4 cm in greatest dimension. There is no evidence of pulmonary embolism. Mediastinum and Milagros: Mildly prominent mediastinal lymph nodes are noted measuring up to 1.1 cm in short axis anterior to the trachea. Heart: Normal size. No pericardial effusion. Airways: Within normal limits Lungs: There is a 6 mm noncalcified nodule in the left lower lobe. This is unchanged when compared to the previous CT. Pleura: Within normal limits. Chest Wall: Within normal limits. Upper Abdomen: There is a large cyst within the right hepatic lobe which is only partially visualized. The liver is hypoattenuating suggesting hepatic steatosis. Bones: Degenerative changes are noted in the thoracic spine. CT/CT angio chest IMPRESSION: No acute cardiopulmonary pathology. No evidence of pulmonary embolism. There is a 6 mm noncalcified nodule in the left lower lobe. This is unchanged when compared to the previous CT. There is a 1.9 cm hypoattenuating nodule within the right thyroid lobe. There are accompanying peripheral calcifications. Follow-up with nonemergent ultrasound of the thyroid is recommended as malignancy is not excluded. Impression dictated by: Santana Hoyos M.D. 05/06/2025 10:17 PM Dictation Location: [place] [address] Electronically authenticated by: [id number] Y Date: 05/06/2025 22:17
[2025-05-06] MEDS: MORPHINE SULFATE 4 MG/ML VIAL IV (22:35)
[2025-05-07] VITALS (22 sets, daily range): BP systolic 94–100; BP diastolic 50–65; PULSE 52–82; TEMP 36.4–36.8; O2SAT 90–93; BMI 32.2
[2025-05-07] MEDS: ENOXAPARIN SODIUM 40 MG/0.4 ML SYRINGE SUBQ ×2 (00:14→09:02)
[2025-05-07] MEDS: GABAPENTIN 300 MG CAPSULE PO ×3 (00:15→21:41)
[2025-05-07] MEDS: ROPINIROLE HCL 1 MG TABLET PO ×2 (00:15→21:41)
[2025-05-07 05:18] LABS: Hematocrit 35.1 % (36.0-48.0); Hemoglobin 10.9 g/dL (12.0-16.0); Mean Corpuscular HGB Conc 31.1 g/dL (29.9-35.2); Mean Corpuscular Hemoglobin 29.6 pg (26.7-34.0); Mean Corpuscular Volume 95.4 fL (81.0-99.0); Platelet Count 239 10^3/uL (150-450); Red Blood Count 3.68 10^6/uL (4.20-5.40); White Blood Count 4.4 10^3/uL (4.0-11.0)
[2025-05-07] MEDS: IPRATROPIUM/ALBUTEROL SULFATE 3 ML AMPUL.NEB IH ×3 (05:34→20:36)
[2025-05-07 05:36] LABS: Alanine Aminotransferase 52 U/L (14-59); Albumin Globulin Ratio 0.5; Albumin Level 2.4 g/dL (3.4-5.0); Alkaline Phosphatase 117 U/L (46-116); Anion Gap 10.6; Aspartate Amino Transferase 324 U/L (15-37); Blood Urea Nitrogen 22.0 mg/dL (7.0-18.0); Calcium 8.0 mg/dL (8.5-10.1); Carbon Dioxide 25.9 mmol/L (21.0-32.0); Chloride 101 mmol/L (98-107); Estimated GFR (African America 40 (>=60 mL/min/1.73m^2); Estimated GFR (Non-African Ame 33 (>=60 mL/min/1.73m^2); Globulin 5.1 g/dL; Glucose 328 mg/dL (74-106); Magnesium 2.0 mg/dL (1.8-2.4); Potassium 4.5 mmol/L (3.5-5.1); Sodium 133 mmol/L (136-145); Total Protein 7.5 g/dL (6.4-8.2)
[2025-05-07 05:55] LABS: Lymphocytes Absolute Manual 1.10 10^3/uL (1.20-3.80); Lymphocytes Percent Manual 25.0 % (20.5-60.0); Segmented Neut Absolute Manual 2.72 10^3/uL (1.4-6.5); Segmented Neutrophils % Manual 62.0 (43.0-75.0)
[2025-05-07] MEDS: CARBIDOPA/LEVODOPA 25 MG-100 MG TABLET 1 TAB PO ×4 (05:55→21:41)
[2025-05-07 05:56] LABS: Atypical Lymphocytes % Manual 1.0 %; Atypical Lymphocytes Abs Man 0.04; Basophils Abs Manual 0.04 10^3/uL (0.00-0.10); Basophils Percent Manual 1.0 % (0.2-2.0); Eosinophils Absolute Manual 0.00 10^3/uL (0.00-0.70); Eosinophils Percent Manual 0.0 % (0.9-7.0); Monocytes Absolute Manual 0.48 10^3/uL (0.30-0.80); Monocytes Percent Manual 11.0 % (1.7-12.0)
[2025-05-07 06:06] LABS: Glucose Urine UA NEGATIVE (NEGATIVE)
[2025-05-07 06:13] LABS: Cast Seen? NONE SEEN #/LPF (NONE SEEN); Crystals Seen? None Seen #/HPF (None Seen); Urine Culture Indicated YES-FRMC
[2025-05-07] MEDS: INSULIN ASPART 300 UNIT/3 ML PEN SUBQ ×4 (07:29→21:41)
[2025-05-07] MEDS: LISINOPRIL 5 MG TABLET 2.5 MG PO (09:02)
[2025-05-07] MEDS: GLIPIZIDE 5 MG TABLET 2.5 MG PO (09:02)
[2025-05-07] MEDS: ATORVASTATIN CALCIUM 40 MG TABLET PO (09:03)
--- NOTE | 2025-05-07 09:26 | CM.NOTE ---
Important Message From Medicare discussed with pt, pt verbalizes understanding and requests CM to sign d/t her Parkinson's. CM signed formed, original given to pt and copy placed on pt's chart.
--- NOTE | 2025-05-07 09:57 | P.IMHP_ITS ---
Internal Medicine - H&P: HPI History of Present Illness Chief complaint: Exertional dyspnea, hypoxia, gen. weakness Narrative: Edie Kim is a 64 y/o F, h/o Parkinson's, smoker, Parkinson's, RLS, HTN, HLD, MANDO on CPAP, DM Type II, CKD 3 in remaining R kidney, and anxiety recent admission/transfer to [facility] for small bowel obstruction managed non- operatively, presented to [facility] on 05/06/25 with generalized fatigue, dyspnea, and poor appetite for the past week prompting request for medical adm ission. On assessment at bedside on the regular nursing floor, patient resting comfortably out of bed in chair, on supplemental oxygen. States for the past week he has had a dry cough with chest congestion, generalized weakness, exertional dyspnea, and poor appetite, slight chills but no fevers, nausea, vomiting or abdominal pain. Does feel significantly improved since admission, states that after discharge on 04/07/2025 from recent hospitalization at [facility] for small bowel obstruction, felt significantly improved until decline over the past week. In the emergency room, WBC 6.1, hemoglobin 12, platelet count 289, sodium 138, potassium 3.7, BUN 18, creatinine 1.74, lactic acid 1.1, influenza A B and COVID negative. Chest x-ray and CT angiography showed no acute pathology, does have hypoattenuating nodule in the right thyroid lobe and, noncalcified nodule in the left lower lung lobe unchanged from previous CT. Review of Systems ROS Status of ROS 10 or more systems reviewed and unremark able except as noted in history and below [facility] Medical History Restless leg syndrome ?G25.81 - Restless legs syndrome (ICD-10) Sleep apnea ?G47.30 - Sleep apnea, unspecified (ICD-10) Diabetes mellitus ?E11.9 - Type 2 diabetes mellitus without complications (ICD-10) Hyperlipidemia ?E78.5 - Hyperlipidemia, unspecified (ICD-10) Hypertension ?I10 - Essential (primary) hypertension (ICD-10) Parkinsons disease ?G20.A1 - Parkinson's disease without dyskinesia, without mention of fluctuations (ICD-10) Family History (Updated 05/07/25 @ 00:58 by Carlota Herrera RN) Aunt Family history of diabetes mellitus Grandfather Family history of diabetes mellitus Grandmother Family history of diabetes mellitus Family history of stroke Social History (Updated 05/07/25 @ 00:59 by Carlota Herrera RN) Within the past year, how often did you have a drink containing alcohol: never Within the past year, how often did you have six or more drinks on one occasion: never Score interpretation: A score less than 3 is consistent with normal alcohol consumption. Smoking status: Current every day smoker Non-prescribed substance use: denies use Highest level of school completed/degree received: 10th grade Are you now , , , , never or living with a partner: In a typical week, how many times do you talk on the telephone with family, friends, or neighbors: 3 or more times per week How often do you get together with friends or relatives: twice per week Do you belong to any clubs or organizations such as zoroastrian groups unions, [employer] or athletic groups, or school groups: no Little interest or pleasure in doing things: several days Feeling down, depressed, or hopeless: not at all Feel stressed/tense/nervous/anxious/difficulty sleeping: not at all Meds Home Medications and Allergies Home Medications ?Medication ?Instructions ?Recorded ?Confirmed ?Type atorvastatin 40 mg tablet 40 mg PO DAILY 02/21/2304/20 History metformin 1,000 mg tablet 1,000 mg PO BID 02/21/23 History prazosin 2 mg capsule 2 mg PO QPM 02/21/23 5 History carbidopa 25 mg-levodopa 100 mg 1 tab PO QID 05/06/25 05/06/25 History tablet gabapentin 300 mg capsule 300 mg PO Q12H 05/06/2504/20 History glipizide 5 mg tablet 5 mg PO DAILY 05/06/2505/06 History ropinirole 1 mg tablet 2 mg PO BEDTIME 05/06/25 History lisinopril 2.5 mg tablet 2.5 mg PO DAILY 05/07/25 History mirtazapine 15 mg tablet 15 mg PO .QHS 05/07/2505/07 History Allergies Allergy/AdvReac Type Severity Reaction Status Date / Time Penicillins Allergy Unknown Unknown Verified 05/06/25 18:04 Exam Narrative Exam Narrative: General: cooperative and tired appearing Orientation: alert, awake and oriented x3 Head: normal to inspection Neck: normal visual inspection Cardio: no JVD, regular rate, regular rhythm Chest palpation & inspection: normal inspection of the chest Resp Effort & Inspection: normal respiratory effort Abd: soft, non-tender, non-distended Extremities: Warm well perfused, no edema, baseline resting tremor Constitutional Vital Signs, click to edit/add: Last Vital Signs Temp 97.5 F L 05/07/25 07:35 Pulse 58 L 05/07/25 09:52 Resp 18 05/07/25 07:35 BP 94/62 05/07/25 07:35 Pulse Ox 93 L 05/07/25 09:03 O2 Del Method Room Air 05/07/25 09:03 O2 Flow Rate 2 05/07/25 07:35 Internal Medicine - H&P: Reslt Labs Labs: Short CBC 05/06/25 05/07/25 Range/Units 18:25 04:54 WBC 6.1 4.4 (4.0-11.0) 10^3/uL Hgb 12.0 10.9 L (12.0-16.0) g/dL Hct 38.0 35.1 L (36.0-48.0) % Plt Count 289 239 (150-450) 10^3/uL BMP 05/06/25 05/07/25 18:25 04:54 Sodium 138 133 L Potassium 3.7 4.5 Chloride 102 101 Carbon Dioxide 28.1 25.9 BUN 18.0 22.0 H Creatinine 1.74 H 1.59 H Glucose 124 H 328 H Calcium 8.6 8.0 L Liver Function 05/06/25 05/07/25 Range/Units 18:25 04:54 Total Bilirubin 0.7 1.1 H (0.2-1.0) mg/dL AST 89 H 324 H (15-37) U/L ALT 25 52 (14-59) U/L Alkaline Phosphatase 81 117 H (46-116) U/L Albumin 3.0 L 2.4 L (3.4-5.0) g/dL Urine 05/07/25 Range/Units 05:55 Urine Color Yellow (YELLOW) Urine Clarity Clear (CLEAR) Urine pH 5.5 (5.0-9.0) Ur Specific [place] 1.015 (1.005-1.025) Urine Protein 100 A (NEG/TRACE) mg/dL Urine Glucose (UA) Negative (NEGATIVE) mg/dL Assessment and Plan Assessment and Plan (1) Dehydration, mild: (2) Generalized weakness: (3) Hypoxia: (4) Exertional shortness of breath: (5) Parkinsons disease: (6) Hypertension: (7) Diabetes mellitus: (8) Sleep apnea: Plan Edie Kim is a 64 y/o F, h/o Parkinson's, smoker, Parkinson's, RLS, HTN, HLD, MANDO on CPAP, DM Type II, CKD 3 in remaining R kidney, and anxiety recent admission/transfer to [facility] for small bowel obstruction managed non- operatively, presented to [facility] ER on 05/06/25 with generalized fatigue, dyspnea, and poor appetite for the past week prompting request for medical admission. 1. Generalized weakness and dyspnea in the setting of Parkinson's - In the emergency room, WBC 6.1, hemoglobin 12, platelet count 289, sodium 138, potassium 3.7, BUN 18, creatinine 1.74, lactic acid 1.1, influenza A B and COVID negative. Chest x-ray and CT angiography showed no acute pathology, does have hypoattenuating nodule in the right thyroid lobe and, noncalcified nodule in the left lower lung lobe unchanged from previous CT. - Suspected upper respiratory viral illness precipitating dehydration - baseline Cr appears around 1.6 - will check RSV - Symptomatic improvement with IV fluids, will continue supportive care - Continue antibiotics for potential underlying bronchitis/COPD exacerbation contributing to mild hypoxia - Hold on steroids for now given lack of rhonchi on exam - Discussed benefits of intensive therapy and potential inpatient rehab unit, will reassess tomorrow Diet: Cardiac Daily Labs: CBC, BMP Lines/Drains: PIV DVT ppx: Lovenox Code status: Full Status: inpatient for dyspnea, generalized weakness
[2025-05-07] MEDS: METHYLPREDNISOLONE SOD SUCC PF 40 MG/ML VIAL IM (10:06)
[2025-05-07] MEDS: 0.9 % SODIUM CHLORIDE 1,000 ML 999 ML IV (10:06)
--- NOTE | 2025-05-07 10:10 | CM.NOTE ---
Rounds made with Dr. Lucas, discussed plan of care with pt. PT and OT will evaluate pt for discharge planning. Pt inpatient status, no discharge today.
--- OUTSIDE RECORDS SUMMARY | 2025-05-07 10:16 | XMS_ITS | Clinical Summary ---
Author Organization [facility] Address [id number] [address] [place] [address] Care Team Providers Care Varnish Cooker Name Role Phone Sanchez Rice MD Primary Care Provider [phone] Allergies Active AllergyReactionsCriticalityNoted ItuuFawzwdnfGneiwjibsdlBqodr52/10/2016 Medications MedicationSigDispense QuantityRefillsLast FilledStart DateEnd DateStatus gabapentin [...] Problems ProblemNoted DateDiagnosed DateSBO (small bowel obstruction)05/04/2020Cervical wukcfsixvri20/11/2016Mixed anxiety depressive egdroont68/11/2016Diabetes ijqdkwqr11/11/0655Ahcdafeyelmd48/11/1084Ykfuoqyueqbwbv28/11/2016Severe obesity (BMI 35.0-39.9) with /11/4572Wadmhbgxq39/11/2016Tinea pedis 07/30/2015Dietary counseling and lxynltvokzgq88/11/2016Back pain07/30/2015 Immunizations ImmunizationAdministration DatesNext DueInfluenza, Injectable, Mdck, Preservative Free, Quad03/08/2018 Family History Medical HistoryRelationNameCommentsAneurysmFatherRelationNameStatusComments FatherDeceasedMotherDeceasedSonAlive Social History Tobacco UseTypesPacks/DayYears UsedDateSmoking Tobacco: Every DayCigarettes Smokeless Tobacco: NeverAlcohol UseStandard Drinks/WeekCommentsNo0 (1 standard drink = 0.6 oz pure alcohol)ChildcareAnswerDate RecordedChildcareUnknown 10/30/2018EmploymentAnswerDate WueuwciwAjuoppzbdiXjbjimv98/12/2019Purpose - Life AnswerDate RecordedPurpose and direction in ipyvFafuoqa13/20/2021 CommentsNoSex and Gender InformationValueDate RecordedSex Assigned at BirthNot on fileLegal DsuVctyeq12/04/2015 10:20 PM EDTGender IdentityNot on fileSexual OrientationNot on file Last Filed Vital Signs Vital SignReadingTime TakenCommentsBlood Ksspfrfi613/70006/16/2020 1:38 PM EST Xvjxi994805/08/2020 3:58 PM QSWBfpngxshycj48.2 ??C (97.1 ??F)06/16/2020 1:38 PM ESTRespiratory Gshu2454 3:58 PM ESTOxygen Fwzrtmrdvu53%05/08/2020 3:58 PM ESTInhaled Oxygen Concentration--Sakvpi14.5 kg (215 lb)06/16/2020 1:38 PM EST Fomjwj905.1 cm (5' 5 )06/16/2020 1:38 PM ESTBody Mass Index35.78006/16/2020 1:38 PM EST Plan of Treatment Health MaintenanceDue DateLast DoneCommentsDepression Icpsxgscp61/28/1973Tobacco Zoyevhuam44/28/1973Adult BMI Txxilfszj19/28/1979DTaP,Tdap and Td Vaccines (1 - Tdap)12/16/1979Pap Smear1981Zoster (Shingles) Vaccine (1 of 2)2010 COVID-19 Vaccine (3 season)506/12/2020, 10/05/2020Influenza Vmkxzig08/03/2023, 04/30/2020, 03/08/2018RSV ( or age 60+ yrs) (1 - 1-dose 75+ series)12/16/2035 Goals GoalPatient Goal TypeAssociated ProblemsRecent ProgressPatient-Stated?Author discharge home Julee Epperson RN Note: Evaluation of progress towards goal: Patient plans to return home with family support Medical Devices Not on file Insurance MemberSubscriberPlan / Payer (Effective 2020-Present)Name:Edie Kim Relation to Subscriber:SelfName:Edie Kim Payer ID:[id number] (NAIC) Type:Not on file Address: [place] [id number] Advance Directives * Full Code (Latest Code Status on File) Date ActivatedDate CqnyefopquxJteiskwt98/15/2020 9:07 PM05/08/2020 8:06 PM Care Teams Team MemberRelationshipSpecialtyStart DateEnd Date Sanchez Rice MD [address] [facility] [place] [place] [address] PCP - GeneralFamily Medicine01/17/19
--- OUTSIDE RECORDS SUMMARY | 2025-05-07 10:16 | XMS_ITS | Clinical Summary ---
Author Organization [facility] Address [address] [place] [address] Care Team Providers Care Classification Analyst Name Role Phone Sanchez Rice MD Primary Care Provider [phone] Allergies Active AllergyReactionsCriticalityNoted DateCommentsPenicillinsHivesHigh 07/29/2015 Other Reaction(s): [...] tablet 5Active Active Problems ProblemNoted DateDiagnosed DateChronic pain11/02/20239452Rhpjrdk55/14/2024aytime awjvrjdmxmfarpt15/14/3743Nyigeikisw91/14/2024Right leg ywjrbdxu09/14/2024 Overview (11/02/2023): The patient reports subjective right [...] clinically Parkinson's disease without dyskinesia or fluctuating mmbtrmvenrgtme25/14/2024 Overview (11/02/2023): It is my impression that [...] referral to speech therapy. Patient declined Chronic xldncmi4711/02/2023 Overview (11/02/2023): At a prior appointment, the [...] causes of the patient's fatigue. Patient declined Gatbiyuoisi88/14/2024OSA (obstructive sleep apnea)10/29/2023LS (restless legs syndrome)10/29/2023 Encounters DateTypeDepartmentCare QazmUrgwaifsdxl04/14/2025External Result Encounter [facility] External [facility] Unsolicited Michael [...] Social History Tobacco UseTypesPacks/DayYears UsedDateSmoking Tobacco: Every MqlCfqvqrwybx928 Smokeless Tobacco: CurrentAlcohol UseStandard Drinks/WeekCommentsNever0 (1 standard drink = 0.6 oz pure alcohol)CommentsUnknownSex and Gender InformationValueDate RecordedSex Assigned at BirthNot on fileLegal SexFemale 08/02/2022 10:14 PM EDTGender IdentityNot on fileSexual OrientationNot on file Last Filed Vital Signs Vital SignReadingTime TakenCommentsBlood Vyxzqvtn978/7410 10:57 AM EDT Ggojg765702/20/2024 10:57 AM EDTTemperature--Respiratory Rate--Oxygen Saturation 96%02/20/2024 10:57 AM EDTInhaled Oxygen Concentration--Epqrqb30.4 kg (206 lb) 02/20/2024 10:57 AM JBBHglyzy250 cm (5' 3 )02/20/2024 10:57 AM EDTBody Mass Index36.4902/20/2024 10:57 AM EDT Plan of Treatment Not on file Procedures Procedure NamePriorityDate/TimeAssociated DiagnosisCommentsXR ABDOMEN 2 VIEW 04/03/2025 9:40 AM EST BASIC METABOLIC RFIJPLwwphgz06/14/2025 5:18 AM EST CBC WITH AUTO UKPRYYODFHDCEjvhbxc72/14/2025 5:18 AM EST XR ABDOMEN 2 VIEW04/02/2025 9:45 AM EST BASIC METABOLIC SKXBFZlacovw12/13/2025 9:32 AM EST HEMOGRAM CBC WITHOUT DIFF [place]Uhpiinx7504/02/2025 9:32 AM EST from Last 3 Months [...] ? 04/03/25 0942 Narrative 04/03/2025 9:44 AM [facility] ?[facility] [place] ?[address] ? [place] [address] ?XRay Report ? Signed ? Patient: Edie Kim ?MR#: [id number] ?? [id number] ? : 1960 ?Acct:[id number] ? Age/Sex: 64 / F ?ADM Date: 04/01/25 ? Loc: 4N ?Room: ??1U6521-5 ?Type: ADM IN ?? Attending Dr: Reynaldo Royal DO ?? Copies to: Michael Coleman, DO ?? Reynaldo Royal DO ? Ordering Provider: Michael Coleman DO ?? Date of Service: 04/03/25 ?? XR/XR abdomen min 2V: SBO ? 2 views abdomen compared to prior examination 04/02/2025 ? XR/XR abdomen min 2V ?? Procedure Note Radiology, Radiologist, - 04/03/2025 [facility] [place] [address] [place] [address] XRay Report Signed Patient: Edie Kim JMR#: [id number] : 1Acct:[id number] Age/Sex: 64 / FADM Date: 04/01/25 Loc: Room: 6Y3364-6Ordh: ADM IN Attending Dr: Reynaldo Royal DO [...] Medina M.D. 04/03/2025 9:42 AM Dictation Location: [place] [address] Transcribed By: [facility] 04/03/25 0942 Dictated By: Shaun Medina DO 04/03/25 0940 Signed By: <Electronically signed by Shaun Medina DO in OV> 04/03/25 0942 Authorizing ProviderResult TypeResult StatusFredric Taty Coleman DOIMG XR PROCEDURESFinal Result * CBC auto differential (04/03/2025 5:18 AM EST)ComponentValueRef RangeTest MethodAnalysis TimePerformed AtPathologist SignatureWBC4.23.8 - 11.6 [CFU]/mL 04/03/2025 5:49 AM [facility] CtrUNCORRECTED WHITE BLOOD COUNT4.23.8 - 11.6 10*3/uL04/03/2025 5:49 AM [facility] RBC3.983.60 - 5.00 10*6/uL04/03/2025 5:49 AM [facility] NDGZLBNVNQ04.311.8 - 15.4 g/dL04/03/2025 5:49 AM [facility] GhgSIOJLQUXRQ95.234.0 - 46.4 %04/03/2025 5:49 AM [facility] QkgPGM95.680 - 100 fL04/03/2025 5:49 AM [facility] YtrFTQ81.024.7 - 34.3 pg04/03/2025 5:49 AM [facility] MCHC33.132.0 - 35.0 g/dL04/03/2025 5:49 AM [facility] RED CELL DISTRIBUTION WIDTH, RDW14.911.9 - 15.3 %04/03/2025 5:49 AM [facility] CtrPLATELET UMYDK672529 - 450 10*3/uL04/03/2025 5:49 AM [facility] CtrMEAN PLATELET VOLUME, MPV8.66.3 - 10.7 fL04/03/2025 5:49 AM [facility] CtrNEUTROPHILS, %51.0. %04/03/2025 5:49 AM [facility] CtrLYMPHOCYTES, %33.0. % 04/03/2025 5:49 AM [facility] CtrMONOCYTE/MACROPHAGE, %12.0 . %04/03/2025 5:49 AM [facility] CtrEOSINOPHILS, %3.8. % 04/03/2025 5:49 AM [facility] CtrBASOPHILS, %0.2. % 04/03/2025 5:49 AM [facility] CtrNRBC0.10 - 0.5 /100{WBC} 04/03/2025 5:49 AM [facility] CtrNEUTROPHILS2.11.8 - 7.7 10*3/uL04/03/2025 5:49 AM [facility] CtrLYMPHOCYTES1.41.00 - 4.8 10*3/uL04/03/2025 5:49 AM [facility] CtrMONOCYTES0.5 0.0 - 0.8 10*3/uL04/03/2025 5:49 AM [facility] EOSINOPHILS0.20.0 - 0.45 10*3/uL04/03/2025 5:49 AM [facility] CtrBASOPHILS0.00.0 - 0.2 10*3/uL04/03/2025 5:49 AM [facility] CtrSpecimen (Source)Anatomical Location / Laterality Collection Method / VolumeCollection TimeReceived TimeBlood (Blood)04/03/2025 5:18 AM EST04/03/2025 5:39 AM EST Narrative Authorizing ProviderResult TypeResult StatusFredric H Lyriczquin [facility] BLOOD ORDERABLESFinal ResultPerforming OrganizationAddressCity/State/ZIP CodePhone Number [facility] [address] [place] [address], [facility] [address] [place] [address] * (ABNORMAL) Basic metabolic panel (04/03/2025 5:18 AM EST) Only the most recent of2 resultswithin the time period is included. ComponentValueRef RangeTest MethodAnalysis TimePerformed AtPathologist Signature Twlyzun349(H)70 - 100 mg/dL04/03/2025 6:10 AM [facility] Comment: Random Glucose Reference Range is dependent on time and content of last meal. Glucose of more than 200 mg/dL in a nonstressed, ambulatory subject supports the diagnosis of Diabetes Mellitus. ADA recommended reference range ZFZ725 - 25 mg/dL04/03/2025 6:10 AM [facility] CtrCREATININE 0.920.60 - 1.20 mg/dL04/03/2025 6:10 AM [facility] ESTIMATED GFR>60. 6:10 AM [facility] UpxArvgdw684 136 - 145 mmol/L106/03/2024 6:10 AM [facility] CtrPotassium, Bld3.93.5 - 5.1 mmol/L106/03/2024 6:10 AM [facility] Vuynjvpd02166 - 107 mmol/L106/03/2024 6:10 AM [facility] Carbon Dwibqdt26.321.0 - 31.0 mmol/L106/03/2024 6:10 AM [facility] CtrAnion Gap10.66.0 - 15.011 6:10 AM [facility] CtrCalcium8.0(L)8.6 - 10.3 mg/dL04/03/2025 6:10 AM [facility] CtrCREATININE CLR CALC RUBVEXSK68.8804/03/2025 6:10 AM [facility] CtrSpecimen (Source)Anatomical Location / LateralityCollection Method / VolumeCollection TimeReceived TimeOtherTopography unknown / Unknown 04/03/2025 5:18 AM EST04/03/2025 5:39 AM EST Narrative Authorizing ProviderResult TypeResult StatusFredric H [facility] DOLAB BLOOD ORDERABLESFinal ResultPerforming OrganizationAddressCity/State/[facility] CodePhone Number [facility] [address] [place] [address], [facility] [address] [place] [address] * (ABNORMAL) HEMOGRAM CBC WITHOUT DIFF [place] (04/02/2025 9:32 AM EST)Component ValueRef RangeTest MethodAnalysis TimePerformed AtPathologist SignatureWBC3.7 (L)3.8 - 11.6 [CFU]/mL04/02/2025 10:00 AM [facility] CtrRBC 4.363.60 - 5.00 10*6/uL04/02/2025 10:00 AM [facility] HHDUHHHMXY31.411.8 - 15.4 g/dL04/02/2025 10:00 AM [facility] FkbDKWYCRQVBY42.634.0 - 46.4 %04/02/2025 10:00 AM [facility] TqxLWQ80.280 - 100 fL04/02/2025 10:00 AM [facility] JefYBL50.824.7 - 34.3 pg04/02/2025 10:00 AM [facility] ElpKKWA26.032.0 - 35.0 g/dL04/02/2025 10:00 AM [facility] CtrRED CELL DISTRIBUTION WIDTH, RDW15.111.9 - 15.3 % 04/02/2025 10:00 AM [facility] CtrPLATELET OUUIG847905 - 450 10*3/uL04/02/2025 10:00 AM [facility] CtrMEAN PLATELET VOLUME, MPV9.16.3 - 10.7 fL04/02/2025 10:00 AM [facility] CtrSpecimen (Source)Anatomical Location / LateralityCollection Method / Volume Collection TimeReceived TimeBlood (Blood)04/02/2025 9:32 AM EST04/02/2025 9:51 AM EST Narrative Authorizing ProviderResult TypeResult StatusFredric H Jared DOLAB BLOOD ORDERABLESFinal ResultPerforming OrganizationAddressCity/State/ZIP CodePhone Number [facility] [address] [place] [address], [facility] [address] [place] [address] from Last 3 Months Insurance Care Teams Team MemberRelationshipSpecialtyStart DateEnd Sanchez Rice MD [address] [place] [address] PCP - GeneralFamily Ccxmujtw73/2/24
--- OUTSIDE RECORDS SUMMARY | 2025-05-07 10:16 | XMS_ITS | Clinical Summary ---
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 Name Role Phone Unavailable Primary Care Provider Unavailabl e Source Comments The following information is NOT included in Care Everywhere downloads:Psychiatric notes, ECG results, Cardiac Rehab notes, Pulmonary Function notes, data from [employer] (includes but not limited toPregnancy data,audiograms, eye exams, pre-surgical evaluation notes, well-child exam data).[facility] Allergies Active AllergyReactionsCriticalityNoted DateCommentsPenicillinsAnaphylactic Shock04/04/2025 Medications [...] bedtime.Active Active Problems ProblemNoted DateDiagnosed DateSmall bowel eugjctzvkcl83/15/2025 Assessment & Plan (04/14/2025 10:21 AM EST): Resolved and stable Encounters DateTypeDepartmentCare AfplTfwbrlssvmu26/25/2025 10:00 AM ESTTelemedicine [facility] [address] [place], [place] [id number] Martha Ag MD Small bowel obstruction (HCC) (Primary Dx); Primary parkinsonism (HCC); Primary hypertension; Type 2 diabetes mellitus without complication, without long-term current use of insulin (HCC); Obstructive sleep apnea optthwmi69/17/2025 1:23 PM EST - 04/06/2025 11:59 PM EST Hospital Encounter [facility] Radiology [address] [place] [address] Kiki Figueroa MD Discharge Disposition: HOV Dqlbppadj05/15/2025 10:55 AM EST - 04/04/2025 11:59 PM ESTHospital Encounter [facility] Radiology CT [address] [place] [address] Kiki Figueroa MD Discharge Disposition: HOV Vucdtoucq67/15/2025 4:43 AM EST - 04/04/2025 10:54 AM ESTHospital Encounter [facility] Radiology [address] [place], [place] [id number] Kiki Figueroa MD Discharge Disposition: [facility] Dnkcdghyi84/15/2025 4:14 AM EST - 04/07/2025 2:13 PM ESTHospital Encounter [facility] [address] [place] [address] Macie Ladd MD Dvorak, Justin, MD Tichenor, Michael, MD Lasinski, Alaina, MD Small bowel obstruction (HCC) (Primary Dx); Abnormal electrocardiogram (ECG) (EKG); Abnormal electrocardiogram (ECG) (EKG) Discharge Disposition: Discharge to Home04/04/2025Travelfrom Last 3 Months Immunizations ImmunizationAdministration DatesNext DueInfluenza, Injectable, MDCK, Quadrivalent, Preservative Free (NTF=853)03/08/2018Influenza, injectable, quadrivalent, preservative free (BTE=847)02/28/2023,04/30/2020Influenza, injectable, trivalent, preservative free (ZVR=323)04/03/2025Pneumococcal polysaccharide 23 Valent (PPSV23) (CVX=33)04/30/2020 Social History Tobacco UseTypesPacks/DayYears UsedDateSmoking Tobacco: Every DayCigarettes Passive Smoke Exposure: CurrentSmokeless Tobacco: Never Tobacco Cessation:Ready to Q uit: Not Asked; Counseling Given: Not Answered [facility] UtilitiesAnswerDate RecordedIn the past 12 months has the [employer], [employer], or [employer] threatened to shut off services in your [...] RecordedIn the past 12 months has the [employer], [employer], or [employer] threatened to shut off services in your home?No04/04/2025CommentsUnknownSex and Gender InformationValueDate RecordedSex Assigned at BirthNot on fileLegal JozPgzuoy86/14/2025 8:28 AM EST Gender IdentityNot on fileSexual OrientationNot on file Last Filed Vital Signs Vital SignReadingTime TakenCommentsBlood Swifsiop883/5404/07/2025 6:09 AM EST Byilj161704/07/2025 6:09 AM ANMCvsoftkazit73.4 ??C (97.5 ??F)04/07/2025 6:09 AM ESTRespiratory Guqh750006/07/2024 6:09 AM ESTOxygen Wsttprgafg81%04/07/2025 6:09 AM ESTInhaled Oxygen Concentration--Mlwloh01.6 kg (206 lb 5.6 oz)04/04/2025 4:27 AM BNUFmqkom630.6 cm (5' 4 )04/04/2025 8:25 AM ESTBody Mass Index35.42106/04/2024 4:27 AM EST Plan of Treatment Health MaintenanceDue DateLast EovwHepqifbwRpfpohvirol69/28/1961HIV Test 12/16/1975Hepatitis C Moaqazog82/28/1979Tdap Vtqdpfg9212/15/1978Hepatitis A (HAV) Vaccine (optional start 19+ years)12/16/1979Pap Smear1981Mammography 2000CRC Wuexnpugu20/28/2006Cologuard (Stool DNA)2005FIT2005 Shingles (RZV) Vaccine (1 of 2)2010Hepatitis B (HBV) Vaccine (optional start 60+ years)1Pneumococcal Vaccine(s) (50+ yrs) (2 of 2 - PCV) /03/2020Annual Wellness Visit (G0438)4COVID-19 Vaccine (3 - 2024- season)/12/2020, 1Basic Metabolic Panel04/07/2026 04/07/2025, 04/06/2025, 04/05/2025, Additional history existsCholesterol /09/2024, 12/13/2015RSV vaccine (adult) (1 - 1-dose 75+ series) 12/16/2035Influenza TstniglScchnnsoh23/14/2025, 02/28/2023, 04/30/2020, Additional history exists Procedures Procedure NamePriorityDate/TimeAssociated DiagnosisCommentsCOMPLETE BLOOD COUNT Zlglbbo6404/07/2025 11:19 AM EST GLUCOSE, FINGERSTICK-IN FHPHUMPqylykt47/18/2025 7:53 AM EST SOKBMFJWSCRyroedj61/18/2025 3:08 AM EST OYJCABNLDKazvpfi27/18/2025 3:08 AM EST BASIC METABOLIC HKUOGLwoybte42/18/2025 3:08 AM EST GLUCOSE, FINGERSTICK-IN UMJEARMcrenqe83/18/2025 2:14 AM EST GLUCOSE, FINGERSTICK-IN CSIAJABbabqng47/17/2025 8:21 PM EST GLUCOSE, FINGERSTICK-IN YUDWCLMkpzrgn81/17/2025 2:23 PM EST XR ABDOMEN AP 1 FDDGBpraufu91/17/2025 1:51 PM EST GLUCOSE, FINGERSTICK-IN TNJVFKPpbqcag05/17/2025 8:28 AM EST GLUCOSE, FINGERSTICK-IN EDAMYIPbwetif16/17/2025 2:47 AM EST EDAUHQGORTQrafhuq40/17/2025 1:33 AM EST GDQGKSLYPMjuogkf54/17/2025 1:33 AM EST COMPLETE BLOOD JOQLAElpioiq08/17/2025 1:33 AM EST BASIC METABOLIC IBCPMMmmvrek79/17/2025 1:33 AM EST GLUCOSE, FINGERSTICK-IN LPBMSWEuwbjtt71/16/2025 8:31 PM EST GLUCOSE, FINGERSTICK-IN WQKLVEIgwlnuq74/16/2025 4:37 PM EST ANTI FXA-LMW QXGNQDKMspkbzp91/16/2025 2:00 PM EST GLUCOSE, FINGERSTICK-IN XRBRFJCjebsfb49/16/2025 11:44 AM EST GLUCOSE, FINGERSTICK-IN BWPNSXHpxmcbb72/16/2025 9:12 AM EST COMPLETE BLOOD MOEAQCqumodt05/16/2025 4:20 AM EST BASIC METABOLIC AAPZLArupsxa51/16/2025 4:20 AM EST SZGSRBYBWAbgqiru35/16/2025 4:20 AM EST APXWVPUDIUVtwtuim90/16/2025 4:20 AM EST GLUCOSE, FINGERSTICK-IN MANAUFRustcbg55/16/2025 4:19 AM EST GLUCOSE, FINGERSTICK-IN FFMAOCUjlmtkq65/15/2025 9:55 PM EST GLUCOSE, FINGERSTICK-IN ZOHEKAItwjjhd50/15/2025 4:32 PM EST GLUCOSE, FINGERSTICK-IN WASGQBTjgtlxi53/15/2025 12:[address] ABDOMEN/PELVIS W/ TDVJCPTNEEMV01/15/2025 11:28 AM EST EKG 12 LEAD - HXMOMVRPmumvum80/15/2025 9:28 AM EST Abnormal electrocardiogram (ECG) (EKG) CONFIRMATION ABO/OJEjzmael47/ 8:22 AM EST XR ABDOMEN AP 1 XHLEFCZZ40/15/2025 6:20 AM EST GLUCOSE, FINGERSTICK-IN RMEKWEMlooros89/15/2025 5:16 AM EST DIRECT ANTIGLOBULIN DXEAKztanoa01/15/2025 5:13 AM EST ANTIBODY ID - LAB USE IYCFNycbtjh33/15/2025 5:13 AM EST PROTHROMBIN TIME AND ZWDJwfomft90/15/2025 5:13 AM EST TYPE AND DZMRBYSczubwh02/15/2025 5:13 AM EST JLDYERCUSKVirkfct47/15/2025 5:13 AM EST ZOUJFCQUTOmzkvth06/15/2025 5:13 AM EST COMPLETE BLOOD KXVRGHdohhbz67/15/2025 5:13 AM EST BASIC METABOLIC RGFUPCjnltac26/15/2025 5:13 AM EST XRAY ABDOMEN IMAGE WBZASCOoqraxe81/15/2025 4:48 AM ESTXRAY ABDOMEN IMAGE IMPORT Drulvvw6804/04/2025 4:47 AM ESTXRAY ABDOMEN IMAGE PJKPDBUucgsqj13/15/2025 4:46 AM ESTfrom Last 3 Months Results * (ABNORMAL) COMPLETE BLOOD COUNT (04/07/2025 11:19 AM EST)ComponentValueRef RangeTest MethodAnalysis TimePerformed AtPathologist GherqybwqTFJ84.0(H)4.5 - 11.5 K/uL04/07/2025 11:37 AM [facility] LABORATORYRBC4.164.00 - 5.20 M/uL04/07/2025 11:37 AM [facility] PVOMJFLISUBitxwiepxh54.912.0 - 15.0 g/dL04/07/2025 11:37 AM [facility] EGMQLNBUSXXspakqmtcc20.336.0 - 46.0 % 04/07/2025 11:37 AM [facility] TNITHHNNPXUDT4651 - 100 fL04/07/2025 11:37 AM [facility] LVECGGPKRLGUD85.126.0 - 34.0 pg04/07/2025 11:37 AM [facility] YHSWXOLZQNUUMX30.832.0 - 35.9 g/dL04/07/2025 11:37 AM [facility] OFCMGUOXGXXnjiirpb961713 - 400 K/uL04/07/2025 11:37 AM [facility] LABORATORYRDW-CV14.8(H)11.5 - 14.5 %04/07/2025 11:37 AM [facility] LABORATORYMPV8.37.5 - 11.2 fL04/07/2025 11:37 AM [facility] LABORATORYSpecimen (Source)Anatomical Location / LateralityCollection Method / VolumeCollection TimeReceived TimeBloodBLOOD SPECIMEN / UnknownVenipuncture / Vyiddoy0104/07/2025 11:19 AM EST04/07/2025 11:26 AM EST Narrative Authorizing ProviderResult TypeResult StatusJimmy Shah MD98 GENERAL LABFinal ResultPerforming OrganizationAddressCity/State/ZIP CodePhone Number [facility] [address] [place] [address] * (ABNORMAL) GLUCOSE, FINGERSTICK-IN OFFICE (04/07/2025 7:53 AM EST)Component ValueRef RangeTest MethodAnalysis TimePerformed AtPathologist Signature Glucose, WMD445(H)74 - 109 mg/dL04/07/2025 7:59 AM ESTNURSING GLUCOSE PROGRAM Specimen (Source)Anatomical Location / LateralityCollection Method / Volume Collection TimeReceived TimeBloodBLOOD SPECIMEN / Pimtwvd6604/07/2025 7:53 AM EST04/07/2025 7:59 AM EST Narrative Authorizing ProviderResult TypeResult StatusTo Be AssignedEC BACK OFFICE LABS Final ResultPerforming OrganizationAddressCity/State/ZIP CodePhone Number NURSING GLUCOSE PROGRAM [address] [place] [address] * (ABNORMAL) BASIC METABOLIC PANEL (04/07/2025 3:08 AM EST)ComponentValueRef RangeTest MethodAnalysis TimePerformed AtPathologist HtqqowefzKxservv2932 - 109 mg/dL04/07/2025 4:15 AM [facility] GEZOQQSLYJChgktm937455 - 145 mmol/L106/07/2024 4:15 AM [facility] LABORATORYPotassium3.63.5 - 5.0 mmol/L106/07/2024 4:15 AM [facility] PATH[facility] LABORATORYCarbon Evcsqcp2869 - 31 mmol/L106/07/2024 4:15 AM [facility] ADUUOFLSDAUywhqrrj56990 - 107 mmol/L 04/07/2025 4:15 AM [facility] LABORATORYBlood Urea Eohicdjz757 - 25 mg/dL04/07/2025 4:15 AM [facility] LABORATORYCreatinine1.040.60 - 1.20 mg/dL04/07/2025 4:15 AM [facility] PATH[facility]Y LABORATORYCalcium7.9(L)8.6 - 10.3 mg/dL04/07/2025 4:15 AM [facility] PATH[facility] LABORATORYAnion Mgu5549 - 20 04/07/2025 4:15 AM [facility] PATHOLOGY LABORATORYEstimated GFR (CKD-EPI)60>=60 mL/min/1.66smr1506/07/2024 4:15 AM [facility] PATHOLOGY LABORATORYComment: 2020 CKD EPI Equation using [...] Med 2021 Vol. 385 Issue 19 Pages 0059-3930 Specimen (Source)Anatomical Location / LateralityCollection Method / Volume Collection TimeReceived TimeBloodBLOOD SPECIMEN / UnknownVenipuncture / Unknown 04/07/2025 3:08 AM EST04/07/2025 3:40 AM EST Narrative Authorizing ProviderResult TypeResult StatusJimmy Shah MD98 GENERAL LABFinal ResultPerforming OrganizationAddressCity/State/ZIP CodePhone Number [facility] [address] [place], [place] [phone] * PHOSPHORUS (04/07/2025 3:08 AM EST)ComponentValueRef RangeTest MethodAnalysis TimePerformed AtPathologist SignaturePhosphorus, Serum3.02.5 - 5.0 mg/dL 04/07/2025 4:15 AM ESTLOVELACE [facility] PATHOLOGY LABORATORYSpecimen (Source)Anatomical Location / LateralityCollection Method / VolumeCollection TimeReceived Time BloodBLOOD SPECIMEN / UnknownVenipuncture / Hcslbzq4404/07/2025 3:08 AM EST 04/07/2025 3:40 AM EST Narrative Authorizing ProviderResult TypeResult StatusJimmy JOHANSEN GENERAL LABFinal ResultPerforming OrganizationAddressCity/State/ZIP CodePhone Number [facility] [address] [place] [address] * MAGNESIUM (04/07/2025 3:08 AM EST)ComponentValueRef RangeTest MethodAnalysis TimePerformed AtPathologist SignatureMagnesium2.01.9 - 2.7 mg/dL04/07/2025 4:17 AM ESTLOVELACE [facility]OLOG[facility] LABORATORYSpecimen (Source)Anatomical Location / LateralityCollection Method / VolumeCollection TimeReceived TimeBloodBLOOD SPECIMEN / UnknownVenipuncture / Eermvtu7404/07/2025 3:08 AM EST04/07/2025 3:40 AM EST Narrative Authorizing ProviderResult TypeResult Juliette JOHANSEN GENERAL LABFinal ResultPerforming OrganizationAddressCity/State/ZIP CodePhone Number [facility] [address] [place] [address] * GLUCOSE, FINGERSTICK-IN OFFICE (04/07/2025 2:14 AM EST)ComponentValueRef Range Test MethodAnalysis TimePerformed AtPathologist SignatureGlucose, BDX4401 - 109 mg/dL04/07/2025 2:20 AM ESTNURSING GLUCOSE PROGRAMSpecimen (Source) Anatomical Location / LateralityCollection Method / VolumeCollection Time Received TimeBloodBLOOD SPECIMEN / Nbcamqo8504/07/2025 2:14 AM EST04/07/2025 2:20 AM EST Narrative Authorizing ProviderResult TypeResult StatusJucarmen REYES BACK OFFICE LABS Final ResultPerforming OrganizationAddressCity/State/ZIP CodePhone Number NURSING GLUCOSE PROGRAM [address] [place] [address] * (ABNORMAL) GLUCOSE, FINGERSTICK-IN OFFICE (04/06/2025 8:21 PM EST)Component ValueRef RangeTest MethodAnalysis TimePerformed AtPathologist Signature Glucose, XLK802(H)74 - 109 mg/dL04/06/2025 8:38 PM ESTNURSING GLUCOSE PROGRAM Specimen (Source)Anatomical Location / LateralityCollection Method / Volume Collection TimeReceived TimeBloodBLOOD SPECIMEN / Kkshyep9904/06/2025 8:21 PM EST04/06/2025 8:38 PM EST Narrative Authorizing ProviderResult TypeResult StatusJustin Georges MDEC BACK OFFICE LABS Final ResultPerforming OrganizationAddressCity/State/ZIP CodePhone Number NURSING GLUCOSE PROGRAM [address] [place] [address] * GLUCOSE, FINGERSTICK-IN OFFICE (04/06/2025 2:23 PM EST)ComponentValueRef Range Test MethodAnalysis TimePerformed AtPathologist SignatureGlucose, PLS7663 - 109 mg/dL04/06/2025 2:30 PM ESTNURSING GLUCOSE PROGRAMSpecimen (Source) Anatomical Location / LateralityCollection Method / VolumeCollection Time Received TimeBloodBLOOD SPECIMEN / Dxmrhvl6604/06/2025 2:23 PM EST04/06/2025 2:30 PM EST Narrative Authorizing ProviderResult TypeResult StatusJustin Georges MDEC BACK OFFICE LABS Final ResultPerforming OrganizationAddressty/State/ZIP CodePhone Number NURSING GLUCOSE PROGRAM [address] [place] [address] * XR ABDOMEN AP 1 VIEW (04/06/2025 [...] right rightlung. MACRO: None Authorizing ProviderResult TypeResult JordyTri-City Medical Centersabrina Blackman PA-CEC DIAGNOSTIC X-RAYFinal Result * GLUCOSE, FINGERSTICK-IN OFFICE (04/06/2025 8:28 AM EST)ComponentValueRef Range Test MethodAnalysis TimePerformed AtPathologist SignatureGlucose, AXX2211 - 109 mg/dL04/06/2025 8:34 AM ESTNURSING GLUCOSE PROGRAMSpecimen (Source) Anatomical Location / LateralityCollection Method / VolumeCollection Time Received TimeBloodBLOOD SPECIMEN / Itmeetv3604/06/2025 8:28 AM EST04/06/2025 8:34 AM EST Narrative Authorizing ProviderResult TypeResult Hilton REYES BACK OFFICE LABSFinal ResultPerforming OrganizationAddressCity/State/ZIP CodePhone Number NURSING GLUCOSE PROGRAM [address] [place] [address] * GLUCOSE, FINGERSTICK-IN OFFICE (04/06/2025 2:47 AM EST)ComponentValueRef Range Test MethodAnalysis TimePerformed AtPathologist SignatureGlucose, YNB6608 - 109 mg/dL04/06/2025 2:53 AM ESTNURSING GLUCOSE PROGRAMSpecimen (Source) Anatomical Location / LateralityCollection Method / VolumeCollection Time Received TimeBloodBLOOD SPECIMEN / Ivmccky3004/06/2025 2:47 AM EST04/06/2025 2:53 AM EST Narrative Authorizing ProviderResult TypeResult Hilton Ladd MD BACK OFFICE LABSFinal ResultPerforming OrganizationAddressCity/State/ZIP CodePhone Number NURSING GLUCOSE PROGRAM [address] [place] [address] * (ABNORMAL) BASIC METABOLIC PANEL (04/06/2025 1:33 AM EST)ComponentValueRef RangeTest MethodAnalysis TimePerformed AtPathologist ZpstqldmiXfesuao5200 - 109 mg/dL04/06/2025 2:17 AM [facility] IZSOXOUXXEWyfvan753591 - 145 mmol/L106/06/2024 2:17 AM [facility] PATHOLOG[facility] LABORATORYPotassium3.93.5 - 5.0 mmol/L106/06/2024 2:17 AM [facility] PATHOLOG[facility] LABORATORYCarbon Gjpzwtt4240 - 31 mmol/L106/06/2024 2:17 AM [facility] KJVLVFITJKQgnyijgo002(H)98 - 107 mmol/L106/06/2024 2:17 AM [facility] PATHOLOGY LABORATORYBlood Urea Dxlxtlbl442 - 25 mg/dL04/06/2025 2:17 AM [facility] LABORATORYCreatinine1.090.60 - 1.20 mg/dL04/06/2025 2:17 AM [facility] PATHOLOGY LABORATORYCalcium7.7(L)8.6 - 10.3 mg/dL04/06/2025 2:17 AM [facility] PATHOLOGY LABORATORYAnion Vlb1342 - 20 04/06/2025 2:17 AM [facility]OLOGY LABORATORYEstimated GFR (CKD-EPI)57(L)>=60 mL/min/1.21yrd5606/06/2024 2:17 AM [facility] PATHOLOGY LABORATORYComment: 2020 CKD EPI Equation using [...] Med 2021 Vol. 385 Issue 19 Pages 0187-3448 Specimen (Source)Anatomical Location / LateralityCollection Method / Volume Collection TimeReceived TimeBloodBLOOD SPECIMEN / UnknownVenipuncture / Unknown 04/06/2025 1:33 AM EST04/06/2025 1:55 AM EST Narrative Authorizing ProviderResult TypeResult StatusJimmy Shah MD98 GENERAL LABFinal ResultPerforming OrganizationAddressCity/State/ZIP CodePhone Number [facility] [address] [place] [address] * (ABNORMAL) COMPLETE BLOOD COUNT (04/06/2025 1:33 AM EST)ComponentValueRef RangeTest MethodAnalysis TimePerformed AtPathologist SignatureWBC6.94.5 - 11.5 K/uL04/06/2025 2:09 AM [facility] PATHOLOG[facility] LABORATORYRBC3.88(L)4.00 - 5.20 M/uL 04/06/2025 2:09 AM [facility] FQTUOCWGSYDpocjlqljb77.012.0 - 15.0 g/dL 04/06/2025 2:09 AM [facility] KLTETZVYBUQuqrlwtaeh53.236.0 - 46.0 % 04/06/2025 2:09 AM [facility] SOTPSHPFVVNDQ3252 - 100 fL04/06/2025 2:09 AM [facility] DIKXZIFUWJGTD78.926.0 - 34.0 pg04/06/2025 2:09 AM [facility] EOBUDQRIMUNCYX16.232.0 - 35.9 g/dL04/06/2025 2:09 AM [facility] EXHAKZONIHBvawhpzt432370 - 400 K/uL04/06/2025 2:09 AM [facility]Y LABORATORYRDW-CV15.4(H)11.5 - 14.5 %04/06/2025 2:09 AM [facility]Y LABORATORYMPV8.97.5 - 11.2 fL04/06/2025 2:09 AM [facility]OLOGY LABORATORYSpecimen (Source)Anatomical Location / LateralityCollection Method / VolumeCollection TimeReceived TimeBloodBLOOD SPECIMEN / UnknownVenipuncture / Lemenfr7404/06/2025 1:33 AM EST04/06/2025 1:54 AM EST Narrative Authorizing ProviderResult TypeResult StatusJimmy Shah MD98 GENERAL LABFinal ResultPerforming OrganizationAddressCity/State/ZIP CodePhone Number [facility] [address] [place] [address] * PHOSPHORUS (04/06/2025 1:33 AM EST)ComponentValueRef RangeTest MethodAnalysis TimePerformed AtPathologist SignaturePhosphorus, Serum3.42.5 - 5.0 mg/dL 04/06/2025 2:17 AM [facility] LABORATORYSpecimen (Source)Anatomical Location / LateralityCollection Method / VolumeCollection TimeReceived Time BloodBLOOD SPECIMEN / UnknownVenipuncture / Vdcslyf5504/06/2025 1:33 AM EST 04/06/2025 1:55 AM EST Narrative Authorizing ProviderResult TypeResult Juliette Shah MD98 GENERAL LABFinal ResultPerforming OrganizationAddressCity/State/ZIP CodePhone Number [facility] [address] [place] [address] * (ABNORMAL) MAGNESIUM (04/06/2025 1:33 AM EST)ComponentValueRef RangeTest MethodAnalysis TimePerformed AtPathologist SignatureMagnesium3.0(H)1.9 - 2.7 mg/dL04/06/2025 2:19 AM [facility] PATHOLOG[facility] LABORATORYSpecimen (Source)Anatomical Location / LateralityCollection Method / VolumeCollection TimeReceived Time BloodBLOOD SPECIMEN / UnknownVenipuncture / Kwezmar0204/06/2025 1:33 AM EST 04/06/2025 1:55 AM EST Narrative Authorizing ProviderResult TypeResult Juliette JOHANSEN GENERAL LABFinal ResultPerforming OrganizationAddressCity/State/ZIP CodePhone Number [facility] [address] [place] [address] * GLUCOSE, FINGERSTICK-IN OFFICE (04/05/2025 8:31 PM EST)ComponentValueRef Range Test MethodAnalysis TimePerformed AtPathologist SignatureGlucose, FKK0535 - 109 mg/dL04/05/2025 8:37 PM ESTNURSING GLUCOSE PROGRAMSpecimen (Source) Anatomical Location / LateralityCollection Method / VolumeCollection Time Received TimeBloodBLOOD SPECIMEN / Yqbuhno1804/05/2025 8:31 PM EST04/05/2025 8:37 PM EST Narrative Authorizing ProviderResult TypeResult Hilton REYES BACK OFFICE LABSFinal ResultPerforming OrganizationAddressCity/State/ZIP CodePhone Number NURSING GLUCOSE PROGRAM [address] [place] [address] * GLUCOSE, FINGERSTICK-IN OFFICE (04/05/2025 4:37 PM EST)ComponentValueRef Range Test MethodAnalysis TimePerformed AtPathologist SignatureGlucose, QDM8753 - 109 mg/dL04/05/2025 4:44 PM ESTNURSING GLUCOSE PROGRAMSpecimen (Source) Anatomical Location / LateralityCollection Method / VolumeCollection Time Received TimeBloodBLOOD SPECIMEN / Areajqh4304/05/2025 4:37 PM EST04/05/2025 4:44 PM EST Narrative Authorizing ProviderResult TypeResult Hilton REYES BACK OFFICE LABSFinal ResultPerforming OrganizationAddressCity/State/ZIP CodePhone Number NURSING GLUCOSE PROGRAM [address] [place] [address] * ANTI FXA-LMW HEPARIN (04/05/2025 2:00 PM EST)ComponentValueRef RangeTest MethodAnalysis TimePerformed AtPathologist SignatureAnti FXA-LMW Heparin Assay 0.14IU/mL04/05/2025 3:05 PM ESTLOVELACE [facility] LABORATORYSpecimen (Source) Anatomical Location / LateralityCollection Method / VolumeCollection Time Received TimeBloodBLOOD SPECIMEN / UnknownVenipuncture / Cxeqkqk9604/05/2025 2:00 PM EST04/05/2025 2:33 PM EST Narrative [facility] - 04/05/2025 3:05 PM EST The recommended therapeutic range for treatment of thrombosis with Low Molecular Weight Heparin is 0.5 - 1.0 IU/mL The recommended range for VTE prophylaxis with Low Molecular Weight Heparin is 0.2 - 0.4 IU/mL. Authorizing ProviderResult TypeResult Rafiq SANDOVAL-C98 GENERAL LABFinal ResultPerforming OrganizationAddressCity/State/ZIP CodePhone Number [facility] [address] [place] [phone] * GLUCOSE, FINGERSTICK-IN OFFICE (04/05/2025 11:44 AM EST)ComponentValueRef RangeTest MethodAnalysis TimePerformed AtPathologist SignatureGlucose, QGS2139 - 109 mg/dL04/05/2025 11:50 AM ESTNURSING GLUCOSE PROGRAMSpecimen (Source) Anatomical Location / LateralityCollection Method / VolumeCollection Time Received TimeBloodBLOOD SPECIMEN / Beeelpb1204/05/2025 11:44 AM EST04/05/2025 11:50 AM EST Narrative Authorizing ProviderResult TypeResult Hilton REYES BACK OFFICE LABSFinal ResultPerforming OrganizationAddressCity/State/ZIP CodePhone Number NURSING GLUCOSE PROGRAM [address] [place] [address] * GLUCOSE, FINGERSTICK-IN OFFICE (04/05/2025 9:12 AM EST)ComponentValueRef Range Test MethodAnalysis TimePerformed AtPathologist SignatureGlucose, YUO2584 - 109 mg/dL04/05/2025 9:18 AM ESTNURSING GLUCOSE PROGRAMSpecimen (Source) Anatomical Location / LateralityCollection Method / VolumeCollection Time Received TimeBloodBLOOD SPECIMEN / Zhcfjpa6704/05/2025 9:12 AM EST04/05/2025 9:18 AM EST Narrative Authorizing ProviderResult TypeResult Hilton REYES BACK OFFICE LABSFinal ResultPerforming OrganizationAddressCity/State/ZIP CodePhone Number NURSING GLUCOSE PROGRAM [address] [place] [address] * (ABNORMAL) BASIC METABOLIC PANEL (04/05/2025 4:20 AM EST)ComponentValueRef RangeTest MethodAnalysis TimePerformed AtPathologist XzdgobbdaOrrbhbj065(H)74 - 109 mg/dL04/05/2025 4:58 AM ESTS PATHOLOGY OBTPBMKUJYDjhupg588(H)136 - 145 mmol/L106/05/2024 4:58 AM ESTS PATHOLOGY LABORATORYPotassium3.93.5 - 5.0 mmol/L106/05/2024 4:58 AM ESTS PATHOLOGY LABORATORYCarbon Yzwpbub4946 - 31 mmol/L106/05/2024 4:58 AM ESTS PATHOLOGY FHSCCEOLDFSenzdaik530(H)98 - 107 mmol/L106/05/2024 4:58 AM ESTS PATHOLOGY LABORATORYBlood Urea Jwclwuqd57(H)7 - 25 mg/dL04/05/2025 4:58 AM ESTS PATHOLOGY LABORATORYCreatinine1.170.60 - 1.20 mg/dL04/05/2025 4:58 AM ESTS PATHOLOGY LABORATORYCalcium7.7(L)8.6 - 10.3 mg/dL04/05/2025 4:58 AM ESTS PATHOLOGY LABORATORYAnion Wvy4279 - 20 04/05/2025 4:58 [facility] LABORATORYEstimated GFR (CKD-EPI)52(L)>=60 mL/min/1.70fen2706/05/2024 4:58 AM [facility] PATHOLOGY LABORATORYComment: 2020 CKD EPI Equation using [...] Med 2021 Vol. 385 Issue 19 Pages 5998-4941 Specimen (Source)Anatomical Location / LateralityCollection Method / Volume Collection TimeReceived TimeBloodBLOOD SPECIMEN / UnknownVenipuncture / Unknown 04/05/2025 4:20 AM EST04/05/2025 4:33 AM EST Narrative Authorizing ProviderResult TypeResult StatusJimmy Shah MD98 GENERAL LABFinal ResultPerforming OrganizationAddressCity/State/ZIP CodePhone Number [facility] [address] [place] [phone] * (ABNORMAL) COMPLETE BLOOD COUNT (04/05/2025 4:20 AM EST)ComponentValueRef RangeTest MethodAnalysis TimePerformed AtPathologist SignatureWBC6.04.5 - 11.5 K/uL04/05/2025 4:38 AM [facility] PATHOLOGY LABORATORYRBC4.164.00 - 5.20 M/uL 04/05/2025 4:38 AM [facility] PATHOLOG[facility] HWIIFJVVDDIsgbblnztu04.612.0 - 15.0 g/dL 04/05/2025 4:38 AM [facility] PATHOLOGY PNJHMRAGGHRorcvjihny97.436.0 - 46.0 % 04/05/2025 4:38 AM [facility] PATHOLOGY UMGOKEYDPZKZD4972 - 100 fL04/05/2025 4:38 AM [facility] PATHOLOGY IACXDHTHFSMUY66.326.0 - 34.0 pg04/05/2025 4:38 AM [facility] PATHOLOG[facility] SXVKQVHGOJJYAT00.832.0 - 35.9 g/dL04/05/2025 4:38 AM [facility] PATHOLOG[facility] XJOOIKHPFISzmezouo155153 - 400 K/uL04/05/2025 4:38 AM [facility] PATHOLOGY LABORATORYRDW-CV15.0(H)11.5 - 14.5 %04/05/2025 4:38 AM [facility] PATHOLOGY LABORATORYMPV9.07.5 - 11.2 fL04/05/2025 4:38 AM [facility] PATHOLOGY LABORATORYSpecimen (Source)Anatomical Location / LateralityCollection Method / VolumeCollection TimeReceived TimeBloodBLOOD SPECIMEN / UnknownVenipuncture / Nvmyfrp5004/05/2025 4:20 AM EST04/05/2025 4:33 AM EST Narrative Authorizing ProviderResult TypeResult Juliette JOHANSEN GENERAL LABFinal ResultPerforming OrganizationAddressCity/State/ZIP CodePhone Number [facility] [address] [place] [phone] * PHOSPHORUS (04/05/2025 4:20 AM EST)ComponentValueRef RangeTest MethodAnalysis TimePerformed AtPathologist SignaturePhosphorus, Serum3.72.5 - 5.0 mg/dL 04/05/2025 4:58 AM [facility] PATHOLOGY LABORATORYSpecimen (Source)Anatomical Location / LateralityCollection Method / VolumeCollection TimeReceived Time BloodBLOOD SPECIMEN / UnknownVenipuncture / Ejisosh5504/05/2025 4:20 AM EST 04/05/2025 4:33 AM EST Narrative Authorizing ProviderResult TypeResult Juliette JOHANSEN GENERAL LABFinal ResultPerforming OrganizationAddressCity/State/ZIP CodePhone Number [facility] [address] [place] [phone] * (ABNORMAL) MAGNESIUM (04/05/2025 4:20 AM EST)ComponentValueRef RangeTest MethodAnalysis TimePerformed AtPathologist SignatureMagnesium1.7(L)1.9 - 2.7 mg/dL04/05/2025 4:58 AM [facility] PATHOLOGY LABORATORYSpecimen (Source)Anatomical Location / LateralityCollection Method / VolumeCollection TimeReceived Time BloodBLOOD SPECIMEN / UnknownVenipuncture / Otvzneh1604/05/2025 4:20 AM EST 04/05/2025 4:33 AM EST Narrative Authorizing ProviderResult TypeResult StatusJimmy JOHANSEN GENERAL LABFinal ResultPerforming OrganizationAddressty/State/ZIP CodePhone Number S PATHOLOGY LABORATORY [address] [place] [phone] * (ABNORMAL) GLUCOSE, FINGERSTICK-IN OFFICE (04/05/2025 4:19 AM EST)Component ValueRef RangeTest MethodAnalysis TimePerformed AtPathologist Signature Glucose, MHM252(H)74 - 109 mg/dL04/05/2025 4:25 AM ESTNURSING GLUCOSE PROGRAM Specimen (Source)Anatomical Location / LateralityCollection Method / Volume Collection TimeReceived TimeBloodBLOOD SPECIMEN / Nrpzbph6204/05/2025 4:19 AM EST04/05/2025 4:25 AM EST Narrative Authorizing ProviderResult TypeResult Hilton REYES BACK OFFICE LABSFinal ResultPerforming OrganizationAddressty/State/ZIP CodePhone Number NURSING GLUCOSE PROGRAM [address] [place] [phone] * (ABNORMAL) GLUCOSE, FINGERSTICK-IN OFFICE (04/04/2025 9:55 PM EST)Component ValueRef RangeTest MethodAnalysis TimePerformed AtPathologist Signature Glucose, LWS302(H)74 - 109 mg/dL04/04/2025 10:01 PM ESTNURSING GLUCOSE PROGRAM Comment:Notified JEFF MONTALVO MD
Specimen (Source)Anatomical Location / LateralityCollection Method / VolumeCollection TimeReceived TimeBloodBLOOD SPECIMEN / Fmsvqjh3804/04/2025 9:55 PM EST04/04/2025 10:01 PM EST Narrative Authorizing ProviderResult TypeResult Hilton REYES BACK OFFICE LABSFinal ResultPerforming OrganizationAddTorrance State Hospitalty/State/ZIP CodePhone Number NURSING GLUCOSE PROGRAM [address] [place] [phone] * (ABNORMAL) GLUCOSE, FINGERSTICK-IN OFFICE (04/04/2025 4:32 PM EST)Component ValueRef RangeTest MethodAnalysis TimePerformed AtPathologist Signature Glucose, UEL235(H)74 - 109 mg/dL04/04/2025 4:38 PM ESTNURSING GLUCOSE PROGRAM Comment:Notified JEFF MONTALVO MD
Specimen (Source)Anatomical Location / LateralityCollection Method / VolumeCollection TimeReceived TimeBloodBLOOD SPECIMEN / Nemshwp8604/04/2025 4:32 PM EST04/04/2025 4:38 PM EST Narrative Authorizing ProviderResult TypeResult Hilton REYES BACK OFFICE LABSFinal ResultPerforming OrganizationAddressCity/State/ZIP CodePhone Number NURSING GLUCOSE PROGRAM [address] [place], [place] [phone] * (ABNORMAL) GLUCOSE, FINGERSTICK-IN OFFICE (04/04/2025 12:10 PM EST)Component ValueRef RangeTest MethodAnalysis TimePerformed AtPathologist Signature Glucose, KPI397(H)74 - 109 mg/dL04/04/2025 12:18 PM ESTNURSING GLUCOSE PROGRAM Specimen (Source)Anatomical Location / LateralityCollection Method / Volume Collection TimeReceived TimeBloodBLOOD SPECIMEN / Frmhmbd4904/04/2025 12:10 PM EST04/04/2025 12:18 PM EST Narrative Authorizing ProviderResult TypeResult Hilton REYES BACK OFFICE LABSFinal ResultPerforming OrganizationAddressCity/State/ZIP CodePhone Number NURSING GLUCOSE PROGRAM [address] [place], [place] [phone] * CT ABDOMEN/PELVIS W/ CONTRAST (04/04/2025 11:28 AM EST)ComponentValueRef Range Test MethodAnalysis TimePerformed AtPathologist SignatureCTDI VOL15.8 (mGy),20.8 (mGy)RADIOLOGYPHANTOM TYPEIE Body Dosimetry Phantom,IEC Body Dosimetry PhantomRADIOLOGYCT SIQ9265.1 (mGy.cm)RADIOLOGYCT Series Abdomen,AbdomenRADIOLOGYAnatomical RegionLateralityModalityCT Abdomen, Pelvis and [...] with the resident's interpretation. Authorizing ProviderResult TypeResult StatusAllymorton county custer health Juan SANDOVAL-CEC CT SCAN Final Result * EKG 12 LEAD - PERFORM (04/04/2025 9:28 AM EST)ComponentValueRef RangeTest MethodAnalysis TimePerformed AtPathologist SignatureVentricular jpzx55RLXENIN Atrial Avyh71CNXQWFWZ-J Iwmulrxf776bkISZIMDU ypdghusk12ltXDTXF-N stweizjn654gg MUSEQTC CALCULATION(BEZET)497msMUSEP puwp80ntbxppfIUUCP jaut4tbhowyxVDAJP axis -19degreesMUSEDiagnosisNormal sinus rhythm Low voltage QRS, [...] Edited Result - FinalPerforming OrganizationAddressCity/State/ZIP CodePhone Number [facility] [address] [facility] [place] [address] * CONFIRMATION ABO/RH (04/04/2025 8:22 AM EST)ComponentValueRef RangeTest Method Analysis TimePerformed AtPathologist SignatureABO Rh TypeA Pmlxfzci35/15/2025 9:48 AM [facility] PATHOLOGY LABORATORYSpecimen Expiration [id number] 04/04/2025 9:48 AM [facility] PATHOLOGY LABORATORYABO Rh/Di/TXRX HistoryA Udbycyhg75/15/2025 9:48 AM [facility] PATHOLOGY LABORATORYSpecimen (Source) Anatomical Location / LateralityCollection Method / VolumeCollection Time Received TimeBloodBLOOD SPECIMEN / UnknownVenipuncture / Djrwmyw7004/04/2025 8:22 AM EST04/04/2025 9:02 AM EST Narrative Authorizing ProviderResult TypeResult StatusJimmy Shah MD BLOOD BANKFinal ResultPerforming OrganizationAddressCity/State/ZIP CodePhone Number [facility] [address] [place] [address] * XR ABDOMEN AP 1 VIEW (04/04/2025 [...] ValueRef RangeTest MethodAnalysis TimePerformed AtPathologist Signature Glucose, OPA027(H)74 - 109 mg/dL04/04/2025 5:23 AM ESTNURSING GLUCOSE PROGRAM Specimen (Source)Anatomical Location / LateralityCollection Method / Volume Collection TimeReceived TimeBloodBLOOD SPECIMEN / Gsxvrei6604/04/2025 5:16 AM EST04/04/2025 5:23 AM EST Narrative Authorizing ProviderResult TypeResult Hilton REYES BACK OFFICE LABSFinal ResultPerforming OrganizationAddressCity/State/ZIP CodePhone Number NURSING GLUCOSE PROGRAM [address] [place] [phone] * (ABNORMAL) BASIC METABOLIC PANEL (04/04/2025 5:13 AM EST)ComponentValueRef RangeTest MethodAnalysis TimePerformed AtPathologist IfgenzylwZokeqkt864(H)74 - 109 mg/dL04/04/2025 6:15 AM ESTS PATHOLOGY EYGYNNEHTQAxufja864009 - 145 mmol/L106/04/2024 6:15 AM ESTS PATHOLOGY LABORATORYPotassium4.03.5 - 5.0 mmol/L106/04/2024 6:15 AM [facility] PATHOLOGY LABORATORYCarbon Qvibbcq6919 - 31 mmol/L106/04/2024 6:15 AM [facility] PATHOLOGY HVCOGRAPWWAeviqtll585(H)98 - 107 mmol/L106/04/2024 6:15 AM [facility] PATHOLOGY LABORATORYBlood Urea Xqueshmr081 - 25 mg/dL04/04/2025 6:15 AM [facility] PATHOLOGY LABORATORYCreatinine0.930.60 - 1.20 mg/dL04/04/2025 6:15 AM [facility] PATHOLOGY LABORATORYCalcium8.3(L)8.6 - 10.3 mg/dL04/04/2025 6:15 AM [facility] PATHOLOGY LABORATORYAnion Zzm4350 - 20 04/04/2025 6:15 AM [facility] PATHOLOGY LABORATORYEstimated GFR (CKD-EPI)69>=60 mL/min/1.57eup8706/04/2024 6:15 AM [facility] PATHOLOGY LABORATORYComment: 2020 CKD EPI Equation using [...] Med 2021 Vol. 385 Issue 19 Pages 1059-8204 Specimen (Source)Anatomical Location / LateralityCollection Method / Volume Collection TimeReceived TimeBloodBLOOD SPECIMEN / UnknownVenipuncture / Unknown 04/04/2025 5:13 AM EST04/04/2025 5:38 AM EST Narrative Authorizing ProviderResult TypeResult StatusJimmy Shah MD98 GENERAL LABFinal ResultPerforming OrganizationAddressCity/State/ZIP CodePhone Number [facility] [address] [place] [phone] * ANTIBODY ID - LAB USE ONLY (04/04/2025 5:13 AM EST)ComponentValueRef RangeTest MethodAnalysis TimePerformed AtPathologist SignatureAntibody IdentificationSee Gssoflyh80/15/2025 1:05 PM [facility] PATHOLOGY LABORATORYComment: Anti-D demonstrating in PEG Panaglutinin in GEL, Anti-D in PEG Specimen Expiration [id number]/15/2025 1:05 PM [facility] PATHOLOGY LABORATORYSpecimen (Source)Anatomical Location / LateralityCollection Method / VolumeCollection TimeReceived TimeBloodBLOOD SPECIMEN / UnknownVenipuncture / Zkifmea7204/04/2025 5:13 AM EST04/04/2025 5:42 AM EST Narrative Authorizing ProviderResult TypeResult Juliette REYES LAB ORDER ONLY Final ResultPerforming OrganizationAddressCity/State/ZIP CodePhone Number [facility] [address] [place] [phone] * DIRECT ANTIGLOBULIN TEST (04/04/2025 5:13 AM EST)ComponentValueRef RangeTest MethodAnalysis TimePerformed AtPathologist SignatureDAT PolyspecificPositive 04/04/2025 9:54 AM [facility] PATHOLOGY LABORATORYDAT QocuowdjlyWgyzhnil60/15/2025 9:54 AM [facility] PATHOLOGY LABORATORYDAT PdQHyggjvaj14/15/2025 9:54 AM [facility] PATHOLOGY LABORATORYSpecimen Expiration [id number]/15/2025 9:54 AM [facility] PATHOLOGY LABORATORYNegative PmbetqxNcycqpwo25/15/2025 9:54 AM [facility] PATHOLOGY LABORATORYSpecimen (Source)Anatomical Location / Laterality Collection Method / VolumeCollection TimeReceived TimeBloodBLOOD SPECIMEN / UnknownVenipuncture / Yraasgb5104/04/2025 5:13 AM EST04/04/2025 5:42 AM EST Narrative Authorizing ProviderResult TypeResult Juliette REYES BLOOD BANKFinal ResultPerforming OrganizationAddressCity/State/ZIP CodePhone Number [facility] [address] [place] [address] * TYPE AND SCREEN (04/04/2025 5:13 AM EST)ComponentValueRef RangeTest Method Analysis TimePerformed AtPathologist SignatureABO Rh TypeA Wyukuhlf65/15/2025 9:49 AM ESTM[facility] PATHOLOGY LABORATORYAb Screen GkjasuSmdajxch15/15/2025 9:49 AM [facility] PATHOLOGY LABORATORYSpecimen Expiration [id number]/15/2025 9:49 AM [facility] PATHOLOGY LABORATORYABO Rh/Di/TXRX HistoryNo Previous Results 04/04/2025 9:49 AM [facility] PATHOLOGY LABORATORYSpecimen (Source)Anatomical Location / LateralityCollection Method / VolumeCollection TimeReceived Time BloodBLOOD SPECIMEN / UnknownVenipuncture / Zrswcbc5804/04/2025 5:13 AM EST 04/04/2025 5:42 AM EST Narrative Authorizing ProviderResult TypeResult Juliette Shah MDEC BLOOD BANKFinal ResultPerforming OrganizationAddressCity/State/ZIP CodePhone Number [facility] [address] [place] [phone] * (ABNORMAL) PROTHROMBIN TIME AND INR (04/04/2025 5:13 AM EST)ComponentValueRef RangeTest MethodAnalysis TimePerformed AtPathologist RataufdrzUgdelxa34.3(H) 9.7 - 12.9 sec04/04/2025 6:14 AM [facility] PATHOLOGY LABORATORYINR1.19(H)0.90 - 1.10106/04/2024 6:14 AM [facility] PATHOLOGY LABORATORYSpecimen (Source)Anatomical Location / LateralityCollection Method / VolumeCollection TimeReceived Time BloodBLOOD SPECIMEN / UnknownVenipuncture / Ihwwanb5004/04/2025 5:13 AM EST 04/04/2025 5:41 AM EST Narrative Authorizing ProviderResult TypeResult Juliette Shah MD98 GENERAL LABFinal ResultPerforming OrganizationAddressCity/State/ZIP CodePhone Number [facility] [address] [place] [address] * (ABNORMAL) COMPLETE BLOOD COUNT (04/04/2025 5:13 AM EST)ComponentValueRef RangeTest MethodAnalysis TimePerformed AtPathologist SignatureWBC4.4(L)4.5 - 11.5 K/uL04/04/2025 5:47 AM [facility] PATHOLOGY LABORATORYRBC4.064.00 - 5.20 M/uL 04/04/2025 5:47 AM [facility] PATHOLOGY KHREAVOYPSZupfdizkfz65.812.0 - 15.0 g/dL 04/04/2025 5:47 AM [facility] PATHOLOGY RGBIIIIVQVFqhgawidks62.836.0 - 46.0 % 04/04/2025 5:47 AM [facility] PATHOLOGY HALLXMAIWZJEB8748 - 100 fL04/04/2025 5:47 AM [facility] PATHOLOGY IMDATDSOXEJHU07.626.0 - 34.0 pg04/04/2025 5:47 AM [facility] PATHOLOGY UECBFFNRZUYVKJ00.032.0 - 35.9 g/dL04/04/2025 5:47 AM [facility] PATHOLOGY NPJAJTIFIBYqzjagje268798 - 400 K/uL04/04/2025 5:47 AM [facility] PATHOLOGY LABORATORYRDW-CV14.9(H)11.5 - 14.5 %04/04/2025 5:47 AM [facility] PATHOLOGY LABORATORYMPV9.07.5 - 11.2 fL04/04/2025 5:47 AM [facility] PATHOLOGY LABORATORYSpecimen (Source)Anatomical Location / LateralityCollection Method / VolumeCollection TimeReceived TimeBloodBLOOD SPECIMEN / UnknownVenipuncture / Kpmhgyj4904/04/2025 5:13 AM EST04/04/2025 5:41 AM EST Narrative Authorizing ProviderResult TypeResult StatusJimmy JOHANSEN GENERAL LABFinal ResultPerforming OrganizationAddressCity/State/ZIP CodePhone Number [facility] [address] [place] [address] * PHOSPHORUS (04/04/2025 5:13 AM EST)ComponentValueRef RangeTest MethodAnalysis TimePerformed AtPathologist SignaturePhosphorus, Serum3.02.5 - 5.0 mg/dL 04/04/2025 6:15 AM [facility] PATHOLOGY LABORATORYSpecimen (Source)Anatomical Location / LateralityCollection Method / VolumeCollection TimeReceived Time BloodBLOOD SPECIMEN / UnknownVenipuncture / Uqemyjc8504/04/2025 5:13 AM EST 04/04/2025 5:38 AM EST Narrative Authorizing ProviderResult TypeResult StatusJimmy JOHANSEN GENERAL LABFinal ResultPerforming OrganizationAddressCity/State/ZIP CodePhone Number [facility] [address] [place] [address] * MAGNESIUM (04/04/2025 5:13 AM EST)ComponentValueRef RangeTest MethodAnalysis TimePerformed AtPathologist SignatureMagnesium1.91.9 - 2.7 mg/dL04/04/2025 6:15 AM [facility] LABORATORYSpecimen (Source)Anatomical Location / LateralityCollection Method / VolumeCollection TimeReceived TimeBloodBLOOD SPECIMEN / UnknownVenipuncture / Xtgvwdl2604/04/2025 5:13 AM EST04/04/2025 5:38 AM EST Narrative Authorizing ProviderResult TypeResult Juliette JOHANSEN GENERAL LABFinal ResultPerforming OrganizationAddressCity/State/ZIP CodePhone Number [facility] [address] [place] [address] * XRAY ABDOMEN IMAGE IMPORT(NERIS) (04/04/2025 4:48 [...] Final Result from Last 3 [place] [address] Advance Directives * Full Code (Latest Code Status on File) Date ActivatedDate HzlfhvcfcxeVntkszmr42/15/2025 4:31 AM04/07/2025 4:15 PM QuestionAnswerCommentsDocumentation of decision process for this code status:* Discussed with patient or surrogate.?? This is the code status chosen by the patient/surrogate.
--- OUTSIDE RECORDS SUMMARY | 2025-05-07 10:16 | XMS_ITS | Clinical Summary ---
Author Organization [facility] Address [address] [place] [address] Care Team Providers Care Dip Guider Stoves Name Role Phone Tom Paez DO Primary Care Provider [phone] Allergies Active AllergyReactionsCriticalityNoted DateCommentsPenicillinOther: See RqyugxzeKtxn34/09/2018 Childhood reaction- HIVES, in hospital for 1 [...] DateDiagnosed DateNicotine use disorder, F17.Ureteral stricture, right11/20/2017Ureteral galebhojt75/17/2018 Overview (09/04/2017): Added automatically from request for surgery [id number] Hydronephrosis with ureteral stricture, not elsewhere oimacfsuos53/03/2018 Wxjepxzkatylmw58/26/2018 Overview (06/15/2017): Added automatically from request for surgery [id number] Social History Tobacco UseTypesPacks/DayYears UsedDateSmoking Tobacco: Every DayCigarettes Smokeless Tobacco: Never Tobacco Cessation:Ready to Q uit: No PHQ-2AnswerDate RecordedRetired 06/19/2019 PHQ Kazrc767Area Deprivation IndexAnswerDate RecordedNational Score (1-100), lower number is lower riskNot on file04/27/2020State Score (1-10), lower number is lower riskNot on file 04/27/2020Data from: https://www.neighborhoodatlas.medicine.[facility].edu/. Last address used for calculationNot on file04/27/2020CommentsNoSex and Gender InformationValueDate RecordedSex Assigned at BirthNot on fileLegal Sex Tpwchz3704/23/2017 4:27 PM ESTGender IdentityNot on fileSexual OrientationNot on file Last Filed Vital Signs Vital SignReadingTime TakenCommentsBlood Esogzydn249/6607 2:46 PM EDT Spqzd7903 2:46 PM NKLTydbmnewfdl48.4 ??C (97.5 ??F)11/23/2017 7:18 AM EDTRespiratory Ohhd445111/23/2017 7:18 AM EDTOxygen Dlzporhthk13%11/23/2017 7:18 AM EDTInhaled Oxygen Concentration--Vfhuxp902.2 kg (223 lb)11/30/2017 2:46 PM MHYBcdssp963.1 cm (5' 5 )11/30/2017 2:46 PM EDTBody Mass Index37.11011/30/2017 2:46 PM EDT Plan of Treatment Health MaintenanceDue DateLast DoneCommentsAnxiety Kelphxwhi81/28/1979Depression Efmhobaab60/28/1979HIV Esivwqfpm14/28/1979Hepatitis C Whrtduqgi05/28/1979 DTaP,Tdap,Td Vaccine (1 - Tdap)12/16/1979Cervical Cancer Wddhknryf26/28/1982 Mammogram Uscbxezbn18/28/2001CT Vqazykfdqnzu85/28/2006Cologuard (FIT-DNA) 12/15/20050826Dodholenjgq43/28/2006Colorectal Cancer Dubdhuivo66/28/2006Fecal Occult Blood2005Lipid Wntfqbukm05/28/6916Rmxindsjbyiqy31/28/2006Shingrix Vaccine (1 of 2)2010Pneumococcal Vaccine: 50+ (2 of 2 - PCV)/03/2020 Diabetes Dkfmhqktu14, 05/07/2020, 05/06/2020, Additional history existsCovid-19 Vaccine (3 - season)/12/2020, 10/05/2020Influenza Vaccine (#1)/03/2023, 04/30/2020, 03/08/2018RSV Vaccine (1 - 1-dose 75+ series)12/16/2035 Medical Devices ImplantedTypeAreaManufacturerDevice IdentifierShelf Expiration DateModel / Serial / LotStent Inlay [place] 7fr Taper [employer] Green Polymer Phreecoat 26cm Ureteral - [id number] Implanted:Qty: 1 on 11/19/2017 at [facility] MEDICAL [id number] / / [id number] Procedures Procedure NamePriorityDate/TimeAssociated DiagnosisCommentsCT OUTSIDE CD DICOM KEVADY2303/31/2025 BASIC METABOLIC KGQWQHbrweyo91/06/2019 5:02 PM EDT Obstruction of right ureter from Last 3 Months or Most Recently Relevant to Health Maintenance Results * CT-CT ABDOMEN PELVIS WO CON IMPORT (03/31/2025)Anatomical RegionLaterality ModalityOtherSpecimen (Source)Anatomical Location / LateralityCollection Method / VolumeCollection TimeReceived Time03/31/2025 Narrative 04/03/2025 9:06 AM EST Images were obtained outside of [facility] Procedure Note Provider, [facility] [place] - 04/03/2025 Images were obtained outside of [facility] Authorizing ProviderResult TypeResult StatusCcf ProviderRADIOLOGYFinal Result * (ABNORMAL) BASIC METABOLIC PNL (01/24/2019 5:02 PM EDT)ComponentValueRef Range Test MethodAnalysis TimePerformed AtPathologist AmoniryoqAjbaxqm5440 - 99 mg/dL01/24/2019 7:[address] [facility] LaboratoriesComment: The [place] Diabetes Association (ADA) provides guidance for cutoff [...] Standards of Medical Care in Diabetes 2016, [place] [employer] Association. Diabetes Care. 2016.39(Suppl 1). HOE984 - 21 mg/dL01/24/2019 7:33 PM [facility]TCbl[facility] LaboratoriesCreatinine 1.15(H)0.58 - 0.96 mg/dL01/24/2019 7:33 PM [facility] Bkwmpd653695 - 144 mmol/L01/24/2019 7:33 PM EDTCleveland [facility] Laboratories Potassium4.03.7 - 5.1 mmol/L01/24/2019 7:33 PM EDTCbl[facility] Bgvjsexw18017 - 105 mmol/L01/24/2019 7:33 PM EDTCleveland Clinic LaboratoriesCO2 2322 - 30 mmol/L01/24/2019 7:33 PM EDTCleveland Clinic LaboratoriesAnion Ftw563 - 18 mmol/L01/24/2019 7:33 PM EDTCleveland Clinic LaboratoriesCalcium9.38.5 - 10.2 mg/dL01/24/2019 7:33 PM EDTCbluffton hospitaland Clinic LaboratorieseGFR- Otmtdajx7852/06/2019 7:33 PM EDTCleveland Clinic LaboratorieseGFR-All Other Races48.01/24/2019 7:33 PM EDTCbluffton hospitaland Clinic LaboratoriesComment: eGFR (Estimated GFR) Units of [...] StatusRobakash Haq MDLABORATORYFinal ResultPerforming OrganizationAddressCity/State/ZIP CodePhone Number [facility] [address] [place] [address] [facility] [address] [place] [address] from Last 3 Months or Most Recently Relevant to Health Maintenance Insurance Care Teams Team MemberRelationshipSpecialtyStart DateEnd Date Tom Paez DO PCP - GeneralFamily Medicine05/29/17
--- OUTSIDE RECORDS SUMMARY | 2025-05-07 10:17 | XMS_ITS | Patient Health Record ---
Author Organization [facility] in [place] Address [address] [place] [address] Care Team Providers Care Electric Vehicle Electrician Name Role Phone Soledad Walton Primary Care Provider Reason For Referral No Information Medications Medication SIG (Take, Route, Frequency, Duration) Notes Start Date End Date Status Atorvastatin Calcium 40 MG TAKE 1 TABLET BY MOUT H EVERY DAY; Duration: 90 days ActiveKetoconazole 2 %1 application Externally Once a day; Duration: 14 day(s) ActivemedroxyPROGESTERone Vyuavpy6705/21/1899Not-NuxbxnFicaafn70/01/1900Not-Taking Baclofen 10 MG1 tablet as needed Orally [...] Orally Once a day; Duration: 30 day(s) Sku-FderuktbpVPVEJX-Iynkrwvxvhjpd 5-325 MG1 tablet as needed Orally every [...] alcohol in the p ast year? No Vsiwfo0WeilrkvjdwtkxeYzmjetor Problems Problem Type SNOMED Code ICD Code Onset Dates Problem Status W/U Status Risk Notes Problem Diabetic renal disease (56792419 3) Type 2 diabetes mellitus with diabetic chronic kidney disease (E11.22) ActiveconfirmedProblemObstructive sleep apnea (86570612)Obstructive sleep apnea (G47.33)ActiveconfirmedProblemCurrent smoker (58078785)Current smoker (F17.200) ActiveconfirmedProblemInsomnia (769282036)Insomnia, unspecified type (G47.00) ActiveconfirmedProblemDiabetes mellitus type 2 (84983102)Diabetes mellitus, type 2 (E11.9)ActiveconfirmedProblemAnxiety depression (489936028)Anxiety with depression (F41.8)ActiveconfirmedProblemAbsent kidney (189266346)H/O left nephrectomy (Z90.5)ActiveconfirmedProblemChronic kidney disease stage 3 (disorder) (402144639)Chronic kidney disease, stage 3 unspecified (N18.30)Active confirmed [...] Date [employer] ADV PLAN [address] [address] [place] [address] [id number] Lakhwinder Kim - patient is the insured Medical (General) History Surgical History Surgery Date(Month/Year) removal uter 11/2017 bowel surgery 11/2018
--- NOTE | 2025-05-07 10:40 | CM.NOTE ---
Dr. Lucas discussed with pt recommendations for skilled therapy at discharge, pt refuses at this time. Pt would like to speak with her son before making decision. CM or SW will come back this afternoon to discuss discharge planning with pt.
--- NOTE | 2025-05-07 11:00 | CM.NOTE ---
CM provided Dr. Lucas with discharge summary from pt's recent stay at [facility].
--- NOTE | 2025-05-07 11:00 | CM.NOTE ---
CRF completed per CM and signed by Dr. Lucas for HH services at discharge.
[2025-05-07] MEDS: 0.9 % SODIUM CHLORIDE 250 ML 10 ML IV (11:34)
--- NOTE | 2025-05-07 13:18 | NUTR.NU ---
Diabetic diet education was provided at bedside. Edie mi she is on oral diabetic medication at home. She eats food that she can picker and sorter load and unload because she has Parkinsons disease. Brochure planning healthy meals was provided
--- NOTE | 2025-05-07 13:18 | SWNOTE1 ---
PT/OT did recommend SNF. Pt had voiced to CM and nurse that she does not want to go to SNF. SW to discuss with pt as well. SW met with pt to discuss dc needs. Pt lives at home by herself, but her son and daughter in law are 5 minutes away. Pt's son does check on her daily. Pt does use a walker at home. Pt does not have any services coming in at this time. Pt then stated she is not going to a nursing facility, she is going home. Pt stated she is refusing to go to SNF. SW did let her know that as of today PT/OT did recommend for her safety to go to rehab for a short time. Pt stated she is not going. She is a home body and she also feels mentally it will be better for her to be at home. SW did ask pt if she was concerned about her insurance not paying for rehab? SW assured her that her insurance will pay for a set amount of days if approved. Pt voiced it is not the insurance she is concerned about, she just does not want to go to a prison. Concerned about being stuck there. SW did assure her that she will not be stuck there. Once she is doing better and her insurance cuts her, she would discharge home. Pt voiced she is not going to a nursing facility, she is going to go home. SW did offer home health services to come to the home. SW did let her know that HH would only be coming a few days of the week and it would be PT/OT and likely a nurse. SW did let her know that her insurance will likely give her a set number of visits for home health. Pt is in agreement with this. SW provided her with list from Medicare.gov with star ratings of home health companies. Pt voiced she does not want to decide. SW asked if she would be alright with [facility]. Pt is in agreement. SW to send referral. SW advised pt if she does change her mind and would like to go to SNF for rehab, to let SW know. Pt voiced understanding.
--- NOTE | 2025-05-07 13:26 | SWNOTE1 ---
Referral sent to [facility]. Referral included face sheet, ED note, H&P, provider notes, case management report med list, and PT/OT notes.
[2025-05-07] MEDS: AZITHROMYCIN 250 MG TABLET 500 MG PO (17:06)
[2025-05-08] VITALS (25 sets, daily range): BP systolic 90–104; BP diastolic 48–69; PULSE 40–93; TEMP 36.3–36.6; O2SAT 90–95
--- NOTE | 2025-05-08 08:04 | PM.IMPN1 ---
Progress Note: A&P Assessment and Plan (1) Dehydration, mild: (2) Generalized weakness: (3) Hypoxia: (4) Exertional shortness of breath: (5) Parkinsons disease: (6) Hypertension: (7) Diabetes mellitus: (8) Sleep apnea: (9) Acute kidney injury: Plan Edie Kim is a 64 y/o F, h/o Parkinson's, smoker, Parkinson's, RLS, HTN, HLD, MANDO on CPAP, DM Type II, CKD 3 in remaining R kidney, and anxiety recent admission/transfer to [facility] for small bowel obstruction managed non-operatively, presented to [facility] on 05/06/25 with generalized fatigue, dyspnea, and poor appetite for the past week prompting request for medical admission. 1. Generalized weakness and dyspnea in the setting of Parkinson's - In the emergency room, WBC 6.1, hemoglobin 12, platelet count 289, sodium 138, potassium 3.7, BUN 18, creatinine 1.74, lactic acid 1.1, influenza A B and COVID negative. Chest x-ray and CT angiography showed no acute pathology, does have hypoattenuating nodule in the right thyroid lobe and, noncalcified nodule in the left lower lung lobe unchanged from previous CT. - Suspected upper respiratory viral illness precipitating dehydration - baseline Cr appears around 1 based on prior labs on care everywhere - RSV -ve - Continue antibiotics for potential underlying bronchitis/COPD exacerbation contributing to mild hypoxia - Hold on steroids for now given lack of rhonchi on exam - continues to request discharge home with home health 2. Acute kidney injury - initial labs in system from prior [facility] admission prior to transfer to [facility] for small bowel obstruction - Creatinine on 04/07 at time of discharge was 1.04 - Cr 1.68 today, will start continuous IV fluids and plan for discharge tomorrow if renal function down trending 3. AST elevation - does have large hepatic cyst, no significant pain or concern for rupture - AST 89 on admission, 324 05/07, now 85 - given isolated change suspect either lab error or transient change from steroids - no further work up at this time Diet: Cardiac Daily Labs: CBC, BMP Lines/Drains: PIV DVT ppx: Lovenox Code status: Full Status: inpatient for dyspnea, generalized weakness, [facility] Internal [facility] - PN: Subj Subjective Interval history: Feels improved overall, eating breakfast without issue and denies abdominal pain. Had slight pain on admission after moving from CT scan but none since. Continues to request home health on discharge. Exam Narrative Exam Narrative: General: cooperative and tired appearing Orientation: alert, awake and oriented x3 Head: normal to inspection Neck: normal visual inspection Cardio: no JVD, regular rate, regular rhythm Chest palpation & inspection: normal inspection of the chest Resp Effort & Inspection: normal respiratory effort Abd: soft, non-tender, non-distended Extremities: Warm well perfused, no edema Constitutional Vital Signs, click to edit/add: Last Vital Signs Temp 97.7 F 05/08/25 07:45 Pulse 62 05/08/25 07:45 Resp 18 05/08/25 07:45 BP 93/57 05/08/25 07:45 Pulse Ox 91 L 05/08/25 07:45 O2 Del Method Room Air 05/08/25 07:45 O2 Flow Rate 2 05/07/25 19:38 Internal Medicine - PN: Obj Da Labs Labs: Laboratory Results - last 24 hr 05/06/25 05/07/25 05/07/25 18:21 04:54 11:32 Estimat Average Glucose 151 Hemoglobin A1c 6.9 H RSV Antigen Not detected POC Glucose 372 H 05/07/25 05/07/25 05/08/25 16:34 21:40 07:49 Estimat Average Glucose Hemoglobin A1c RSV Antigen POC Glucose 363 H 283 H 254 H
[2025-05-08] MEDS: LISINOPRIL 5 MG TABLET 2.5 MG PO (08:31)
[2025-05-08] MEDS: INSULIN ASPART 300 UNIT/3 ML PEN SUBQ ×4 (08:31→21:01)
[2025-05-08] MEDS: GLIPIZIDE 5 MG TABLET 2.5 MG PO (08:31)
[2025-05-08] MEDS: ATORVASTATIN CALCIUM 40 MG TABLET PO (08:32)
[2025-05-08] MEDS: CARBIDOPA/LEVODOPA 25 MG-100 MG TABLET 1 TAB PO ×4 (08:32→21:01)
[2025-05-08] MEDS: ENOXAPARIN SODIUM 40 MG/0.4 ML SYRINGE SUBQ (08:32)
[2025-05-08] MEDS: GABAPENTIN 300 MG CAPSULE PO ×2 (08:32→21:01)
--- NOTE | 2025-05-08 08:48 | SWNOTE1 ---
Pt does have a home cpap and per patient she wears it every night.
[2025-05-08] MEDS: IPRATROPIUM/ALBUTEROL SULFATE 3 ML AMPUL.NEB IH ×3 (09:00→20:12)
[2025-05-08 09:06] LABS: Anion Gap 15.4; Blood Urea Nitrogen 26.0 mg/dL (7.0-18.0); Calcium 8.8 mg/dL (8.5-10.1); Carbon Dioxide 24.0 mmol/L (21.0-32.0); Chloride 104 mmol/L (98-107); Estimated GFR (African America 37 (>=60 mL/min/1.73m^2); Estimated GFR (Non-African Ame 31 (>=60 mL/min/1.73m^2); Glucose 276 mg/dL (74-106); Potassium 4.4 mmol/L (3.5-5.1); Sodium 139 mmol/L (136-145)
--- NOTE | 2025-05-08 09:06 | SWNOTE1 ---
ROGELIO called and spoke to Talya at [facility]. They do have the referral, but have not reviewed it yet. Talya voiced they will review and let ROGELIO know. She stated everything should be good since she has [employer] Medicare.
[2025-05-08 09:15] LABS: Alanine Aminotransferase 20 U/L (14-59); Albumin Globulin Ratio 0.5; Albumin Level 2.6 g/dL (3.4-5.0); Alkaline Phosphatase 105 U/L (46-116); Aspartate Amino Transferase 85 U/L (15-37); Globulin 4.9 g/dL; Total Protein 7.5 g/dL (6.4-8.2)
--- NOTE | 2025-05-08 09:30 | SWNOTE1 ---
ROGELIO received a call from Talya at [facility] and they are able to accept. ROGELIO to send dc orders once they are in.
--- NOTE | 2025-05-08 10:01 | CM.NOTE ---
Rounds made with Dr. Lucas, discussed plan of care with pt. Plan is for discharge home today with [facility].
--- NOTE | 2025-05-08 10:02 | US_ITS ---
The [address] [address] Patient Name: EDIE ESTRADA MRN: [id number] date: 1960 Sex: F Assigned Patient Location: Current Patient Location: Accession/Order Number: [id number] Exam Date: 05/08/2025 11:00 Report Date: 05/08/2025 12:02 At the request of: HOSSEIN MCKEON MD Procedure: US renal BI BILATERAL RENAL AND BLADDER ULTRASOUND CLINICAL HISTORY: [facility] . Prior left nephrectomy. COMPARISON: CT 03/31/2025 There is compensatory hypertrophy of the right kidney which measures present 17 cm in craniocaudal dimension. The left kidney is surgically absent. No shadowing calculi are identified. There is still slight fullness of the right renal pelvis. No renal mass lesions were imaged. There is no perinephric fluid. A large hepatic cyst is again seen measuring almost 17 cm in size. The urinary bladder is partially distended with a volume of 187 mL. No contour or intraluminal abnormalities are seen. US/US renal BI IMPRESSION: PRIOR LEFT NEPHRECTOMY. MINOR RIGHT PELVIECTASIS. INCIDENTAL LARGE HEPATIC CYST. Impression dictated by: Edie Evans M.D. 05/08/2025 12:02 PM Dictation Location: [place] [address] Electronically authenticated by: [id number] Y Date: 05/08/2025 12:02
--- NOTE | 2025-05-08 10:09 | CM.NOTE ---
Per tiger text from Dr Lucas patient will need to stay another day to see if renal function improves. Pt discharge put on hold until tomorrow.
--- NOTE | 2025-05-08 11:12 | SWNOTE1 ---
Pt is not leaving today. SW did send udpated physician note, PT/OT notes from today, and CRF to [facility].
[2025-05-08] MEDS: 0.9 % SODIUM CHLORIDE 250 ML 30 ML IV (11:56)
--- NOTE | 2025-05-08 12:02 | PT.DAILY ---
Physical Therapy Daily Note PT Daily Note/Assess Start: 05/07/25 11:15 Freq: Status: Active Protocol: Document 05/08/25 11:12 [id number] (Rec: 05/08/25 12:02 [id number] No Response) Physical Therapy Daily Note/Assessment Time In/Time Out Time In 09:18 Time Out 09:44 Pain In Pain Level 0 Pain Out Pain Level 0 Subjective Subjective Patient received seated in chair at bedside. Patient agreeable to participate with PT. Patient inquired about Parkinson's and what she can do to address it. Therapeutic Activity Time Therapeutic Activity 15 Minutes (minutes) Therapeutic Activity 1 Units Therapeutic Activity Treatment Bed Mobility Ability Contact Guard Assist Chair Transfer Contact Guard Assist Ability Therapeutic Activity Chair to stand to 2WW is CGA +1. Verbal cues for safe Comments hand placement on arm rests for standing up and sitting down. Patient performed chair to bedside transfer 5 times w/ use of TESHA UE and 2WW. Patient ambulated ~ 120 ft. x 1 w/ 2WW w/ CGA +1. Demonstrates decreased step length and height during ambulation w/ 2WW. Patient returned to chair at bedside. All needs met and CBWR. Neuromuscular Reeducation Neuromuscular 11 Reeducation Minutes (minutes) Neuromuscular 1 Reeducation Units Neuromuscular Standing at sink patient performed large amplitude Reeducation movement w/ 1-2 UE support for multi-directional stepping. Verbal cues to increase amplitude of weight shift to improve balance. Patient demonstrates good set switching b/w tasks in transitioning from one direction stepping to a different direction. Educated on importance of increasing amplitude of movement to improve balance to reduce risks for falls. States she understands. Patient states she can do these at home. Discussed the benefits of skilled care post D/C and possible outpatient PT where she can be educated about PD and provided tools to manage PD. Patient agreeable to have basic resource information mailed to her home. Total Physical Therapy Time Total Therapy 26 Minutes Total Physical 2 Therapy Units Summary Daily Note Summary Patient demonstrates improved posture during ambulation . Continues with decreased step length and height which can affect her balance. Requires less assistance with transfers, requires heavy verbal cues for safe hand placement during transfers. Patient educated about motor and non-motor symptoms of PD. The importance of eating a good diet and moving as frequently as she is able to do so safely. States she understands. Patient would benefit from skilled services upon D/C to address functional deficits and decreased safety awareness.
[2025-05-08] MEDS: PNEUMOC 20-VAL CONJ-DIP CRM/PF 0.5 ML SYRINGE IM (12:33)
[2025-05-08] MEDS: AZITHROMYCIN 250 MG TABLET 500 MG PO (17:47)
[2025-05-08] MEDS: GUAIFENESIN 200 MG/DEXTROMETHORPHAN 20 MG 10 ML UNIT DOSE CUP PO (21:01)
[2025-05-08] MEDS: ROPINIROLE HCL 1 MG TABLET PO (21:01)
[2025-05-09] VITALS (11 sets, daily range): BP systolic 96–106; BP diastolic 56–68; PULSE 53–70; TEMP 36.6; O2SAT 93
[2025-05-09] MEDS: GUAIFENESIN 200 MG/DEXTROMETHORPHAN 20 MG 10 ML UNIT DOSE CUP PO (07:36)
[2025-05-09] MEDS: ENOXAPARIN SODIUM 40 MG/0.4 ML SYRINGE SUBQ (08:39)
[2025-05-09] MEDS: GABAPENTIN 300 MG CAPSULE PO (08:39)
[2025-05-09] MEDS: ATORVASTATIN CALCIUM 40 MG TABLET PO (08:39)
[2025-05-09] MEDS: LISINOPRIL 5 MG TABLET 2.5 MG PO (08:39)
[2025-05-09] MEDS: GLIPIZIDE 5 MG TABLET 2.5 MG PO (08:39)
[2025-05-09] MEDS: CARBIDOPA/LEVODOPA 25 MG-100 MG TABLET 1 TAB PO (08:41)
[2025-05-09] MEDS: IPRATROPIUM/ALBUTEROL SULFATE 3 ML AMPUL.NEB IH (09:14)
--- NOTE | 2025-05-09 11:08 | PT.DAILY ---
Physical Therapy Daily Note PT Daily Note/Assess Start: 05/07/25 11:15 Freq: Status: Active Protocol: Document 05/09/25 10:17 [id number] (Rec: 05/09/25 11:08 [id number]) Physical Therapy Daily Note/Assessment Time In/Time Out Time In 10:17 Time Out 10:43 Subjective Subjective Patient agrees to PT. Reports feeling better today, feeling stronger. Therapeutic Exercise Time Therapeutic Exercise 15 Minutes (minutes) Therapeutic Exercise 1 Units Therapeutic Exercise Treatment Therapeutic Exercise Seated exercises with alternating movements 10x each LE Treatment . Seated marches with alternating hand taps to knee 7x to each side. Difficult for patient, slow but able to complete with verbal cuing to pattern. Unsupported seated with cross body punches and reaching out of KVNG. Standing marches 10x Standing alternating lateral steps 10x Calf raises 10x Standing alternating fwd/retro steps 10x Therapeutic Activity Time Therapeutic Activity 10 Minutes (minutes) Therapeutic Activity 1 Units Therapeutic Activity Treatment Chair Transfer Standby Assistance Ability Therapeutic Activity Gait 225' with RW SBA. No LOB noted. Sit to stand and Comments steps with RW 5x Total Physical Therapy Time Total Therapy 25 Minutes Total Physical 2 Therapy Units Summary Daily Note Summary Improved distance and balance with gait pattern noted today. Focused exercises to improve strength and coordination with moderate fatigue noted with slight increase in tremors post exercise program. Patient will benefit from continued therapy at [place] in HH setting and then progressing to OP setting for continued work on improving strength, balance and coordination. Patient was in chair with legs elevated, call light in reach and all needs met post RX.
--- NOTE | 2025-05-09 11:10 | P.DS_ITS ---
DS: Providers Provider Date of admission: 05/06/25 22:43 Primary care physician: JULIANNA MCQUEEN Consults: 05/07/25 Occupational Therapy Eval and Treat Routine Reason for consultation: weakness Physical Therapy Eval and Treat Routine Reason for consultation: weakness DS: Diagnosis Discharge Diagnosis (1) Acute kidney injury: (2) Dehydration, mild: (3) Acute bacterial bronchitis: (4) Generalized weakness: (5) Exertional shortness of breath: (6) Parkinsons disease: (7) Hypertension: (8) Diabetes mellitus: (9) Sleep apnea: (10) Right thyroid nodule: (11) History of ileostomy: (12) History of reversal of ileostomy: (13) Hx SBO: (14) History of resection of small bowel: (15) History of ureter repair: (16) Hepatic cyst: DS: Summary Hospital Course Hospital Course: This is a 64-year-old woman with a history of diabetes and Parkinson's disease who was brought to the emergency room due to complaints of severe weakness. The patient did not have any particularly strong symptoms at home other than feeling really bad and feeling very low energy. She did not get out of bed for 4 days and she did not eat or drink for 4 days and did not take her usual medicines at home for 4 days because she just felt so bad. Her family members became aware and they brought her to the emergency room. In the ER CTA of the chest ruled out pulmonary embolus. There is an incidental finding of a 1.9 cm hypoattenuating nodule within the right lobe of her thyroid gland. There are accompanying peripheral calcifications. In the ER concern for dehydration leading to acute kidney injury was raised. The patient was admitted to the hospital to get IV fluids. Admitting hospitalist started the patient on IV Rocephin and Zithromax. The patient does have a cough. She has a lot of sinus congestion. There are a lot of influenza-like illnesses going around at this time. The patient's nose was swabbed for influenza AB COVID and RSV and was found to be negative. Nevertheless she got a lot better on the Rocephin and Zithromax. She had physical therapy evaluation. Her strength had come back. She was able to walk in the hallways with a walker with physical therapy guidance regarding her Parkinson's disease. Her creatinine curve was 1.74, then 1.59, and then 1.68. The patient was eating well. She was drinking fluids well. This hospital's medical record is relatively new so the EHR information regarding this patient was relatively sparse. It was not known that she only has 1 kidney. A renal ultrasound shows evidence of the old prior nephrectomy and minor right pelviectasis and incidental finding of a large hepatic cyst that the patient is known about for many decades but otherwise the remaining kidney was normal in sizes fracture on this right kidney. The patient has a complicated past urologic and surgical history. When she was a young child she had a complete left nephrectomy. She does not remember the details of this. Between the ages of 10 years old and 15 years old she did have an ileostomy. She does not remember why the ileostomy was in place. At 15 years old at [facility] the ileostomy was reversed. 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 For a while she had to have a right sided percutaneous nephrostomy tube. In November 2017 the urologists at the [facility] were able to remove a valve in her ureter and reimplant the ureter and she had been doing well since then other than getting frequent urinary tract infections. In year 2019 she had a small bowel obstruction that was treated surgically here at [facility] with surgery with Dr. Woods. After that she was transferred to a hospital in [place] where they did not need to have any more surgical procedures done but she was monitored for a while until she improved and was able to be discharged. Most recently, in March of 2025 she had a small bowel obstruction. She originally came to the ER at [facility], and then was transferred to [facility] where they placed a nasogastric tube. Given her large number of past abdominal surgeries general surgery with Dr. Coleman there felt like he would not be able to take this patient to the operating room safely should she needed to be transferred to a higher level of care. She was discussed with the [facility] and also with [facility]. It took several days for a hospital bed to open up and she finally got a bed at [facility]. The patient's description of the ambulance ride to the [facility] was it was extremely uncomfortable and she could feel every bump and every crack in the road that caused a lot of abdominal pain. As soon as she got to that hospital she says that she had a explosive bowel movement and after that the small bowel obstruction then did resolve on its own and she did not need any surgery. Since then she has been trying to eat a lot of salads and have a high-fiber diet and she is trying to drink plenty of water. Anyhow, at the end of this brief stay here at the [facility] she was doing much better. Her appetite did return. She was eating food well. She was drinking foods well. Her creatinine is stable. She worked with physical therapy. She was able to ambulate through the hallways with a walker and with guidance of physical therapy. She is very eager to go home. She is being treated for an acute bacterial bronchitis and being sent home on a cephalosporin and Zithromax as well as guaifenesin to complete the course of treatment for this. Status at Discharge Functional status at discharge: uses cane/walker Overall status at discharge: patient is progressing back to baseline Time Spent with Patient Time attestation: Total time spent providing and/or coordinating discharge services: 43 minutes. Time spent: greater than 30 minutes Exam Narrative Exam Narrative: Seen ambulating in the halls with physical therapy. Using a walker. Ambulating well. Able to walk down the hallway and around the [place] in the lobby with guidance from physical therapy. Later, seen in her room, she is sitting in a chair. Her affect is bright. She is conversant. Pulmonary: She does have coarse rhonchi throughout. Does have a cough with minimal production of mucus. No wheezing at all in any of the lung salgado. No focal areas of crackles. GI: Abdomen soft, normal bowel sounds to auscultation. Lower extremities: No edema in her ankles. No swelling or knots or cords in the calves bilaterally. Cardiac: No murmurs to auscultation. Constitutional Vital Signs, click to edit/add: Last Vital Signs Temp 98 F 05/09/25 07:27 Pulse 70 05/09/25 09:53 Resp 20 05/09/25 09:16 BP 106/68 05/09/25 07:27 Pulse Ox 93 L 05/09/25 09:16 O2 Del Method Room Air 05/09/25 09:16 O2 Flow Rate 2 05/07/25 19:38 DS: Data Data Completed and Pending Labs on day of discharge: Labs from last 24 hours 05/09/25 05/08/25 05/08/25 07:24 20:56 16:02 POC Glucose 131 H 198 H 205 H 05/08/25 11:36 POC Glucose 306 H Preliminary micro results at discharge 05/06/25 18:35 Blood Culture Result 2 - Preliminary Blood - Left Antecubital NO GROWTH AT 36-48 HOURS. FINAL TO FOLLOW. 05/06/25 18:25 Blood Culture Result 1 - Preliminary Blood NO GROWTH AT 36-48 HOURS. FINAL TO FOLLOW. 05/07/25 05:55 Urine Culture - Preliminary Urine,Clean Catch Pending - Specimen sent to [facility] Discharge Plan Discharge Disposition: Home Health Service Condition: Good Discharge Medications: New azithromycin 250 mg tablet 250 mg PO DAILY 6 Days Qty: 6 0RF guaifenesin 1,200 mg tablet extended release 12hr 1,200 mg PO BID PRN (Reason: cough and congestion) Qty: 30 0RF cefdinir 300 mg capsule 300 mg PO BID 6 Days Qty: 12 0RF Continued gabapentin 300 mg capsule 300 mg PO Q12H carbidopa-levodopa 25-100 mg tablet 1 tab PO QID Patient Comments: 0800, noon, 4 pm and 8 pm glipizide 5 mg tablet 5 mg PO DAILY ropinirole 1 mg tablet 2 mg PO BEDTIME Rx Instructions: take two tabs lisinopril 2.5 mg tablet 2.5 mg PO DAILY mirtazapine 15 mg tablet 15 mg PO .QHS prazosin 2 mg capsule 2 mg PO QPM atorvastatin 40 mg tablet 40 mg PO DAILY Held metformin 1,000 mg tablet 1,000 mg PO BID Hold Instructions: Resume on 05/11/25. Hold this for 2 more days as you had a CT scan with contrast into the IV. Print Language: Syriac Patient Instructions: Azithromycin (By mouth), Cefdinir (By mouth), Dehydration (DC), Hypoxemia (DC) Pe Teacher/Network Relay Tester Instructions: Discharge with [facility]. [facility] should contact you within 48 hours of discharge. If you do not receive a call, please contact [facility] at [phone]. Forms: Portal Instructions Referrals: SISSY VALLES [Physician] Follow Up Appointments: PCP follow Julianna Mcqueen Apr @9:40 [place] office [phone]
--- NOTE | 2025-05-11 12:52 | CM.DCFOLLOWU ---
Person spoke with:Edie How are you feeling? Better How is your pain? No pain Did you understand your discharge instructions? Yes Do you have any questions about your discharge instructions? No Were you given any prescriptions at discharge? Yes Were you able to get your prescriptions filled? Yes Do you understand how to take your medications as ordered? Yes Do you have any questions about your follow up appointment and do you plan to keep your follow up appointment? No questions. Yes she plans on keeping her follow up appt. Is there anything else that you would like to discuss? No Questions/Comments/Concerns/Other:
== END 2025-05-09 12:00 | disposition home health service (06) | DRG 202 ==
LOC: ER 22:58 → MS 05-07 10:15
PROVIDERS: Emergency Medicine; Student in an Organized Health Care Education/Training Program; Admitting Provider Internal Medicine; Emergency Provider Emergency Medicine; PCP Nurse Practitioner; Visit Provider Internal Medicine
DX: J20.9 Acute bronchitis, unspecified (principal); N17.9 Acute kidney failure, unspecified; E86.0 Dehydration; I12.9 Hypertensive chronic kidney disease with stage 1 through stage 4 chronic kidney disease, or unspecified chronic kidney disease; N18.30 Chronic kidney disease, stage 3 unspecified; E11.22 Type 2 diabetes mellitus with diabetic chronic kidney disease; G20.A1 Parkinson's disease without dyskinesia, without mention of fluctuations; G47.33 Obstructive sleep apnea (adult) (pediatric); E04.1 Nontoxic single thyroid nodule; G25.81 Restless legs syndrome; E78.5 Hyperlipidemia, unspecified; Z90.5 Acquired absence of kidney; Z79.84 Long term (current) use of oral hypoglycemic drugs; Z79.899 Other long term (current) drug therapy
CPT/HCPCS: 36415; 71045; 71275; 76775; 80048; 80053; 80076; 81001; 82948; 83036; 83605; 83735; 83880; 84484; 85007; 85025; 85027; 85378; 87040; 87070; 87086; 87205; 87420; 87804; 87811; 90677; 93005; 94640; 94761; 96361; 96365; 96366; 96368; 96375; 97110; 97112; 97162; 97165; 97530; 97535; 99285; 99406; J0456; J0696; J1650; J2270; J2405; J2919; Q9967